=== PATIENT | male | born 1940 | race Caucasian/White ===

== ENCOUNTER → 2016-08-28 | Outpatient (REF) | payer MEDICARE ==
[2016-08-28 12:40] LABS: BASO % 0.5 % (0.0-1.0); EOS # 0.2 K/mm3 (0.0-0.50); EOS % 2.9 % (0.0-3.0); LARGE UNSTAINED CELL # 0.1 K/mm3 (0.0-0.4); LARGE UNSTAINED CELL % 1.5 % (0.0-4.0); LYMPH # 0.9 K/mm3 (1.5-4.5); LYMPH % 14.1 % (24.0-44.0); MEAN CORPUSCULAR HEMOGLOBIN 29.1 pg (27.0-33.0); MEAN CORPUSCULAR HGB CONC 35.1 g/dl (32.0-36.5); MEAN CORPUSCULAR VOLUME 82.9 fl (80.0-96.0); MONO # 0.3 K/mm3 (0.0-0.8); MONO % 5.1 % (0.0-5.0); NEUTROPHILS # 4.9 K/mm3 (1.8-7.7); NEUTROPHILS % 75.9 % (36.0-66.0); PLATELET COUNT, AUTOMATED 130 k/mm3 (150-450); RED CELL DISTRIBUTION WIDTH 13.6 % (11.5-14.5); WHITE BLOOD COUNT 6.4 K/mm3 (4.0-10.0)
[2016-08-28 13:06] LABS: ALBUMIN 4.4 GM/DL (3.2-5.2); ALBUMIN/GLOBULIN RATIO 1.47 (1.00-1.93); ALKALINE PHOSPHATASE 55 U/L (45-117); ALT/SGPT 30 U/L (12-78); ANION GAP 8 MEQ/L (8-16); AST/SGOT 19 U/L (15-37); BILIRUBIN,TOTAL 0.7 MG/DL (0.2-1.0); BLOOD UREA NITROGEN 14 MG/DL (7-18); CALCIUM LEVEL 9.2 MG/DL (8.8-10.2); CARBON DIOXIDE LEVEL 30 MEQ/L (21-32); CHLORIDE LEVEL 105 MEQ/L (98-107); CHOLESTEROL LEVEL 162 MG/DL (<200); CREATININE FOR GFR 1.01 MG/DL (0.70-1.30); GLOMERULAR FILTRATION RATE > 60.0 (>42); GLUCOSE, FASTING 92 MG/DL (83-110); POTASSIUM SERUM 4.6 MEQ/L (3.5-5.1); SODIUM LEVEL 143 MEQ/L (136-145); TOTAL PROTEIN 7.4 GM/DL (6.4-8.2); TRIGLYCERIDES LEVEL 92 MG/DL (<150)
== END ==
LOC: M SFHCADAM 09:57
PROVIDERS: ATTEND Physician Assistant Medical
DX: R73.01 Impaired fasting glucose (principal); E78.4 Other hyperlipidemia; M15.9 Polyosteoarthritis, unspecified; K21.9 Gastro-esophageal reflux disease without esophagitis; K22.710 Barrett's esophagus with low grade dysplasia; N40.0 Benign prostatic hyperplasia without lower urinary tract symptoms; I11.9 Hypertensive heart disease without heart failure; G63 Polyneuropathy in diseases classified elsewhere
CPT/HCPCS: 80053; 80061; 82043; 83036; 84443; 85025; G0463

== ENCOUNTER → 2018-02-09 | Outpatient (CLI) | payer OTHER, MEDICARE | LOC: M SLEEP 19:36 | DX: R40.0 Somnolence (principal) | CPT/HCPCS: 95810 ==

== ENCOUNTER → 2018-04-04 | Outpatient (CLI) | payer OTHER | LOC: M SLEEP 20:00 | DX: G47.33 Obstructive sleep apnea (adult) (pediatric) (principal) | CPT/HCPCS: 95811 ==

== ENCOUNTER → 2018-11-30 | Outpatient (REF) | payer OTHER ==
[~2018-11-30] MED LIST: CALC600T36 PO; CIDA500T2 PO; FINA5TAB2 PO; FISH306C PO; FLOM0.4C39 PO; GABA-843 PO; LISI-542 PO; MULTCAP PO; OMEP10CASR PO; SIMV20TA2 PO; SPIR-10 PO; WARF-23 PO
[2018-11-30 10:38] LABS: HEMATOCRIT 40.5 % (42.0-52.0); HEMOGLOBIN 13.7 g/dl (13.5-17.5); MEAN CORPUSCULAR HGB CONC 33.8 g/dl (32.0-36.5); MEAN CORPUSCULAR VOLUME 82.8 fl (80.0-96.0); PLATELET COUNT, AUTOMATED 122 10^3/uL (150-450); RED BLOOD COUNT 4.89 10^6/uL (4.30-6.10); WHITE BLOOD COUNT 4.4 10^3/uL (4.0-10.0)
[2018-11-30 11:21] LABS: ALBUMIN 4.4 GM/DL (3.2-5.2); BLOOD UREA NITROGEN 18 MG/DL (7-18); CALCIUM LEVEL 9.4 MG/DL (8.8-10.2); CARBON DIOXIDE LEVEL 27 MEQ/L (21-32); CHLORIDE LEVEL 101 MEQ/L (98-107); CREATININE FOR GFR 0.98 MG/DL (0.70-1.30); GLOMERULAR FILTRATION RATE > 60.0 (>42); GLUCOSE, FASTING 120 MG/DL (70-100); MAGNESIUM LEVEL 1.9 MG/DL (1.8-2.4); PHOSPHORUS LEVEL 3.5 MG/DL (2.5-4.9); POTASSIUM SERUM 4.2 MEQ/L (3.5-5.1); SODIUM LEVEL 135 MEQ/L (136-145)
== END ==
LOC: M LABDRAW1 10:24
PROVIDERS: ATTEND Internal Medicine Cardiovascular Disease
DX: I44.30 Unspecified atrioventricular block (principal)

== ENCOUNTER 2018-12-06 12:10 | Day surgery (SDC) | payer OTHER ==
[~2018-12-06] VITALS: Ht 170.2 cm; Wt 78.3 kg
[2018-12-06] VITALS (10 sets, daily range): BP systolic 117–163; BP diastolic 53–77
[~2018-12-06 12:10] MED LIST changes: +LR 1,000 ML IV ONE
[2018-12-06 12:50] LABS: INR 1.19; PARTIAL THROMBOPLASTIN TIME 28.8 SECONDS (25.4-37.6); PROTHROMBIN TIME 15.3 SECONDS (12.1-14.4)
[2018-12-06] MEDS ORDERED: PROPOFOL 200 MG/20 ML VIAL As Ordered ONE ×2 (13:38→15:02)
[2018-12-06] MEDS ORDERED: fentaNYL 100 MCG/2 ML INJECTION (J3010) As Ordered ONE (13:38)
[2018-12-06] MEDS ORDERED: MIDAZOLAM INJ 2 MG/2 ML VIAL (J2250) As Ordered ONE (13:38)
[2018-12-06] MEDS ORDERED: LIDOCAINE 1% SDV INJ 30 ML VIAL As Ordered ONE (14:09)
[2018-12-06] MEDS ORDERED: AMIODARONE HCL 150 MG/100 ML PREMIXED BAG (NEXTERONE) As Ordered ONE (14:10)
[2018-12-06] MEDS ORDERED: ePHEDrine SULFATE 25 MG/5 ML(5MG/ML) SYRINGE As Ordered ONE (14:47)
[2018-12-06] MEDS ORDERED: PHENYLephrine HCL 500 MCG/5 ML (100MCG/ML) SYRINGE (J2370) As Ordered ONE (15:07)
[2018-12-06] MEDS ORDERED: ACETAMINOPHEN TAB 650MG DOSE (2X325MG) PO PRN (15:45)
--- NOTE | 2018-12-06 17:43 | REP ---
PORTABLE CHEST: AP portable view of the chest is performed and compared to prior study 11/10/2006. There is mild cardiomegaly and pulmonary venous hypertension. There are chronic lung markings on the right lung base with probable mild atelectatic change. There is mild patchy atelectasis or infiltrate in the left lung base with possibly a small left pleural effusion. There is calcification of the thoracic aorta. There are degenerative changes of the spine. There is a left single lead pacemaker with the single lead appearing in good position in the region of the right ventricle. There is no pneumothorax. Electronically Signed by Johnnie Strong MD 12/06/2018 06:35 P
[2018-12-06] MEDS ORDERED: LISINOPRIL 5 MG TAB PO SCH (21:00)
[2018-12-06] MEDS ORDERED: SIMVASTATIN 20 MG TAB PO SCH (21:00)
[2018-12-06] MEDS: GABAPENTIN 300 MG CAP PO SCH (22:24)
--- NOTE | 2018-12-07 00:42 | ECGEPIP ---
Stationary ECG Study 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
[2018-12-07 04:00] VITALS: BP 138/67
[2018-12-07] MEDS: GABAPENTIN 300 MG CAP PO SCH ×2 (06:39→08:51)
--- NOTE | 2018-12-07 06:40 | RO ---
DATE OF PROCEDURE: 12/06/2018 PROCEDURE: Implantation of single chamber ventricular demand pacemaker. 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 Yvon Sun ANESTHESIOLOGIST: Dr. Ulrich PREOPERATIVE DIAGNOSES: 1. Intermittent high-grade AV block. 2. Chronic atrial fibrillation. 3. PVCs due to intermittent profound bradycardia and pauses. 4. Congestive heart failure (diastolic dysfunction). 5. Hypertensive heart disease (benign with heart failure). POSTOPERATIVE DIAGNOSES: 1. Intermittent high-grade AV block. 2. Chronic atrial fibrillation. 3. PVCs due to intermittent profound bradycardia and pauses. 4. Congestive heart failure (diastolic dysfunction). 5. Hypertensive heart disease (benign with heart failure). ANESTHESIA: Monitored local anesthesia. CLINICAL SUMMARY: This 78-year-old retired resident of [place] is well-known to my cardiology practice having hypertensive and pulmonary heart disease with nonobstructive coronary disease complicated by abnormal EKG, atrial fibrillation, heart failure (diastolic dysfunction) and AV marky disease. He had been on beta-yahir therapy, but this was discontinued because of bradycardia and lightheadedness. An event monitor was placed on 10/12/2018 for 30 days and showed underlying atrial fibrillation with ventricular response that varied between 22 and 96 BPM with 31 episodes of palpitations that did not appear to correlate with any definite rhythm change. There were 103 asymptomatic auto trigger transmissions correlating with slow ventricular responses in the low 30s and as low as 21 beats per minute and multiple 3-second pauses or longer with longest 4 seconds. With his markedly slow ventricular responses, there were frequent prolonged pauses and PVCs with 1 run of accelerated idioventricular rhythm. In light of this, permanent single chamber pacemaker implant was advised. His effort limiting symptom has been dyspnea. He has had an impressive weight loss with diuretic therapy and dietary measures. He continued to have palpitations, but interestingly lightheaded episodes were less off atenolol. He denied chest pain or actual collapse. On examination, he was a slightly barrel-chested elderly male with protuberant abdomen. He laid comfortably with head of the bed elevated 30 degrees. Heart rate of 36-64 BPM and irregular, blood pressure 120/52, respiratory rate 16, BMI 27.6. No pallor or cyanosis. Trachea midline. Current neck veins were at the level of the sternal angle. Increased anteroposterior chest diameter with reduced chest excursion. Fair air entry over both lung suazo with no current inspiratory rales. Slight prolongation of expiration. Apical impulse not palpable. Heart sounds were distant. No audible gallop or rub. Variable systolic ejection murmur averaging 2/6 at the right base. Normal carotid upstrokes with variable volume related to his arrhythmia. No current dependent edema. Abdomen soft and overweight. Normal liver span. LABORATORY DATA: Complete blood count showed a hemoglobin of 14.5, normal white blood cell count and platelet count. Normal electrolytes with BUN 17, creatinine 1.0. Off his warfarin therapy for 3 days his current was PT/INR was 15.3/1.2. DESCRIPTION OF PROCEDURE: With the patient in the fasting state having signed informed consent and receiving Ancef 2 grams IV, he was taken to the operating theater. Numerous skin electrodes were applied to facilitate continuous electrocardiographic monitoring. The left subclavian region was prepped and draped in usual fashion and the skin was infiltrated with 1% Xylocaine. The left subclavian/axillary vein was catheterized using the micropuncture technique. A 5 cm linear incision was made several centimeters below and parallel to the left clavicle. Dissection was carried down to the level of the pectoralis fascia and the pocket was fashioned below the level of the incision line. Eight bipolar screw-in active fixation steroid eluting pacing lead was then advanced to the right ventricular outflow track under fluoroscopic and electrocardiographic control. The ventricular lead ([employer], model number [id number]/[id number], serial number [id number]) measurements were: Stimulation threshold 0.8 V/0.4 ms/impedance 731 ohms. The R wave amplitude measured 9.6 mV. This lead was secured in position with the sleeves sutured at its insertion site. It was then connected to a single chamber ventricular demand pacemaker pulse generator ([employer], model number [id number], serial number [id number]), MRI compatible. Appropriate VVI pacing was documented. The generator was then placed in the pocket and secured in position with a suture through the upper right-hand corner of the epoxy header. The subcutaneous tissues were approximated using a running chromic suture and skin was closed using leticia. A dry dressing was applied. The patient was then returned to recovery room in good condition. Estimated blood loss 10 ml. No apparent complications. Postoperative portable upright chest x-ray showed good lead position with no pneumothorax. His postoperative EKG showed underlying atrial fibrillation with spontaneous alternating with appropriately paced ventricular complexes, ventricular complexes having a normal axis and left bundle branch block configuration in keeping with RV outflow tract stimulation. Our plan is to monitor the patient overnight while he receives an additional three doses of Ancef 1 gram IV every 8 hours. We are cautiously optimistic he will be able to be discharged tomorrow morning. His oral anticoagulant will remain on hold for the time being. His other medications have been resumed including lisinopril 5 mg by mouth at bedtime, spironolactone 12.5 mg daily, simvastatin 20 mg at bedtime, Flomax 0.4 mg daily, Neurontin 3 mg by mouth five times daily, Proscar 5 mg daily, Tylenol 650 mg by mouth every 4 hours as needed.
[2018-12-07 08:00] VITALS: BP 126/66
[2018-12-07] MEDS ORDERED: SPIRONOLACTONE 12.5MG PER 1/2 TABLET PO SCH (09:00)
[2018-12-07] MEDS ORDERED: TAMSULOSIN 0.4 MG CAP PO SCH (09:00)
[2018-12-07] MEDS ORDERED: FINASTERIDE 5 MG TAB PO SCH (09:00)
--- NOTE | 2018-12-07 09:48 | REP ---
Chest x-ray: Two views. History: Status post pacemaker. Comparison study: December 06, 2018. Findings: A unipolar pacemaker is seen in the right heart via the left side. The lungs are well inflated and clear. The pleural angles are sharp. The thoracic aorta is calcific. There is no evidence of pneumothorax or hydrothorax. Pulmonary vasculature is not increased. Impression: Pacemaker in place. Otherwise no acute disease. Electronically Signed by Franky Rush MD 12/07/2018 09:39 A
--- NOTE | 2018-12-07 10:45 | IPN ---
CARDIOLOGY PROGRESS NOTE DATE OF SERVICE: 12/07/2018 SUBJECTIVE: The patient has been up in his room without more than mild incisional discomfort following his pacemaker implant yesterday. No other chest pain, shortness of breath, complications, or dizziness. OBJECTIVE: Pleasant, elderly male of medium body build, lying comfortably. Heart rate 60 beats per minute (BPM) and regular with irregularity. Blood pressure 126/66. Respiratory rate 16. Oxygen saturation 94% on room air. Afebrile. Weight 173 pounds. No pallor or cyanosis. Normal oral moisture. Neck veins were not elevated. Slightly increased anterior posterior chest diameter with reduced chest expansion. His left subclavian pacer incision appears to be healing well. Dressing was changed. No dependent edema. MANAGER OF BUSINESS: This shows his chronic atrial fibrillation with controlled ventricular response without negative chronotropic therapy. Appropriate VVI pacing and sensing. CHEST X-RAY: The study reviewed independently shows heart size at least borderline increased with slight unfolded thoracic aorta and calcification in the aortic arch. Pulmonary vasculature was normal. Clear lung suazo with no infiltrate. Lateral projection shows flattened diaphragms suggesting element of hyperinflation. His pacemaker lead in the right ventricle outflow tract is stable in position. No pneumothorax. EKG: Today shows his underlying atrial fibrillation with appropriate VVI pacing. Rate averaging 64 BPM. Paced QRS complexes have a normal axis with left bundle branch block (LBBB) configuration in keeping with RV outflow tract stimulation. No change from postoperative study yesterday. IMPRESSION/PLAN: 1. 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 2. AV block/single chamber pacemaker in situ: This device appears to be healing properly. Complete interrogation was performed today with good intracardiac electrograms and pacing thresholds and estimated battery longevity of 11 years. Chest x-ray confirms stable lead position. He has been encouraged to avoid getting his incision wet and perform only light activities of daily living with his left arm until his leticia are removed in our office. Should he notice any abnormal erythema, swelling or discharge, he will be contacting our office promptly. 3. Chronic atrial fibrillation: Remains off negative chronotropic therapy. His oral anticoagulation will be resumed today. 4. Heart failure (diastolic/chronic): Remains free of any symptom or sign of congestion. He will be resuming his customary modest salt intake restriction with spironolactone and chlorthalidone. 5. Hypertensive heart disease (benign with heart failure): On his current combination medical therapy, his blood pressure is well controlled. At this point, we will be sending him home and he will be resuming his modest salt intake restriction. Activity was to be as tolerated, except for light activity of daily living with his left arm until his leticia are removed. He will be given a clinic visit in my office for 12/13/2018 at 2:15 p.m. His medications will continue with lisinopril 5 mg daily, chlorthalidone 12.5 mg daily, spironolactone 12.5 mg daily, warfarin 5 mg tablets one tablet daily, simvastatin 20 mg at bedtime, omeprazole 20 mg daily, multivitamin one tablet daily, calcium 600 mg tablets two daily, Flomax 0.4 mg daily, Proscar 5 mg daily, and gabapentin 300 mg five times daily. Should he have any questions, he has been encouraged to contact our office.
--- NOTE | 2018-12-07 21:28 | ECGEPIP ---
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
== END 2018-12-07 12:39 | disposition home or self-care (01) ==
LOC: M SDC 12:10 → M PCU 16:29 → M SDC 12-07 12:39
PROVIDERS: ATTEND Internal Medicine Cardiovascular Disease
DX: I44.30 Unspecified atrioventricular block (principal); I48.2 Chronic atrial fibrillation; I50.32 Chronic diastolic (congestive) heart failure; R94.31 Abnormal electrocardiogram [ECG] [EKG]; I11.0 Hypertensive heart disease with heart failure; I27.81 Cor pulmonale (chronic); I25.10 Atherosclerotic heart disease of native coronary artery without angina pectoris; K21.9 Gastro-esophageal reflux disease without esophagitis; G47.30 Sleep apnea, unspecified; Z79.01 Long term (current) use of anticoagulants; Z79.899 Other long term (current) drug therapy; Z87.891 Personal history of nicotine dependence
CPT/HCPCS: 33207; 36415; 71045; 71046; 76000; 85610; 85730; 93005; C1786; C1898; J0690; J2250; J2370; J3010

== ENCOUNTER → 2019-11-06 | Outpatient (REF) | payer OTHER ==
[~2019-11-06] MED LIST changes: -LR 1,000 ML IV ONE; -SIMV20TA2 PO; +SIMV20TA22 PO
== END ==
LOC: M LAB REF 16:46
PROVIDERS: ATTEND Physician Assistant
DX: R05 Cough (principal); Z79.899 Other long term (current) drug therapy
CPT/HCPCS: 87486; 87581; 87633; 87798; U0002

== ENCOUNTER → 2019-11-08 | Outpatient (REF) | payer OTHER ==
[2019-11-08 17:39] LABS: INR 1.91; PROTHROMBIN TIME 21.6 SECONDS (11.8-14.0)
== END ==
LOC: M LABDRAW1 15:53
PROVIDERS: ATTEND Physician Assistant
DX: Z51.81 Encounter for therapeutic drug level monitoring (principal); Z79.899 Other long term (current) drug therapy

== ENCOUNTER 2020-01-04 00:19 | Inpatient (IN) | payer OTHER ==
[~2020-01-04] VITALS: Ht 170.2 cm; Wt 83.5 kg
[~2020-01-04 00:19] MED LIST changes: +WARFARIN SOD 5MG TAB PO SCH
[2020-01-04] MEDS ORDERED: IBUPROFEN 600MG TAB PO ONE (00:45)
--- NOTE | 2020-01-04 01:02 | REPVR ---
PROCEDURE INFORMATION: Exam: CT Head Without Contrast Exam date and time: 01/04/2020 12:34 AM Age: 79 years old Clinical indication: Altered mental status/memory loss; Confusion or disorientation TECHNIQUE: Imaging protocol: Computed tomography of the head without contrast. Radiation optimization: All CT scans at this facility use at least one of these dose optimization techniques: automated exposure control; mA and/or kV adjustment per patient size (includes targeted exams where dose is matched to clinical indication); or iterative reconstruction. COMPARISON: No relevant prior studies available. FINDINGS: Limitations: Examination is limited by motion artifact. Brain: Mild hypodensities in the periventricular white matter in the frontal lobes which are consistent with chronic small vessel ischemic disease. No acute mass effect. Cortical redd-white matter differentiation is preserved. No acute intracranial hemorrhage. Ventricles: Normal. No ventriculomegaly. Bones/joints: Unremarkable. No acute fracture. Sinuses: Visualized sinuses are unremarkable. No fluid levels. Mastoid air cells: Visualized mastoid air cells are well aerated. Soft tissues: Unremarkable. IMPRESSION: Mild hypodensities in the periventricular white matter in the frontal lobes which are consistent with chronic small vessel ischemic disease. Electronically signed by: Christophe Hayes On 01/04/2020 01:01:47 AM
[2020-01-04 01:50] LABS: HEMATOCRIT 34.8 % (42.0-52.0); MEAN CORPUSCULAR HEMOGLOBIN 27.6 pg (27.0-33.0); MEAN CORPUSCULAR HGB CONC 34.5 g/dl (32.0-36.5); MEAN CORPUSCULAR VOLUME 80.2 fl (80.0-96.0); PLATELET COUNT, AUTOMATED 189 10^3/uL (150-450); RED BLOOD COUNT 4.34 10^6/uL (4.30-6.10); WHITE BLOOD COUNT 13.3 10^3/uL (4.0-10.0)
[2020-01-04] MEDS ORDERED: CHLO125TA PO (01:56)
[2020-01-04] MEDS ORDERED: PRED20TA PO (01:56)
[2020-01-04] MEDS ORDERED: OMEP-218 PO (01:56)
[2020-01-04 02:01] LABS: INR 1.64; PROTHROMBIN TIME 19.2 SECONDS (11.8-14.0)
[2020-01-04 02:02] LABS: PARTIAL THROMBOPLASTIN TIME 40.8 SECONDS (25.0-38.4)
[2020-01-04 02:07] LABS: LYMPHOCYTES 1 % (16-44); MONOCYTES 3 % (0-5); NEUTROPHILS 93 % (28-66)
[2020-01-04 02:08] LABS: PLATELET ESTIMATE NORMAL (NORMAL); TOXIC VACUOLATION 1+
[2020-01-04 02:30] LABS: ALBUMIN 2.9 GM/DL (3.2-5.2); ALT/SGPT 49 U/L (12-78); BILIRUBIN,DIRECT 0.7 MG/DL (0.0-0.2); BILIRUBIN,TOTAL 1.3 MG/DL (0.2-1.0); BLOOD UREA NITROGEN 59 MG/DL (7-18); CALCIUM LEVEL 8.3 MG/DL (8.8-10.2); CARBON DIOXIDE LEVEL 24 MEQ/L (21-32); CHLORIDE LEVEL 92 MEQ/L (98-107); CK-MB VALUE MASS 2.2 NG/ML (<3.6); CPK CREATINE PHOSPHOKINASE 796 U/L (39-308); CREATININE FOR GFR 2.22 MG/DL (0.70-1.30); ETHYL ALCOHOL (ETHANOL) < 0.003 % (0.000-0.010); GLOMERULAR FILTRATION RATE 30.6 (>42); GLUCOSE, FASTING 137 MG/DL (70-100); MB/CK RELATIVE INDEX 0.28 (< OR =4); POTASSIUM SERUM 4.4 MEQ/L (3.5-5.1); SODIUM LEVEL 126 MEQ/L (136-145); THYROID STIMULATING HORMONE 0.603 uIU/ML (0.358-3.740); TOTAL PROTEIN 6.7 GM/DL (6.4-8.2); TROPONIN I 0.02 NG/ML (< 0.10)
[2020-01-04] MEDS ORDERED: NS 1,000 ML IV SCH (02:51)
[2020-01-04 04:10] LABS: ERYTHROCYTE SEDIMENTATION RATE 88 mm/hr (0-20)
[2020-01-04 04:12] LABS: URIC ACID 7.5 MG/DL (3.5-7.2)
[2020-01-04] MEDS: NS 1,000 ML IV SCH ×3 (04:31→23:00)
--- NOTE | 2020-01-04 04:41 | REP ---
Clinical: Trauma. Technique: AP and lateral views of the left forearm. Findings: Osseous structures are intact without evidence for acute fracture or dislocation. Peripheral vascular disease noted. No subcutaneous emphysema or foreign body. Impression: No acute fracture or dislocation. Electronically Signed by Betito Meehan MD 01/04/2020 04:33 A
--- NOTE | 2020-01-04 04:42 | REP ---
Clinical: Altered mental status . Comparison: 12/07/2018, 11/08/2019 . Findings: The mediastinum and cardiac silhouette are stable and within normal limits for portable technique. Single lead pacemaker noted. The lung suazo are clear without acute consolidation, effusion, or pneumothorax. Skeletal structures are intact. Impression: No acute cardiopulmonary process appreciated. Electronically Signed by Betito Meehan MD 01/04/2020 04:34 A
[2020-01-04 04:57] VITALS: BP 137/75
[2020-01-04 05:00] VITALS: BP 137/75
--- NOTE | 2020-01-04 05:03 | REP ---
Clinical: Trauma. Technique: AP, lateral, bilateral oblique views left hand . Findings: Moderate to early advanced osteoarthritic degenerative changes are appreciated primarily involving the first and second carpometacarpal joints where subchondral sclerosis/heterogeneity, joint space narrowing and chronic subluxation at the first joint space is noted. Moderate degenerative changes are also noted through the interphalangeal joints including subchondral sclerosis and joint space narrowing. No obvious acute fracture or dislocation. 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 No acute fracture or dislocation. Electronically Signed by Betito Meehan MD 01/04/2020 04:55 A
[2020-01-04] MEDS ORDERED: LORazepam 2 MG TAB PO PRN (05:15)
[2020-01-04] MEDS: SIMVASTATIN 20 MG TAB PO SCH ×2 (05:35→20:38)
[2020-01-04] MEDS: THIAMINE 100 MG TAB PO SCH ×2 (05:35→20:38)
--- NOTE | 2020-01-04 05:50 | HPEPDOC ---
[facility] Medical History & Physical Date of Admission January 04, 2020 Date of Service: January 04, 2020 Primary Care Physician: FAUSTO PRIETO PA-C Attending Physician: Brianna Fraser MD History and Physical CHIEF COMPLAINT: weakness, confusion HISTORY OF PRESENT ILLNESS: Neo Ayala is a 79-year-old male who presented to the emergency department today due to weakness and altered mental status noticed by his at home. About a week ago he woke up with a swollen, red left apical and went to urgent care. He was diagnosed with gout and started on prednisone. He did not have a diagnosis of gout prior to this. He noticed some improvement on the prednisone 20 mg daily for 5 days. Over the course of the following days, he began to notice generalized weakness. He states that he was unable to walk and he began to use a walker that he had his house to help him get around. This progressed to the point where he would get so weak that he was slowly lowered himself to the ground and would not be able to get himself back up. Over the course of the past week. He is also had a cough which has been nonproductive. He has a history of peripheral neuropathy in bilateral feet and hands, although he is unsure of the exact etiology. He states he has seen 2 neurologists who have worked him up and have not been able to give him a definitive reason. He takes gabapentin for this and has not noticed any recent changes or worsening of his neuropathy. PAST MEDICAL HISTORY: 1. Atrial fibrillation, status post pacemaker, on warfarin 2. Chronic diastolic heart failure. 3. Hypertension. 4. Coronary artery disease. 5. Hyperlipidemia. 6. Osteoarthritis in the hands and spine. 7. Peripheral neuropathy of bilateral feet and hands. 8. BRYNN, not using CPAP 9. BPH. PAST SURGICAL HISTORY: 1. Pacemaker placed 11/2018 2. Cataract extraction 3. Tarsal tunnel release - L 4. Dermoid cyst removal SOCIAL HISTORY: Former social smoker. Heavy alcohol use, drinks beer 6/night when alone, more when with friends. States he has not had a drink for the past 5 days. No history of illicit/IV drug use. FAMILY HISTORY: Father had CAD, diabetes, peripheral neuropathy. Mother has hx of CVA. Sister with peripheral neuropathy. ALLERGIES: Please see below. REVIEW OF SYSTEMS: CONSTITUTIONAL: Denies fevers, chills, night sweats, fatigue, unexpected change in weight. HEENT: Denies change in vision, change in hearing. CARDIOVASCULAR: Denies chest pain, palpitations, shortness of breath, lightheade dness. RESPIRATORY: Endorses cough as noted in HPI. Denies dyspnea, wheezing. GASTROINTESTINAL: Denies nausea, vomiting, abdominal pain, diarrhea, constipation, blood in stool. GENITOURINARY: Denies dysuria, urinary frequency, urinary urgency. SKIN: Endorses skin changes as noted in HPI. MUSCULOSKELETAL: Endorses joint pain as noted in HPI. NEUROLOGICAL: Endorses weakness as noted in HPI. Denies headache, dizziness. PSYCHIATRIC: Denies change in mood. HOME MEDICATIONS: Please see below. PHYSICAL EXAMINATION: VITAL SIGNS: See below GENERAL: Alert, comfortable, in no acute distress HEENT: Normocephalic, atraumatic, PERRLA, EOMI, sclera anicteric, moist mucous membranes NECK: Supple, trachea midline, no lymphadenopathy, no JVD CARDIOVASCULAR: Regular rate and rhythm, normal S1 and S2. No murmurs, rubs, or gallops RESPIRATORY: Clear to auscultation bilaterally with equal air entry bilaterally. No wheezing, rhonchi, or rales. ABDOMEN: Soft, nontender, appears rounded, somewhat distended, bowel sounds present EXTREMITIES: Swelling over the left ankle and foot with tenderness to palpation over the ankle joint. Swelling over the left hand and wrist with tenderness to palpation over the wrist. SKIN: Erythema noted over the left ankle and left wrist extending up the forearm. NEUROLOGIC: Alert and oriented 3 to person, place and time. No focal deficits appreciated PSYCHIATRIC: Mood and affect appropriate LABORATORY DATA: See below. MICROBIOLOGY: Please see below. ASSESSMENT: 79-year-old male with a one-week history of worsening generalized weakness and altered mental status, admitted for sepsis concerning for septic arthritis and hyponatremia PLAN: 1. Sepsis secondary to septic arthritis versus cellulitis versus unknown etiology - presented with temperature 101.3, WBC 13.3, HR 138, RR 24, meets 4/4 SIRS criteria for sepsis - concern for dehydration which could contribute to the SIRS criteria - CXR negative, respiratory panel negative, COVID-19 negative, blood cultures x2 pending. - concern for septic arthritis, orthopedic surgery consulted, appreciate their recommendations - Elevated CRP=31.9 and ESR=88. Elevated FH=398 - Stareted on antibiotics with IV vancomycin (day #1) for suspected septic arthritis. 2. Hyponatremia - Na = 126 - concern for dehydration with diaphoresis, poor oral intake. - check serum and urine osmolality, urine sodium - IV fluids with NS 3. Acute kidney injury - likely prerenal secondary to dehydration - check UA, serum and urine osmolality, urine sodium - IV fluids with NS 4. Alcohol abuse - states he has not used alcohol in the past 5 days, otherwise heavy alcohol use - [facility] protocol with prn ativan. Supplement thiamin, folic acid, and multivitamin 5. Altered mental status - secondary to sepsis vs. side effect of prednisone vs. dehydration vs. alcohol abuse/withdrawal - oriented x4 to person, place, time, and situation on admission examination - head CT negative for acute changes. No focal neurologic deficits on exam - ammonia level normal. Slightly elevated 6. Left ankle and right wrist swelling - concerning for septic arthritis as noted above - gout/pseudogout less likely unless there is another source of the sepsis, hold steroids for now. uric acid =7.5 - cannot proceed with ankle MRI due to pacemaker. hold off on CT with contrast due to JESSICA, day team and orthopedic team to consider further imaging - started on antibiotics as noted above. 7. Atrial fibrillation. - s/p pacemaker placement. on telemetry - hold warfarin for possible orthopedic surgical intervention. 8. Chronic diastolic heart failure with hypertension and hyperlipidemia - continue home spironolactone and chlorthalidone - continue home simvastatin 9. Peripheral neuropathy of bilateral feet and hands. - continue home gabapentin 10. BPH. - continue home tamsulosin and finasteride GERD - continue home omeprazole DVT prophylaxis: teds/scds GI prophylaxis: not currently indicated, on home PPI Disposition: admitted inpatient to PCU, ortho consult pending Vital Signs Vital Signs Date Time Temp Pulse Resp B/P (MAP) Pulse Ox O2 Delivery O2 Flow Rate FiO2 01/04/20 04:01 86 95 01/04/20 03:00 99.1 18 119/56 (77) Room Air Laboratory Data Labs 24H Laboratory Tests 2 01/04/20 01:24: Neutrophils (%) (Auto) , Nucleated Red Blood Cells % (auto) 0.0, Neutrophils 93H, Band Neutrophils 3, Lymphocytes (Manual) 1L, Monocytes (Manual) 3, Toxic Vacuolation 1+, Platelet Estimate NORMAL, Erythrocyte Sedimentation Rate 88H, Prothrombin Time 19.2H, Prothromb Time International Ratio 1.64, Activated Partial Thromboplast Time 40.8H, Anion Gap 10, Glomerular Filtration Rate 30.6L, Uric Acid 7.5H, Calcium Level 8.3L, Total Bilirubin 1.3H, Direct Bilirubin 0.7H, Aspartate Amino Transf (AST/SGOT) 56H, Alanine Aminotransferase (ALT/SGPT) 49, Alkaline Phosphatase 64, Ammonia 12, Total Creatine Kinase 796H, Creatine Kinase MB 2.2, Creatine Kinase MB Relative Index 0.28, Troponin I 0.02, C-Reactive Protein, Quantitative 31.90H, Total Protein 6.7, Albumin 2.9L, Albumin/Globulin Ratio 0.8, Thyroid Stimulating Hormone (TSH) 0.603, Ethyl Alcohol Level < 0.003 01/04/20 01:26: Lactic Acid Level 1.6, Coronavirus (COVID-19)(PCR) NEGATIVE 01/04/20 01:34: Bedside Glucose (Misc Panel) 141H CBC/BMP Laboratory Tests 01/04/20 01:24 Microbiology Microbiology 01/04/20 Respiratory Virus Panel (PCR) ([facility]) - Final, Complete 01/04/20 Blood Culture, Received Pending 01/04/20 Blood Culture, Received Pending Home Medications Scheduled Calcium Carbonate (Calcium) 600 Mg Tablet, 600 MG PO DAILY Chlorthalidone (Chlorthalidone) 25 Mg Tablet, 12.5 MG PO DAILY Finasteride (Finasteride) 5 Mg Tablet, 5 MG PO DAILY Gabapentin (Gabapentin) 300 Mg Capsule, 300 MG PO 5XD Glucosamine/Chondr James A Sod (Cidaflex Tablet) 1 Each Tablet, 1 TAB PO DAILY Multivitamin (Multivitamins) 1 Each Capsule, 1 CAP PO DAILY [place]-3/Dha/Epa/Fish Oil (Fish Oil 500 mg Softgel) 1 Each Capsule, 1 CAP PO DAILY Omeprazole (Omeprazole) 20 Mg Capsule.dr, 20 MG PO DAILY Prednisone (Prednisone) 20 Mg Tablet, 20 MG PO TID Simvastatin (Simvastatin) 20 Mg Tablet, 20 MG PO QHS Spironolactone (Spironolactone) 25 Mg Tablet, 12.5 MG PO DAILY Tamsulosin HCl (Flomax) 0.4 Mg Capsule, 0.4 MG PO BID Warfarin Sodium (Warfarin Sodium) 5 Mg Tablet, 5 MG PO QPM @1700 Allergies Coded Allergies: No Known Allergies (Unverified , 12/02/18) GME ATTESTATION GME ATTESTATION My faculty preceptor for this patient encounter was physically present during the encounter and was fully available. All aspects of the patient interview, examination, medical decision making process, and medical care plan development were reviewed and approved by the faculty preceptor. The faculty preceptor is aware and concurs with the plan as stated in the body of this note and will attest to such by his/her cosignature. ATTENDING NOTE HISTORY OF PRESENT ILLNESS: Patient is a 79 y/o M with PMH of atrial fibrillation on Coumadin, CHF, hypertension, hyperlipidemia, sleep apnea, neuropathy, arthritis, history of tobacco use, gout who presented to [facility] emergency room after having increased altered mental status and generalized weakness. The patient s tates abnormal symptoms began 5 days ago when he had a gout flare-up in his left medial ankle. He was treated as outpatient with oral prednisone. He states his gout and associated pain improved only some. His pain was localized to the left medial ankle, sharp in character, 9 out of 10 on pain scale initially and was now 6 out of 10. Over the past 5 days he states he became increasingly lethargic, fell multiple times at home including get himself off of the floor to his bed. He also complained of having dry mouth and was drinking a lot of water at home. He was febrile, developed abdominal cramping, chills and noticed that his urine was very dark. He denied chest pain, coughing, palpitations. His became concerned today when he was noted to be more confused and was very diaphoretic at home and appeared to have increased shortness of breath. In the emergency room the patients vital signs showed temperature 101.3, pulse 138, respiratory rate 2224, blood pressure 165/69, 95% on room air. The patient was started on IV fluids as he had dry oral mucosa. Sodium came back at 126, the patient has started no new medications to cause this and admits to drinking excessive amount of water at home. Upon trending his sodiums in the past, sodiums have always been around 135. Creatinine was 2.22, white count 13,000. Troponin negative, creatinine kinase 796. Chest x-ray and CT of the head showed no acute findings. On exam it was noted that the patient had left hand and forearm swelling, erythema concerning for cellulitis. His left medial ankle appeared to be very swollen and slightly bruised, tender to touch and warm to touch. Inflammatory markers showed ESR elevated at 88, CRP 31.9. Orthopedic surgery was consulted and case was discussed. At this time orthopedic surgery will not be coming in to aspirate left ankle; however, due to urgency of treatment with diagnosis of sepsis, will start on IV vancomycin. The patient was admitted as acute inpatient for sepsis, left ankle swelling rule out septic joint versus gouty flare, acute hyponatremia, left hand cellulitis. ROS: Negative except for what is mentioned above PMH, PSurgHx, Social and Family Hx as mentioned in resident note PHYSICAL EXAMINATION: CONSTITUTIONAL: Diaphoretic male, lethargic, Awake and O x 3 EYES: PERRLA, EOM intact HENT, MOUTH: Normocephalic, atraumatic,dry mucous membranes NECK: SUPPLE, no JVD, no lymphadenopathy, no carotid bruit CV: irregularly irregular rhythm, S1S2 normal, no murmurs/rubs/gallops RESPIRATORY: CTAB, no wheezing/rhonchi/rales. GI: Obese abdomen, BS positive in 4 quadrants, soft, mild tenderness to deep palpation in RUQ, distended, no rebound or guarding, no organomegaly : Deferred MUSCULOSKELETAL: Decreased ROM of left medial ankle and left wrist. Swelling, rednesss and warmth of left medial ankle. No cyanosis, clubbing, joint deformity. INTEGUMENTARY: Redness,swelling, warmth and tenderness of left medial ankle. Left hand and left forearm redness and warmth, extending up left forearm. No rashes NEUROLOGIC: Cranial Nerves II-XII are intact, no focal deficits IMAGING: Hand XR: Moderate to early advanced osteoarthritic degenerative changes. No acute fracture or dislocation. Radius/ulna XR: No acute fracture or dislocation. Chest XR: No acute cardiopulmonary process appreciated. Head CT: Mild hypodensities in the periventricular white matter in the frontal lobes which are consistent with chronic small vessel ischemic disease. ASSESSMENT: 79 y/o M admitted for sepsis, left ankle swelling r/o septic joint vs. gout flare, acute hyponatremia PLAN: 1. Left ankle swelling, gout flare vs. septic joint. Sepsis criteria met with elevated WBC, ESR, CRP and uric acid. Discussed with orthopedic surgery who states cannot come in to do tap of left ankle now, so started on IV Vancomycin adjusted for renal function. Orthopedic consult placed to see this AM. Holding off on prednisone or other gout treatment with renal impairment. CT left ankle to be ordered, cannot do MRI with hx of PM. Consider IR to aspirate left ankle. 2. Sepsis, r/o left arm/hand cellulitis vs. left ankle vs. other source at this time. Left hand XR above, CT ankle to be ordered. UA is also still pending. Starting on Vancomycin, consider adding ceftriaxone if does not improve while waiting for UA. 3. Acute hyponatremia likely 2/2 to water consumption. Urine sodium and osmolality ordered. Started on NSS at 100 cc/hr. F/u AM sodium. 4. Altered mental status likely multifactorial to sepsis and hyponatremia. Improving with IVFs and was appropriate with us on exam. C/w treatment for individual issues above. 5. Atrial fib with RVR. Improving with IVFs. C/w home medications, Coumadin. Subtherapeutic INR, will not bridge with therapeutic heparin/lovenox due to possible aspiration of ankle. Will leave up to AM team to decide to start. 6. Acute kidney injury. Cr 2.22, no prior history. C/w IVFs, avoid nephrotoxic meds. F/u AM labs. 7. Alcohol abuse. Last drink 5-6 days ago according to patient, when gouty flare took place. Not concerned for withdrawl. CIWA initiated, MV, thiamine, folic acid. 8. CHF, type unknown. Hx of PM. CXR wnl, BNP pending. Trop neg. Holding spironolactone, other diuretics due to sepsis. Restart as soon as is safe. 9. HTN. Stable. Holding diuretics. 10. HLD. C/w statin. 11. BPH. C/w home meds. 12. GERD. C/w PPI. 13. BRYNN. C/w home CPAP. 14. Arthritis. Avoid NSAIDS. Tylenol PRN. 15. DVT px. Coumadin, SCDs, teds. DISPOSITION: Patient was admitted as acute inpatient. I saw patient with resident and agree with findings as documented by them and the additional findings above. AM team to follow. TIERNEY LEMUS D.O. January 04, 2020 05:50 Brianna Fraser MD January 04, 2020 05:53
[2020-01-04 05:56] LABS: HEMATOCRIT 35.3 % (42.0-52.0); HEMOGLOBIN 12.2 g/dl (13.5-17.5); MEAN CORPUSCULAR HGB CONC 34.6 g/dl (32.0-36.5); PLATELET COUNT, AUTOMATED 171 10^3/uL (150-450); RED BLOOD COUNT 4.36 10^6/uL (4.30-6.10); WHITE BLOOD COUNT 12.1 10^3/uL (4.0-10.0)
[2020-01-04] MEDS ORDERED: CEFTAROLINE FOSAMIL 300 MG in D5W 50 ML IV SCH (06:00)
[2020-01-04] MEDS ORDERED: VANCOMYCIN HCL 1,000 MG, VIAL MATE ADAPTER 1 EACH in D5W 250 ML IV ONE ×2 (06:00→07:00)
--- NOTE | 2020-01-04 06:01 | PHACANCOPD ---
PHARMACY VANCOMYCIN DOSING Pt Demographics Demographics Patient Age:79 , Weight:84.300 , Gender: male Adjusted Body Weight Date: 01/04/20, Adjusted Body Weight: Kg Events Past 24 Hours Events Past 24 Hours: NO: Dialysis, Diuretic Therapy, Change in CrCl, Fever, Elevation in WBC, Pending Diagnostics, Pending Procedures, Other Vancomycin Vancomycin Target Ranges: 15-20 mcg/ml Vancomycin Load Y/N: Yes Load Dose Date Time Vancomycin Load Dose:2000MG Date: 01-03 Time: 0600 Vancomycin Dose Date: 01/04/20. Current Vancomycin Dose: [1G Q24H] Intermittent Dosing?: No Labs Labs Item Value Date Time White Blood Count 12.1 10^3/uL H 01/04/20 0533 Glomerular Filtration Rate 30.6 L 01/04/20 0124 Creatinine 2.22 MG/DL H 01/04/20 0124 Blood Urea Nitrogen 59 MG/DL H 01/04/20 0124 Vital Signs Label Value Date Time Patient Temperature 99.1 degrees F 01/04/20 0300 Temperature Source Oral 01/04/20 0300 Micro Microbiology 01/04/20 Respiratory Virus Panel (PCR) ([facility]) - Final, Complete 01/04/20 Blood Culture, Received Pending 01/04/20 Blood Culture, Received Pending Creatinine Clearance Date:01/04/20. Creatinine Clearance: [~25]. Pending Labs Trough 05- @0500 Assessment and Plan Maintaining Current Dose?: Yes Reason for dose change: No Dose Change Pharmacist Note Pharmacist Note Date: 01/04/20. Pharmacist note:Will monitor and make adjustments as needed. OCTAVIO POND [facility] January 04, 2020 06:01
[2020-01-04 06:17] LABS: ALBUMIN 2.7 GM/DL (3.2-5.2); BILIRUBIN,TOTAL 1.3 MG/DL (0.2-1.0); CALCIUM LEVEL 8.5 MG/DL (8.8-10.2); CREATININE FOR GFR 2.46 MG/DL (0.70-1.30); GLOMERULAR FILTRATION RATE 27.2 (>42); POTASSIUM SERUM 4.1 MEQ/L (3.5-5.1); TOTAL PROTEIN 7.5 GM/DL (6.4-8.2)
[2020-01-04] MEDS: VANCOMYCIN HCL 1,000 MG, VIAL MATE ADAPTER 1 EACH in D5W 250 ML IV SCH (07:25)
[2020-01-04 08:00] VITALS: BP 136/66
[2020-01-04] MEDS: OMEPRAZOLE 20 MG CAP PO SCH (08:57)
[2020-01-04] MEDS: TAMSULOSIN 0.4 MG CAP PO SCH ×2 (08:57→20:38)
[2020-01-04] MEDS: FINASTERIDE 5 MG TAB PO SCH (08:57)
[2020-01-04] MEDS: MULTIVITAMINS/MINERALS THERAP 1 TAB PO SCH (08:57)
[2020-01-04] MEDS: GABAPENTIN 300 MG CAP PO SCH ×2 (08:58→20:38)
[2020-01-04] MEDS: FOLIC ACID 1 MG TAB PO SCH (08:58)
[2020-01-04] MEDS ORDERED: SPIRONOLACTONE 25 MG TAB PO SCH (09:00)
[2020-01-04] MEDS ORDERED: CHLORTHALIDONE 12.5MG PER 1/2 TABLET PO SCH (09:00)
[2020-01-04 09:11] LABS: OSMOLALITY URINE 510 MOSM/KG (500-800)
[2020-01-04 09:26] LABS: SODIUM,RANDOM URINE 11 MEQ/L
[2020-01-04] MEDS ORDERED: methylPREDNISolone INJ 40 MG/1 ML VIAL (J2920) IV ONE (10:30)
--- NOTE | 2020-01-04 10:44 | IPNPDOC ---
Text Note Date of Service The patient was seen on 01/04/20. NOTE Subjective: Complains of pain in the left ankle and the left wrist but is able to move them. says redness is a little less at the foot but worse on the wrist. Had fevers last night. No fevers this am. PHYSICAL EXAMINATION: VITAL SIGNS: See below GENERAL: Alert, comfortable, in no acute distress HEENT: Normocephalic, atraumatic, PERRLA, EOMI, sclera anicteric, moist mucous membranes NECK: Supple, trachea midline, no lymphadenopathy, no JVD CARDIOVASCULAR: Regular rate and rhythm, normal S1 and S2. No murmurs, rubs, or gallops RESPIRATORY: Clear to auscultation bilaterally with equal air entry bilaterally. No wheezing, rhonchi, or rales. ABDOMEN: Soft, nontender, appears rounded, somewhat distended, bowel sounds present EXTREMITIES: Swelling over the left ankle and foot with tenderness to palpation over the ankle joint. Swelling over the left hand and wrist with tenderness to palpation over the wrist. SKIN: Erythema noted over the left ankle and left wrist extending up the forearm. Blister on the left lateral malleoli. NEUROLOGIC: Alert and oriented 3 to person, place and time. No focal deficits appreciated PSYCHIATRIC: Mood and affect appropriate LABORATORY and radiology : reviewed. 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 About a week ago he woke up with a swollen, red left apical and went to urgent care. He was diagnosed with gout and started on prednisone. He did not have a diagnosis of gout prior to this. He noticed some improvement on the prednisone 20 mg daily for 5 days. Over the course of the following days, he began to notice generalized weakness. He states that he was unable to walk and he began to use a walker that he had his house to help him get around. This progressed to the point where he would get so weak that he was slowly lowered himself to the ground and would not be able to get himself back up. Over the course of the past week. He is also had a cough which has been nonproductive. He has a history of peripheral neuropathy in bilateral feet and hands, although he is unsure of the exact etiology. Multiple joint inflammation left wrist and left ankle high possibility of polyarticular gout. So this could be SIRS from polyarticular gout. will give methyl pred Sepsis is possible from the cellulitis of the ankle or some other source will continue vancomycin UA neg, CXR neg, Blood cultures pending, Will get US abdomen due to distention and to rule out an possibility of an intraabdominal source of infection. If positive will need echo in view of the presence of pacemaker. Septic arthritis less likely as involving multiple joints at the same time However he could have a focal septic arthritis in his ankle with gout Appreciate Ortho consultation Cellulitis around the left ankle with blister will continue vancomycin Hyponatremia due to dehydration with poor oral intake, fevers and diuretics at home Urine osmolality 513, urine Na 11 will continue NS. Acute kidney injury likely prerenal secondary to dehydration Will get abdominal US to rule out obstruction continue NS No diuretics, ACEi or ARBS, No NSAIDS Alcohol abuse states he has not used alcohol in the past 5 days, otherwise heavy alcohol use CIWA protocol with prn ativan. 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 hold warfarin for possible orthopedic surgical intervention. Chronic diastolic heart failure with hypertension and hyperlipidemia Hold diuretics for now, continue statin. BP controlled now without any antihypertensives. Peripheral neuropathy of bilateral feet and hands. continue home gabapentin BPH. continue home tamsulosin and finasteride GERD continue home omeprazole DVT prophylaxis: teds/scds GI prophylaxis: on home PPI VS,Fishbone, I+O VS, Fishbone, I+O Laboratory Tests 01/04/20 01:24 01/04/20 05:33 Vital Signs Date Time Temp Pulse Resp B/P (MAP) Pulse Ox O2 Delivery O2 Flow Rate FiO2 01/04/20 08:00 98.3 95 24 136/66 (89) 98 Room Air I&O- Last 24 Hours up to 6 AM 01/04/20 06:00 Intake Total 250 ml Balance 250 ml SUZETTE MORALES MD January 04, 2020 10:44
[2020-01-04 11:09] LABS: URIC ACID 8.2 MG/DL (3.5-7.2)
[2020-01-04 12:00] VITALS: BP 143/64
--- NOTE | 2020-01-04 12:31 | ECGEPIP ---
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
[2020-01-04 16:00] VITALS: BP 128/66
--- NOTE | 2020-01-04 18:52 | CR ---
DATE OF CONSULTATION: 01/04/2020 REASON FOR CONSULTATION: Left ankle and left wrist pain. HISTORY OF PRESENT ILLNESS: Neo Ayala is a 79-year-old male who has an approximately a week long history of left ankle pain and swelling. He has also noticed that he has had redness and pain developed over the dorsum of his hand and wrist. The patient had been seen at urgent care and was diagnosed with gout and was placed on prednisone for five days. He states the prednisone was somewhat helpful. However, over the past few days, the patient had developed generalized weakness and presented to the emergency room. He has peripheral neuropathy in his bilateral feet and hands. He does take gabapentin. He has been able to bear weight but it is somewhat painful on the left side. PAST MEDICAL HISTORY: 1. Atrial fibrillation with pacemaker, on warfarin. 2. Heart failure. 3. Hypertension. 4. Coronary artery disease. 5. Hyperlipidemia. 6. Osteoarthritis. 7. Peripheral neuropathy of bilateral hands and feet. 8. Obstructive sleep apnea (BRYNN). 9. Benign prostatic hypertrophy (BPH). PAST SURGICAL HISTORY: 1. Pacemaker. 2. Cataracts. 3. Left carpal tunnel release. 4. Dermoid cyst removal. SOCIAL HISTORY: The patient is a former smoker. He drinks six beers a night when alone and more than that when he is with friends. No IV drug use. HOME MEDICATIONS: Calcium, chlorthalidone, finasteride, gabapentin, Zanaflex, multivitamin, fish oil, omeprazole, prednisone, simvastatin, spironolactone, Flomax, warfarin. ALLERGIES: No known drug allergies. PHYSICAL EXAMINATION: GENERAL: The patient answers questions appropriately. VITAL SIGNS: Temperature is 98, pulse 102, respiratory rate 16, blood pressure 137/75, pulse oximetry 96% on room air. PULMONARY: Regular unlabored breathing. CARDIOVASCULAR: Regular dorsalis pedis (DP) and radial pulses. MUSCULOSKELETAL: In the left wrist, there is mild swelling and erythema over the dorsum of the hand and forearm. The patient can flex and extend his wrist without any difficulty. He can also supinate and pronate without any pain. He has intact sensation to light touch in the median, ulnar and radial distribution but states it is slightly decreased at baseline. In the left ankle, there is moderate swelling throughout the ankle. There is erythema which spans essentially both the medial and lateral aspects of the ankle. There is only a very small area of the anterior ankle that is not affected. There is a small developing blister over the lateral aspect of the ankle. I can passively range the patient's ankle and foot without any pain. He can also dorsiflex and plantar flex himself with only very mild pain. He has decreased sensation in the superficial peroneal, deep peroneal, and tibialis distribution at baseline. The foot is normally perfused. IMAGING: Left hand x-ray is reviewed. There is moderate osteoarthritis throughout the first and second CMC joints. There are no fractures or dislocations. LABORATORY STUDIES: White blood cell count is 12.1. CRP is 31. ESR is 88. IMPRESSION: Left ankle and wrist cellulitis versus deep infection versus gout PLAN: The patient does have good range of motion without pain of both the left ankle and left wrist. He has cellulitis and has not yet had a trial of IV antibiotics. I did consider aspiration of the ankle to completely rule out a septic ankle. However, it would require me inserting the needle through the area of cellulitis and given the patient has quite good range of motion without any pain, I did not want to take the risk of introducing infection into the tibiotalar joint. At this point, I would give the patient a chance with antibiotics and we will keep a close eye on him. At minimum, I would get an x-ray of the left ankle as it does not appear those have been done yet. If he does not improve with IV antibiotics would consider a CT scan of the ankle and possibly wrist. He may need operative intervention if continues to worsen. Orthopedics will continue to follow him. The patient was seen at 06:00 a.m. this morning 01/04/2020. JASMINA
[2020-01-04 20:00] VITALS: BP_SYST 142; BP_DIAS 68; BP_DIAS 92
--- NOTE | 2020-01-04 20:32 | REPVR ---
PROCEDURE INFORMATION: Exam: CT Abdomen And Pelvis Without Contrast Exam date and time: 01/04/2020 5:34 PM Age: 79 years old Clinical indication: Other: Abdominal distension; Additional info: Sepsis, abterimia, abdominal distension TECHNIQUE: Imaging protocol: Computed tomography of the abdomen and pelvis without contrast. Radiation optimization: All CT scans at this facility use at least one of these dose optimization techniques: automated exposure control; mA and/or kV adjustment per patient size (includes targeted exams where dose is matched to clinical indication); or iterative reconstruction. COMPARISON: No relevant prior studies available. FINDINGS: Heart: Pacemaker electrodes noted within the heart. Lungs: Mild thickening of interlobular septa at the at both lung bases, right side greater mild bronchiectasis of. Liver: Liver is low in density. The liver measures 17.4 cm in craniocaudal span Gallbladder and bile ducts: Normal. No calcified stones. No ductal dilation. Pancreas: Normal. No ductal dilation. Spleen: Normal. No splenomegaly. Adrenals: Normal. No mass. Kidneys and ureters: 4.7 mm calculus lower pole right kidney density of 402 H Stomach and bowel: Unremarkable. No obstruction. No mucosal thickening. Appendix: Not seen as a separate structure. Intraperitoneal space: Unremarkable. No free air. No significant fluid collection. The abdomen Vasculature: Aortic valvular calcifications present. Moderately advanced generalized arterial sclerosis. Lymph nodes: Left external iliac lymph node measuring 2 x 0.9 by 7 mm Bladder: Bladder measures 13.5 x 7.8 by 7.5 cm for a volume of 410 cc Reproductive: Prostate measures 3.3 by 3.6 by 3.4 cm And contains calcification. Bones/joints: Compression fracture at L2 with approximately 40% loss of height of the vertebral body. Compression fracture at L1 with approximately 50% loss of height of the vertebral body. Mild posterior bulging of the inferior endplate of L2. Soft tissues: Small bilateral inguinal hernias containing fat. There is some stranding of the fat of the left psoas muscle which is slightly enlarged compared to the contralateral side. 7 mm umbilical hernia containing fat with no signs of strangulation. IMPRESSION: 1. Hepatic steatosis. 2. Nonobstructing calculus in the right kidney. 3. Mild asymmetric enlargement of the left psoas as compared the the right. Minimal inflammation surrounding the left psoas. The asymmetry could be related to underlying musculoskeletal disease as there is significant degenerative disease within the spine. Intramuscular edema/myositis is another consideration. Does not have the typical appearance of hemorrhage. 4. Interstitial thickening at the lung bases 5. Compression fractures at L1 and L2. Electronically signed by: Annette Romero On 01/04/2020 20:32:48 PM
[2020-01-04] MEDS: ACETAMINOPHEN TAB 650MG DOSE (2X325MG) PO PRN (20:39)
[2020-01-05] VITALS: BP 132/78
[2020-01-05 04:00] VITALS: BP 128/64
[2020-01-05] MEDS: ACETAMINOPHEN 500 MG TAB PO PRN ×2 (05:24→16:00)
[2020-01-05] MEDS: VANCOMYCIN HCL 1,000 MG, VIAL MATE ADAPTER 1 EACH in D5W 250 ML IV SCH (05:24)
[2020-01-05 06:07] LABS: HEMATOCRIT 36.3 % (42.0-52.0); HEMOGLOBIN 12.2 g/dl (13.5-17.5); MEAN CORPUSCULAR HEMOGLOBIN 27.4 pg (27.0-33.0); MEAN CORPUSCULAR HGB CONC 33.6 g/dl (32.0-36.5); MEAN CORPUSCULAR VOLUME 81.4 fl (80.0-96.0); PLATELET COUNT, AUTOMATED 177 10^3/uL (150-450); RED BLOOD COUNT 4.46 10^6/uL (4.30-6.10); WHITE BLOOD COUNT 11.5 10^3/uL (4.0-10.0)
[2020-01-05 06:26] LABS: CREATININE FOR GFR 1.95 MG/DL (0.70-1.30); GLOMERULAR FILTRATION RATE 35.6 (>42); POTASSIUM SERUM 4.2 MEQ/L (3.5-5.1)
[2020-01-05 07:16] VITALS: BP 122/59
[2020-01-05] MEDS: THIAMINE 100 MG TAB PO SCH ×2 (08:08→20:12)
[2020-01-05] MEDS: TAMSULOSIN 0.4 MG CAP PO SCH ×2 (08:08→20:12)
[2020-01-05] MEDS: OMEPRAZOLE 20 MG CAP PO SCH (08:09)
[2020-01-05] MEDS: GABAPENTIN 300 MG CAP PO SCH ×2 (08:09→20:12)
[2020-01-05] MEDS: FOLIC ACID 1 MG TAB PO SCH (08:09)
[2020-01-05] MEDS: FINASTERIDE 5 MG TAB PO SCH (08:09)
[2020-01-05] MEDS: MULTIVITAMINS/MINERALS THERAP 1 TAB PO SCH (08:09)
[2020-01-05] MEDS: NS 1,000 ML IV SCH (09:15)
[2020-01-05] MEDS: ALBUTEROL 90 MCG/ACT 8GM HFA INHALER INH SCH ×3 (09:34→19:34)
--- NOTE | 2020-01-05 10:56 | IPNPDOC ---
Text Note Date of Service The patient was seen on 01/05/20. NOTE Subjective: Complains of pain in the left ankle and the left wrist but is able to move them. Redness has improved a little, blister on the left lateral malleoli bigger, Continues to have fever. Blood cultures coming back positive with staph. Echo has been ordered, will consult ID. PHYSICAL EXAMINATION: VITAL SIGNS: See below GENERAL: Alert, comfortable, in no acute distress HEENT: Normocephalic, atraumatic, PERRLA, EOMI, sclera anicteric NECK: Supple, trachea midline, no lymphadenopathy, no JVD CARDIOVASCULAR: Regular rate and rhythm, normal S1 and S2. No murmurs, rubs, or gallops RESPIRATORY: Mil wheezing on the right on deep breaths. ABDOMEN: Soft, nontender, appears rounded, somewhat distended, bowel sounds present EXTREMITIES: Swelling over the left ankle and foot with tenderness to palpation over the ankle joint. Swelling over the left hand and wrist with tenderness to palpation over the wrist. SKIN: Erythema noted over the left ankle and left wrist extending up the forearm. Blister on the left lateral malleoli. NEUROLOGIC: Alert and oriented 3 to person, place and time. No focal deficits appreciated PSYCHIATRIC: Mood and affect appropriate LABORATORY and radiology : reviewed. 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 About a week ago he woke up with a swollen, red left apical and went to urgent care. He was diagnosed with gout and started on prednisone. He did not have a diagnosis of gout prior to this. He noticed some improvement on the prednisone 20 mg daily for 5 days. Over the course of the following days, he began to notice generalized weakness. He states that he was unable to walk and he began to use a walker that he had his house to help him get around. This progressed to the point where he would get so weak that he was slowly lowered himself to the ground and would not be able to get himself back up. Over the course of the past week. He is also had a cough which has been nonproductive. He has a history of peripheral neuropathy in bilateral feet and hands, although he is unsure of the exact etiology. Staph aureus bacterimia rule out infective endocarditis in the presence of Pacemaker placed in November 2018. On vancomycin Echo ordered ID consult. Multiple joint inflammation ? polyarticular Septic arthritis as blood cultures are positive Vs polyarticular gout with ankle cellulitis However he could have a focal septic arthritis and cellulitis in his ankle along with polyarticular gout Appreciate Ortho consultation continue vancomycin. Sepsis is possible from the cellulitis of the ankle or some other source Blood cultures coming back positive with staph. Echo has been ordered, will consult ID. will continue vancomycin UA neg, CXR neg, CT abdomen negative Echo pending. Cellulitis around the left ankle with blister will continue vancomycin Hyponatremia improving due to dehydration with poor oral intake, fevers and diuretics at home will continue NS. Acute kidney injury prerenal secondary to dehydration No obstruction in CT abdomen continue NS No diuretics, ACEi or ARBS, No NSAIDS Alcohol abuse states he has not used alcohol in the past 5 days, otherwise heavy alcohol use CIWA protocol with prn ativan. Supplement thiamin, folic acid, and multivitamin CT with fatty lever. 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 hold warfarin for possible orthopedic surgical intervention. Chronic diastolic heart failure with hypertension and hyperlipidemia Hold diuretics for now, continue statin. BP controlled now without any antihypertensives. Peripheral neuropathy of bilateral feet and hands. continue home gabapentin BPH. continue home tamsulosin and finasteride GERD continue home omeprazole Chronic back pain has chronic L1 and L2 compression fracture. DVT prophylaxis: teds/scds GI prophylaxis: on home PPI VS,Fishbone, I+O VS, Fishbone, I+O Laboratory Tests 01/05/20 05:49 Vital Signs Date Time Temp Pulse Resp B/P (MAP) Pulse Ox O2 Delivery O2 Flow Rate FiO2 01/05/20 07:16 96.1 83 22 122/59 (80) 96 Room Air I&O- Last 24 Hours up to 6 AM 01/05/20 06:00 Intake Total 3720 ml Output Total 2375 ml Balance 1345 ml SUZETTE MORALES MD January 05, 2020 10:30
[2020-01-05 12:00] VITALS: BP 144/65
[2020-01-05 16:00] VITALS: BP 141/68
[2020-01-05] MEDS ORDERED: FUROSEMIDE 40MG/4ML VIAL (J1940) IV ONE (16:30)
[2020-01-05] MEDS ORDERED: SLF 3 ML SYR IV PRN (16:30)
--- NOTE | 2020-01-05 16:54 | REP ---
Portable chest x-ray: Single view. History: Short of breath. Comparison chest x-ray: January 04, 2020. Findings: Monitoring electrodes are seen. A unipolar pacemaker remains in the right heart via the left side. Heart size is borderline unchanged. Pulmonary vasculature is not increased. Pleural angles are sharp. No significant bony abnormality. Impression: Pacemaker in place. Borderline heart size. Otherwise no acute disease. Electronically Signed by Franky Rush MD 01/05/2020 04:46 P
[2020-01-05] MEDS ORDERED: ALBUTEROL SULFATE 2.5 MG/0.5 ML INH NEB SOLN NEB PRN (17:00)
--- NOTE | 2020-01-05 19:13 | ECHO ---
DATE OF PROCEDURE: 01/05/2020 Date of : 1940 Age: 79 Gender: Male Height: 67 inches Weight: 178 pounds Body surface area: 1.93 meters squared. Inpatient: Progressive care unit (PCU), room 3220 REFERRING PHYSICIAN: Dr. Britni Allen INDICATION: Sepsis. Atrial fibrillation. MEASUREMENTS: 2D Measurements: RV: 3.8 cm LV: 4.4 cm Septum: 1.0 cm Posterior wall: 1.0 cm Aortic root: 3.7 cm LA: 4.7 cm LVEF: 65% Doppler Measurements: AV: 1.8 meters per second LVOT: 0.83 meters per second LVOT diameter: 2.0 cm MV-E: 112 Early mitral deceleration time: 190 milliseconds E prime medial: 7.7 E prime lateral: 13.1 Average E/E prime ratio: 10.8/pulmonary capillary wedge pressure 15.3 mmHg. PV: 0.8 meters per second Pulmonary artery acceleration time: 116 milliseconds RVSP: 48-52 mmHg IVC: 2.2 cm COMMENTS: Underlying atrial fibrillation with controlled ventricular response. No intraventricular conduction disturbance. Fairly frequent isolated premature ventricular contractions (PVCs). No evidence of ventricular pacing. M-mode and two-dimensional echocardiography was performed with pulsed, continuous wave, color flow and tissue Doppler studies. Normal left ventricular size, wall thickness and wall motion during kamille AV conducted beats. Isolated PVCs were associated with paradoxical septal motion. Moderately dilated left atrium with currently normal estimated mean left atrial pressure. Normal right ventricular size and wall motion with Doppler evidence of at least moderate pulmonary hypertension. Moderately dilated right atrium and inferior vena cava (IVC) size upper limits of normal with reduced respiratory collapse in keeping with elevated central venous pressure. Normal aortic dimensions. Mild aortic valvular sclerosis without stenosis and only trace insufficiency. Mild thickening of the mitral valvular apparatus without inflow tract obstruction and only very mild mitral insufficiency. Normal appearing tricuspid valve with mild insufficiency. Pacing lead could be visualized traversing right heart structures. No separate apparent intracardiac mass. No pericardial effusion. If endocarditis is seriously suspect with the observed valvular thickenhing, we would strongly recommend a transesophageal echocardiographic study.
[2020-01-05 20:00] VITALS: BP 158/94
[2020-01-05] MEDS: ACETAMINOPHEN TAB 650MG DOSE (2X325MG) PO PRN (20:12)
[2020-01-05] MEDS: SIMVASTATIN 20 MG TAB PO SCH (20:12)
[2020-01-05] MEDS: SLF 3 ML SYR IV SCH (20:13)
--- NOTE | 2020-01-05 21:29 | REPVR ---
PROCEDURE INFORMATION: Exam: CT Left Lower Extremity Without Contrast, Foot Exam date and time: 01/05/2020 6:52 PM Age: 79 years old Clinical indication: Swelling, leg or foot TECHNIQUE: Imaging protocol: CT of the Left lower extremity without contrast was performed. Exam focused on the foot. Radiation optimization: All CT scans at this facility use at least one of these dose optimization techniques: automated exposure control; mA and/or kV adjustment per patient size (includes targeted exams where dose is matched to clinical indication); or iterative reconstruction. COMPARISON: CR Foot, Ap, Lat LEFT 01/05/2020 6:26 PM FINDINGS: Bones/joints: No fracture or dislocation. There are degenerative changes of the tibiotalar joint with small subchondral cysts. Soft tissues: There is extensive edema within the subcutaneous fat. This is most extensive laterally. There are multiple small foci of gas adjacent to the lateral malleolus. This tracks medially into the region of the sinus tarsi. No fluid collection is identified. IMPRESSION: 1. Extensive edema consistent with cellulitis. There are foci of gas concentrated adjacent to the lateral malleolus and tracking medially. This should be correlated for ulceration at this site. The gas may be entering through an ulcer. It tracks medially into the sinus tarsi. The possibility of early necrotizing fasciitis cannot be excluded. No abscess is identified. 2. Degenerative changes of the ankle joint. No evidence of osteomyelitis. Electronically signed by: Ryan Payan On 01/05/2020 21:28:34 PM
--- NOTE | 2020-01-05 23:02 | REP ---
REASON FOR EXAM: Swelling. No trauma. Only AP and lateral views were obtained, which limits the exam. A two-view exam cannot rule out a fracture. There are mild to moderate degenerative changes seen throughout the foot. There is a small plantar calcaneal heel spur. Vascular calcifications are noted. There is no evidence of significant or focal soft tissue swelling. IMPRESSION: Chronic changes and exam limitations, as described above. Electronically Signed by Reji Montana DO 01/06/2020 08:27 A
[2020-01-05] MEDS: MEROPENEM INJ 1 GM in IV 1 EA IV SCH (23:58)
[2020-01-06] VITALS (17 sets, daily range): BP systolic 106–170; BP diastolic 52–84; O2SAT 94–97
[2020-01-06] MEDS: CLINDAMYCIN 900 MG in IV 1 EA IV SCH ×2 (00:48→08:54)
[2020-01-06] MEDS: ACETAMINOPHEN 500 MG TAB PO PRN (02:04)
[2020-01-06 05:31] LABS: HEMATOCRIT 32.6 % (42.0-52.0); MEAN CORPUSCULAR HEMOGLOBIN 27.6 pg (27.0-33.0); MEAN CORPUSCULAR HGB CONC 33.7 g/dl (32.0-36.5); MEAN CORPUSCULAR VOLUME 81.9 fl (80.0-96.0); PLATELET COUNT, AUTOMATED 158 10^3/uL (150-450); RED BLOOD COUNT 3.98 10^6/uL (4.30-6.10); WHITE BLOOD COUNT 8.9 10^3/uL (4.0-10.0)
[2020-01-06 05:51] LABS: CALCIUM LEVEL 7.7 MG/DL (8.8-10.2); CREATININE FOR GFR 2.29 MG/DL (0.70-1.30); GLOMERULAR FILTRATION RATE 29.6 (>42); VANCOMYCIN LEVEL TROUGH 11.3 UG/ML (10.0-20.0)
[2020-01-06 05:53] LABS: ERYTHROCYTE SEDIMENTATION RATE 96 mm/hr (0-20)
[2020-01-06 05:56] LABS: MONOCYTES 4 % (0-5); NEUTROPHILS 87 % (28-66); PLATELET ESTIMATE NORMAL (NORMAL)
[2020-01-06] MEDS ORDERED: VANCOMYCIN HCL 1,000 MG, VIAL MATE ADAPTER 1 EACH in D5W 250 ML IV SCH (06:00)
--- NOTE | 2020-01-06 06:00 | PHACANCOPD ---
PHARMACY VANCOMYCIN DOSING Pt Demographics Demographics Patient Age:79 , Weight:83.200 , Gender: male Adjusted Body Weight Date: 01/04/20, Adjusted Body Weight: Kg Events Past 24 Hours Events Past 24 Hours: NO: Dialysis, Diuretic Therapy, Change in CrCl, Fever, Elevation in WBC, Pending Diagnostics, Pending Procedures, Other Vancomycin Vancomycin Target Ranges: 15-20 mcg/ml Vancomycin Load Y/N: Yes Load Dose Date Time Vancomycin Load Dose:2000MG Date: 01-03 Time: 0600 Vancomycin Dose Date: 01/06/20. Current Vancomycin Dose: [1G Q18H] Intermittent Dosing?: No Labs Labs Item Value Date Time White Blood Count 8.9 10^3/uL 01/06/20 0505 Glomerular Filtration Rate 29.6 L 01/06/20 0505 Creatinine 2.29 MG/DL H 01/06/20 0505 Blood Urea Nitrogen 68 MG/DL H 01/06/20 0505 Vancomycin Level Trough 11.3 UG/ML 01/06/20 0505 Vital Signs Label Value Date Time Patient Temperature 99.0 degrees F 01/06/20 0400 Temperature Source Oral 01/06/20 0400 Micro Microbiology 01/06/20 Blood Culture, Received Pending 01/04/20 Respiratory Virus Panel (PCR) ([facility]) - Final, Complete 01/04/20 Blood Culture - Preliminary, Resulted Staphylococcus Aureus 01/04/20 Blood Culture - Preliminary, Resulted Staphylococcus Aureus Creatinine Clearance Date:01/06/20. Creatinine Clearance: [~25]. Pending Labs Trough 05-23 @0000 Assessment and Plan Maintaining Current Dose?: No Reason for dose change: Trough too low Pharmacist Note Pharmacist Note Date: 01/06/20. Pharmacist note:Trough of 11.3 is below target range. Dosing increased to 1000mg q18h. Will monitor and make adjustments as needed. OCTAVIO [facility] January 06, 2020 06:00
[2020-01-06] MEDS: SLF 3 ML SYR IV SCH ×3 (06:20→21:20)
[2020-01-06] MEDS: ALBUTEROL 90 MCG/ACT 8GM HFA INHALER INH SCH (07:25)
[2020-01-06] MEDS: MEROPENEM INJ 1 GM in IV 1 EA IV SCH (07:50)
[2020-01-06] MEDS: BACITRACIN OINTMENT 30GM TUBE TOP SCH (09:00)
[2020-01-06] MEDS: OMEPRAZOLE 20 MG CAP PO SCH (10:08)
[2020-01-06] MEDS: FINASTERIDE 5 MG TAB PO SCH (10:08)
[2020-01-06] MEDS: TAMSULOSIN 0.4 MG CAP PO SCH ×2 (10:08→21:00)
[2020-01-06] MEDS: FOLIC ACID 1 MG TAB PO SCH (10:08)
[2020-01-06] MEDS: GABAPENTIN 300 MG CAP PO SCH ×2 (10:08→21:00)
[2020-01-06] MEDS: THIAMINE 100 MG TAB PO SCH ×2 (10:08→21:00)
[2020-01-06] MEDS: NS 1,000 ML IV SCH ×2 (10:09→21:28)
[2020-01-06] MEDS: IPRATROPIUM 0.5MG/ALBUTEROL 2.5MG INH SOL UD 3ML (DUONEB) NEB SCH ×3 (10:15→21:02)
[2020-01-06] MEDS: BUDESONIDE 0.5 MG/2 ML INHALATION SUSPENSION INH SCH ×2 (10:15→21:02)
--- NOTE | 2020-01-06 10:33 | IPNPDOC ---
Text Note Date of Service The patient was seen on 01/06/20. NOTE Subjective: Complains of SOB, wheezing. He has been febrile with a tmax of 102 last night. He is extremely weak cannot even sit up. PHYSICAL EXAMINATION: VITAL SIGNS: See below GENERAL: Awake, oriented, no acute distress. HEENT: Normocephalic, atraumatic, PERRLA, EOMI, sclera anicteric NECK: Supple, trachea midline, no lymphadenopathy, no JVD CARDIOVASCULAR: Regular rate and rhythm, normal S1 and S2. No murmurs, rubs, or gallops RESPIRATORY: Bilateral diffuse wheezing and ronchi. ABDOMEN: Soft, nontender, appears rounded, somewhat distended, bowel sounds present EXTREMITIES: Swelling over the left ankle and foot with tenderness to palpation over the ankle joint. There is a blister on the lateral malleoli with redness now more on the lateral side. Swelling over the left hand and wrist with tenderness to palpation over the wrist. SKIN: Erythema noted over the left ankle and left wrist extending up the forearm. Blister on the left lateral malleoli. NEUROLOGIC: No focal deficits appreciated, decreased strength of lower extremities more than upper PSYCHIATRIC: Mood and affect appropriate LABORATORY and radiology : reviewed. 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 About a week ago he woke up with a swollen, red left apical and went to urgent care. He was diagnosed with gout and started on prednisone. He did not have a diagnosis of gout prior to this. He noticed some improvement on the prednisone 20 mg daily for 5 days. Over the course of the following days, he began to notice generalized weakness. He states that he was unable to walk and he began to use a walker that he had his house to help him get around. This progressed to the point where he would get so weak that he was slowly lowered himself to the ground and would not be able to get himself back up. Over the course of the past week. He is also had a cough which has been nonproductive. He has a history of peripheral neuropathy in bilateral feet and hands, although he is unsure of the exact etiology. SOB with Wheezing, no hypoxia, no crackles H/o smoking in the past Echo : Good EF. CXR : no overt features of CHF. may have copd will give duonebs and budesonide. Staph aureus bacterimia Source cellulitis of ankle / septic arthritis/ infection in psoas muscle on left larger than right in CT. Will need to rule out infective endocarditis in the presence of Pacemaker placed in November 2018. On vancomycin Echo reviewed some thickening of the mitral valve, will need PRAVIN. ID consult appreciated Sepsis from the cellulitis of the ankle or some other source as documented above. Blood cultures coming back positive with staph. On millie, vanco and clinda. UA neg, CXR neg, CT abdomen negative Cellulitis around the left ankle with blister CT ankle noted. Cellulitis with foci of gas concentrated adjacent to the lateral malleolus and tracking medially possible early necrotising fascitis. will continue vancomycin, millie and clinda. Multiple joint inflammation ? polyarticular Septic arthritis as blood cultures are positive Vs polyarticular gout with ankle cellulitis However he could have a focal septic arthritis and cellulitis in his ankle along with polyarticular gout CT of the ankle shows cellulitis and gas on tracking up the lateral side of the leg suspicious for early necrotising fascitis antibiotics expanded to millie, clinda and vanco. Hyponatremia due to dehydration with poor oral intake, fevers and diuretics at home will continue NS. Acute kidney injury prerenal secondary to dehydration No obstruction in CT abdomen continue NS No diuretics, ACEi or ARBS, No NSAIDS Alcohol abuse states he has not used alcohol in the past 5 days, otherwise heavy alcohol use CIWA protocol with prn ativan. Supplement thiamin, folic acid, and multivitamin CT with fatty lever. 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 hold warfarin for possible orthopedic surgical intervention. Chronic diastolic heart failure with hypertension and hyperlipidemia Hold diuretics for now, continue statin. BP controlled now without any antihypertensives. Peripheral neuropathy of bilateral feet and hands. continue home gabapentin BPH. continue home tamsulosin and finasteride GERD continue home omeprazole Chronic back pain has chronic L1 and L2 compression fracture. DVT prophylaxis: teds/scds GI prophylaxis: on home PPI VS,Fishbone, I+O VS, Fishbone, I+O Laboratory Tests 01/06/20 05:05 Vital Signs Date Time Temp Pulse Resp B/P (MAP) Pulse Ox O2 Delivery O2 Flow Rate FiO2 01/06/20 08:00 98.4 86 19 143/73 (96) 96 Room Air I&O- Last 24 Hours up to 6 AM 01/06/20 06:00 Intake Total 2895 ml Output Total 1875 ml Balance 1020 ml SUZETTE MORALES MD January 06, 2020 10:33
--- NOTE | 2020-01-06 11:14 | CR ---
DATE OF CONSULTATION: 01/05/2020 I was asked to consult by the hospitalist for evaluation of Staphylococcus aureus bacteremia with left ankle swelling and wrist knee swelling. HISTORY OF PRESENT ILLNESS: Mr. Ayala is a pleasant 79-year-old gentleman who developed, about a week ago, ankle swelling. He was seen at urgent care and was diagnosed with gout and given prednisone. The patient had minimal improvement on prednisone 20 mg for 5 days. A couple of days ago, he developed left wrist swelling associated with fever. He had progressive weakness and confusion. He is not able to get up from a chair. He had increasing cough, which was nonproductive and shortness of breath. He has a history of peripheral neuropathy in both hands and feet and history of alcohol abuse for which he takes gabapentin. He states he has not had any alcohol in a week due to illness. PAST MEDICAL HISTORY: Atrial fibrillation status post pacemaker insertion on warfarin. Follows up with Dr. Sun. Chronic diastolic heart failure, Hypertension. Coronary artery disease. Hyperlipidemia. Osteoarthritis of hands and spine. Peripheral neuropathy of both hands and feet likely related to alcoholism. Obstructive sleep apnea not using his CPAP. Benign prostatic hypertrophy. PAST SURGICAL HISTORY: Pacemaker insertion November 2018. Cataract extraction. Tarsal tunnel release. Dermoid cyst removal. SOCIAL HISTORY: He quit smoking years ago. Has alcohol abuse. He still drinks about six beers a night and more when he has friends. No history of IV drug use. He lives with his . FAMILY HISTORY: Father had coronary disease, diabetes, neuropathy, mother had cerebrovascular accident (CVA). ALLERGIES: No known drug allergies. MEDICATIONS: - vancomycin 1 gram IV every 24 hours - lorazepam as needed - thiamine 100 mg by mouth twice a day - Tylenol 650 mg by mouth every 4 ours as needed. - Zocor 20 mg by mouth nightly - gabapentin 300 mg by mouth twice a day - omeprazole 20 mg daily. - tamsulosin 0.4 mg by mouth twice a day - finasteride 5 mg daily - albuterol as needed The patient received one dose of furosemide 40 mg IV at 4:40 p.m. this afternoon. LABS: White count 11.5, down from 13.3 on admission. Hemoglobin 12.2, hematocrit 36.3 platelets 177. Sodium 132, potassium 4.2, chloride 98, bicarb 22, BUN 61, creatinine 1.95, glucose 132. Osmolality 280, lactic acid was 1.6, uric acid 8.2, calcium 8.5. Total bili 1.3, AST 60, ALT 48, alk phos 63, ammonia 12, total protein 7.5, albumin 2.6. C-reactive protein 31.9. ESR 88. Blood cultures two sets done on 01/04/2020 were positive for Staphylococcus aureus 15 minutes apart. Respiratory panel was negative. COVID testing done on 11/06/2019 with negative. IMAGING STUDIES: Chest x-ray done 01/05/2020: Pacemaker in place, borderline heart size, otherwise no acute disease. Portable CT abdomen and pelvis showed a compression fracture at L2 with 40% height loss. Compression fracture at L1 with 50% loss. Mild bilateral inguinal hernias. Hepatic steatosis. Nonobstructing calculus of the right kidney. Mild asymmetrical enlarge of the left psoas as compared to the right. Minimal inflammation surrounding the left psoas could be related to underlying musculoskeletal seed as there is significant degenerative changes. A hand x-ray showed moderately advanced osteoarthritic changes. No obvious fracture dislocation. Radius and ulna x-ray, no acute fractures. Head CT: Mild hyperdensity and periventricular white matter in the frontal lobes consistent with chronic small vessel disease. PHYSICAL EXAMINATION: On physical exam he is a pleasant elderly gentleman in no acute distress. VITAL SIGNS: Temperature 100.5, pulse 84, aspiration 18, blood pressure 141/68, oxygen saturations 97% on room air. HEART: Normal S1, S2 with systolic ejection murmur 2/6 at left upper sternal border. No rubs or gallops. LUNGS: Few crackles at both bases. No wheezes or rhonchi. ABDOMEN: Soft, nontender, no hepatosplenomegaly. BACK: No costovertebral angle (CVA) or lumbar physical tenderness. EXTREMITIES: Left lower extremity has hemorrhagic blister on the lateral malleolus measuring about 2 x 2 cm with erythema extending along the ankle and the foot. The right lower extremity has no clubbing, cyanosis, edema or redness. The left wrist is swollen of the hand extending to the mid forearm. He has normal range of motion at the joint pain except he has some pain with pronation. Left ankle is slightly limited range of motion. Motor strength on lower extremity weakness 4/5 bilaterally. He has straight leg raising test positive on the left side. IMPRESSION: This is a 79-year-old gentleman who was admitted with Staphylococcus aureus bacteremia, sepsis, had evidence of left ankle cellulitis and possibly septic arthritis with a hemorrhagic blister followed by left hand swelling and cellulitis and there is some concern about a left psoas abscess, whether it is more swollen than the right side. The patient does have significant lower extremity weakness, left more than right. He is at risk of complicated Staphylococcus aureus bacteremia due to the fact that he has a pacemaker and therefore at higher risk of endocarditis. He has clinically improved with IV vancomycin susceptibilities of Staphylococcus aureus or still pending. PLAN: Suggest obtaining MRI of the ankle to rule out septic arthritis. I have reviewed the note of Dr. Toshia Navarro who has seen the patient and is considering draining the ankle if no improvement. If pain back worsens, consider obtaining an MRI of the thoracolumbar spine to rule out discitis epidural abscess. Obtain echocardiogram to rule out endocarditis. Repeat blood cultures until two sets are negative. If Staphylococcus aureus susceptibility shows methicillin resistant Staphylococcus aureus (MRSA), continue with IV vancomycin to cefazolin 2 grams IV every 12 hours, which would be a renal dose. Thanks for the consultation. JASMINA
[2020-01-06 12:49] LABS: C REACTIVE PROTEIN QUANTITATIV 26.8 MG/DL (0.00-0.30)
[2020-01-06 14:18] LABS: INR 2.04; PROTHROMBIN TIME 22.8 SECONDS (11.8-14.0)
[2020-01-06 14:19] LABS: PARTIAL THROMBOPLASTIN TIME 40.8 SECONDS (25.0-38.4)
[2020-01-06] MEDS: NAFCILLIN SOD 2 GM in D5W MINI-BAG PLUS 50 ML IV SCH ×3 (15:37→21:28)
[2020-01-06 15:42] LABS: ABG BASE EXCESS -0.4 (-2.0-2.0); ABG HCO3 20.8 MEQ/L (22.0-26.0); ABG O2 SATURATION 94.1 % (95.0-99.0); ABG PARTIAL PRESSURE O2 66.5 mmHg (75.0-100.0); ABG STANDARD HCO3 24.1 MEQ/L (22.0-26.0); ABG TOTAL CO2 21.6 MEQ/L (23.0-31.0); ABG pH (ARTERIAL) 7.539 UNITS (7.350-7.450)
--- NOTE | 2020-01-06 16:02 | CR ---
DATE OF CONSULTATION: 01/06/2020 Neo is re-evaluated with his left wrist and ankle cellulitis. He did spike a fever to [address] scan, I believe was ordered by the infectious disease doctor. That came back showing some subcutaneous gas, which the radiologist stated could be due to herniation to an ulcer or possibility of an early necrotizing fasciitis. The patient is somewhat more confused today. He states his pain is unchanged. On physical exam, elderly gentleman in no distress. He was oriented to place but slow to answer questions otherwise. Cardiovascular: 2+ DP pulse. Pulmonary: Nonlabored breathing. Skin: There is an unchanged blister at the lateral aspect of the left ankle. It is serosanguineous. There may be a slight increase in the medial ankle swelling. There is some increased erythema today compared to yesterday. No obvious crepitus with palpation. I am unable to elicit any significant areas of tenderness to palpation in the ankle. Still able to passively range his ankle about a 20 to 25 degree a range of motion arc without pain. He has no tenderness superior to the ankle, calf or at the knee. Left wrist: There is slightly increase in the erythema at the left wrist. Swelling is unchanged. I am still able to passively flex and extend the wrist with a 40 degree motion arc without significant pain. There is some pain at the end range. LABORATORY DATA: The patient's C-reactive protein has gone down from 31.9 01/04/2020 and today it was 26.8. His white blood cell count has gone down from a hi9gh of 13 on the down to 11.5 yesterday and today it is 8.9. His ESR has increased from 88 to 96 from Thursday to today. He has blood cultures that have come back positive for MSSA. IMAGING: I personally reviewed the CT scan with two of my orthopedic surgery partners. We agree that there is some subcutaneous air at the lateral malleolus. ASSESSMENT AND PLAN: Neo Ayala has left ankle and wrist cellulitis with a blister. CT scan with subcutaneous air is clouding the picture here. Clinically this does not appear to be necrotizing fasciitis. I am not getting any areas of tenderness. At this point, I have called the hospitalist, Dr. Allen, and I am recommending a general surgery consult. I also relayed that recommendation to the nurse. I would like them to weigh in if they feel this is necrotizing fasciitis or an abscess. My impression is that it is unlikely to be an abscess or necrotizing fasciitis. The patient was made nothing by mouth as a precaution. At this point, we will wait general surgery and put no role for I and D of the ankle joint.
[2020-01-06 16:04] LABS: SOURCE, BODY FLUID LT ANKLE
[2020-01-06 16:05] LABS: CRYSTALS, BODY FLUID NONE SEEN (NONE SEEN); SOURCE, BODY FLUID CRYSTALS LFT ANKLE; SYNOVIAL FLUID COLOR RED (YELLOW)
--- NOTE | 2020-01-06 20:16 | IPN ---
DATE: 01/06/2020 Mr. Ayala seems more short of breath today. He had a fever of 102.1 last night at 8:00 p.m. He denies any nausea, vomiting, or diarrhea. He looks uncomfortable, especially his wrist. He states he has a mild cough productive of whitish phlegm. LABS: White count 8.9, hemoglobin 11, hematocrit 32.6, platelets 158, 87% neutrophils, 9% bands, 4% monocytes. ESR 96 up from 88. Sodium 131, potassium 4, chloride 98, bicarbonate 24, BUN 68, creatinine 2.29, which has increased from 1.95 yesterday, glucose 119, calcium 7.7. CRP is pending. COVID-19 is negative. Vancomycin trough today was 11.3. Blood cultures two sets on 01/04/2020 were positive for methicillin-sensitive Staphylococcus aureus (MSSA). Repeat blood culture today is pending. Respiratory panel is pending. PHYSICAL EXAM: Temperature is 98.4, pulse 86, respirations 19, blood pressure 143/73, oxygen saturation (O2 sat) 96% on room air. Heart: Normal, S1, S2. No murmurs appreciated. Lungs: A few expiratory wheezes with some crackles at both bases. Abdomen: Soft, nontender, no hepatosplenomegaly. Extremities: Left ankle with erythema and purplish blister measuring about 3 x 4 cm, erythema along the foot and up the leg detention. Left wrist swollen, wrist range of motion normal, swollen dorsum of the hand to the mid forearm with tenderness and warmth and redness. Extremity CT shows extensive edema consistent with cellulitis with foci of gas concentrated along the lateral malleolus tracking medially, tracks medially into the sinus tarsus. Rule out necrotizing fasciitis. Abscess could not be identified. Degenerative changes of the ankle joint. Foot X-ray: Chronic changes with vascular calcification. IMPRESSION: 1. Staphylococcus aureus sepsis with methicillin-sensitive Staphylococcus aureus (MSSA) bacteremia left ankle severe cellulitis with possibility of gas and abscess, left hand cellulitis with no evidence of septic arthritis of the wrist. 2. History of pacemaker makes this staph aureus bacteremia complicated, and transesophageal echocardiogram (PRAVIN) will need to be done to rule out endocarditis. 3. Worsening dyspnea, possibly related to congestive heart failure versus chronic obstructive pulmonary disease (COPD) exacerbation. Case was discussed with Dr. Ray. Add BNP. Echocardiogram - underlying atrial fibrillation with controlled ventricular response, normal left ventricular size, wall thickness and wall motion, moderately dilated left atrium, normal right ventricular size and motion, dilated right atrium and inferior vena cava (IVC) size upper limits of normal, mild thickening of mitral valve apparatus with mild insufficiency and normal appearing tricuspid valve. PLAN: Discontinue IV vancomycin, clindamycin and meropenem that were added last night to his regimen by covering hospitalist. Start nafcillin 2 grams IV every 4 hours for MSSA. Case has been discussed with Dr. Aubrey Ellison from orthopedic surgery to review CT findings and possibly incision and drainage (I and D) of the left ankle. Schedule transesophageal echocardiogram with cardiology next week. The patient sees Dr. Sun regularly and, therefore, would recommend having Dr. Granger do the PRAVIN. He will also need a peripherally inserted central catheter (PICC) line once bacteremia resolves for prolonged IV antibiotics. Repeat blood cultures in the morning, which have been ordered.
[2020-01-06 21:36] LABS: INR 2.05; PROTHROMBIN TIME 22.9 SECONDS (11.8-14.0)
[2020-01-06] MEDS ORDERED: ACETAMINOPHEN *IV* 1,000 MG in IV 1 EA IV ONE (21:45)
[2020-01-06 22:34] LABS: INR 2.13; PROTHROMBIN TIME 23.6 SECONDS (11.8-14.0)
[2020-01-06] MEDS ORDERED: MIDAZOLAM INJ 2MG/2ML VIAL (J2250 PER 1MG) As Ordered ONE (23:05)
[2020-01-06] MEDS ORDERED: fentaNYL 100 MCG/2 ML INJECTION (J3010) As Ordered ONE (23:05)
[2020-01-06] MEDS ORDERED: LIDOCAINE 2% 100MG/5ML SDV (FOR ANES.) As Ordered ONE (23:05)
[2020-01-06] MEDS ORDERED: KETAMINE HCL 200 MG/20 ML VIAL As Ordered ONE (23:05)
[2020-01-06] MEDS ORDERED: propofoL 200 MG/20 ML VIAL As Ordered ONE (23:05)
[2020-01-06] MEDS ORDERED: PHYTONADIONE INJection 5 MG in NS 50 ML IV ONE (23:15)
[2020-01-07] VITALS (51 sets, daily range): BP systolic 93–174; BP diastolic 50–90; O2SAT 84–100
[2020-01-07] MEDS: PROTHROMBIN COMPLEX CONCEN IV ONE (00:10)
[2020-01-07] MEDS ORDERED: LIDOCAINE 1% SDV 30ML VIAL As Ordered ONE (00:25)
--- NOTE | 2020-01-07 00:31 | IPN ---
DATE: 01/06/2020 Neo was reevaluated. I also discussed the results of the general surgery consultation with Dr. Lemons. He feels that this is unlikely to be a necrotizing fasciitis or an abscesses, and he is worried about a deeper infection. The patient was reevaluated and in the interim, the blister has been unroofed. There is increased redness from when I previously evaluated him earlier today. The patient still has a 20-degree range of motion arc with minimal pain. He does, however, have increased tenderness to palpation over the lateral ankle. At this point, the plan is to take the patient to the operating room to wash out his ankle wound, possibly the joint. I recommended an ankle aspiration to the patient's , who is the health care proxy. The risks and benefits of a left ankle arthrocentesis were discussed. Verbal consent obtained and documented in the chart. PROCEDURE NOTE: The left ankle was sterilely prepped with Betadine and then using sterile technique, I aspirated 1-1/2 mL of purulent bloody fluid using an 18-gauge needle. Needle was just medial to the tibialis anterior tendon. The fluid was sent for stat synovial fluid analysis and culture. The patient's international normalized ratio (INR), unfortunately, has gone up to 2 despite Coumadin being held. Therefore, he is getting a stat type and screen and will be transfused 2 units of packed red blood cells. I discussed the clinical picture with Dr. Allen, the hospitalist. We do want to take the patient to the operating room tonight. She felt that it was safe to transfuse each unit of fresh frozen plasma over 1 hour. Will check an INR 30 minutes after the second unit and hopefully proceed with irrigation and debridement later tonight.
[2020-01-07 00:49] LABS: INR 1.49; PROTHROMBIN TIME 17.7 SECONDS (11.8-14.0)
[2020-01-07] MEDS ORDERED: NAFCILLIN SOD As Ordered ONE (01:12)
[2020-01-07] MEDS: NAFCILLIN SOD 2 GM in D5W MINI-BAG PLUS 50 ML IV SCH ×6 (01:20→21:05)
[2020-01-07] MEDS: IPRATROPIUM 0.5MG/ALBUTEROL 2.5MG INH SOL UD 3ML (DUONEB) NEB SCH ×4 (01:37→20:24)
[2020-01-07] MEDS ORDERED: propofoL 200 MG/20 ML VIAL As Ordered ONE ×2 (01:48→02:41)
[2020-01-07] MEDS ORDERED: ePHEDrine SULFATE 25 MG/5 ML(5MG/ML) SYRINGE As Ordered ONE (02:55)
[2020-01-07] MEDS ORDERED: PHENYLephrine HCL 500 MCG/5 ML (100MCG/ML) SYRINGE (J2370) As Ordered ONE (02:55)
[2020-01-07] MEDS ORDERED: fentaNYL 100 MCG/2 ML INJECTION (J3010) IV PRN (03:30)
[2020-01-07] MEDS ORDERED: ONDANSETRON 4MG/2ML VIAL IV PRN (03:30)
[2020-01-07] MEDS ORDERED: oxyCODONE 5MG TAB PO PRN ×2 (03:30→17:15)
[2020-01-07] MEDS ORDERED: HEPARIN DRIP 25,000 UNITS in IV 1 EA IV SCH (03:58)
[2020-01-07] MEDS ORDERED: HEPARIN SOD (PORCINE) 5000UNITS/ML VIAL (J1644 PER 1000UNITS) IV PRN ×2 (04:00)
[2020-01-07] MEDS: LR 1,000 ML IV SCH ×2 (05:00→13:30)
[2020-01-07] MEDS: HEPARIN DRIP 25,000 UNITS in IV 1 EA IV SCH ×2 (05:41→22:15)
[2020-01-07] MEDS: SLF 3 ML SYR IV SCH ×3 (05:43→21:05)
[2020-01-07 05:46] LABS: HEMATOCRIT 35.5 % (42.0-52.0); HEMOGLOBIN 11.7 g/dl (13.5-17.5); MEAN CORPUSCULAR HEMOGLOBIN 27.2 pg (27.0-33.0); MEAN CORPUSCULAR VOLUME 82.6 fl (80.0-96.0); PLATELET COUNT, AUTOMATED 191 10^3/uL (150-450); WHITE BLOOD COUNT 13.8 10^3/uL (4.0-10.0)
[2020-01-07 05:58] LABS: INR 1.29; PROTHROMBIN TIME 15.8 SECONDS (11.8-14.0)
[2020-01-07 05:59] LABS: PARTIAL THROMBOPLASTIN TIME 30.5 SECONDS (25.0-38.4)
[2020-01-07 06:03] LABS: CREATININE FOR GFR 2.08 MG/DL (0.70-1.30); POTASSIUM SERUM 3.2 MEQ/L (3.5-5.1)
[2020-01-07 06:54] LABS: LYMPHOCYTES 3 % (16-44); MONOCYTES 4 % (0-5); NEUTROPHILS 93 % (28-66); PLATELET ESTIMATE NORMAL (NORMAL)
[2020-01-07 06:55] LABS: ANISOCYTOSIS 1+
[2020-01-07] MEDS: BUDESONIDE 0.5 MG/2 ML INHALATION SUSPENSION INH SCH ×2 (07:05→20:24)
[2020-01-07] MEDS: ACETAMINOPHEN 500 MG TAB PO PRN ×3 (08:11→21:05)
[2020-01-07] MEDS: GABAPENTIN 300 MG CAP PO SCH ×2 (08:25→21:05)
[2020-01-07] MEDS: TAMSULOSIN 0.4 MG CAP PO SCH ×2 (08:25→21:05)
[2020-01-07] MEDS: PANTOPRAZOLE 40MG VIAL (C9113 PER 1) IV SCH (08:25)
[2020-01-07] MEDS: FINASTERIDE 5 MG TAB PO SCH (08:25)
[2020-01-07] MEDS: FOLIC ACID 1 MG TAB PO SCH (08:25)
--- NOTE | 2020-01-07 08:52 | CR ---
DATE OF CONSULTATION: 01/06/2020 CHIEF COMPLAINT: Left ankle and wrist pain. HISTORY OF PRESENT ILLNESS: Neo Ayala is a 79-year-old male who orthopedics has been following for left ankle pain with associated infection and left wrist pain and swelling with associated infection. The patient's cellulitis has clinically worsened over the past two days and a CT scan was performed. There was found to be gas essentially in the region of the lateral malleolus tracking down to the subtalar joint. There is a small ankle effusion, so an ankle aspiration was performed by my partner, Dr. Ellison. This was found to be positive for likely septic arthritis. Clinically, the patient has been deteriorating with sustained high fevers and tachycardia. We have been trying to get the patient's INR down throughout the day with fresh frozen plasma (FFP), but unfortunately this is continuing to rise. He is deteriorating quickly and his ankle does look much worse from when I saw him at his initial admission two days ago. When I initially saw him, he essentially had cellulitis throughout the majority of the ankle, however, he had quite good range of motion without any pain passively or actively. Today, he has some mild pain with passive range of motion, however, while the cellulitis has receded some over the anterior ankle, there is a blister that has enlarged which has been unroofed and there is some necrotic tissue in the lateral aspect of the ankle. Given the CT findings, I do agree with the rest of the team that he needs to go to the OR as soon as possible. Unfortunately, due to the difficulty of getting his INR down, we have had to make the decision of either operating with a high INR and risking significant blood loss versus trying Kcentra to quickly lower his INR. After discussion with Dr. Fraser, this was decided to be the best option for him. Myself, Dr. Colon, and Dr. Fraser's resident have all spoken with the and she is in agreement with this plan. General surgery was consulted as well and did not feel this is a necrotizing fasciitis picture. In regards to his wrist, he does have some tenderness over the radial carpus, however, again he has fairly normal range of motion without any pain. I have consented him for potential I and D in the wrist, depending on how he is doing in the OR. Priority will be for the ankle and we will try to do this under MAC and local to avoid intubation. If he is stable I will I and D the wrist as well. I obtained informed consent with his over the phone. As soon as we are able to, he will be going to the operating room. JASMINA
[2020-01-07] MEDS ORDERED: KCL 40MEQ in NS 1000ML 1,000 ML IV SCH (09:00)
--- NOTE | 2020-01-07 13:47 | IPN ---
DATE OF EVALUATION: 01/07/2020 Neo is about 8 hours status post an incision and drainage (I and D) of the left ankle joint and left ankle soft tissues, as well as an I and D of the left wrist. The patient has continuous rectal temperature monitoring. He did spike fevers overnight and into the morning and was almost transferred to the intensive care unit (ICU), per the nurse. However, he is stabilized. He currently is afebrile. He has a continuous positive airway pressure (CPAP) machine. The patient is more alert today. He states that his left wrist and ankle definitely feel better than they did yesterday. On examination, this is a gentleman in no distress. He is alert and oriented times three. The left hand has a splint and wrapped in Luis Manuel bandage, and it is seen hanging from an intravenous (IV) pole stockinette. That was adjusted for better elevation. Examination of the left ankle reveals a dressing over the ankle arthrotomy incision, and there is a wound vacuum-assisted closure (VAC) at the lateral malleolus. It has a good seal. There is erythema, as expected. It is unchanged. The nurse notes decreased swelling in the ankle compared to earlier when he first got out of the operating room (OR). There is still soft-tissue swelling at the medial aspect of the ankle that is mildly tender to palpation. There is no ecchymosis or erythema extending up the tibia. OR cultures are showing gram-positive cocci, and his ankle joint aspiration is growing Staphylococcus aureus. ASSESSMENT AND PLAN: Mr. Ayala is status post left ankle and left wrist I and D. He also has sepsis. The plan as of now is to continue with the wound VAC. He will most likely go back to the OR tomorrow for repeat I and D of the lateral wound and a VAC change, given the large amount of purulence encountered at the time of surgery. He will have a dressing change for the wrist tomorrow, as well. No plan for further surgery there. Care per the primary medical team and infectious disease. Dr. Coleman or Dr. Ellison should be contacted for persistent fevers.
--- NOTE | 2020-01-07 16:02 | CR ---
CRITICAL CARE CONSULT DATE OF CONSULTATION: 01/07/2020 HISTORY OF PRESENT ILLNESS: Mr. Ayala is a 79-year-old male with a past medical history of atrial fibrillation status post pacemaker on anticoagulation, hypertension, coronary artery disease (CAD), hyperlipidemia, obstructive sleep apnea (BRYNN) noncompliant with continuous positive airway pressure (CPAP), osteoarthritis, benign prostatic hypertrophy (BPH), who presented initially to the hospital with complaints of ankle and wrist swelling with associated fever. The patient was initially treated as an outpatient for possible gout with prednisone. However, he had minimal improvement with the prednisone and was developing fevers, as well as having worsening weakness and some confusion. Upon admission, the patient was found to be febrile with leukocytosis. He had sepsis, and blood cultures were positive for Staphylococcus aureus likely secondary to left ankle cellulitis and a possible septic arthritis. The patient was treated with nafcillin as his Staphylococcus aureus was methicillin-susceptible Staphylococcus aureus (MSSA). His repeat blood cultures were negative. He continued to have persistent fevers, and his cellulitis had clinically worsened. A CT chest of the lower extremity was found to have gas in the region of the lateral malleolus, tracking down to the subtalar joint. He had a joint aspiration performed, which also was positive for likely septic arthritis. As he continued to have persistent fevers, as well as tachycardia, he was consented for emergent incision and drainage (I and D) of the left wrist, as well as the left ankle joint and left ankle soft tissues with a wound vacuum-assisted closure (VAC) in place on the left ankle. The patient did also require reversal of his anticoagulation with fresh frozen plasma (FFP), as well as Kcentra, prior to the surgery. Postoperatively, the patient did continue to have a fever up to 102. He was placed on a cooling blanket and given Tylenol with improvement in his fever. The patient's blood pressure was somewhat on the lower side, however, blood pressure improved with intravenous (IV) fluid hydration. The patient was also somewhat somnolent this morning, although he did receive pain medication postoperatively. On my examination, while he is drowsy, he is arousable and conversant and appropriate and oriented times three. He denies any significant pain currently except for some mild discomfort in his left wrist and left ankle. He denies any chest pain or significant shortness of breath currently. He does have an occasional cough productive of some clear mucus. He does have some audible wheezing sounds, however, although it is noted more in the upper airways, and he previously denied any history of lung disease. PAST MEDICAL HISTORY: With the following: Atrial fibrillation status post pacemaker on Coumadin, diastolic congestive heart failure (CHF), hypertension, CAD, hyperlipidemia, osteoarthritis, history of alcohol abuse, and peripheral neuropathy, BRYNN noncompliant with CPAP, BPH. PAST SURGICAL HISTORY: Pacemaker insertion in November 2018, cataract surgery, carpal tunnel surgery, dermoid cyst removal. SOCIAL HISTORY: The patient is a former smoker. Has a history of alcohol abuse. Drinks approximately six beers daily. Denies history of intravenous (IV) drug use. FAMILY HISTORY: Father with history of coronary disease, diabetes, and neuropathy. Mother with history of cerebrovascular accident (CVA). HOME MEDICATIONS: prednisone 20 mg, calcium carbonate, multivitamin, fish oil, chlorthalidone, finasteride, gabapentin, omeprazole, simvastatin, spironolactone, Flomax, and Coumadin. ALLERGIES: No known drug allergies. PHYSICAL EXAMINATION: Maximum temperature (Tmax) was 102.0, current temperature (Tcurrent) was 100, pulse 90, blood pressure is 101/54, oxygen (O2) saturation 99% on 2 liters nasal cannula oxygen. In 670 mL, out 1.9 liters, net negative 1.2 liters. General: The patient is lying in bed. He is drowsy but arousable and conversive. He is alert and oriented times three. HEENT is normocephalic, atraumatic. Pupils react to light bilaterally. There are moist mucous membranes noted. Neck is supple. Trachea is benign. No palpable cervical adenopathy. Cardiovascular: Regular rate and rhythm. Normal S1, S2. Unable to appreciate any murmurs.. Pulmonary: Diminished breath sounds bilaterally with crackles at the bases and some audible wheezing noted in the upper airway over the trachea. Abdomen: Is obese, soft, nontender, nondistended. The patient wearing a cooling blanket and unable to palpate for any hepatomegaly. Lower extremities: The patient has pitting lower extremity edema and erythema in the left leg with a dressing and a wound vacuum-assisted closure (VAC) in place. There is no significant pitting edema in the right lower extremity. The left wrist and forearm is in a dressing and is elevated. LABORATORIES: WBC 13.8, hemoglobin 11.7, platelets are 191. Chemistry: Sodium is 137, potassium is 3.2, chloride is 101, bicarbonate is 25, BUN 67, creatinine 2.08, glucose is 138, lactic acid is 1.5. INR is 1.29. Arterial blood gas (ABG): pH 7.539, pCO2 of 35, pO2 of 66.5. Brain natriuretic peptide (BNP): 12,983. MICROBIOLOGY: Initial blood cultures were positive for MSSA. Repeat blood cultures were negative. The fluid culture from the left ankle joint was positive for MSSA. IMAGING: Extremity CT 01/05/2020 showed extensive edema consistent with cellulitis. There was foci of gas adjacent to the lateral malleolus and tracking medially into the sinus tarsi with the possibility of early necrotizing fasciitis. ECHOCARDIOGRAM: 01/05/2020. Underlying atrial fibrillation with controlled ventricular response with fairly frequent premature ventricular contractions (PVCs). Normal LV size and EF. Moderately dilated left atrium. Normal RV size with moderate pulmonary hypertension. Moderately dilated right atrium and inferior vena cava (IVC) upper limits of normal with evidence of elevated central venous pressure. Mild thickening of the mitral valvular apparatus with mild mitral insufficiency. ASSESSMENT AND PLAN: Mr. Ayala is a 79-year-old male with a past medical history of atrial fibrillation on coronary artery disease, congestive heart failure, hyperlipidemia, obstructive sleep apnea noncompliant with continuous positive airway pressure, alcohol abuse who presented with left ankle and hand swelling consistent with cellulitis and also septic arthritis. The patient was also found to have Staphylococcus aureus bacteremia and sepsis. The patient was brought to the operating room (OR) for emergent I and D of his left hand, as well as of the left ankle due to concern of some gas formation, in particular in the left ankle, as well as for persistent fevers and some episodes of confusion and altered mental status likely secondary to his sepsis. The patient was continuing to have fevers despite being on nafcillin and was thought to need more adequate source control with I and D. Sepsis secondary to cellulitis and septic arthritis with Staphylococcus aureus bacteremia. The patient is status post I and D. Repeat blood cultures have been negative, and the patient while he was febrile overnight, his fever has trended down now with the Tylenol and cooling blanket. . - The patient continued to have normal lactic acid, and his blood pressure has remained stable with IV fluid hydration. - Will continue with antibiotics with nafcillin for MSSA as per infectious disease (ID). He will likely need a peripherally inserted central catheter (PICC) line for a prolonged course of IV antibiotics. Given his pacemaker, as well as on the echocardiogram showing some thickening of the mitral valve apparatus, he may need a transesophageal echocardiogram (PRAVIN) for further evaluation for possible endocarditis. - Would continue recommendations for his septic arthritis and wound care as per orthopedics. There is a plan to return to the OR tomorrow for repeat I and D in the left ankle. - The patient had been on IV fluids. He did complain yesterday of some shortness of breath, and he has been requiring nasal cannula oxygen supplementation. His echocardiogram a few days ago did show a dilated IVC, and his BNP was elevated. He does have a history of diastolic CHF, as well, and his diuretics have been on hold for the most part due to his sepsis. Would discontinue the lactated Ringer and can contain with the gentle IV hydration with potassium containing fluids with close monitoring for worsening dyspnea or respiratory distress. - The patient has hypokalemia and is ordered for repletion as per primary team. Will check a magnesium level to see if he needs magnesium supplementation, as well. - The patient has some acute kidney injury. His creatinine was trending down slightly. Would continue to monitor creatinine and renally dose medications. - The patient has been somewhat somnolent, although he is arousable and alert and oriented times three. He did receive opioid pain medications and so would be cautious with opioids and hold for excessive sedation. He does also have a history of sleep apnea, for which he has been noncompliant with CPAP, which is likely also contributing to a daytime somnolence. Discussed with the patient. and he is agreeable to try CPAP. Will start him on the home settings that he was titrated with his last sleep setting in 2018 with CPAP at 7 cm of water. Deep venous thrombosis (DVT) prophylaxis. The patient was on Coumadin, which was reversed for his surgery. Would start him on heparin gtt and hold for procedures and as per orthopedics. CODE STATUS: FULL CODE. TOTAL CRITICAL CARE TIME SPENT: Not including procedures, approximately 1 hour and 30 minutes. MTDD
[2020-01-07 16:09] LABS: BASO % 0.2 % (0.0-1.0); EOS % 0.1 % (0.0-3.0); HEMOGLOBIN 11.9 g/dl (13.5-17.5); LYMPH # 0.4 10^3/uL (1.5-5.0); MEAN CORPUSCULAR HEMOGLOBIN 27.3 pg (27.0-33.0); MEAN CORPUSCULAR HGB CONC 33.1 g/dl (32.0-36.5); MEAN CORPUSCULAR VOLUME 82.6 fl (80.0-96.0); MONO # 0.4 10^3/uL (0.0-0.8); MONO % 3.9 % (0.0-5.0); NEUTROPHILS # 8.5 10^3/uL (1.5-8.5); NEUTROPHILS % 90.3 % (36.0-66.0); PLATELET COUNT, AUTOMATED 182 10^3/uL (150-450); RED BLOOD COUNT 4.36 10^6/uL (4.30-6.10); WHITE BLOOD COUNT 9.5 10^3/uL (4.0-10.0)
[2020-01-07 16:48] LABS: CALCIUM LEVEL 7.3 MG/DL (8.8-10.2); CREATININE FOR GFR 2.07 MG/DL (0.70-1.30); GLOMERULAR FILTRATION RATE 33.2 (>42); MAGNESIUM LEVEL 2.7 MG/DL (1.8-2.4); POTASSIUM SERUM 3.2 MEQ/L (3.5-5.1)
[2020-01-07] MEDS: oxyCODONE 5MG TAB PO PRN ×2 (17:59→22:18)
[2020-01-07] MEDS: BACITRACIN OINTMENT 30GM TUBE TOP SCH (21:00)
[2020-01-07] MEDS ORDERED: FUROSEMIDE 40MG/4ML VIAL (J1940) IV ONE (21:30)
[2020-01-07] MEDS ORDERED: methylPREDNISolone INJ 125 MG/2 ML VIAL (J2930) IV SCH (22:00)
[2020-01-07 22:14] LABS: TROPONIN I 0.07 NG/ML (< 0.10)
[2020-01-08] VITALS (10 sets, daily range): BP systolic 94–149; BP diastolic 56–87; O2SAT 97–100
[2020-01-08] MEDS: IPRATROPIUM 0.5MG/ALBUTEROL 2.5MG INH SOL UD 3ML (DUONEB) NEB SCH ×4 (01:56→19:52)
[2020-01-08] MEDS: NAFCILLIN SOD 2 GM in D5W MINI-BAG PLUS 50 ML IV SCH ×5 (02:00→21:03)
[2020-01-08 02:08] LABS: ALBUMIN 2.1 GM/DL (3.2-5.2); BILIRUBIN,TOTAL 3.1 MG/DL (0.2-1.0); GLOMERULAR FILTRATION RATE 34.6 (>42); POTASSIUM SERUM 3.2 MEQ/L (3.5-5.1); TOTAL PROTEIN 6.7 GM/DL (6.4-8.2)
[2020-01-08] MEDS: SLF 3 ML SYR IV SCH ×3 (05:53→21:04)
[2020-01-08 06:05] LABS: BASO % 0.2 % (0.0-1.0); HEMOGLOBIN 12.3 g/dl (13.5-17.5); LYMPH # 0.4 10^3/uL (1.5-5.0); LYMPH % 3.4 % (24.0-44.0); MEAN CORPUSCULAR HEMOGLOBIN 27.6 pg (27.0-33.0); MEAN CORPUSCULAR HGB CONC 34.2 g/dl (32.0-36.5); MEAN CORPUSCULAR VOLUME 80.7 fl (80.0-96.0); MONO # 0.2 10^3/uL (0.0-0.8); MONO % 1.8 % (0.0-5.0); NEUTROPHILS # 12.2 10^3/uL (1.5-8.5); NEUTROPHILS % 93.1 % (36.0-66.0); PLATELET COUNT, AUTOMATED 232 10^3/uL (150-450); RED BLOOD COUNT 4.46 10^6/uL (4.30-6.10); WHITE BLOOD COUNT 13.1 10^3/uL (4.0-10.0)
[2020-01-08] MEDS ORDERED: POTASSIUM CHLORIDE 10 MEQ SR TABLET PO ONE ×2 (06:15→10:00)
[2020-01-08 06:24] LABS: INR 2.31; PROTHROMBIN TIME 25.2 SECONDS (11.8-14.0)
[2020-01-08 06:37] LABS: CALCIUM LEVEL 7.8 MG/DL (8.8-10.2); CREATININE FOR GFR 2.19 MG/DL (0.70-1.30); GLOMERULAR FILTRATION RATE 31.1 (>42); POTASSIUM SERUM 3.3 MEQ/L (3.5-5.1)
[2020-01-08 06:51] LABS: PARTIAL THROMBOPLASTIN TIME 110.7 SECONDS (25.0-38.4)
[2020-01-08] MEDS: KCL 10MEQ/100ML SWI (KRUN) 10 MEQ in IV 1 EA IV SCH ×3 (06:58→09:00)
[2020-01-08] MEDS: ACETAMINOPHEN 500 MG TAB PO PRN ×3 (07:28→21:02)
[2020-01-08] MEDS: BUDESONIDE 0.5 MG/2 ML INHALATION SUSPENSION INH SCH ×2 (07:30→19:52)
[2020-01-08] MEDS: PANTOPRAZOLE 40MG VIAL (C9113 PER 1) IV SCH (08:51)
[2020-01-08] MEDS: FINASTERIDE 5 MG TAB PO SCH (08:51)
[2020-01-08] MEDS: TAMSULOSIN 0.4 MG CAP PO SCH ×2 (08:52→21:02)
[2020-01-08] MEDS: FOLIC ACID 1 MG TAB PO SCH (08:52)
[2020-01-08] MEDS: GABAPENTIN 300 MG CAP PO SCH ×2 (08:52→21:02)
[2020-01-08] MEDS: oxyCODONE 5MG TAB PO PRN ×3 (08:52→21:03)
[2020-01-08] MEDS: BACITRACIN OINTMENT 30GM TUBE TOP SCH (09:00)
--- NOTE | 2020-01-08 09:13 | IPNPDOC ---
Text Note Date of Service The patient was seen on 01/07/20. NOTE Subjective: Having high fever and chills all night. Confused intermittently, BPs soft. Received FFP yesterday without correction of INR. Patient needed to good to OR urgently for ankle wash out so was given K centra. Had ankle washout and drainage of pus from around the ankle joint and subtalor joint. Also had left wrist subcutaneous abscess drained. Has a wound vac in place at the ankle. Starting on cooling blanket. [employer] evaluation. PHYSICAL EXAMINATION: VITAL SIGNS: See below GENERAL: Awake, oriented to place and person, febrile. HEENT: Normocephalic, atraumatic, PERRLA, EOMI, sclera anicteric NECK: Supple, trachea midline, no lymphadenopathy, no JVD CARDIOVASCULAR: Regular rate and rhythm, normal S1 and S2. No murmurs, rubs, or gallops RESPIRATORY: Bilateral diffuse wheezing and ronchi. ABDOMEN: Soft, nontender, appears rounded, somewhat distended, bowel sounds present EXTREMITIES: Wound vac at the ankle. Incision at eh wrist, wrist in dressing and elevated. SKIN: Erythema noted over the left ankle and left wrist seems a little better, still swollen. NEUROLOGIC: No focal deficits appreciated, decreased strength of lower extremities more than upper LABORATORY and radiology : reviewed. 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 About a week ago he woke up with a swollen, red left apical and went to urgent care. He was diagnosed with gout and started on prednisone. He did not have a diagnosis of gout prior to this. He noticed some improvement on the prednisone 20 mg daily for 5 days. Over the course of the following days, he began to notice generalized weakness. He states that he was unable to walk and he began to use a walker that he had his house to help him get around. This progressed to the point where he would get so weak that he was slowly lowered himself to the ground and would not be able to get himself back up. Over the course of the past week. He is also had a cough which has been nonproductive. He has a history of peripheral neuropathy in bilateral feet and hands, although he is unsure of the exact etiology. MSSA bacterimia Source cellulitis of left ankle / left ankle septic arthritis Will need to rule out infective endocarditis in the presence of Pacemaker placed in November 2018. Echo reviewed some thickening of the mitral valve, will need PRAVIN. ID consult appreciated on nafcillin. Sepsis from septic arthritis. as above. Cellulitis around the left ankle and cellulitis and abscess at eh left wrist. s/p incision and drainage of the wrist and ankle has wound vac in place. nafcillin. Multiple joint inflammation septic arthritis of the left ankle left and cellulitis and abscess at the left wrist. MSSA from ankle joint continue nafcillin. SOB with Wheezing, no hypoxia, no crackles H/o smoking in the past Echo : Good EF. CXR : no overt features of CHF. may have copd and BRYNN. continue duonebs and budesonide. will watch for fluid overload. Hyponatremia due to dehydration with poor oral intake, fevers and diuretics at home will continue NS. Acute kidney injury prerenal secondary to dehydration No obstruction in CT abdomen continue NS No diuretics, ACEi or ARBS, No NSAIDS Alcohol abuse no signs of withdrawal CT with fatty lever. 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 hold warfarin for possible orthopedic surgical intervention. Chronic diastolic heart failure with hypertension and hyperlipidemia Hold diuretics for now, continue statin. BP controlled now without any antihypertensives. Peripheral neuropathy of bilateral feet and hands. continue home gabapentin BPH. continue home tamsulosin and finasteride GERD continue home omeprazole Chronic back pain has chronic L1 and L2 compression fracture. DVT prophylaxis: teds/scds GI prophylaxis: on home PPI VS,Fishbone, I+O VS, Fishbone, I+O Laboratory Tests 01/07/20 15:49 01/08/20 00:52 01/08/20 05:46 Vital Signs Date Time Temp Pulse Resp B/P (MAP) Pulse Ox O2 Delivery O2 Flow Rate FiO2 01/08/20 08:52 16 01/08/20 08:49 82 01/08/20 08:00 99.7 149/87 (107) 99 Room Air 5/24/20 04:00 2.0 01/07/20 03:50 100 I&O- Last 24 Hours up to 6 AM 01/08/20 05:59 Intake Total 2106 ml Output Total 4475 ml Balance -2369 ml SUZETTE MORALES MD January 08, 2020 09:13
--- NOTE | 2020-01-08 12:07 | IPNPDOC ---
Text Note Date of Service The patient was seen on 01/08/20. NOTE Subjective: Patient was very wheezy and SOB last night. H improved with Lasix and steroids. Seemed mildly fluid overloaded. The night fever has been lower overnight. The swelling and redness of the joints seem a little less. PHYSICAL EXAMINATION: VITAL SIGNS: See below GENERAL: Awake, alert and oriented HEENT: Normocephalic, atraumatic, PERRLA, EOMI, sclera anicteric NECK: Supple, trachea midline, no lymphadenopathy, no JVD CARDIOVASCULAR: Regular rate and rhythm, normal S1 and S2. No murmurs, rubs, or gallops RESPIRATORY: mild scattered wheezing, good air entry. ABDOMEN: Soft, nontender, appears rounded, somewhat distended, bowel sounds present EXTREMITIES: Wound vac at the ankle. Incision at eh wrist, wrist in dressing and elevated. SKIN: Erythema noted over the left ankle and left wrist seems a little better, still swollen. NEUROLOGIC: No focal deficits appreciated, decreased strength of lower extremities more than upper LABORATORY and radiology : reviewed. 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 About a week ago he woke up with a swollen, red left apical and went to urgent care. He was diagnosed with gout and started on prednisone. He did not have a diagnosis of gout prior to this. He noticed some improvement on the prednisone 20 mg daily for 5 days. Over the course of the following days, he began to notice generalized weakness. He states that he was unable to walk and he began to use a walker that he had his house to help him get around. This progressed to the point where he would get so weak that he was slowly lowered himself to the ground and would not be able to get himself back up. Over the course of the past week. He is also had a cough which has been nonproductive. He has a history of peripheral neuropathy in bilateral feet and hands, although he is unsure of the exact etiology. MSSA bacterimia Source cellulitis of left ankle / left ankle septic arthritis Will need to rule out infective endocarditis in the presence of Pacemaker placed in November 2018. Echo reviewed some thickening of the mitral valve, will need PRAVIN. ID consult appreciated on nafcillin. Sepsis from septic arthritis. as above. Cellulitis around the left ankle and cellulitis and abscess at eh left wrist. s/p incision and drainage of the wrist and ankle has wound vac in place at left ankle. On nafcillin. Multiple joint inflammation septic arthritis of the left ankle left and cellulitis and abscess at the left wrist. MSSA from ankle joint continue nafcillin. SOB with Wheezing, no hypoxia, no crackles H/o smoking in the past Echo : Good EF. CXR : no overt features of CHF. may have copd and BRYNN. continue duonebs and budesonide. will watch for fluid overload. Hyponatremia due to dehydration with poor oral intake, fevers and diuretics at home will continue NS. Acute kidney injury prerenal secondary to dehydration No obstruction in CT abdomen continue NS No diuretics, ACEi or ARBS, No NSAIDS Alcohol abuse no signs of withdrawal CT with fatty lever. 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 coumadin effect was reversed with K centra for urgent surgical intervention Now patient on heparin infusion. Chronic diastolic heart failure with hypertension and hyperlipidemia Hold diuretics for now, continue statin. BP controlled now without any antihypertensives. Peripheral neuropathy of bilateral feet and hands. continue home gabapentin BPH. continue home tamsulosin and finasteride GERD continue home omeprazole Chronic back pain has chronic L1 and L2 compression fracture. DVT prophylaxis: heparin infusion GI prophylaxis: on home PPI VS,Fishbone, I+O VS, Fishbone, I+O Laboratory Tests 01/07/20 15:49 01/08/20 00:52 01/08/20 05:46 Vital Signs Date Time Temp Pulse Resp B/P (MAP) Pulse Ox O2 Delivery O2 Flow Rate FiO2 01/08/20 11:00 99.1 01/08/20 08:52 16 01/08/20 08:49 82 01/08/20 08:00 2.0 01/08/20 08:00 149/87 (107) 99 Room Air 01/07/20 03:50 100 I&O- Last 24 Hours up to 6 AM 01/08/20 06:00 Intake Total 2106 ml Output Total 4875 ml Balance -2769 ml SUZETTE MORALES MD January 08, 2020 12:07
--- NOTE | 2020-01-08 13:50 | CR ---
DATE OF CONSULTATION: 01/06/2020 REASON FOR CONSULTATION: Question necrotizing fasciitis left ankle. BRIEF HISTORY OF PRESENT ILLNESS: Patient is a 79-year-old male who presents with several areas of infection or inflammation left wrist, left ankle with admission on 01/04/2020. Essentially had spiking temperatures. Had been on prednisone for possible gout but developed progressive weakness and progressive septic appearance. He presents to the hospital and has been treated with antibiotics, etc., and underwent a CT scan last night that showed some air around the joint, question necrotizing fasciitis. However, when I review the films and I reviewed these with orthopedics, I feel that this does not track along the fascia up into the proximal leg. It seems as though it is quite well localized to the ankle joint area, not the joint itself, but possibly in the surrounding structures of the joint. In any case, I was asked as a second opinion to be evaluated for this. Otherwise, patient seems to be doing quite poorly. From a respiratory standpoint, he has been wheezing. He appears septic. PAST MEDICAL HISTORY: Is significant for: 1. History of atrial fibrillation. 2. History of congestive heart failure. 3. History of hypertension. 4. Coronary artery disease. 5. Hyperlipidemia. 6. Osteoarthritis. 7. Polyneuropathy. 8. Obstructive sleep apnea. 9. BPH. 10. Pacemaker implantation. 11. Cataract surgery. 12. Tarsal tunnel release. 13. Dermoid cyst removal. 14. History of alcohol abuse. PHYSICAL EXAM: Reveals an elderly male who is in some mild respiratory distress. His heart is regular with multiple irregular beats and a murmur. Lungs reveals some audible wheezing, although it sounds as though it may be upper airway and some crackles at the bases. Abdomen is soft, nontender. His left lower ankle area has a small hemorrhagic blister that was able to just wipe away and culture the undersurface of this, but there is no extension or pockets extending from this into the joint itself. He does have some pain around his ankle with palpation and some erythema throughout this area. Erythema of his left hand and wrist. IMPRESSION/PLAN: Patient has evidence of infected left ankle area and I am not sure what compartment this area is isolated to, but it looks as though it is mostly in the joint area. Orthopedic has planned to proceed with operative intervention. However, they were asking for my additional input should this be necrotizing fasciitis spreading proximally. At this point, I am not convinced of this. If they have issues intraoperatively, they will give me a call. Otherwise, the etiology of this has been proposed as possibly gout rising in multiple joints and then secondarily infected, which is a very reasonable possibility. Other possibilities obviously include septic emboli, but it is an unusual presentation for this. Thus, at this point, if there are any other questions or concerns, I would be glad to re-evaluate him.
[2020-01-08] MEDS: HEPARIN DRIP 25,000 UNITS in IV 1 EA IV SCH (16:17)
[2020-01-09] VITALS (15 sets, daily range): BP systolic 113–144; BP diastolic 59–69; O2SAT 91–98
[2020-01-09 00:56] LABS: CALCIUM LEVEL 7.8 MG/DL (8.8-10.2); CREATININE FOR GFR 2.22 MG/DL (0.70-1.30); GLOMERULAR FILTRATION RATE 30.6 (>42); MAGNESIUM LEVEL 2.5 MG/DL (1.8-2.4); PHOSPHORUS LEVEL 3.5 MG/DL (2.5-4.9); POTASSIUM SERUM 3.3 MEQ/L (3.5-5.1)
[2020-01-09] MEDS ORDERED: POTASSIUM CHLORIDE 10 MEQ SR TABLET PO ONE (01:45)
[2020-01-09] MEDS: NAFCILLIN SOD 2 GM in D5W MINI-BAG PLUS 50 ML IV SCH ×6 (01:50→20:12)
[2020-01-09] MEDS: IPRATROPIUM 0.5MG/ALBUTEROL 2.5MG INH SOL UD 3ML (DUONEB) NEB SCH ×4 (02:24→19:39)
[2020-01-09] MEDS: SLF 3 ML SYR IV SCH ×3 (05:16→22:04)
[2020-01-09] MEDS: oxyCODONE 5MG TAB PO PRN ×2 (05:20→14:49)
[2020-01-09] MEDS: ACETAMINOPHEN 500 MG TAB PO PRN ×2 (05:20→16:02)
[2020-01-09 05:46] LABS: BASO # 0.1 10^3/uL (0.0-0.2); BASO % 0.3 % (0.0-1.0); EOS # 0.1 10^3/uL (0.0-0.5); EOS % 0.8 % (0.0-3.0); HEMATOCRIT 42.6 % (42.0-52.0); HEMOGLOBIN 14.2 g/dl (13.5-17.5); LYMPH # 1.1 10^3/uL (1.5-5.0); LYMPH % 6.8 % (24.0-44.0); MEAN CORPUSCULAR HEMOGLOBIN 27.5 pg (27.0-33.0); MEAN CORPUSCULAR HGB CONC 33.3 g/dl (32.0-36.5); MEAN CORPUSCULAR VOLUME 82.6 fl (80.0-96.0); MONO # 0.5 10^3/uL (0.0-0.8); MONO % 3.3 % (0.0-5.0); NEUTROPHILS # 13.8 10^3/uL (1.5-8.5); NEUTROPHILS % 86.9 % (36.0-66.0); PLATELET COUNT, AUTOMATED 286 10^3/uL (150-450); RED BLOOD COUNT 5.16 10^6/uL (4.30-6.10); WHITE BLOOD COUNT 15.9 10^3/uL (4.0-10.0)
[2020-01-09 05:57] LABS: INR 1.7; PROTHROMBIN TIME 19.7 SECONDS (11.8-14.0)
[2020-01-09 07:18] LABS: CALCIUM LEVEL 7.9 MG/DL (8.8-10.2); CREATININE FOR GFR 2.18 MG/DL (0.70-1.30); GLOMERULAR FILTRATION RATE 31.3 (>42); POTASSIUM SERUM 3.9 MEQ/L (3.5-5.1)
[2020-01-09] MEDS: BUDESONIDE 0.5 MG/2 ML INHALATION SUSPENSION INH SCH ×2 (07:34→19:38)
[2020-01-09] MEDS: PANTOPRAZOLE 40MG VIAL (C9113 PER 1) IV SCH (08:45)
[2020-01-09] MEDS: FINASTERIDE 5 MG TAB PO SCH (08:45)
[2020-01-09] MEDS: FOLIC ACID 1 MG TAB PO SCH (08:45)
[2020-01-09] MEDS: GABAPENTIN 300 MG CAP PO SCH ×2 (08:45→20:11)
[2020-01-09] MEDS: TAMSULOSIN 0.4 MG CAP PO SCH ×2 (08:45→20:11)
[2020-01-09] MEDS: BACITRACIN OINTMENT 30GM TUBE TOP SCH ×2 (08:46→08:47)
[2020-01-09] MEDS: HEPARIN DRIP 25,000 UNITS in IV 1 EA IV SCH (09:38)
--- NOTE | 2020-01-09 13:55 | IPNPDOC ---
Text Note Date of Service The patient was seen on 01/09/20. NOTE Subjective: Fever seems to have defervesced since yesterday afternoon, No SOB, no wheezing, no hypoxia. left ankle and left wrist less swollen. PHYSICAL EXAMINATION: VITAL SIGNS: See below GENERAL: Awake, alert and oriented HEENT: Normocephalic, atraumatic, PERRLA, EOMI, sclera anicteric NECK: Supple, trachea midline, no lymphadenopathy, no JVD CARDIOVASCULAR: Regular rate and rhythm, normal S1 and S2. No murmurs, rubs, or gallops RESPIRATORY: mild scattered wheezing, good air entry. ABDOMEN: Soft, nontender, appears rounded, somewhat distended, bowel sounds present EXTREMITIES: Wound vac at the ankle. Incision at eh wrist, wrist in dressing and elevated. SKIN: Erythema noted over the left ankle and left wrist seems a little better, still swollen. NEUROLOGIC: No focal deficits appreciated, decreased strength of lower extremities more than upper LABORATORY and radiology : reviewed. 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 About a week ago he woke up with a swollen, red left apical and went to urgent care. He was diagnosed with gout and started on prednisone. He did not have a diagnosis of gout prior to this. He noticed some improvement on the prednisone 20 mg daily for 5 days. Over the course of the following days, he began to notice generalized weakness. He states that he was unable to walk and he began to use a walker that he had his house to help him get around. This progressed to the point where he would get so weak that he was slowly lowered himself to the ground and would not be able to get himself back up. Over the course of the past week. He is also had a cough which has been n onproductive. He has a history of peripheral neuropathy in bilateral feet and hands, although he is unsure of the exact etiology. MSSA bacterimia Source cellulitis of left ankle / left ankle septic arthritis Will need to rule out infective endocarditis in the presence of Pacemaker placed in November 2018. Echo reviewed some thickening of the mitral valve, will need PRAVIN. ID consult appreciated on nafcillin. will repeat blood cultures. Septic arthritis and cellulitis and abscess Cellulitis of the left ankle with septic arthritis of the left ankle cellulitis and abscess at the left wrist. s/p incision and drainage of the wrist and ankle has wound vac in place at left ankle. MSSA from ankle and from abscess in wrist. continue nafcillin. Sepsis from septic arthritis and cellulitis. as above. SOB with Wheezing intermittently H/o smoking in the past Echo : Good EF. may have copd and BRYNN with flid overload. On table top overnight. continue duonebs and budesonide. Lasix prn. Hyponatremia due to dehydration with poor oral intake, fevers and diuretics at home resolved Acute kidney injury prerenal secondary to dehydration, sepsis, No obstruction in CT abdomen No diuretics, ACEi or ARBS, No NSAIDS Alcohol abuse no signs of withdrawal CT with fatty lever. 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 coumadin effect was reversed with K centra for urgent surgical intervention Now patient on heparin infusion. Chronic diastolic heart failure with hypertension and hyperlipidemia Hold diuretics for now, continue statin. BP controlled now without any antihypertensives. Peripheral neuropathy of bilateral feet and hands. continue home gabapentin BPH. continue home tamsulosin and finasteride GERD continue home omeprazole Chronic back pain has chronic L1 and L2 compression fracture. DVT prophylaxis: heparin infusion GI prophylaxis: on home PPI VS,Fishbone, I+O VS, Fishbone, I+O Laboratory Tests 01/09/20 00:27 01/09/20 05:35 Vital Signs Date Time Temp Pulse Resp B/P (MAP) Pulse Ox O2 Delivery O2 Flow Rate FiO2 01/09/20 06:00 16 01/09/20 04:00 99.0 93 144/62 (89) 97 Room Air 01/08/20 10:00 2.0 01/07/20 03:50 100 I&O- Last 24 Hours up to 6 AM 01/09/20 06:00 Intake Total 2652 ml Output Total 3800 ml Balance -1148 ml SUZETTE MORALES MD January 09, 2020 08:11
--- NOTE | 2020-01-09 15:24 | IPN ---
DATE: 01/09/2020 CHIEF COMPLAINT: Postoperative from left ankle irrigation, debridement and vacuum dressing placement and left hand irrigation and debridement. HISTORY OF PRESENT ILLNESS: 79-year-old man had septic arthritis of his left ankle including subtalar joint and tibiotalar joint as well as a left dorsal hand mass. He had an irrigation and debridement performed by Dr. Navarro. He is doing well. He had a vacuum dressing placed on his left ankle. This morning he states that he is doing well without questions or concerns. PHYSICAL EXAMINATION: This is a well-appearing 79-year-old man appears alert and oriented times three. He is lying supine in bed. Vacuum dressing is functioning well on the left lower extremity. No spreading redness up the leg. He is able to wiggle his toes, dorsiflexed and plantar flex the foot. Normal sensation of the foot. His left hand is in gravity elevation type traction. I took down the stockinette. His fingers were warm, and well-perfused, normal sensation in the fingers. Dressing is left in situ as it was taped in place with large splint placed. ASSESSMENT/PLAN: [id number] man is stable from a postoperative perspective. Per Dr. Ellison, this morning, the plan is to take him back to the operating room tomorrow for repeat irrigation, debridement and vacuum dressing change. Plan remains the same and I will communicate this to Dr. Ellison and Dr. Coleman as well who are actively managing the patient.
[2020-01-10] VITALS (15 sets, daily range): BP systolic 128–170; BP diastolic 62–77; O2SAT 90–98
[2020-01-10] MEDS: IPRATROPIUM 0.5MG/ALBUTEROL 2.5MG INH SOL UD 3ML (DUONEB) NEB SCH ×4 (01:25→20:38)
[2020-01-10] MEDS: NAFCILLIN SOD 2 GM in D5W MINI-BAG PLUS 50 ML IV SCH ×6 (01:45→21:10)
[2020-01-10] MEDS: HEPARIN DRIP 25,000 UNITS in IV 1 EA IV SCH ×2 (04:46→18:58)
--- NOTE | 2020-01-10 04:47 | REP ---
Clinical: Cellulitis. Rule out abscess. Technique: Axial noncontrast images through the left ankle with coronal and sagittal re-formations. Findings: Extensive subcutaneous edema with inflammatory stranding is noted through the imaged portion of the ankle/foot with evidence for scattered deep pockets of edema and joint fluid. Very small foci of gas in the region of the sinus tarsi is appreciated which has decreased from prior examination. No discrete loculated fluid collection or abscess is identified on current examination. The osseous structures demonstrate generalized moderate age-related arthritic degenerative changes. There is no evidence for acute fracture. Impression: Swelling with extensive subcutaneous edema and inflammatory infiltration and stranding including areas of edema and joint fluid without discrete focal loculated drainable collection/abscess identified. Findings are most consistent with cellulitis and appear relatively similar to prior examination although decreased amount of subcutaneous gas is noted on current examination. Small area of ulceration along the lateral malleolus. Electronically Signed by Betito Meehan MD 01/10/2020 04:38 A
[2020-01-10 05:24] LABS: BASO % 0.2 % (0.0-1.0); EOS # 0.1 10^3/uL (0.0-0.5); EOS % 0.5 % (0.0-3.0); LYMPH # 1.3 10^3/uL (1.5-5.0); LYMPH % 10.4 % (24.0-44.0); MEAN CORPUSCULAR HEMOGLOBIN 27.1 pg (27.0-33.0); MEAN CORPUSCULAR HGB CONC 33.6 g/dl (32.0-36.5); MEAN CORPUSCULAR VOLUME 80.7 fl (80.0-96.0); MONO # 0.6 10^3/uL (0.0-0.8); MONO % 4.3 % (0.0-5.0); NEUTROPHILS # 10.7 10^3/uL (1.5-8.5); NEUTROPHILS % 82.5 % (36.0-66.0); PLATELET COUNT, AUTOMATED 320 10^3/uL (150-450); RED BLOOD COUNT 4.46 10^6/uL (4.30-6.10); WHITE BLOOD COUNT 12.9 10^3/uL (4.0-10.0)
[2020-01-10 05:43] LABS: CALCIUM LEVEL 7.9 MG/DL (8.8-10.2); CREATININE FOR GFR 2.17 MG/DL (0.70-1.30); GLOMERULAR FILTRATION RATE 31.5 (>42); POTASSIUM SERUM 4.1 MEQ/L (3.5-5.1)
[2020-01-10] MEDS: SLF 3 ML SYR IV SCH ×3 (06:02→21:11)
[2020-01-10 06:04] LABS: INR 1.65; PROTHROMBIN TIME 19.3 SECONDS (11.8-14.0)
[2020-01-10 06:13] LABS: HEMOGLOBIN 12.1 g/dl (13.5-17.5)
[2020-01-10] MEDS: BUDESONIDE 0.5 MG/2 ML INHALATION SUSPENSION INH SCH ×2 (07:37→20:38)
[2020-01-10] MEDS: BACITRACIN OINTMENT 30GM TUBE TOP SCH (09:00)
[2020-01-10] MEDS: PANTOPRAZOLE 40MG VIAL (C9113 PER 1) IV SCH (09:14)
[2020-01-10] MEDS: FOLIC ACID 1 MG TAB PO SCH (09:14)
[2020-01-10] MEDS: GABAPENTIN 300 MG CAP PO SCH ×2 (09:14→21:09)
[2020-01-10] MEDS: TAMSULOSIN 0.4 MG CAP PO SCH ×2 (09:14→21:09)
[2020-01-10] MEDS: FINASTERIDE 5 MG TAB PO SCH (09:14)
[2020-01-10] MEDS ORDERED: ceFAZolin 1GM VIAL (J0690 PER 500MG) As Ordered ONE (13:48)
[2020-01-10] MEDS ORDERED: LIDOCAINE 1% MDV 20ML VIAL As Ordered ONE (14:18)
[2020-01-10] MEDS ORDERED: MIDAZOLAM INJ 2MG/2ML VIAL (J2250 PER 1MG) As Ordered ONE (14:21)
[2020-01-10] MEDS ORDERED: LIDOCAINE 2% INJ 100 MG/5 ML SYRINGE As Ordered ONE (14:21)
[2020-01-10] MEDS ORDERED: KETAMINE HCL 200 MG/20 ML VIAL As Ordered ONE (14:21)
[2020-01-10] MEDS ORDERED: propofoL 200 MG/20 ML VIAL As Ordered ONE ×2 (14:24→14:52)
[2020-01-10] MEDS ORDERED: ceFAZolin 2 GM/D5W 50 ML IV BAG (J0690 PER 500MG) As Ordered ONE (14:42)
[2020-01-10] MEDS ORDERED: PHENYLephrine HCL 500 MCG/5 ML (100MCG/ML) SYRINGE (J2370) As Ordered ONE (14:53)
[2020-01-10] MEDS ORDERED: fentaNYL 100 MCG/2 ML INJECTION (J3010) As Ordered ONE (15:57)
[2020-01-10] MEDS ORDERED: LR 1,000 ML IV SCH (16:00)
[2020-01-10] MEDS ORDERED: fentaNYL 100 MCG/2 ML INJECTION (J3010) IV PRN (16:00)
[2020-01-10] MEDS ORDERED: ONDANSETRON 4MG/2ML VIAL IV PRN (16:00)
[2020-01-10] MEDS ORDERED: oxyCODONE 5MG TAB PO PRN (16:00)
[2020-01-10] MEDS ORDERED: oxyCODONE 5MG TAB As Ordered ONE (16:09)
[2020-01-11] VITALS (11 sets, daily range): BP systolic 105–160; BP diastolic 50–74; O2SAT 90–97
[2020-01-11] MEDS: IPRATROPIUM 0.5MG/ALBUTEROL 2.5MG INH SOL UD 3ML (DUONEB) NEB SCH ×4 (00:58→19:34)
[2020-01-11] MEDS: NAFCILLIN SOD 2 GM in D5W MINI-BAG PLUS 50 ML IV SCH ×6 (01:31→21:11)
[2020-01-11 04:07] LABS: BASO % 0.2 % (0.0-1.0); EOS % 0.3 % (0.0-3.0); HEMATOCRIT 36.5 % (42.0-52.0); HEMOGLOBIN 12.3 g/dl (13.5-17.5); LYMPH # 1.1 10^3/uL (1.5-5.0); MEAN CORPUSCULAR HEMOGLOBIN 27.8 pg (27.0-33.0); MEAN CORPUSCULAR HGB CONC 33.7 g/dl (32.0-36.5); MEAN CORPUSCULAR VOLUME 82.4 fl (80.0-96.0); MONO # 0.5 10^3/uL (0.0-0.8); MONO % 4.7 % (0.0-5.0); NEUTROPHILS # 9.2 10^3/uL (1.5-8.5); NEUTROPHILS % 82.4 % (36.0-66.0); PLATELET COUNT, AUTOMATED 325 10^3/uL (150-450); RED BLOOD COUNT 4.43 10^6/uL (4.30-6.10); WHITE BLOOD COUNT 11.2 10^3/uL (4.0-10.0)
[2020-01-11 04:24] LABS: C REACTIVE PROTEIN QUANTITATIV 18.9 MG/DL (0.00-0.30); CALCIUM LEVEL 7.9 MG/DL (8.8-10.2); CREATININE FOR GFR 2.26 MG/DL (0.70-1.30); POTASSIUM SERUM 3.4 MEQ/L (3.5-5.1)
[2020-01-11] MEDS: SLF 3 ML SYR IV SCH ×3 (05:34→21:12)
[2020-01-11] MEDS: BUDESONIDE 0.5 MG/2 ML INHALATION SUSPENSION INH SCH ×2 (08:12→19:34)
--- NOTE | 2020-01-11 08:28 | IPN ---
DATE: 01/10/2020 The patient says that his pain is a 3 out of 10 of the left ankle. Left arm is elevated. Afebrile overnight. No complaints of chills. Patient has methicillin sensitive Staphylococcus aureus (MSSA) in one blood culture. Repeat blood cultures on 01/09/2020 negative. Currently on intravenous nafcillin awaiting operating room (OR). Currently, nothing by mouth. No new complaints. Temperature 98.6, pulse 85, respiratory rate 18, blood pressure 137/66, 95% on room air. Generally patient is awake, alert, oriented to himself. No respiratory distress. No jugular venous distention (JVD) or thyromegaly. Lungs: Diminished with faint wheezing. Heart: S1, S2. Regular rate and rhythm. No murmurs noted. Abdomen is soft, nontender, nondistended. Positive bowel sounds. Extremities: Left ankle wound VAC. Loosened the dressing and elevate it. LABORATORY DATA: White count 12.9, hemoglobin 12, hematocrit 36, platelet count 320. Sodium 138, potassium 4, chloride 102, bicarbonate 29, BUN 68, creatinine 2.17, glucose 138, C reactive protein 13. ASSESSMENT/PLAN: This is an 79-year-old male admitted on 01/04/2020 with complaints of 1 week of red area over his ankle. He was seen at urgent care, diagnosed with gout and treated with prednisone with worsening complaints. Patient was admitted with septic arthritis, found to have methicillin sensitive Staphylococcus aureus (MSSA) bacteremia along with sepsis and abscess of the left wrist. IMPRESSION: 1. Left wrist abscess and cellulitis, left ankle sepsis and cellulitis with methicillin sensitive Staphylococcus aureus (MSSA) bacteremia. Currently on IV nafcillin. Patient had a pacemaker placed in November 2018. Infectious disease (ID) consulted. He is to return to the operating room today and is currently nothing by mouth. Repeat blood cultures on 01/09/2020 have been negative. 01/07/2020 blood cultures with Staphylococcus aureus (MSSA). Defer to ID. If we need transesophageal echo in light of recent pacemaker placed to rule out endocarditis, there is mitral valve thickening noted on the mitral valve. Per pulmonary, may proceed with transesophageal echo. 2. Obstructive sleep apnea (BRYNN): Resumed on home CPAP settings. Managed by Dr. Strange. Medically stable to undergo transesophageal echo. No pulmonary issues at this time. On tabletop overnight. 3. Hypernatremia: Resolved. 4. Acute kidney injury secondary to sepsis and dehydration, resolved. Currently on no diuretics, nonsteroidal anti-inflammatory drugs (NSAIDs), angiotensin II receptor blockers (ARB) or angiotensin converting enzyme inhibitors (LUIS MIGUEL), 2.17. 5. Alcohol abuse: No withdrawal. Patient has a fatty liver on CT abdomen and pelvis. 6. Chronic atrial fibrillation with high degree AV block status post pacemaker placement. Coumadin was reversed with Kcentra now on heparin infusion held for OR today. 7. Chronic diastolic heart failure with hypertension and hyperlipidemia, off diuretics currently due to nothing by mouth status. 8. Chronic peripheral neuropathy bilateral feet and hands on chronic gabapentin. 9. Gastroesophageal reflux disease, on Prilosec. 10. Benign prostatic hypertrophy (BPH) on tamsulosin and finasteride. 11. Chronic back pain with L1-2 compression fractures. [facility]
[2020-01-11] MEDS: BACITRACIN OINTMENT 30GM TUBE TOP SCH (09:00)
[2020-01-11] MEDS: FOLIC ACID 1 MG TAB PO SCH (09:37)
[2020-01-11] MEDS: FINASTERIDE 5 MG TAB PO SCH (09:37)
[2020-01-11] MEDS: PANTOPRAZOLE 40MG VIAL (C9113 PER 1) IV SCH (09:37)
[2020-01-11] MEDS: TAMSULOSIN 0.4 MG CAP PO SCH ×2 (09:37→21:12)
[2020-01-11] MEDS: GABAPENTIN 300 MG CAP PO SCH ×2 (09:37→21:12)
[2020-01-11] MEDS ORDERED: KCL 10MEQ/100ML SWI (KRUN) 10 MEQ in IV 1 EA IV ONE (09:45)
[2020-01-11] MEDS: HEPARIN DRIP 25,000 UNITS in IV 1 EA IV SCH ×2 (11:17→11:19)
[2020-01-11] MEDS: ACETAMINOPHEN 500 MG TAB PO PRN (14:27)
[2020-01-11] MEDS ORDERED: NS 500 ML IV ONE (14:45)
[2020-01-11] MEDS ORDERED: LORazepam 2 MG TAB PO PRN (15:15)
--- NOTE | 2020-01-11 15:22 | REP ---
PORTABLE CHEST X-RAY: Single view. HISTORY: Fever. COMPARISON CHEST X-RAY: January 05, 2020. FINDINGS: Monitoring electrodes are seen. A pacemaker is noted in the right heart via the left side as before. Heart size is mildly prominent unchanged. The lungs are well inflated and free of infiltrate. The pleural angles are sharp. Pulmonary vasculature is not increased. There are mild degenerative changes in the thoracic spine. Thoracic aorta is calcific and somewhat tortuous. IMPRESSION: Mildly prominent heart with pacemaker. Otherwise no acute disease. Electronically Signed by Franky Rush MD 01/11/2020 03:30 P
--- NOTE | 2020-01-11 15:26 | IPNPDOC ---
Date Seen The patient was seen on 01/11/20. Progress Note SUBJECTIVE: c/o 5/10 pain left wrist and left ankle. requested pillow to be adjusted. afebrile denies chills. PRAVIN postponed until pt completes iv abx for left wrist septic arthritis since same iv treatment. no new complaints. Tele: unremarkable overnight. no diarrhea. Pt has notable tremors and has history of heavy alcohol abuse. [facility] protocol re-instated. OBJECTIVE: PHYSICAL EXAMINATION VITALS: pls see below Generally patient is awake, alert, oriented to himself. No respiratory distress. No jugular venous distention (JVD) or thyromegaly. no cervical LAD Lungs: AEBE CTAB no wheezing or rales Heart: S1, S2. Regular rate and rhythm. No murmurs noted. Abdomen is soft, nontender, nondistended. Positive bowel sounds. Extremities: Left ankle wound VAC. left wrist elevated LABORATORY DATA/MICROBIOLOGY: pls see below ASSESSMENT/PLAN: This is an 79-year-old male admitted on 01/04/2020 with complaints of 1 week of red area over his ankle. He was seen at urgent care, diagnosed with gout and treated with prednisone with worsening complaints. Patient was admitted with septic arthritis, found to have methicillin sensitive Staphylococcus aureus (MSSA) bacteremia along with sepsis and abscess of the left wrist. IMPRESSION: Septic Arthritis with Left wrist abscess and cellulitis, left ankle sepsis and cellulitis with methicillin sensitive Staphylococcus aureus (MSSA) bacteremia. Currently on IV nafcillin. Patient had a pacemaker placed in November 2018. Infectious disease (ID) consulted. Ortho s/p debridement 01/09 in the OR. Repeat blood cultures on 01/09/2020 have been negative. 01/07/2020 blood cultures with Staphylococcus aureus (MSSA). Defer to ID. If we need transesophageal echo in light of recent pacemaker placed to rule out endocarditis, there is mitral valve thickening noted on the mitral valve. Per pulmonary, may proceed with transesophageal echo. Obstructive sleep apnea (BRYNN): Resumed on home CPAP settings. Managed by Dr. Strange. Medically stable to undergo transesophageal echo. No pulmonary issues at this time. On tabletop overnight. Hypernatremia: Resolved. Acute kidney injury secondary to sepsis and dehydration, resolved. Currently on no diuretics, nonsteroidal anti-inflammatory drugs (NSAIDs), angiotensin II receptor blockers (ARB) or angiotensin converting enzyme inhibitors (LUIS MIGUEL), 2.17. Alcohol abuse: Patient has a fatty liver on CT abdomen and pelvis. tremulous today with CIWA protocol resumed. Chronic atrial fibrillation with high degree AV block status post pacemaker placement. Coumadin was reversed with Kcentra now on heparin infusion for now until ortho has completed i&d, debridement of both the left wrist and left ankle. Chronic diastolic heart failure, compensated. monitoring i/o. daily weights. Chronic peripheral neuropathy bilateral feet and hands on chronic gabapentin. Gastroesophageal reflux disease, on Prilosec. Benign prostatic hypertrophy (BPH) on tamsulosin and finasteride. Chronic back pain with L1-2 compression fractures. disposition: dc telemetry. [facility] VS, I&O, 24H, [facility] Vital Signs/I&O Vital Signs Date Time Temp Pulse Resp B/P (MAP) Pulse Ox O2 Delivery O2 Flow Rate FiO2 01/11/20 10:00 96 Room Air 01/11/20 08:00 96.4 91 20 125/58 (80) 01/10/20 15:45 2 01/07/20 03:50 100 I&O- Last 24 Hours up to 6 AM 01/11/20 06:00 Intake Total 870 ml Output Total 5375 ml Balance -4505 ml Laboratory Data 24H LABS Laboratory Tests 2 01/10/20 15:43: Bedside Glucose (Misc Panel) 130H 01/11/20 00:50: Activated Partial Thromboplast Time 83.5H 01/11/20 03:29: Immature Granulocyte % (Auto) 2.4, Neutrophils (%) (Auto) 82.4H, Lymphocytes (%) (Auto) 10.0L, Monocytes (%) (Auto) 4.7, Eosinophils (%) (Auto) 0.3, Basophils (%) (Auto) 0.2, Neutrophils # (Auto) 9.2H, Lymphocytes # (Auto) 1.1L, Monocytes # (Auto) 0.5, Eosinophils # (Auto) 0.0, Basophils # (Auto) 0.0, Nucleated Red Blood Cells % (auto) 0.0, Anion Gap 10, Glomerular Filtration Rate 30.0L, Calcium Level 7.9L, C-Reactive Protein, Quantitative 18.90H 01/11/20 06:55: Activated Partial Thromboplast Time 84.4H CBC/BMP Laboratory Tests 01/11/20 03:29 Microbiology Microbiology 01/09/20 Blood Culture - Preliminary, Resulted No Growth after 48 hours. All Specime... 01/09/20 Blood Culture - Preliminary, Resulted No Growth after 48 hours. All Specime... 01/07/20 Stool Occult Blood (HILARY) - Final, Complete 01/07/20 Blood Culture - Final, Complete Staphylococcus Aureus 01/07/20 Gram Stain - Final, Complete 01/07/20 Abscess Culture - Final, Complete Staphylococcus Aureus 01/07/20 Gram Stain - Final, Complete 01/07/20 Abscess Culture - Final, Complete Staphylococcus Aureus 01/07/20 Gram Stain - Final, Complete 01/07/20 Abscess Culture - Final, Complete Staphylococcus Aureus 01/07/20 Anaerobic Culture - Final, Complete 01/07/20 Anaerobic Culture - Final, Complete 01/07/20 Anaerobic Culture - Final, Complete 01/07/20 Gram Stain - Final, Complete 01/07/20 Wound Culture - Final, Complete Staphylococcus Aureus 01/07/20 Gram Stain - Final, Complete 01/07/20 Wound Culture - Final, Complete Staphylococcus Aureus 01/07/20 Gram Stain - Final, Complete 01/07/20 Wound Culture - Final, Complete Staphylococcus Aureus 01/07/20 Anaerobic Culture - Final, Complete 01/07/20 Anaerobic Culture - Final, Complete 01/07/20 Anaerobic Culture - Final, Complete 01/06/20 Gram Stain - Final, Complete 01/06/20 Body Fluid Culture - Final, Complete Staphylococcus Aureus 01/06/20 Blood Culture - Final, Complete NO GROWTH AFTER 5 DAYS 01/04/20 Respiratory Virus Panel (PCR) (HILARY) - Final, Complete 01/04/20 Blood Culture - Final, Complete Staphylococcus Aureus 01/04/20 Blood Culture - Final, Complete Staphylococcus Aureus RONDA MAY MD January 11, 2020 14:37
[2020-01-11] MEDS: THIAMINE 100 MG TAB PO SCH ×2 (15:39→21:12)
[2020-01-11] MEDS: MULTIVITAMINS/MINERALS THERAP 1 TAB PO SCH (15:39)
[2020-01-11] MEDS ORDERED: OXAZEPAM 10 MG CAP PO ONE (16:00)
[2020-01-11] MEDS ORDERED: OXAZEPAM 10 MG CAP PO PRN (19:00)
[2020-01-12] VITALS (10 sets, daily range): BP systolic 100–131; BP diastolic 57–72; O2SAT 94
[2020-01-12] MEDS: NAFCILLIN SOD 2 GM in D5W MINI-BAG PLUS 50 ML IV SCH ×6 (00:56→21:07)
[2020-01-12] MEDS: ACETAMINOPHEN 500 MG TAB PO PRN ×2 (01:56→21:08)
[2020-01-12] MEDS: IPRATROPIUM 0.5MG/ALBUTEROL 2.5MG INH SOL UD 3ML (DUONEB) NEB SCH ×4 (02:00→19:44)
[2020-01-12] MEDS: SLF 3 ML SYR IV SCH ×3 (05:05→21:08)
[2020-01-12] MEDS: HEPARIN DRIP 25,000 UNITS in IV 1 EA IV SCH ×2 (05:09→22:32)
[2020-01-12 07:28] LABS: BASO % 0.2 % (0.0-1.0); EOS # 0.1 10^3/uL (0.0-0.5); EOS % 1.2 % (0.0-3.0); HEMATOCRIT 34.1 % (42.0-52.0); HEMOGLOBIN 11.5 g/dl (13.5-17.5); LYMPH % 10.4 % (24.0-44.0); MEAN CORPUSCULAR HEMOGLOBIN 27.7 pg (27.0-33.0); MEAN CORPUSCULAR HGB CONC 33.7 g/dl (32.0-36.5); MEAN CORPUSCULAR VOLUME 82.2 fl (80.0-96.0); MONO # 0.5 10^3/uL (0.0-0.8); NEUTROPHILS # 7.9 10^3/uL (1.5-8.5); PLATELET COUNT, AUTOMATED 348 10^3/uL (150-450); RED BLOOD COUNT 4.15 10^6/uL (4.30-6.10); WHITE BLOOD COUNT 9.8 10^3/uL (4.0-10.0)
[2020-01-12] MEDS: BUDESONIDE 0.5 MG/2 ML INHALATION SUSPENSION INH SCH ×2 (07:30→19:44)
[2020-01-12 07:48] LABS: C REACTIVE PROTEIN QUANTITATIV 16.2 MG/DL (0.00-0.30); CALCIUM LEVEL 8.2 MG/DL (8.8-10.2); CREATININE FOR GFR 2.16 MG/DL (0.70-1.30); GLOMERULAR FILTRATION RATE 31.6 (>42); POTASSIUM SERUM 3.1 MEQ/L (3.5-5.1)
[2020-01-12] MEDS ORDERED: MIDAZOLAM INJ 2MG/2ML VIAL (J2250 PER 1MG) As Ordered ONE (08:28)
[2020-01-12] MEDS ORDERED: propofoL 200 MG/20 ML VIAL As Ordered ONE ×3 (08:28→11:00)
[2020-01-12] MEDS ORDERED: LIDOCAINE 2% 100MG/5ML SDV (FOR ANES.) As Ordered ONE (08:28)
[2020-01-12] MEDS ORDERED: ONDANSETRON 4MG/2ML VIAL As Ordered ONE (08:28)
[2020-01-12] MEDS ORDERED: fentaNYL 100 MCG/2 ML INJECTION (J3010) As Ordered ONE (08:29)
[2020-01-12] MEDS ORDERED: POTASSIUM CHLORIDE 10 MEQ SR TABLET PO ONE ×2 (08:45→18:30)
[2020-01-12] MEDS: FINASTERIDE 5 MG TAB PO SCH (08:57)
[2020-01-12] MEDS: THIAMINE 100 MG TAB PO SCH ×2 (08:57→21:07)
[2020-01-12] MEDS: FOLIC ACID 1 MG TAB PO SCH (08:57)
[2020-01-12] MEDS: PANTOPRAZOLE 40MG VIAL (C9113 PER 1) IV SCH (08:58)
[2020-01-12] MEDS: TAMSULOSIN 0.4 MG CAP PO SCH ×2 (08:58→21:08)
[2020-01-12] MEDS: MULTIVITAMINS/MINERALS THERAP 1 TAB PO SCH (08:58)
[2020-01-12] MEDS: GABAPENTIN 300 MG CAP PO SCH ×2 (08:58→21:07)
[2020-01-12] MEDS: BACITRACIN OINTMENT 30GM TUBE TOP SCH (09:00)
[2020-01-12] MEDS ORDERED: FOLIC ACID 1 MG TAB PO SCH (09:00)
[2020-01-12 09:08] LABS: MAGNESIUM LEVEL 2.2 MG/DL (1.8-2.4)
[2020-01-12] MEDS ORDERED: LIDOCAINE 1% SDV 30ML VIAL As Ordered ONE (09:30)
[2020-01-12] MEDS ORDERED: KETAMINE HCL 200 MG/20 ML VIAL As Ordered ONE ×2 (10:25→11:22)
[2020-01-12] MEDS ORDERED: ACETAMINOPHEN 1000MG 100ML IV BTL (OFIRMEV) (J0131 PER 10MG) As Ordered ONE (10:40)
[2020-01-12] MEDS ORDERED: fentaNYL 100 MCG/2 ML INJECTION (J3010) IV PRN (12:00)
[2020-01-12] MEDS ORDERED: LR 1,000 ML IV SCH (12:00)
[2020-01-12] MEDS ORDERED: oxyCODONE 5MG TAB As Ordered ONE (12:02)
[2020-01-12] MEDS: oxyCODONE 5MG TAB PO PRN (12:04)
--- NOTE | 2020-01-12 14:09 | RO ---
DATE OF PROCEDURE: PREPROCEDURE DIAGNOSES: 1. Left lateral ankle abscess. 2. Left septic tibiotalar joint. 3. Possible left hand abscess versus septic arthritis to the left wrist. POSTPROCEDURE DIAGNOSES: 1. Left lateral ankle abscess with overlying necrotic skin. 2. Left septic arthritis of the subtalar joint. 3. Left septic arthritis of the tibiotalar joint. 4. Left dorsal hand abscess. PROCEDURE: 1. Irrigation and debridement left lateral ankle abscess. 2. Irrigation and debridement left subtalar joint. 3. Irrigation and debridement left tibiotalar joint. 4. Excision of necrotic skin and placement of a wound vacuum-assisted closure (VAC). 5. Irrigation and debridement left dorsal hand abscess. 6. Irrigation and debridement left wrist joint. SURGEON: Toshia Coleman MD SENIOR COMMISSIONS ANALYST: None. ANESTHESIA: Monitored anesthesia care (MAC) plus local 30 mL 1% lidocaine in total. ESTIMATED BLOOD LOSS: 75 mL. DRAINS: Wound VAC times one. COMPLICATIONS: None. CONDITION: Stable to recovery. INDICATIONS: Neo Ayala is a 76-year-old male with worsening pain, swelling, and erythema to his left ankle and hand. The patient has become septic with elevated fevers and was taken urgently to the operating room. Risks and benefits of surgery were discussed with his . An informed consent was obtained over the phone. DESCRIPTION OF PROCEDURE: The patient was taken to the operating room where he was placed in the supine position on the operating room table. His left leg and left wrist had been marked. A well-padded tourniquet was applied to the left thigh and the left arm. These were not used but were just placed in precaution. The right lower extremity was prepped and draped in normal sterile fashion. Antibiotics were held pending cultures and then the patient's nafcillin was given per his every 4 hour order. An official time-out was held where the correct patient, operative site, and operative procedure were verified. At this point, an incision was made laterally over the distal fibula in the region of the prior blister, which had become necrotic. This was extended distally in the sinus tarsi fashion. Medially upon entering the sinus tarsi there was a significant amount of purulent fluid. There was also purulent fluid in the region of the lateral ligaments and this was debrided. I opened the peroneal tendon sheath and there was no purulent fluid in the sheath, however, there was some superficial purulence which extended throughout the lateral ankle. There was evidence of infection which extended to the posterior aspect of the subtalar joint towards the Achilles. Through a small lateral window in the necrotic tissue lateral to the fibula I was able to inspect the tibiotalar joint and there was a small amount of fluid in the joint, but in general the majority of the infection was in the left subtalar joint and lateral ankle. This was thoroughly debrided using a rongeur, curettes, and knife. I then irrigated the ankle thoroughly with 9 liters of normal saline. There was a significant amount of purulent fluid which had been extruded. Next, I made an incision over the anterior aspect of the ankle. The tibialis anterior tendon was retracted medially. I gained access to the medial aspect of the tibiotalar joint as well. There was a small amount of purulent fluid but overall no significant collection in this area. Another 3 liters were used to thoroughly irrigate the foot and ankle. Following this, I excised the necrotic skin edges and there was an approximately 2-3 cm defect over the central portion of the wound. I then placed Adaptic and wound VAC. The remaining areas had been closed loosely using #3-0 Monocryl and #3-0 nylon. At this point, we performed a second time-out for the left wrist. An incision was made over the dorsal aspect of the wrist after local anesthesia was sufficient. The extensor retinaculum was excised. An interval between the third and fourth compartment was utilized. There was immediately a significant of purulent fluid. This was essentially deep to the extensor tendons and tract throughout the majority of the carpus. I used a snap to spread thoroughly and debride all pockets of purulent fluid. I then irrigated copiously. After the hand had been thoroughly irrigated, I gained access to wrist joint. There did not appear to be a deeper septic arthritis within the wrist joint and this was again irrigated thoroughly. At this point, incision was closed loosely using #3-0 nylon. The patient was placed into a resting splint and hung from an IV pole. He was then taken to the recovery room in stable condition. Surgery was performed under MAC local and we were able to avoid sedation. He can be started on deep venous thrombosis (DVT) prophylaxis as soon as the primary team would like him to. JASMINA
[2020-01-12] MEDS: SUCRALFATE SUSP 1GM/10ML UD PO SCH ×2 (17:58→21:07)
[2020-01-12] MEDS: PANTOPRAZOLE 40MG TAB (PROTONIX) PO SCH (21:07)
[2020-01-13] VITALS (11 sets, daily range): BP systolic 129–166; BP diastolic 62–85
[2020-01-13] MEDS: NAFCILLIN SOD 2 GM in D5W MINI-BAG PLUS 50 ML IV SCH ×6 (01:03→21:44)
[2020-01-13] MEDS: IPRATROPIUM 0.5MG/ALBUTEROL 2.5MG INH SOL UD 3ML (DUONEB) NEB SCH ×4 (01:34→19:32)
[2020-01-13] MEDS: ACETAMINOPHEN 500 MG TAB PO PRN ×2 (05:57→14:35)
[2020-01-13] MEDS: SLF 3 ML SYR IV SCH ×2 (05:59→14:00)
[2020-01-13 06:19] LABS: BASO % 0.2 % (0.0-1.0); EOS # 0.1 10^3/uL (0.0-0.5); EOS % 0.6 % (0.0-3.0); HEMATOCRIT 33.9 % (42.0-52.0); HEMOGLOBIN 11.1 g/dl (13.5-17.5); LYMPH # 0.8 10^3/uL (1.5-5.0); LYMPH % 8.1 % (24.0-44.0); MEAN CORPUSCULAR HEMOGLOBIN 27.1 pg (27.0-33.0); MEAN CORPUSCULAR HGB CONC 32.7 g/dl (32.0-36.5); MEAN CORPUSCULAR VOLUME 82.9 fl (80.0-96.0); MONO # 0.4 10^3/uL (0.0-0.8); MONO % 4.1 % (0.0-5.0); NEUTROPHILS # 8.4 10^3/uL (1.5-8.5); NEUTROPHILS % 85.4 % (36.0-66.0); PLATELET COUNT, AUTOMATED 344 10^3/uL (150-450); RED BLOOD COUNT 4.09 10^6/uL (4.30-6.10); WHITE BLOOD COUNT 9.9 10^3/uL (4.0-10.0)
[2020-01-13 06:31] LABS: CALCIUM LEVEL 7.9 MG/DL (8.8-10.2); CREATININE FOR GFR 1.98 MG/DL (0.70-1.30); POTASSIUM SERUM 3.6 MEQ/L (3.5-5.1)
[2020-01-13] MEDS: BUDESONIDE 0.5 MG/2 ML INHALATION SUSPENSION INH SCH ×2 (07:02→19:33)
[2020-01-13] MEDS: MULTIVITAMINS/MINERALS THERAP 1 TAB PO SCH (08:30)
[2020-01-13] MEDS: FINASTERIDE 5 MG TAB PO SCH (08:30)
[2020-01-13] MEDS: SUCRALFATE SUSP 1GM/10ML UD PO SCH ×4 (08:30→21:45)
[2020-01-13] MEDS: FOLIC ACID 1 MG TAB PO SCH (08:30)
[2020-01-13] MEDS: THIAMINE 100 MG TAB PO SCH ×2 (08:30→21:45)
[2020-01-13] MEDS: GABAPENTIN 300 MG CAP PO SCH ×2 (08:30→21:45)
[2020-01-13] MEDS: PANTOPRAZOLE 40MG TAB (PROTONIX) PO SCH ×2 (08:30→21:45)
[2020-01-13] MEDS: TAMSULOSIN 0.4 MG CAP PO SCH ×2 (08:30→21:45)
[2020-01-13] MEDS: BACITRACIN OINTMENT 30GM TUBE TOP SCH (09:00)
[2020-01-13 09:24] LABS: INR 1.19; PROTHROMBIN TIME 14.8 SECONDS (11.8-14.0)
[2020-01-13] MEDS ORDERED: LIDOCAINE 1% MDV 20ML VIAL As Ordered ONE (13:20)
--- NOTE | 2020-01-13 13:49 | RO ---
DATE OF SURGERY: 01/10/2020 PREOPERATIVE DIAGNOSES: 1. Left ankle deep infection. 2. Left ankle wound vacuum-assisted closure (VAC) placement. POSTOPERATIVE DIAGNOSES: 1. Left ankle deep infection. 2. Left ankle wound VAC placement. PROCEDURE: 1. Left ankle irrigation and debridement including skin, superficial and deep fascia, periosteum. 2. Wound VAC placement left ankle. SURGEON: Dr. Aubrey Ellison DIRECTOR QUALITY ASSURANCE: None. ANESTHESIA: Local monitored anesthesia care (MAC). INTRAVENOUS (IV) FLUIDS: Lactated Ringer's. ESTIMATED BLOOD LOSS: 10 mL. SPECIMENS: None. DESCRIPTION OF PROCEDURE: Risks and benefits of the surgery have been discussed with the patient's , who is the health care proxy, and telephone consent obtained. He was identified in the preoperative holding area. He was brought the operating room, placed supine on a well-padded operating room (OR) table. Wound VAC was then removed. Sedation was administered by anesthesia. Time-out performed per hospital protocol. He received 2 grams IV cefazolin as a standard treatment dose of a previous infection. The left leg was prepped and draped in the normal sterile fashion with a Betadine prep. Immediate inspection of the wound VAC that revealed grossly purulent fluid with infected nonvital periosteum and fascia. There was some maceration and early necrosis of part of the skin edges and so a fresh #15 blade was used to excise above 3 mm of skin and superficial fascia until healthy bleeding was encountered. With plantar and dorsi flexion and eversion of the heel gross pus was noted to egress from subtalar joint. About 10 mL of pus I would estimate was expressed. Milking the surrounding soft tissues produced some additional gross pus. The patient did have a CT scan negative for abscess. The posteromedial soft tissues were milked and I was unable to express any pus. A fresh #15 blade and forceps were then used as well as rongeur to remove nonviable periosteum and tenosynovium around the peroneal tendons taking care to preserve the peroneal retinaculum. All grossly necrotic nonviable infected tissue was removed sharply. I did have a clear look at the sinus tarsi anterior to the anterior talofibular ligament (ATFL) sleeve of tissue I was able to enter the ankle joint. I used a total of 9 liters but started with 6 liters of irrigation using cystoscopy tubing to irrigate the entire infected field. Following initial irrigation and debridement, I repeated the plantar dorsi flexion and a scant amount of additional purulent fluid was encountered. The patellar joint was held somewhat opened with the Heather clamp and then I irrigated with an additional 3 liters once it was unable to express any further purulent fluid. Following that final 3 liters, I repeated plantar dorsiflexion eversion. No more purulent fluid was encountered. I milked the posterior soft tissues retrocalcaneal bursa and medially and no additional pus was encountered. At this point, I placed a thin strip of Adaptic over the proximal and distal extents of the bilateral incision from the initial washout and a thin strip of sponge per incisional wound VAC technique. Then, a piece of the sponge was trimmed to fit the main defect. This was covered over with the appropriate plastic draping and a tight seal was formed and then the hose was attached and this placed on suction and there were no leaks. Soft dressing applied including Luis Manuel bandage, and drapes were taken down. All counts correct times two. Complications none. I then performed a dressing change on the left wrist using a sterile prep gauze over the dorsal wrist incision and a sterile Kerlix. No drainage from that incision and very mild erythema and dramatically improved soft tissue swelling from earlier in his hospital course. He was carefully transitioned to the hospital bed in stable condition. The remainder of the care with the medical team in the progressive care unit (PCU). We will plan a return trip to the operating room (OR) on to ensure no further purulence before attempting to have the patient sent to rehab and then, eventually the wound center. We will also consider the need for possible plastics evaluation.
--- NOTE | 2020-01-13 16:00 | REP ---
Procedure: PICC line insertion with Gaudencio The procedure was performed under the direct supervision of Dr. Strong. The risks and benefits of the procedure were explained to the patient and informed consent was obtained. The right basilic vein was localized using ultrasound guidance. The skin was prepped and draped in a sterile fashion. 2% lidocaine was used as a local anesthetic. Using ultrasound guidance the basilic vein was cannulated and a 0.018 guidewire was inserted and advanced to the SVC using fluoroscopic guidance. The needle was removed and a 5.5 [place] dilator and peel-away sheath was inserted over the guide wire. A 5.5 [place] dual lumen catheter was cut to length of 43 cm. The dilator was removed and the catheter was inserted over the guide wire with the tip ending in the SVC. The peel-away sheath was removed and the catheter was flushed with heparinized saline as per Hospital protocol. The catheter was affixed to the skin and a sterile dressing was applied. The patient tolerated the procedure well and there were no immediate complications. 0.1 minutes of fluoro time was utilized for this procedure. Electronically Signed by NANCY Lovell 01/13/2020 03:03 P Electronically Signed by Johnnie Strong MD 01/13/2020 03:51 P
[2020-01-13] MEDS ORDERED: CETACAINE SPRAY 5GM As Ordered ONE (16:14)
[2020-01-13] MEDS ORDERED: LIDOCAINE VISCOUS 2% SOLN 15ML UDC As Ordered ONE (16:14)
--- NOTE | 2020-01-13 16:20 | IPNPDOC ---
Date Seen The patient was seen on 01/13/20. Progress Note 3/10 pain scale when not moving. does not want additional meds. afebrile npo for PRAVIN. no issues on Tele. PE VS: pls see below Generally patient is awake, alert, oriented to himself. No respiratory distress. No jugular venous distention (JVD) or thyromegaly. Lungs: Diminished clear Heart: S1, S2. Regular rate and rhythm. No murmurs noted. Abdomen is soft, nontender, nondistended. Positive bowel sounds. Extremities: Left ankle wound VAC. left wrist bandaged LABORATORY DATA/IMAGING/ECHO/MICRO: REVIEWED ASSESSMENT/PLAN: This is an 79-year-old male admitted on 01/04/2020 with complaints of 1 week of red area over his ankle. He was seen at urgent care, diagnosed with gout and treated with prednisone with worsening complaints. Patient was admitted with septic arthritis, found to have methicillin sensitive Staphylococcus aureus (MSSA) bacteremia along with sepsis and abscess of the left wrist. Left wrist abscess and cellulitis, left ankle sepsis and cellulitis with methicillin sensitive Staphylococcus aureus (MSSA) bacteremia. Currently on IV nafcillin. Patient had a pacemaker placed in November 2018. Infectious disease (ID) consulted Repeat blood cultures on 01/09/2020 have been negative. 01/07/2020 blood cultures with Staphylococcus aureus (MSSA). PRAVIN 01/13/20 Obstructive sleep apnea (BRYNN): No pulmonary issues at this time. Acute kidney injury secondary to sepsis and dehydration, resolved. Currently on no diuretics, nonsteroidal anti-inflammatory drugs (NSAIDs), angiotensin II receptor blockers (ARB) or angiotensin converting enzyme inhibitors (LUIS MIGUEL), Alcohol abuse: [facility]wa protocol. Chronic atrial fibrillation with high degree AV block status post pacemaker placement. Coumadin was reversed with Kcentra now on heparin infusion held Chronic diastolic heart failure with hypertension and hyperlipidemia, off diuretics currently due to nothing by mouth status. Chronic peripheral neuropathy bilateral feet and hands on chronic gabapentin. Gastroesophageal reflux disease, on Prilosec. Benign prostatic hypertrophy (BPH) on tamsulosin and finasteride. Chronic back pain with L1-2 compression fractures. VS, I&O, 24H, Fishbone Vital Signs/I&O Vital Signs Date Time Temp Pulse Resp B/P (MAP) Pulse Ox O2 Delivery O2 Flow Rate FiO2 01/13/20 14:25 100.2 78 15 131/66 (87) 96 Room Air 01/13/20 06:00 2.0 01/07/20 03:50 100 I&O- Last 24 Hours up to 6 AM 01/13/20 06:00 Intake Total 1820 ml Output Total 2900 ml Balance -1080 ml Laboratory Data 24H LABS Laboratory Tests 2 01/13/20 05:42: Immature Granulocyte % (Auto) 1.6, Neutrophils (%) (Auto) 85.4H, Lymphocytes (%) (Auto) 8.1L, Monocytes (%) (Auto) 4.1, Eosinophils (%) (Auto) 0.6, Basophils (%) (Auto) 0.2, Neutrophils # (Auto) 8.4, Lymphocytes # (Auto) 0.8L, Monocytes # (Auto) 0.4, Eosinophils # (Auto) 0.1, Basophils # (Auto) 0.0, Nucleated Red Blood Cells % (auto) 0.0, Prothrombin Time 14.8H, Prothromb Time International Ratio 1.19, Activated Partial Thromboplast Time 36.0, Anion Gap 6L, Glomerular Filtration Rate 35.0L, Calcium Level 7.9L CBC/BMP Laboratory Tests 01/13/20 05:42 Microbiology Microbiology 01/12/20 Stool Occult Blood (HILARY) - Final, Complete 01/11/20 Blood Culture - Preliminary, Resulted No Growth after 48 hours. All Specime... 01/11/20 Blood Culture - Preliminary, Resulted No Growth after 48 hours. All Specime... 01/09/20 Blood Culture - Preliminary, Resulted No Growth after 72 hours. All specime... 01/09/20 Blood Culture - Preliminary, Resulted No Growth after 72 hours. All specime... 01/07/20 Stool Occult Blood (HILARY) - Final, Complete 01/07/20 Blood Culture - Final, Complete Staphylococcus Aureus 01/07/20 Gram Stain - Final, Complete 01/07/20 Abscess Culture - Final, Complete Staphylococcus Aureus 01/07/20 Gram Stain - Final, Complete 01/07/20 Abscess Culture - Final, Complete Staphylococcus Aureus 01/07/20 Gram Stain - Final, Complete 01/07/20 Abscess Culture - Final, Complete Staphylococcus Aureus 01/07/20 Anaerobic Culture - Final, Complete 01/07/20 Anaerobic Culture - Final, Complete 01/07/20 Anaerobic Culture - Final, Complete 01/07/20 Gram Stain - Final, Complete 01/07/20 Wound Culture - Final, Complete Staphylococcus Aureus 01/07/20 Gram Stain - Final, Complete 01/07/20 Wound Culture - Final, Complete Staphylococcus Aureus 01/07/20 Gram Stain - Final, Complete 01/07/20 Wound Culture - Final, Complete Staphylococcus Aureus 01/07/20 Anaerobic Culture - Final, Complete 01/07/20 Anaerobic Culture - Final, Complete 01/07/20 Anaerobic Culture - Final, Complete 01/06/20 Gram Stain - Final, Complete 01/06/20 Body Fluid Culture - Final, Complete Staphylococcus Aureus 01/06/20 Blood Culture - Final, Complete NO GROWTH AFTER 5 DAYS 01/04/20 Respiratory Virus Panel (PCR) (HILARY) - Final, Complete 01/04/20 Blood Culture - Final, Complete Staphylococcus Aureus 01/04/20 Blood Culture - Final, Complete Staphylococcus Aureus RONDA MAY MD January 13, 2020 16:20
[2020-01-13] MEDS ORDERED: propofoL 200 MG/20 ML VIAL As Ordered ONE (17:10)
[2020-01-13] MEDS ORDERED: fentaNYL 100 MCG/2 ML INJECTION (J3010) IV PRN (17:45)
[2020-01-13] MEDS ORDERED: METOCLOPRAMIDE INJ 10MG/2ML VIAL (J2765 PER 1) IV PRN (17:45)
[2020-01-13] MEDS ORDERED: ONDANSETRON 4MG/2ML VIAL IV PRN (17:45)
[2020-01-13] MEDS ORDERED: LR 1,000 ML IV SCH (17:45)
[2020-01-13] MEDS ORDERED: WARFARIN SOD 5MG TAB PO SCH (18:30)
[2020-01-13] MEDS: SODIUM CHLORIDE 0.9% INJ 10 ML SYR IV SCH (18:45)
[2020-01-14] MEDS: NAFCILLIN SOD 2 GM in D5W MINI-BAG PLUS 50 ML IV SCH ×6 (01:11→21:28)
[2020-01-14] MEDS: IPRATROPIUM 0.5MG/ALBUTEROL 2.5MG INH SOL UD 3ML (DUONEB) NEB SCH ×4 (02:00→19:36)
[2020-01-14] MEDS: SODIUM CHLORIDE 0.9% INJ 10 ML SYR IV PRN ×2 (02:29→21:32)
[2020-01-14 03:00] VITALS: BP 142/71
[2020-01-14] MEDS: SODIUM CHLORIDE 0.9% INJ 10 ML SYR IV SCH ×2 (05:08→17:27)
[2020-01-14 06:00] VITALS: BP 140/64
[2020-01-14 06:37] LABS: BASO # 0.1 10^3/uL (0.0-0.2); BASO % 0.5 % (0.0-1.0); EOS % 0.3 % (0.0-3.0); LYMPH # 0.9 10^3/uL (1.5-5.0); LYMPH % 9.5 % (24.0-44.0); MEAN CORPUSCULAR HEMOGLOBIN 27.6 pg (27.0-33.0); MEAN CORPUSCULAR HGB CONC 33.3 g/dl (32.0-36.5); MEAN CORPUSCULAR VOLUME 82.9 fl (80.0-96.0); MONO # 0.4 10^3/uL (0.0-0.8); MONO % 4.4 % (0.0-5.0); NEUTROPHILS % 84.1 % (36.0-66.0); PLATELET COUNT, AUTOMATED 334 10^3/uL (150-450); RED BLOOD COUNT 3.98 10^6/uL (4.30-6.10); WHITE BLOOD COUNT 9.5 10^3/uL (4.0-10.0)
[2020-01-14 06:50] LABS: INR 1.27; PROTHROMBIN TIME 15.6 SECONDS (11.8-14.0)
[2020-01-14 06:53] VITALS: O2SAT 93
[2020-01-14 07:18] LABS: C REACTIVE PROTEIN QUANTITATIV 15.2 MG/DL (0.00-0.30); CALCIUM LEVEL 7.9 MG/DL (8.8-10.2); CREATININE FOR GFR 1.67 MG/DL (0.70-1.30); GLOMERULAR FILTRATION RATE 42.6 (>42); POTASSIUM SERUM 3.2 MEQ/L (3.5-5.1)
--- NOTE | 2020-01-14 07:33 | T-ECHO ---
DATE OF PROCEDURE: 01/13/2020 REFERRING PHYSICIAN: Dr. Xochitl Hernandez INDICATION: Methicillin-sensitive Staphylococcus aureus bacteremia. PREPROCEDURE DIAGNOSIS: Methicillin-sensitive Staphylococcus aureus bacteremia. POSTPROCEDURE DIAGNOSIS: Methicillin-sensitive Staphylococcus aureus bacteremia. PRINCIPAL FINDINGS: No vegetations. PROCEDURE PERFORMED: Transesophageal echocardiogram. PROCEDURE PERFORMED BY: Curt Granger MD RIVER CAPTAIN: None. COMPLICATIONS: None. SEDATION: IV sedation per WET END TESTER (propofol IV). DESCRIPTION OF PROCEDURE: The patient received topical Cetacaine spray to the back of the pharynx. He received propofol IV administered by the WET END TESTER for IV sedation. The patient tolerated the procedure well without any immediate complications. Rhythm was atrial fibrillation with controlled ventricular response. Images were acquired with a Ernesto three-dimensional transesophageal echocardiogram probe. Esophageal intubation was accomplished by Dr. Granger without difficulty. The left ventricle appeared normal in size and systolic function. Left ventricle ejection fraction 60% by visual estimate. No regional wall motion abnormalities of the left ventricle. A pacemaker lead was seen coursing towards the right ventricle apex position. No masses or vegetations were visualized on the visualized portions of the ventricle pacemaker lead. No vegetations were seen on any of the cardiac valves or anywhere else in the heart. Aortic valve was 3-cusp and had moderate focal thickening and focal calcific deposits. No aortic stenosis. Very mild aortic regurgitation was present. Moderate mitral annular calcification was present. Mild mitral regurgitation. Tricuspid leaflets appeared structurally normal. Moderate tricuspid regurgitation was present. Pulmonic valve appeared normal and was without significant regurgitation. No pericardial effusion. Both atria appeared to be enlarged. Atrial septum appeared intact anatomically and by color flow Doppler. No pericardial effusion. Distal aortic arch and descending thoracic aorta showed moderate atheroma. CONCLUSIONS: 1. No vegetations. 2. Moderate aortic valve sclerosis of a 3-cusp aortic valve. Very mild aortic regurgitation. No aortic stenosis. 3. Normal left ventricle size and systolic function. Left ventricular ejection fraction (LVEF) 60% by visual estimate. 4. Moderate mitral annular calcification. Mild mitral regurgitation. 5. Moderate mitral regurgitation with structurally normal appearing mitral leaflets. 6. Presence of pacemaker lead coursing towards the right ventricle apex. 7. Moderate atheroma in the distal aortic arch and descending thoracic aorta.
[2020-01-14] MEDS: BUDESONIDE 0.5 MG/2 ML INHALATION SUSPENSION INH SCH ×2 (08:09→19:36)
[2020-01-14] MEDS: FINASTERIDE 5 MG TAB PO SCH (08:56)
[2020-01-14] MEDS: PANTOPRAZOLE 40MG TAB (PROTONIX) PO SCH ×2 (08:56→21:28)
[2020-01-14] MEDS: SUCRALFATE SUSP 1GM/10ML UD PO SCH ×4 (08:56→21:28)
[2020-01-14] MEDS: TAMSULOSIN 0.4 MG CAP PO SCH ×2 (08:56→21:28)
[2020-01-14] MEDS: GABAPENTIN 300 MG CAP PO SCH ×2 (08:57→21:28)
[2020-01-14] MEDS: FOLIC ACID 1 MG TAB PO SCH (08:57)
[2020-01-14] MEDS: MULTIVITAMINS/MINERALS THERAP 1 TAB PO SCH (08:57)
[2020-01-14] MEDS ORDERED: POTASSIUM CHLORIDE 10 MEQ SR TABLET PO SCH (09:00)
--- NOTE | 2020-01-14 11:02 | IPNPDOC ---
Date Seen The patient was seen on 01/14/20. Progress Note c/o hard time standing on his right LE and right UE trying to get out of bed with PT assistance. gait belt used and tugged on his left lq w c/o discomfort 2/10 without ecchymoses. 2/10 pain in left UE/left LE, but feels comfortable enough not get a pain pill. c/o foul taste in his mouth after taking potassium. wondered if he should just eating extra bananas. no fever or chills. picc line in right ue. PE VS: pls see below Generally patient is awake, alert, oriented to himself. No respiratory distress. No jugular venous distention (JVD) or thyromegaly. HEENT; no cervical LAD. PERRL. no bruit Lungs: Diminished clear Heart: S1, S2. Regular rate and rhythm. No murmurs noted. Abdomen is soft, nontender, nondistended. Positive bowel sounds. Extremities: Left ankle wound VAC. left wrist bandaged Skin: right PICC line in upper arm LABORATORY DATA/IMAGING/ECHO/MICRO: REVIEWED ASSESSMENT/PLAN: This is an 79-year-old male admitted on 01/04/2020 with complaints of 1 week of red area over his ankle. He was seen at urgent care, diagnosed with gout and treated with prednisone with worsening complaints. Patient was admitted with septic arthritis, found to have methicillin sensitive Staphylococcus aureus (MSSA) bacteremia along with sepsis and abscess of the left wrist. Septic Arthritis Left wrist abscess and cellulitis, left ankle sepsis and cellulitis with methicillin sensitive Staphylococcus aureus (MSSA) bacteremia. Currently on IV nafcillin. Patient had a pacemaker placed in November 2018. Infectious disease (ID) consulted Repeat blood cultures on 01/09/2020 have been negative. 01/07/2020 blood cultures with Staphylococcus aureus (MSSA). PRAVIN 01/13/20 no endocarditis. Obstructive sleep apnea (BRYNN): No pulmonary issues at this time. Dr. Strange previously consulted and recommended resuming home settings. pt is noncompliant as outpt. Acute kidney injury secondary to sepsis and dehydration, resolved. Currently on no diuretics, nonsteroidal anti-inflammatory drugs (NSAIDs), angiotensin II receptor blockers (ARB) or angiotensin converting enzyme inhibitors (LUIS MIGUEL), Alcohol abuse: [facility] protocol. Chronic atrial fibrillation with high degree AV block status post pacemaker placement. Coumadin was reversed with Kcentra. was on iv heparin gtt due to ortho procedures, but back on warfarin to goal of 2-3. Chronic diastolic heart failure with hypertension and hyperlipidemia, off diuretics currently due to nothing by mouth status. Chronic peripheral neuropathy bilateral feet and hands on chronic gabapentin. complicating ambulation. Debility will need SNF placement and prolonged recovery Gastroesophageal reflux disease, on Prilosec. Benign prostatic hypertrophy (BPH) on tamsulosin and finasteride. Chronic back pain with L1-2 compression fractures. disposition: medically stable to dc to SNF, will confirm with ID on Thursday if ok to dc Thursday. VS, I&O, 24H, Fishbone Vital Signs/I&O Vital Signs Date Time Temp Pulse Resp B/P (MAP) Pulse Ox O2 Delivery O2 Flow Rate FiO2 01/14/20 06:53 93 Room Air 01/14/20 06:00 97.9 77 22 140/64 (89) 01/13/20 18:00 2 01/13/20 17:28 100 I&O- Last 24 Hours up to 6 AM 01/14/20 06:00 Intake Total 1500 ml Output Total 3250 ml Balance -1750 ml Laboratory Data 24H LABS Laboratory Tests 2 01/14/20 06:12: Immature Granulocyte % (Auto) 1.2, Neutrophils (%) (Auto) 84.1H, Lymphocytes (%) (Auto) 9.5L, Monocytes (%) (Auto) 4.4, Eosinophils (%) (Auto) 0.3, Basophils (%) (Auto) 0.5, Neutrophils # (Auto) 8.0, Lymphocytes # (Auto) 0.9L, Monocytes # (Auto) 0.4, Eosinophils # (Auto) 0.0, Basophils # (Auto) 0.1, Nucleated Red Blood Cells % (auto) 0.0, Prothrombin Time 15.6H, Prothromb Time International Ratio 1.27, Anion Gap 7L, Glomerular Filtration Rate 42.6, Calcium Level 7.9L, C-Reactive Protein, Quantitative 15.20H CBC/BMP Laboratory Tests 01/14/20 06:12 Microbiology Microbiology 01/12/20 Stool Occult Blood (HILARY) - Final, Complete 01/11/20 Blood Culture - Preliminary, Resulted No Growth after 48 hours. All Specime... 01/11/20 Blood Culture - Preliminary, Resulted No Growth after 48 hours. All Specime... 01/09/20 Blood Culture - Final, Complete NO GROWTH AFTER 5 DAYS 01/09/20 Blood Culture - Final, Complete NO GROWTH AFTER 5 DAYS 01/07/20 Stool Occult Blood (HILARY) - Final, Complete 01/07/20 Blood Culture - Final, Complete Staphylococcus Aureus 01/07/20 Gram Stain - Final, Complete 01/07/20 Abscess Culture - Final, Complete Staphylococcus Aureus 01/07/20 Gram Stain - Final, Complete 01/07/20 Abscess Culture - Final, Complete Staphylococcus Aureus 01/07/20 Gram Stain - Final, Complete 01/07/20 Abscess Culture - Final, Complete Staphylococcus Aureus 01/07/20 Anaerobic Culture - Final, Complete 01/07/20 Anaerobic Culture - Final, Complete 01/07/20 Anaerobic Culture - Final, Complete 01/07/20 Gram Stain - Final, Complete 01/07/20 Wound Culture - Final, Complete Staphylococcus Aureus 01/07/20 Gram Stain - Final, Complete 01/07/20 Wound Culture - Final, Complete Staphylococcus Aureus 01/07/20 Gram Stain - Final, Complete 01/07/20 Wound Culture - Final, Complete Staphylococcus Aureus 01/07/20 Anaerobic Culture - Final, Complete 01/07/20 Anaerobic Culture - Final, Complete 01/07/20 Anaerobic Culture - Final, Complete 01/06/20 Gram Stain - Final, Complete 01/06/20 Body Fluid Culture - Final, Complete Staphylococcus Aureus 01/06/20 Blood Culture - Final, Complete NO GROWTH AFTER 5 DAYS 01/04/20 Respiratory Virus Panel (PCR) (HILARY) - Final, Complete 01/04/20 Blood Culture - Final, Complete Staphylococcus Aureus 01/04/20 Blood Culture - Final, Complete Staphylococcus Aureus RONDA MAY MD January 14, 2020 11:02
--- NOTE | 2020-01-14 15:36 | IPN ---
DATE: 01/12/2020 The patient had remained afebrile since 3:30 p.m. yesterday; however, he did have a 100.5 temperature at 3:36 on 01/10, 100.3 at 1530 despite IV nafcillin. Blood culture on 01/07/2020 grew out Staphylococcus aureus, which was Methicillin-Susceptible Staphylococcus aureus (MSSA). The patient's repeat blood cultures are negative. The patient had washout of the left wrist today as part of the general protocol while he is on heparin drip for history of atrial fibrillation. Hemoccult stool was obtained, which was positive. The patient admits to having history of hemorrhoids and hemoglobin remained stable at 11.5 and hematocrit of 34. No hematemesis, bright red blood per rectum, melena or black tarry stool. The patient otherwise says that the pain is 4/10, does not want any pain medications at this time. PHYSICAL EXAMINATION: Temperature 98.4, pulse 75, respiratory rate 25, blood pressure 131/67, 99% on 2 liters nasal cannula. General: The patient is awake, alert, and oriented to himself, place, able to converse without difficulty. No respiratory accessory muscle use. No jugular venous distension (JVD) or thyromegaly or cervical lymphadenopathy. Lungs: Clear to auscultation. No wheezes, rales or rhonchi. Heart: S1, S2, sinus rhythm. Abdomen is soft, nontender, nondistended. Positive bowel sounds. No rebound or guarding. Left ankle is in wound vac. Left wrist status post washout, currently bandaged. LABORATORY DATA: Microbiology has been reviewed and notable for potassium of 3.1. ASSESSMENT AND PLAN: This is a 79-year-old male, who underwent washout of the left wrist due to septic arthritis of left ankle and left wrist on nafcillin for Methicillin-Susceptible Staphylococcus aureus (MSSA) septic arthritis and bacteremia being evaluated also for endocarditis. IMPRESSION: 1. Septic arthritis with left wrist abscess and cellulitis, left ankle cellulitis with Methicillin-Susceptible Staphylococcus aureus (MSSA) bacteremia on IV nafcillin. Pacemaker was placed 2018. Infectious disease consulted. Ortho, status post debridement on 01/09 in the operating room. Blood culture on 01/06 was positive for Methicillin-Susceptible Staphylococcus aureus (MSSA). The patient is planned for transesophageal echocardiogram in the morning per Dr. Granger. The patient is to have a late breakfast and nothing by mouth after 6 a.m. The patient is agreeable and gives consent. 2. Obstructive sleep apnea on home CPAP. No acute issues on tabletop home settings. 3. Alcohol abuse on Clinical [place] Withdrawal Assessment (CIWA) protocol. 4. Chronic atrial fibrillation with high degree block. Pacemaker in November 2018 on IV heparin currently to be held prior to transesophageal echocardiogram (PRAVIN). 5. Heme positive stool. Monitor hematocrit and hemoglobin while on IV heparin. If decrease in hemoglobin or overt gastrointestinal (GI) bleed, we will discontinue heparin drip and obtain a gastrointestinal (GI) consult. 6. Chronic peripheral neuropathy on gabapentin. 7. Reflux on proton pump inhibitor (PPI) and Carafate. 8. Benign prostatic hypertrophy (BPH) on tamsulosin and finasteride. 9. Chronic back pain with L1, L2 compression fractures. DISPOSITION: Await transesophageal echocardiogram (PRAVIN) results to rule out endocarditis. [facility]
--- NOTE | 2020-01-14 16:09 | IPN ---
DATE: 01/13/2020 Mr. Ayala seems to be doing much better. He complains of some swelling and pain around the medial aspect of the ankle. His hand does not hurt much, and he has good range of motion. He has a cough, and he is coughing up some brown, discolored phlegm but no shortness of breath and no chest pain. He quit smoking in 1999. LABORATORY DATA: White count is 9.9, hemoglobin 11.1, hematocrit 33.9, platelets 344, 85% neutrophils, 8% lymphocytes, 4% monocytes. ESR more than 140. Sodium 140, potassium 3.6, chloride 103, bicarbonate 31, BUN 53, creatinine 1.98, glucose 160, calcium 7.9, CRP 16.2. Blood cultures were positive from January 03 until January 06. First negative culture was January 08. Abscess cultures from left hand and left ankle were all positive for methicillin-sensitive Staphylococcus aureus (MSSA). MEDICATIONS: IV nafcillin 2 grams every 4 hours. PHYSICAL EXAMINATION: Temperature is 98.4, pulse 76, respirations 18, oxygen saturation 94% on room air, blood pressure 124/66. HEART: Normal S1, S2. No murmurs. LUNGS: Expiratory wheezes bilaterally. No crackles or rhonchi. ABDOMEN: Soft, nontender. No hepatosplenomegaly. EXTREMITIES: Ankle edema 1+ on the left side with medial erythema and tenderness. Good range of motion of the ankle joint. Laterally he has a wound vacuum-assisted closure (VAC). Erythema has markedly decreased. He does not have any pain on the lateral aspect. Right ankle with no clubbing, cyanosis, or edema. No swelling. Left hand: Normal range of motion at the wrist. He has an incision with sutures in place with minimal erythema. IMPRESSION: 1. Complicated skin and soft tissue infection of the left hand with bacteremia, on IV nafcillin, status post incision and drainage (I and D) of abscess. 2. Left ankle septic arthritis, status post I and D. Wound vacuum-assisted closure (VAC) in place with also MSSA. 3. Staphylococcus aureus bacteremia with the presence of the pacemaker makes it a complicated infection, and therefore transesophageal echocardiogram (PRAVIN) has been scheduled to rule out endocarditis or lead infection. The patient will need 4-6 weeks of IV antibiotics, depending on echo findings. PLAN: Continue with IV nafcillin at current dose. Monitor complete blood count (CBC) and C-reactive protein (CRP) daily. I am still somewhat concerned about the medial aspect of his ankle with still significant swelling and tenderness, whether there is an effusion that needs to be drained medially. Will discuss with orthopedic surgery if his CRP remains elevated. MTDD
[2020-01-14] MEDS: WARFARIN SOD 7.5MG TAB PO SCH (17:26)
[2020-01-14] MEDS: ACETAMINOPHEN 500 MG TAB PO PRN (21:31)
[2020-01-14 22:00] VITALS: BP 145/69
[2020-01-15] MEDS: IPRATROPIUM 0.5MG/ALBUTEROL 2.5MG INH SOL UD 3ML (DUONEB) NEB SCH ×4 (01:15→20:42)
[2020-01-15] MEDS: NAFCILLIN SOD 2 GM in D5W MINI-BAG PLUS 50 ML IV SCH ×6 (01:31→21:22)
[2020-01-15] MEDS: SODIUM CHLORIDE 0.9% INJ 10 ML SYR IV SCH ×2 (05:28→17:02)
[2020-01-15 06:00] VITALS: BP 144/74
[2020-01-15 06:15] LABS: BASO % 0.5 % (0.0-1.0); EOS # 0.1 10^3/uL (0.0-0.5); EOS % 0.9 % (0.0-3.0); HEMATOCRIT 32.8 % (42.0-52.0); HEMOGLOBIN 10.9 g/dl (13.5-17.5); LYMPH # 0.9 10^3/uL (1.5-5.0); LYMPH % 10.9 % (24.0-44.0); MEAN CORPUSCULAR HEMOGLOBIN 27.5 pg (27.0-33.0); MEAN CORPUSCULAR HGB CONC 33.2 g/dl (32.0-36.5); MEAN CORPUSCULAR VOLUME 82.6 fl (80.0-96.0); MONO # 0.4 10^3/uL (0.0-0.8); MONO % 4.6 % (0.0-5.0); NEUTROPHILS # 6.7 10^3/uL (1.5-8.5); PLATELET COUNT, AUTOMATED 345 10^3/uL (150-450); RED BLOOD COUNT 3.97 10^6/uL (4.30-6.10); WHITE BLOOD COUNT 8.2 10^3/uL (4.0-10.0)
[2020-01-15 06:26] LABS: INR 1.45; PROTHROMBIN TIME 17.4 SECONDS (11.8-14.0)
[2020-01-15 06:30] LABS: C REACTIVE PROTEIN QUANTITATIV 12.9 MG/DL (0.00-0.30); CALCIUM LEVEL 8.6 MG/DL (8.8-10.2); CREATININE FOR GFR 1.52 MG/DL (0.70-1.30); GLOMERULAR FILTRATION RATE 47.5 (>42)
[2020-01-15] MEDS: BUDESONIDE 0.5 MG/2 ML INHALATION SUSPENSION INH SCH ×2 (07:17→20:42)
[2020-01-15] MEDS: SUCRALFATE SUSP 1GM/10ML UD PO SCH ×4 (08:00→21:22)
[2020-01-15] MEDS: PANTOPRAZOLE 40MG TAB (PROTONIX) PO SCH ×2 (09:13→21:22)
[2020-01-15] MEDS: TAMSULOSIN 0.4 MG CAP PO SCH ×2 (09:13→21:22)
[2020-01-15] MEDS: MULTIVITAMINS/MINERALS THERAP 1 TAB PO SCH (09:13)
[2020-01-15] MEDS: POTASSIUM CHLORIDE 10 MEQ SR TABLET PO SCH ×2 (09:14→21:22)
[2020-01-15] MEDS: FOLIC ACID 1 MG TAB PO SCH (09:14)
[2020-01-15] MEDS: GABAPENTIN 300 MG CAP PO SCH ×2 (09:14→21:22)
[2020-01-15] MEDS: FINASTERIDE 5 MG TAB PO SCH (09:15)
--- NOTE | 2020-01-15 09:44 | IPNPDOC ---
Date Seen The patient was seen on 01/15/20. Progress Note no pain, fever, chills. worried about going to SNF, "my mother was there 4yrs ago," and became tearful. tolerating his diet, but having difficulty unable to fully use his left hand and wrist. using his right hand to open his orange juice. "I don't eat that,"pointing to his eggs and toast, and said he just had yogurt and oj this morning. decreased appetite. had small BM yesterday. PRAVIN negative for endocarditis. normal white count PE Vitals: General: The patient is awake,alert, and oriented to himself, place, able to converse without difficulty. No respiratory accessory muscle use. No jugular venous distension (JVD) or thyromegaly or cervical lymphadenopathy. Lungs: Clear to auscultation. No wheezes, rales or rhonchi. Heart: S1, S2, sinus rhythm. Abdomen is soft, nontender, nondistended. Positive bowel sounds. No rebound or guarding. Left ankle is in wound vac. Left wrist status post washout, currently bandaged. LABORATORY DATA: Microbiology has been reviewed and notable for potassium of 3.1. ASSESSMENT AND PLAN: This is a 79-year-old male, who underwent washout of the left wrist due to septic arthritis of left ankle and left wrist on nafcillin for Methicillin-Susceptible Staphylococcus aureus (MSSA) septic arthritis and bacteremia being evaluated also for endocarditis. IMPRESSION: Septic arthritis left wrist abscess and cellulitis, left anklecellulitis Methicillin-Susceptible Staphylococcus aureus (MSSA) bacteremia Obstructive sleep apnea on home CPAP. Alcohol abuse Chronic atrial fibrillation with high degree block. 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 Chronic peripheral neuropathy Reflux Benign prostatic hypertrophy (BPH) Chronic back pain with L1, L2 compression fractures. KATHY N: ID and ortho appreciated. on iv nafcillin s/p PICC for SNF placement to complete abx and rehab. resumed on all home meds monitoring hemoglobin due to heme positive stool. defer to ID and ortho if repeat debridement of left ankle warranted,but would need to hold oral AC. VS, I&O, 24H, Fishbone Vital Signs/I&O Vital Signs Date Time Temp Pulse Resp B/P (MAP) Pulse Ox O2 Delivery O2 Flow Rate FiO2 01/15/20 06:00 98.3 76 18 144/74 (97) 97 Room Air 01/13/20 18:00 2 01/13/20 17:28 100 I&O- Last 24 Hours up to 6 AM 01/15/20 06:00 Intake Total 1770 ml Output Total 3425 ml Balance -1655 ml Laboratory Data 24H LABS Laboratory Tests 2 01/15/20 05:58: Immature Granulocyte % (Auto) 1.1, Neutrophils (%) (Auto) 82.0H, Lymphocytes (%) (Auto) 10.9L, Monocytes (%) (Auto) 4.6, Eosinophils (%) (Auto) 0.9, Basophils (%) (Auto) 0.5, Neutrophils # (Auto) 6.7, Lymphocytes # (Auto) 0.9L, Monocytes # (Auto) 0.4, Eosinophils # (Auto) 0.1, Basophils # (Auto) 0.0, Nucleated Red B lood Cells % (auto) 0.0, Prothrombin Time 17.4H, Prothromb Time International Ratio 1.45, Anion Gap 8, Glomerular Filtration Rate 47.5, Calcium Level 8.6L, C- Reactive Protein, Quantitative 12.90H CBC/BMP Laboratory Tests 01/15/20 05:58 Microbiology Microbiology 01/12/20 Stool Occult Blood (HILARY) - Final, Complete 01/11/20 Blood Culture - Preliminary, Resulted No Growth after 72 hours. All specime... 01/11/20 Blood Culture - Preliminary, Resulted No Growth after 72 hours. All specime... 01/09/20 Blood Culture - Final, Complete NO GROWTH AFTER 5 DAYS 01/09/20 Blood Culture - Final, Complete NO GROWTH AFTER 5 DAYS 01/07/20 Stool Occult Blood (HILARY) - Final, Complete 01/07/20 Blood Culture - Final, Complete Staphylococcus Aureus 01/07/20 Gram Stain - Final, Complete 01/07/20 Abscess Culture - Final, Complete Staphylococcus Aureus 01/07/20 Gram Stain - Final, Complete 01/07/20 Abscess Culture - Final, Complete Staphylococcus Aureus 01/07/20 Gram Stain - Final, Complete 01/07/20 Abscess Culture - Final, Complete Staphylococcus Aureus 01/07/20 Anaerobic Culture - Final, Complete 01/07/20 Anaerobic Culture - Final, Complete 01/07/20 Anaerobic Culture - Final, Complete 01/07/20 Gram Stain - Final, Complete 01/07/20 Wound Culture - Final, Complete Staphylococcus Aureus 01/07/20 Gram Stain - Final, Complete 01/07/20 Wound Culture - Final, Complete Staphylococcus Aureus 01/07/20 Gram Stain - Final, Complete 01/07/20 Wound Culture - Final, Complete Staphylococcus Aureus 01/07/20 Anaerobic Culture - Final, Complete 01/07/20 Anaerobic Culture - Final, Complete 01/07/20 Anaerobic Culture - Final, Complete 01/06/20 Gram Stain - Final, Complete 01/06/20 Body Fluid Culture - Final, Complete Staphylococcus Aureus 01/06/20 Blood Culture - Final, Complete NO GROWTH AFTER 5 DAYS RONDA MAY MD January 15, 2020 07:44
[2020-01-15 14:00] VITALS: BP 142/73
[2020-01-15] MEDS: WARFARIN SOD 7.5MG TAB PO SCH (17:02)
[2020-01-15 22:00] VITALS: BP 137/75
[2020-01-16] MEDS: NAFCILLIN SOD 2 GM in D5W MINI-BAG PLUS 50 ML IV SCH ×6 (01:11→20:48)
[2020-01-16] MEDS: IPRATROPIUM 0.5MG/ALBUTEROL 2.5MG INH SOL UD 3ML (DUONEB) NEB SCH ×4 (01:16→18:20)
[2020-01-16] MEDS: SODIUM CHLORIDE 0.9% INJ 10 ML SYR IV SCH ×2 (05:25→17:41)
[2020-01-16 06:00] VITALS: BP 155/79
[2020-01-16 06:07] LABS: BASO % 0.5 % (0.0-1.0); EOS # 0.1 10^3/uL (0.0-0.5); EOS % 0.9 % (0.0-3.0); HEMATOCRIT 33.3 % (42.0-52.0); HEMOGLOBIN 10.8 g/dl (13.5-17.5); LYMPH # 0.9 10^3/uL (1.5-5.0); LYMPH % 13.3 % (24.0-44.0); MEAN CORPUSCULAR HEMOGLOBIN 26.8 pg (27.0-33.0); MEAN CORPUSCULAR HGB CONC 32.4 g/dl (32.0-36.5); MEAN CORPUSCULAR VOLUME 82.6 fl (80.0-96.0); MONO # 0.3 10^3/uL (0.0-0.8); MONO % 5.2 % (0.0-5.0); NEUTROPHILS # 5.1 10^3/uL (1.5-8.5); PLATELET COUNT, AUTOMATED 340 10^3/uL (150-450); RED BLOOD COUNT 4.03 10^6/uL (4.30-6.10); WHITE BLOOD COUNT 6.4 10^3/uL (4.0-10.0)
[2020-01-16 06:15] LABS: INR 2.16; PROTHROMBIN TIME 23.9 SECONDS (11.8-14.0)
[2020-01-16 06:41] LABS: C REACTIVE PROTEIN QUANTITATIV 12.6 MG/DL (0.00-0.30); CALCIUM LEVEL 8.3 MG/DL (8.8-10.2); CREATININE FOR GFR 1.33 MG/DL (0.70-1.30); GLOMERULAR FILTRATION RATE 55.4 (>42); POTASSIUM SERUM 3.4 MEQ/L (3.5-5.1)
[2020-01-16] MEDS: BUDESONIDE 0.5 MG/2 ML INHALATION SUSPENSION INH SCH ×2 (07:26→18:20)
[2020-01-16] MEDS: FINASTERIDE 5 MG TAB PO SCH (08:03)
[2020-01-16] MEDS: FOLIC ACID 1 MG TAB PO SCH (08:03)
[2020-01-16] MEDS: GABAPENTIN 300 MG CAP PO SCH ×2 (08:03→20:47)
[2020-01-16] MEDS: POTASSIUM CHLORIDE 10 MEQ SR TABLET PO SCH ×2 (08:03→20:47)
[2020-01-16] MEDS: TAMSULOSIN 0.4 MG CAP PO SCH ×2 (08:03→20:47)
[2020-01-16] MEDS: SUCRALFATE SUSP 1GM/10ML UD PO SCH ×4 (08:03→20:47)
[2020-01-16] MEDS: PANTOPRAZOLE 40MG TAB (PROTONIX) PO SCH ×2 (08:03→20:47)
[2020-01-16] MEDS: MULTIVITAMINS/MINERALS THERAP 1 TAB PO SCH (08:03)
[2020-01-16] MEDS: oxyCODONE 5MG TAB PO PRN (08:04)
--- NOTE | 2020-01-16 12:27 | IPNPDOC ---
Date Seen The patient was seen on 01/16/20. Progress Note no fever, chills. pain is controlled. no n/v/abd pain/d. cannot provide 24/7care at home. SNF placement due to iv need for q4hr nafcillin, and pt is unable to perform ADL's. no other issues per RN. PE Vitals: General: The patient is awake,alert, and oriented to himself, place, able to converse without difficulty. No respiratory accessory muscle use. appears his stated age. normal affect. disheveled. HEENT: anicteric no jaundice. No jugular venous distension (JVD) or thyromegaly or cervical lymphadenopathy. Lungs: Clear to auscultation. No wheezes, rales or rhonchi. Heart: S1, S2, sinus rhythm. Abdomen is soft, nontender, nondistended. Positive bowel sounds. No rebound or guarding. Left ankle is in wound vac. Left wrist status post washout, currently bandaged. LABORATORY DATA: Microbiology has been reviewed and notable for potassium of 3.1. ASSESSMENT AND PLAN: This is a 79-year-old male, who underwent washout of the left wrist due to septic arthritis of left ankle and left wrist on nafcillin for Methicillin-Susceptible Staphylococcus aureus (MSSA) septic arthritis and bacteremia being evaluated also for endocarditis. IMPRESSION: Septic arthritis left wrist abscess and cellulitis, left anklecellulitis Methicillin-Susceptible Staphylococcus aureus (MSSA) bacteremia Obstructive sleep apnea on home CPAP. Alcohol abuse Chronic atrial fibrillation with high degree block. 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 Chronic peripheral neuropathy Reflux Benign prostatic hypertrophy (BPH) Chronic back pain with L1, L2 compression fractures. KATHY N: is worried that is getting depressed about being told about SNF placement, but after extensive discussion with both the patient and , we are concentrating on discharge home after short SNF stay for completion of antibiotics and if patient is able to do his ADL's during his SNF period. ID and ortho appreciated. on iv nafcillin s/p PICC for SNF placement to complete abx and rehab. resumed on all home meds monitoring hemoglobin due to heme positive stool. defer to ID and ortho if repeat debridement of left ankle warranted,but would need to hold oral AC. VS, I&O, 24H, Fishbone Vital Signs/I&O Vital Signs Date Time Temp Pulse Resp B/P (MAP) Pulse Ox O2 Delivery O2 Flow Rate FiO2 01/16/20 08:34 21 Room Air 01/16/20 06:00 98.0 79 155/79 (104) 100 01/13/20 18:00 2 01/13/20 17:28 100 I&O- Last 24 Hours up to 6 AM 01/16/20 06:00 Intake Total 1660 ml Output Total 1900 ml Balance -240 ml Laboratory Data 24H LABS Laboratory Tests 2 01/16/20 05:54: Immature Granulocyte % (Auto) 1.1, Neutrophils (%) (Auto) 79.0H, Lymphocytes (%) (Auto) 13.3L, Monocytes (%) (Auto) 5.2H, Eosinophils (%) (Auto) 0.9, Basophils (%) (Auto) 0.5, Neutrophils # (Auto) 5.1, Lymphocytes # (Auto) 0.9L, Monocytes # (Auto) 0.3, Eosinophils # (Auto) 0.1, Basophils # (Auto) 0.0, Nucleated Red Blood Cells % (auto) 0.0, Prothrombin Time 23.9H, Prothromb Time International Ratio 2.16, Anion Gap 8, Glomerular Filtration Rate 55.4, Calcium Level 8.3L, C- Reactive Protein, Quantitative 12.60H CBC/BMP Laboratory Tests 01/16/20 05:54 Microbiology Microbiology 01/12/20 Stool Occult Blood (HILARY) - Final, Complete 01/11/20 Blood Culture - Preliminary, Resulted No Growth after 72 hours. All specime... 01/11/20 Blood Culture - Preliminary, Resulted No Growth after 72 hours. All specime... 01/09/20 Blood Culture - Final, Complete NO GROWTH AFTER 5 DAYS 01/09/20 Blood Culture - Final, Complete NO GROWTH AFTER 5 DAYS 01/07/20 Stool Occult Blood (HILARY) - Final, Complete 01/07/20 Blood Culture - Final, Complete Staphylococcus Aureus 01/07/20 Gram Stain - Final, Complete 01/07/20 Abscess Culture - Final, Complete Staphylococcus Aureus 01/07/20 Gram Stain - Final, Complete 01/07/20 Abscess Culture - Final, Complete Staphylococcus Aureus 01/07/20 Gram Stain - Final, Complete 01/07/20 Abscess Culture - Final, Complete Staphylococcus Aureus 01/07/20 Anaerobic Culture - Final, Complete 01/07/20 Anaerobic Culture - Final, Complete 01/07/20 Anaerobic Culture - Final, Complete 01/07/20 Gram Stain - Final, Complete 01/07/20 Wound Culture - Final, Complete Staphylococcus Aureus 01/07/20 Gram Stain - Final, Complete 01/07/20 Wound Culture - Final, Complete Staphylococcus Aureus 01/07/20 Gram Stain - Final, Complete 01/07/20 Wound Culture - Final, Complete Staphylococcus Aureus 01/07/20 Anaerobic Culture - Final, Complete 01/07/20 Anaerobic Culture - Final, Complete 01/07/20 Anaerobic Culture - Final, Complete 01/06/20 Gram Stain - Final, Complete 01/06/20 Body Fluid Culture - Final, Complete Staphylococcus Aureus 01/06/20 Blood Culture - Final, Complete NO GROWTH AFTER 5 DAYS RONDA MAY MD Jan 16, 2020 12:27
[2020-01-16 14:00] VITALS: BP 117/53
[2020-01-16 16:50] VITALS: BP 146/76
[2020-01-16] MEDS: ACETAMINOPHEN 500 MG TAB PO PRN (17:41)
[2020-01-16 22:00] VITALS: BP 145/75
[2020-01-17] VITALS (21 sets, daily range): BP systolic 121–154; BP diastolic 57–81
[2020-01-17] MEDS: NAFCILLIN SOD 2 GM in D5W MINI-BAG PLUS 50 ML IV SCH ×6 (01:00→20:47)
[2020-01-17] MEDS: IPRATROPIUM 0.5MG/ALBUTEROL 2.5MG INH SOL UD 3ML (DUONEB) NEB SCH ×4 (01:37→20:00)
[2020-01-17] MEDS: SODIUM CHLORIDE 0.9% INJ 10 ML SYR IV SCH ×2 (04:58→18:00)
[2020-01-17 05:28] LABS: INR 1.88; PROTHROMBIN TIME 21.4 SECONDS (11.8-14.0)
[2020-01-17 05:33] LABS: ERYTHROCYTE SEDIMENTATION RATE 111 mm/hr (0-20)
[2020-01-17 05:36] LABS: BLOOD UREA NITROGEN 20 MG/DL (7-18); CALCIUM LEVEL 8.8 MG/DL (8.8-10.2); CARBON DIOXIDE LEVEL 28 MEQ/L (21-32); CHLORIDE LEVEL 108 MEQ/L (98-107); CREATININE FOR GFR 1.23 MG/DL (0.70-1.30); GLOMERULAR FILTRATION RATE > 60.0 (>42); GLUCOSE, FASTING 119 MG/DL (70-100); POTASSIUM SERUM 3.3 MEQ/L (3.5-5.1); SODIUM LEVEL 142 MEQ/L (136-145)
[2020-01-17] MEDS: BUDESONIDE 0.5 MG/2 ML INHALATION SUSPENSION INH SCH ×2 (07:12→20:00)
[2020-01-17] MEDS: MULTIVITAMINS/MINERALS THERAP 1 TAB PO SCH (08:13)
[2020-01-17] MEDS: GABAPENTIN 300 MG CAP PO SCH (08:13)
[2020-01-17] MEDS: TAMSULOSIN 0.4 MG CAP PO SCH (08:13)
[2020-01-17] MEDS: FINASTERIDE 5 MG TAB PO SCH (08:13)
[2020-01-17] MEDS: FOLIC ACID 1 MG TAB PO SCH (08:13)
[2020-01-17] MEDS: PANTOPRAZOLE 40MG TAB (PROTONIX) PO SCH (08:13)
[2020-01-17] MEDS: SUCRALFATE SUSP 1GM/10ML UD PO SCH ×3 (08:13→16:36)
[2020-01-17] MEDS: POTASSIUM CHLORIDE 10 MEQ SR TABLET PO SCH (08:14)
[2020-01-17 08:54] LABS: BASO # 0.1 10^3/uL (0.0-0.2); BASO % 0.8 % (0.0-1.0); EOS # 0.1 10^3/uL (0.0-0.5); EOS % 0.8 % (0.0-3.0); HEMATOCRIT 33.6 % (42.0-52.0); HEMOGLOBIN 11.3 g/dl (13.5-17.5); LYMPH # 0.8 10^3/uL (1.5-5.0); LYMPH % 10.6 % (24.0-44.0); MEAN CORPUSCULAR HEMOGLOBIN 27.6 pg (27.0-33.0); MEAN CORPUSCULAR HGB CONC 33.6 g/dl (32.0-36.5); MONO # 0.3 10^3/uL (0.0-0.8); NEUTROPHILS # 6.3 10^3/uL (1.5-8.5); NEUTROPHILS % 83.1 % (36.0-66.0); PLATELET COUNT, AUTOMATED 380 10^3/uL (150-450); WHITE BLOOD COUNT 7.5 10^3/uL (4.0-10.0)
[2020-01-17 08:58] LABS: MAGNESIUM LEVEL 1.7 MG/DL (1.8-2.4)
[2020-01-17] MEDS ORDERED: ISOVUE-370 76% 100ML VIAL As Ordered ONE (09:14)
[2020-01-17] MEDS: NS 1,000 ML IV SCH (10:28)
[2020-01-17] MEDS: ACETAMINOPHEN 500 MG TAB PO PRN (10:29)
[2020-01-17 12:39] LABS: INR 1.69; PROTHROMBIN TIME 19.6 SECONDS (11.8-14.0)
--- NOTE | 2020-01-17 12:49 | REP ---
CT BILATERAL ANKLES WITH IV CONTRAST: TECHNIQUE: CT bilateral ankles are performed int eh axial plane following the intravenous administration of 75 mL Isovue 370. Sagittal and coronal reconstruction images are performed bilaterally. On the left, a drain is seen on the skin at the level of the distal lateral malleolus. Just inferior to that there is mild fluid with multiple tiny foci of air in the talocalcaneal joint and adjacent lateral soft tissues suggesting infection. There is moderate fluid anterior to the flexor hallucis longus muscle above the level of the ankle joint. This fluid extends distally along the musculotendinous junction and tendon to the level of the mid foot with scattered tiny foci of air compatible with perimuscular and peritendinous abscess. There is also mild fluid surrounding adjacent flexor digitorum tendons and posterior tibial tendon which is also likely auto service representative of abscess. No significant fluid is seen along the dorsum of the foot. There is again diffuse soft tissue edema and likely cellulitis. The osseous structures demonstrate no fracture or evidence of destructive process. There is moderate narrowing of the talocalcaneal joint with subchondral sclerosis and cystic change. Degenerative change is also seen at the intertarsal and tarsal/metatarsal joints. There are diffuse vascular calcifications. On the right, there is mild to moderate diffuse edema and possibly cellulitis. There may be some mild fluid along the musculotendinous junction of the flexor hallucis longus as well as around the flexor tendons of the mid foot. No foci of soft tissue air are seen. The osseous structures demonstrate no fracture or dislocation. There are mild diffuse degenerative changes. No osseous destruction is seen. There are diffuse vascular calcifications. Electronically Signed by Johnnie Strong MD 01/18/2020 12:27 P
--- NOTE | 2020-01-17 13:18 | IPNPDOC ---
Text Note Date of Service The patient was seen on 01/17/20. NOTE Subjective: Objective: Ext: Left ankle is in wound vac. Left wrist status post washout, currently bandaged. ASSESSMENT AND PLAN: 79-year-old male, who underwent washout of the left wrist due to septic arthritis of left ankle and left wrist on nafcillin for Methicillin-Susceptible Staphylococcus aureus (MSSA) septic arthritis and bacteremia being evaluated also for endocarditis. #Septic arthritis - left wrist abscess and cellulitis, left anklecellulitis - Methicillin-Susceptible Staphylococcus aureus (MSSA) bacteremia - plan for debridement today with ortho - received FFP for warfarin reversal - IV fluids given CKD - on iv nafcillin s/p PICC for SNF placement to complete abx and rehab. - follow as per ID and ortho #Obstructive sleep apnea on home CPAP. #Alcohol abuse #Chronic atrial fibrillation with high degree block - s/p PPM - November 2018 # Heme positive stool. #Chronic peripheral neuropathy # Reflux #Benign prostatic hypertrophy (BPH) #Chronic back pain with L1, L2 compression fractures. Dispo: is worried that is getting depressed about being told about SNF placement, but after extensive discussion with both the patient and , plan for discharge home after short SNF stay for rehab and completion of IV abx. ID and ortho appreciated. on iv nafcillin s/p PICC for SNF placement to complete abx and rehab. resumed on all home meds monitoring hemoglobin due to heme positive stool. resume warfarin as per ortho VS,Fishbone, I+O VS, Fishbone, I+O Laboratory Tests 01/17/20 05:06 Vital Signs Date Time Temp Pulse Resp B/P (MAP) Pulse Ox O2 Delivery O2 Flow Rate FiO2 01/17/20 11:20 98.1 74 20 133/74 98 Room Air 01/13/20 18:00 2 01/13/20 17:28 100 I&O- Last 24 Hours up to 6 AM 01/17/20 06:00 Intake Total 610 ml Output Total 1375 ml Balance -765 ml VAISHALI CARROLL MD Jan 17, 2020 13:18
--- NOTE | 2020-01-17 13:34 | IPN ---
DATE OF SERVICE: 01/16/2020 Neo is doing well except for difficulty getting in and out of bed. He states he has pain in his foot and he is very weak. He will be going to long-term for intravenous (IV) antibiotics/rehabilitation. He had again fever this afternoon of 100.4, pulse 87, respirations 24, blood pressure 117/53, oxygen (O2) saturation 97% on room air. He denies any cough, shortness of breath. No nausea, vomiting, or diarrhea. No abdominal pain. His only complaint is his left foot. PHYSICAL EXAMINATION: Heart: Normal S1, S2. Systolic ejection murmur 2/6 at the left upper sternal border. Lungs are clear. No wheezes, rales, or rhonchi. Abdomen: Soft, nontender. No hepatosplenomegaly. Extremities: Left hand with sutures along the dorsal aspect of the wrist into the forearm with no redness. No effusion. Normal range of motion of the wrist with no tenderness. Left the ankle has a wound vacuum-assisted closure (VAC) laterally along the lateral malleolus with no tenderness, but medially there is swelling of the ankle and some tenderness with swelling around the medial malleolus and redness. LABORATORY DATA: White count is 6.4, hemoglobin 10.3, hematocrit 33.3, platelets 340, 79% neutrophils, 13% lymphocytes, 5% monocytes. Sodium 144, potassium 3.4, chloride 107, bicarbonate 28, BUN 23, creatinine 1.33, glucose 115. MICROBIOLOGY DATA: Blood cultures on 01/11/2020, two sets were negative. 01/09/2020, two sets were negative. IMPRESSION: 1. Methicillin-susceptible Staphylococcus aureus (MSSA) bacteremia with negative transesophageal echocardiogram. No evidence of endocarditis. 2. Septic arthritis of the left ankle and abscess of the left forearm, status post incision and drainage (I and D). I am still concerned that the patient has low-grade fever and elevated C-reactive protein (CRP). There is still some bogginess around the left ankle, especially medially around the medial malleolus, and there might be still a joint effusion. Continue with IV nafcillin, currently at 2 grams every 4 hours. The patient will need 4 weeks of IV antibiotics from negative culture. The patient will end therapy on 02/05/2019. PLAN: Case discussed with Dr. Hernandez. Agree with long-term/rehabilitation but would first suggest to having orthopedics reevaluate his left ankle and make sure that he does not need any further drainage. Repeat complete blood count (CBC), CRP, sedimentation rate tomorrow.
[2020-01-17] MEDS: SODIUM CHLORIDE 0.9% INJ 10 ML SYR IV PRN (14:01)
[2020-01-17 14:30] LABS: INR 1.71; PROTHROMBIN TIME 19.8 SECONDS (11.8-14.0)
[2020-01-17] MEDS ORDERED: LIDOCAINE 1% SDV 30ML VIAL As Ordered ONE (19:29)
[2020-01-17 19:48] LABS: INR 1.53; PROTHROMBIN TIME 18.1 SECONDS (11.8-14.0)
[2020-01-17] MEDS ORDERED: ONDANSETRON 4MG/2ML VIAL As Ordered ONE (20:07)
[2020-01-17] MEDS ORDERED: fentaNYL 100 MCG/2 ML INJECTION (J3010) As Ordered ONE ×3 (20:07→23:11)
[2020-01-17] MEDS ORDERED: propofoL 200 MG/20 ML VIAL As Ordered ONE ×2 (20:07→21:18)
[2020-01-17] MEDS ORDERED: METOCLOPRAMIDE INJ 10MG/2ML VIAL (J2765 PER 1) As Ordered ONE (20:07)
[2020-01-17] MEDS ORDERED: LIDOCAINE 2% 100MG/5ML SDV (FOR ANES.) As Ordered ONE (20:07)
[2020-01-17] MEDS ORDERED: dexameTHASONE 4 MG/ML 1ML VIAL (J1100 PER 1MG) As Ordered ONE (20:07)
[2020-01-17] MEDS ORDERED: MIDAZOLAM INJ 2MG/2ML VIAL (J2250 PER 1MG) As Ordered ONE (20:07)
[2020-01-17] MEDS ORDERED: NAFCILLIN SOD As Ordered ONE (20:37)
[2020-01-17] MEDS ORDERED: NS 1,000 ML IV SCH (23:15)
[2020-01-17] MEDS ORDERED: fentaNYL 100 MCG/2 ML INJECTION (J3010) IV PRN (23:15)
[2020-01-17] MEDS ORDERED: ONDANSETRON 4MG/2ML VIAL IV PRN (23:15)
--- NOTE | 2020-01-17 23:17 | IPN ---
DATE: 01/17/2020 Mr. Ayala has no complaints. He is waiting to go to the operating room for incision and drainage (I and ). He received fresh frozen plasma for an elevated PT/INR and will be going later tonight. He had a low grade temperature 100.2. No chills. No nausea, vomiting or diarrhea. He has mild cough and shortness of breath with deep inspiration. He is using his incentive spirometer. LABORATORY DATA: White count 7.5, hemoglobin 11.2, hematocrit 33.6, platelets 380. ESR 111. Sodium 142, potassium 3.3, chloride 108, bicarb 28, BUN 20, creatinine 1.23, glucose 119, calcium 8.8, magnesium 1.7, CRP 13.9 increased from yesterday. IMAGING STUDIES: Ankle CT done on 01/17/2020 shows multiple tiny foci of air in the talocalcaneal joint and soft tissue swelling, moderate fluid anterior to the flexor hallucis longus. There is also fluid along the flexor digitorum tendons and tibial tendons could represent an abscess. Moderate narrowing of talocalcaneal joint with subchondral sclerosis. On physical exam, temperature is 98.1, pulse 72, respirations 22, blood pressure 142/71, oxygen saturation (O2 sat) 96% on room air. Systolic ejection murmur 2/6 unchanged. Lungs are clear. No wheezes, rales or rhonchi. Abdomen: Soft, nontender, no hepatosplenomegaly. Extremities: Left hand - wrist normal range of motion with incision clean with no redness, no tenderness. Left ankle - wound VAC was removed. He has an open incision measuring about 3-1/2 x 3 cm with necrotic tissue, purulent drainage. There is some air sounds with movement of the joint medially along the medial malleolus, there is significant edema and erythema and fluctuant mass suggestive of an abscess medially. IMPRESSION: 1. Staphylococcus aureus bacteremia with septic arthritis of the left ankle with persistent abscess, especially medially needs to be drained. Currently on IV nafcillin. 2. Abscess of the left wrist and forearm, status post incision and drainage, doing well. PLAN: Continue with IV nafcillin. The patient will need IV antibiotics for at least 4-6 weeks, especially with need to go back to the operating room this afternoon for further debridement. Continue to monitor CBC, CRP every other day.
[2020-01-17] MEDS ORDERED: oxyCODONE 5MG TAB As Ordered ONE (23:26)
[2020-01-17] MEDS: oxyCODONE 5MG TAB PO PRN (23:27)
[2020-01-17 23:29] LABS: HEMATOCRIT 28.5 % (42.0-52.0); MEAN CORPUSCULAR HEMOGLOBIN 27.2 pg (27.0-33.0); MEAN CORPUSCULAR HGB CONC 32.6 g/dl (32.0-36.5); MEAN CORPUSCULAR VOLUME 83.3 fl (80.0-96.0); PLATELET COUNT, AUTOMATED 334 10^3/uL (150-450); RED BLOOD COUNT 3.42 10^6/uL (4.30-6.10); WHITE BLOOD COUNT 6.6 10^3/uL (4.0-10.0)
[2020-01-17 23:32] LABS: HEMOGLOBIN 9.3 g/dl (13.5-17.5)
[2020-01-18] VITALS (13 sets, daily range): BP systolic 115–153; BP diastolic 54–89; O2SAT 95–100
[2020-01-18] MEDS: POTASSIUM CHLORIDE 10 MEQ SR TABLET PO SCH ×3 (00:19→20:48)
[2020-01-18] MEDS: TAMSULOSIN 0.4 MG CAP PO SCH ×3 (00:19→20:48)
[2020-01-18] MEDS: PANTOPRAZOLE 40MG TAB (PROTONIX) PO SCH ×3 (00:19→20:48)
[2020-01-18] MEDS: SUCRALFATE SUSP 1GM/10ML UD PO SCH ×5 (00:19→20:48)
[2020-01-18] MEDS: GABAPENTIN 300 MG CAP PO SCH ×3 (00:20→20:48)
[2020-01-18] MEDS: NS 1,000 ML IV SCH ×2 (00:21→12:41)
[2020-01-18] MEDS: IPRATROPIUM 0.5MG/ALBUTEROL 2.5MG INH SOL UD 3ML (DUONEB) NEB SCH ×4 (00:37→20:00)
[2020-01-18] MEDS: NAFCILLIN SOD 2 GM in D5W MINI-BAG PLUS 50 ML IV SCH ×6 (00:44→20:48)
[2020-01-18] MEDS: oxyCODONE 5MG TAB PO PRN ×2 (03:32→09:40)
[2020-01-18] MEDS: SODIUM CHLORIDE 0.9% INJ 10 ML SYR IV SCH ×2 (04:57→18:23)
[2020-01-18 06:10] LABS: BASO % 0.3 % (0.0-1.0); EOS % 0.4 % (0.0-3.0); HEMATOCRIT 28.7 % (42.0-52.0); HEMOGLOBIN 9.3 g/dl (13.5-17.5); LYMPH # 0.8 10^3/uL (1.5-5.0); LYMPH % 10.7 % (24.0-44.0); MEAN CORPUSCULAR HGB CONC 32.4 g/dl (32.0-36.5); MEAN CORPUSCULAR VOLUME 83.4 fl (80.0-96.0); MONO # 0.4 10^3/uL (0.0-0.8); MONO % 5.1 % (0.0-5.0); NEUTROPHILS # 5.9 10^3/uL (1.5-8.5); NEUTROPHILS % 82.9 % (36.0-66.0); PLATELET COUNT, AUTOMATED 331 10^3/uL (150-450); RED BLOOD COUNT 3.44 10^6/uL (4.30-6.10); WHITE BLOOD COUNT 7.1 10^3/uL (4.0-10.0)
[2020-01-18 06:21] LABS: INR 1.38; PROTHROMBIN TIME 16.7 SECONDS (11.8-14.0)
[2020-01-18] MEDS: BUDESONIDE 0.5 MG/2 ML INHALATION SUSPENSION INH SCH ×2 (06:33→20:00)
[2020-01-18 06:46] LABS: BLOOD UREA NITROGEN 17 MG/DL (7-18); CALCIUM LEVEL 8.4 MG/DL (8.8-10.2); CARBON DIOXIDE LEVEL 27 MEQ/L (21-32); CHLORIDE LEVEL 111 MEQ/L (98-107); CREATININE FOR GFR 1.22 MG/DL (0.70-1.30); GLOMERULAR FILTRATION RATE > 60.0 (>42); GLUCOSE, FASTING 116 MG/DL (70-100); POTASSIUM SERUM 3.7 MEQ/L (3.5-5.1); SODIUM LEVEL 145 MEQ/L (136-145)
[2020-01-18 08:39] LABS: MAGNESIUM LEVEL 1.7 MG/DL (1.8-2.4)
[2020-01-18] MEDS: FOLIC ACID 1 MG TAB PO SCH (09:16)
[2020-01-18] MEDS: MULTIVITAMINS/MINERALS THERAP 1 TAB PO SCH (09:17)
[2020-01-18] MEDS: FINASTERIDE 5 MG TAB PO SCH (09:17)
[2020-01-18] MEDS: SODIUM CHLORIDE 0.9% INJ 10 ML SYR IV PRN (10:22)
[2020-01-18] MEDS: ACETAMINOPHEN 500 MG TAB PO PRN (12:42)
[2020-01-18] MEDS ORDERED: MAG SULF 1GM/100ML (MAG RUN) 1 GM in IV 1 EA IV ONE (13:45)
[2020-01-18] MEDS: WARFARIN SOD 5MG TAB PO SCH (17:19)
[2020-01-19] MEDS: NAFCILLIN SOD 2 GM in D5W MINI-BAG PLUS 50 ML IV SCH ×4 (00:36→13:04)
[2020-01-19 02:00] VITALS: BP 131/76
[2020-01-19] MEDS: IPRATROPIUM 0.5MG/ALBUTEROL 2.5MG INH SOL UD 3ML (DUONEB) NEB SCH ×4 (02:00→20:00)
[2020-01-19] MEDS: SODIUM CHLORIDE 0.9% INJ 10 ML SYR IV SCH ×2 (04:34→18:28)
[2020-01-19 06:00] VITALS: BP 148/69
[2020-01-19] MEDS: BUDESONIDE 0.5 MG/2 ML INHALATION SUSPENSION INH SCH ×2 (07:15→20:00)
[2020-01-19 07:19] LABS: BASO % 0.4 % (0.0-1.0); EOS # 0.1 10^3/uL (0.0-0.5); EOS % 1.1 % (0.0-3.0); HEMATOCRIT 27.7 % (42.0-52.0); HEMOGLOBIN 9.1 g/dl (13.5-17.5); LYMPH # 0.7 10^3/uL (1.5-5.0); LYMPH % 13.5 % (24.0-44.0); MEAN CORPUSCULAR HEMOGLOBIN 27.2 pg (27.0-33.0); MEAN CORPUSCULAR HGB CONC 32.9 g/dl (32.0-36.5); MEAN CORPUSCULAR VOLUME 82.9 fl (80.0-96.0); MONO # 0.3 10^3/uL (0.0-0.8); MONO % 5.5 % (0.0-5.0); NEUTROPHILS # 4.2 10^3/uL (1.5-8.5); NEUTROPHILS % 78.9 % (36.0-66.0); PLATELET COUNT, AUTOMATED 333 10^3/uL (150-450); RED BLOOD COUNT 3.34 10^6/uL (4.30-6.10); WHITE BLOOD COUNT 5.3 10^3/uL (4.0-10.0)
[2020-01-19 07:38] LABS: INR 1.46; PROTHROMBIN TIME 17.5 SECONDS (11.8-14.0)
[2020-01-19 07:49] LABS: BLOOD UREA NITROGEN 17 MG/DL (7-18); CALCIUM LEVEL 8.5 MG/DL (8.8-10.2); CARBON DIOXIDE LEVEL 26 MEQ/L (21-32); CHLORIDE LEVEL 109 MEQ/L (98-107); CREATININE FOR GFR 1.16 MG/DL (0.70-1.30); GLOMERULAR FILTRATION RATE > 60.0 (>42); GLUCOSE, FASTING 96 MG/DL (70-100); POTASSIUM SERUM 3.5 MEQ/L (3.5-5.1); SODIUM LEVEL 143 MEQ/L (136-145)
[2020-01-19] MEDS: SUCRALFATE SUSP 1GM/10ML UD PO SCH ×4 (08:01→21:34)
[2020-01-19] MEDS: MULTIVITAMINS/MINERALS THERAP 1 TAB PO SCH (08:02)
[2020-01-19] MEDS: GABAPENTIN 300 MG CAP PO SCH ×2 (08:02→21:36)
[2020-01-19] MEDS: TAMSULOSIN 0.4 MG CAP PO SCH ×2 (08:02→21:34)
[2020-01-19] MEDS: FINASTERIDE 5 MG TAB PO SCH (08:02)
[2020-01-19] MEDS: PANTOPRAZOLE 40MG TAB (PROTONIX) PO SCH ×2 (08:02→21:34)
[2020-01-19] MEDS: POTASSIUM CHLORIDE 10 MEQ SR TABLET PO SCH ×2 (08:02→21:35)
[2020-01-19] MEDS: FOLIC ACID 1 MG TAB PO SCH (08:02)
[2020-01-19 08:20] LABS: MAGNESIUM LEVEL 1.7 MG/DL (1.8-2.4)
[2020-01-19] MEDS: SODIUM CHLORIDE 0.9% INJ 10 ML SYR IV PRN (09:48)
--- NOTE | 2020-01-19 12:13 | IPNPDOC ---
Text Note Date of Service The patient was seen on 01/18/20. NOTE Subjective: Patient seen and examined at bedside. NO acute overnight events reported. Patient underwent another debridement yesterday. Discussed at length on telephone with his . Objective: General: NAD, lying comfortably in bed HEENT: NC/AT, EOMI Lungs: CTA B/L HEart: + S1S2, RRR Abd: soft, NT, +BS Ext: no edema Ext: Left ankle is in wound vac. Left wrist status post washout, currently bandaged. ASSESSMENT AND PLAN: 79-year-old male, who underwent washout of the left wrist due to septic arthritis of left ankle and left wrist on nafcillin for Methicillin-Susceptible Staphylococcus aureus (MSSA) septic arthritis and bacteremia being evaluated also for endocarditis. #Septic arthritis - left wrist abscess and cellulitis, left anklecellulitis - Methicillin-Susceptible Staphylococcus aureus (MSSA) bacteremia - plan for debridement today with ortho - received FFP for warfarin reversal - IV fluids given CKD - on iv nafcillin s/p PICC for SNF placement to complete abx and rehab. - follow as per ID and ortho #Obstructive sleep apnea on home CPAP. #Alcohol abuse #Chronic atrial fibrillation with high degree block - s/p PPM - November 2018 # Heme positive stool. #Chronic peripheral neuropathy # Reflux #Benign prostatic hypertrophy (BPH) #Chronic back pain with L1, L2 compression fractures. Dispo: is worried that is getting depressed about being told about SNF placement, but after extensive discussion with both the patient and , plan for discharge home after short SNF stay for rehab and completion of IV abx. ID and ortho appreciated. on iv nafcillin s/p PICC for SNF placement to complete abx and rehab. resumed on all home meds monitoring hemoglobin due to heme positive stool. resume warfarin as per ortho; repeat COVID pending VS,Fishbone, I+O VS, Fishbone, I+O Laboratory Tests 01/19/20 07:07 Vital Signs Date Time Temp Pulse Resp B/P (MAP) Pulse Ox O2 Delivery O2 Flow Rate FiO2 01/19/20 06:00 98.9 74 23 148/69 (95) 98 Room Air 01/18/20 03:32 1.0 01/13/20 17:28 100 I&O- Last 24 Hours up to 6 AM 01/19/20 06:00 Intake Total 2100 ml Output Total 1775 ml Balance 325 ml VAISHALI CARROLL MD Jan 19, 2020 12:13
--- NOTE | 2020-01-19 12:16 | IPNPDOC ---
Text Note Date of Service The patient was seen on 01/19/20. NOTE Subjective: Patient seen and examined at bedside. No acute overnight events reported. Objective: General: NAD, lying comfortably in bed HEENT: NC/AT, EOMI Lungs: CTA B/L HEart: + S1S2, RRR Abd: soft, NT, +BS Ext: edematous, s/p wound vac left ankle, left wrist incision/surgical site c/d/i Ext: Left ankle is in wound vac. Left wrist status post washout, currently bandaged. ASSESSMENT AND PLAN: 79-year-old male, who underwent washout of the left wrist due to septic arthritis of left ankle and left wrist on nafcillin for Methicillin-Susceptible Staphylococcus aureus (MSSA) septic arthritis and bacteremia being evaluated also for endocarditis. #Septic arthritis - left wrist abscess and cellulitis, left ankle cellulitis - MSSA bacteremia - plan for debridement today with ortho - received FFP for warfarin reversal - IV fluids given CKD - on iv nafcillin s/p PICC for SNF placement to complete abx and rehab. - follow as per ID and ortho #Obstructive sleep apnea on home CPAP. #Alcohol abuse #Chronic atrial fibrillation with high degree block - s/p PPM - November 2018 - resumed warfarin - ok with ortho # Heme positive stool. #Chronic peripheral neuropathy # Reflux #Benign prostatic hypertrophy (BPH) #Chronic back pain with L1, L2 compression fractures. Dispo: is worried that is getting depressed about being told about SNF placement, but after extensive discussion with both the patient and , plan for discharge home after short SNF stay for rehab and completion of IV abx. ID and ortho appreciated. on iv nafcillin s/p PICC for SNF placement to complete abx and rehab. resumed on all home meds monitoring hemoglobin due to heme positive stool. resume warfarin as per ortho; repeat COVID negative; pending placement tomorrow VS,Fishbone, I+O VS, Fishbone, I+O Laboratory Tests 01/19/20 07:07 Vital Signs Date Time Temp Pulse Resp B/P (MAP) Pulse Ox O2 Delivery O2 Flow Rate FiO2 01/19/20 06:00 98.9 74 23 148/69 (95) 98 Room Air 01/18/20 03:32 1.0 01/13/20 17:28 100 I&O- Last 24 Hours up to 6 AM 01/19/20 06:00 Intake Total 2100 ml Output Total 1775 ml Balance 325 ml VAISHALI CARROLL MD Jan 19, 2020 12:16
[2020-01-19 14:00] VITALS: BP 145/74
[2020-01-19] MEDS: ceFAZolin SOD 2 GM in IV 1 EA IV SCH (17:36)
[2020-01-19] MEDS: WARFARIN SOD 5MG TAB PO SCH (17:37)
--- NOTE | 2020-01-19 19:44 | RO ---
DATE OF PROCEDURE: 01/12/2020 PREPROCEDURE DIAGNOSIS: Left tibiotalar joint, subtalar joint and lateral ankle infection. POSTPROCEDURE DIAGNOSIS: Left tibiotalar joint, subtalar joint and lateral ankle infection. PROCEDURE: 1. Irrigation and debridement with tibiotalar joint. 2. Irrigation and debridement left subtalar joint. 3. Irrigation and debridement left lateral ankle. 4. Application of a wound VAC. SURGEON: Toshia Coleman MD CLASS A REGIONAL DRIVERS: SAE Chu ANESTHESIA: Local plus MAC sedation ESTIMATED BLOOD LOSS: 25 mL. COMPLICATIONS: None. CONDITION: Stable to recovery. INDICATIONS: Neo Ayala is a 79-year-old gentleman with a severe infection of his lateral ankle, tibiotalar joint and subtalar joint. He was found to have a fair amount of purulent fluid at his last VAC change and thus plans were made for repeat incision and drainage and VAC change in the operating room today. Informed consent was obtained with his . DESCRIPTION OF PROCEDURE: The patient was met in the holding area where his left lower extremity was marked as the correct operative site. He was taken to the operating room and placed in the supine position on the operating room table. Bony prominences were all padded. Left lower extremity was prepped and draped in the normal sterile fashion. He underwent MAC sedation. An official time-out was held where the correct patient, operative side and operative procedure were verified. At this point, the patient's sutures at the distal and proximal end of the incision were removed. There was a very small amount of purulent fluid mainly in the subtalar joint. I did a thorough debridement of any poor looking tissue in this area using a rongeur. I then irrigated with three liters of normal saline. Following this, there was no purulent fluid. Even with dorsiflexion, plantar flexion, inversion or eversion, I could not express any fluid. I was able to slightly open up the subtalar joint using a snap and again another 3 liters of normal saline were used to irrigate it. I also put 3 liters of saline through the tibiotalar joint and lateral ankle. A total of 9 liters of saline were used for the washout. I then applied a new wound VAC over Adaptic dressing. The patient tolerated the procedure well. I had used 10 mL of 1% lidocaine for local anesthesia. The patient was taken to the recovery room in stable condition. SAE Chu was present for the entire case and was essential for soft tissue retraction and wound VAC placement. PLAN: The patient will be admitted back to the medicine service. We will continue to monitor him and take him back to the operating room (OR) if necessary. Given the way his wound looks today, it would be reasonable for him to have a bedside VAC change in 2-3 days as long as his condition remains stable. JASMINA
[2020-01-19 22:00] VITALS: BP 142/69
--- NOTE | 2020-01-19 23:20 | IPN ---
DATE: 01/19/2020 INFECTIOUS DISEASE PROGRESS NOTE Mr. Ayala is doing well. He does complain of some ankle pain but otherwise has no complaints. He is being evaluated for acute rehabilitation for the [facility] re[facility] unit, depending on his insurance coverage that had denied his stay in acute rehab at [facility]. His had appealed the process, and he is waiting for an approval. On physical exam, temperature is 97.8, pulse 78, respirations 18, blood pressure 145/74, oxygen saturation (O2 sat) 94% on room air. Heart: Normal S1, S2. Systolic ejection murmur unchanged. Lungs are clear. No wheezes, rales or rhonchi. Abdomen: Soft, nontender. No hepatosplenomegaly. Left wrist healing well with normal range of motion. Left ankle with another incision medially along the medial malleolus with still some redness and tenderness. Left lateral malleolus has a wound VAC in place, and I did not see that part of the wound. Right lower extremity: No redness, erythema, calf tenderness or edema. LABORATORY DATA: White count 5.3, hemoglobin 9.1, hematocrit 27.7, platelets 333, 79% neutrophils, 13% lymphocytes, 5% monocytes. Sodium 143, potassium 3.5, chloride 109, bicarbonate 26, BUN 17, creatinine 1.16, glucose 96, calcium 8.5, magnesium 1.7, CRP 13.2. Wound culture from left foot from 01/17/2020 again has staph aureus; anaerobic culture is pending. IMPRESSION: 1. Septic arthritis of the left ankle with persistent positive cultures, status post three incision and drainage (I and D) procedures. Culture positive for methicillin-sensitive Staphylococcus aureus (MSSA) along with bacteremia. The patient will be switched from IV nafcillin to IV cefazolin 2 grams every 8 hours, so it is easier at the [facility] or rehab unit to do the infusion. 2. Left wrist abscess, status post incision and drainage, has healed. 3. Chronic atrial fibrillation with high-degree atrioventricular (AV) block, on warfarin. PLAN: Placement tomorrow. Acute rehab versus [facility]. The patient has been switched today to cefazolin 2 grams IV every 8 hours. He will receive at least 6 weeks of IV antibiotics; end of treatment would be on February 16, 2020. Please monitor CBC, basic, ESR, CRP weekly while in rehab unit.
[2020-01-20] MEDS: SODIUM CHLORIDE 0.9% INJ 10 ML SYR IV PRN ×2 (00:33→19:49)
[2020-01-20] MEDS: ceFAZolin SOD 2 GM in IV 1 EA IV SCH ×3 (00:33→18:16)
--- NOTE | 2020-01-20 01:48 | REP ---
Clinical: Abdominal pain. Technique: Two supine views of the abdomen and pelvis. Findings: Bowel gas pattern is nonspecific and without obstruction or perforation. No organomegaly. No abnormal calcifications. Skeletal structures demonstrate age-related degenerative changes. Impression: Nonspecific abdominal radiographs. Electronically Signed by Betito Meehan MD 01/20/2020 01:39 A
[2020-01-20] MEDS: IPRATROPIUM 0.5MG/ALBUTEROL 2.5MG INH SOL UD 3ML (DUONEB) NEB SCH ×5 (02:00→20:49)
[2020-01-20] MEDS: SODIUM CHLORIDE 0.9% INJ 10 ML SYR IV SCH ×2 (05:51→18:15)
[2020-01-20 06:00] VITALS: BP 142/67
[2020-01-20 06:23] LABS: INR 1.43; PROTHROMBIN TIME 17.2 SECONDS (11.8-14.0)
[2020-01-20] MEDS: oxyCODONE 5MG TAB PO PRN (07:32)
[2020-01-20] MEDS: SUCRALFATE SUSP 1GM/10ML UD PO SCH ×4 (07:40→22:28)
[2020-01-20] MEDS: BUDESONIDE 0.5 MG/2 ML INHALATION SUSPENSION INH SCH ×2 (07:47→20:49)
[2020-01-20] MEDS ORDERED: LIDOCAINE 1% MDV 20ML VIAL SC ONE (08:15)
[2020-01-20] MEDS ORDERED: LIDOCAINE 1% MDV 20ML VIAL As Ordered ONE (08:16)
[2020-01-20] MEDS: POTASSIUM CHLORIDE 10 MEQ SR TABLET PO SCH ×2 (08:44→22:28)
[2020-01-20] MEDS: TAMSULOSIN 0.4 MG CAP PO SCH ×2 (08:44→22:28)
[2020-01-20] MEDS: MULTIVITAMINS/MINERALS THERAP 1 TAB PO SCH (08:45)
[2020-01-20] MEDS: GABAPENTIN 300 MG CAP PO SCH ×2 (08:45→22:28)
[2020-01-20] MEDS: FOLIC ACID 1 MG TAB PO SCH (08:45)
[2020-01-20] MEDS: PANTOPRAZOLE 40MG TAB (PROTONIX) PO SCH ×2 (08:45→22:28)
[2020-01-20] MEDS: FINASTERIDE 5 MG TAB PO SCH (08:45)
[2020-01-20 10:00] VITALS: BP 131/71
[2020-01-20] MEDS: ACETAMINOPHEN 500 MG TAB PO PRN (11:41)
--- NOTE | 2020-01-20 11:50 | IPNPDOC ---
Text Note Date of Service The patient was seen on 01/20/20. NOTE Subjective: Patient seen and examined at bedside. No acute overnight events reported. Patient has no new medical complaints this morning. Objective: General: NAD, lying comfortably in bed HEENT: NC/AT, EOMI Lungs: CTA B/L HEart: + S1S2, RRR Abd: soft, NT, +BS Ext: edematous, wound vac left ankle, left wrist incision/surgical site c/d/i ASSESSMENT AND PLAN: 79-year-old male, who underwent washout of the left wrist due to septic arthritis of left ankle and left wrist on nafcillin for Methicillin-Susceptible Staphylococcus aureus (MSSA) septic arthritis and bacteremia being evaluated also for endocarditis. #Septic arthritis - left wrist abscess and cellulitis, left ankle cellulitis - MSSA bacteremia - s/p multiple debridements with orthopedics - dr terrell - d/w on telephone today - assistance appreciated - prefer remain inpatient rehab, for likely more debridement on thursday with wound vac change; if cannot go to [facility], then remain inpatient until thursday before transfer to [facility] - on iv cefazolin 2g q8h 4-6 weeks - end february 16, 2020 - weekly cbc, bmp, esr, crp - follow as per ID and ortho #Obstructive sleep apnea on home CPAP. #Alcohol abuse #Chronic atrial fibrillation with high degree block - s/p PPM - November 2018 - resumed warfarin - ok with ortho # Heme positive stool. #Chronic peripheral neuropathy # Reflux #Benign prostatic hypertrophy (BPH) #Chronic back pain with L1, L2 compression fractures. Dispo: pending insurance approval for [facility] - preferred as ortho can still follow and treat; if [facility], then wound vac change possible debridement on thursday before discharge VS,Fishbone, I+O VS, Fishbone, I+O Vital Signs Date Time Temp Pulse Resp B/P (MAP) Pulse Ox O2 Delivery O2 Flow Rate FiO2 01/20/20 10:00 98.3 79 18 131/71 (91) 100 Room Air 01/18/20 03:32 1.0 I&O- Last 24 Hours up to 6 AM0 01/20/20 06:00 Intake Total 870 ml Output Total 2150 ml Balance -1280 ml VAISHALI CARROLL MD Jan 20, 2020 11:50
[2020-01-20 13:50] VITALS: BP_SYST 101; BP_SYST 110; BP_DIAS 52; BP_DIAS 58
[2020-01-20 18:00] VITALS: BP 141/63
[2020-01-20] MEDS: WARFARIN SOD 5MG TAB PO SCH (18:15)
--- NOTE | 2020-01-20 18:54 | IPN ---
DATE: 01/20/2020 This is an inpatient rounding note. CHIEF COMPLAINT: Left lower extremity complex infection. HISTORY OF THE PRESENT ILLNESS: Neo Ayala is a 79-year-old male who is status post multiple incision and drainage (I and Ds) for significant infection involving his posterior left leg and ankle, tibiotalar joint, subtalar joint, and lateral superficial tissues. I last took him to the operating room on Thursday and was able to find a significant amount of purulent fluid essentially between the flexor hallucis longus (FHL) and tibia posteriorly. I did open medially; however, there really was not much purulence in this region. I performed a thorough irrigation and debridement and placed a wound VAC. The patient states overall his symptoms are improving. He still has some pain in the ankle, mainly in the lateral region. PHYSICAL EXAM: Vital signs: Temperature 98.1, pulse 68, respiratory rate 17, blood pressure 142/67, pulse oximetry 99% on room air. Pulmonary: Regular nonlabored breathing. Musculoskeletal: Left hand - patient has full range of motion. There is no swelling. Wound is healing well. Sutures are intact. He is grossly neurovascularly intact. The left ankle - patient can range both his ankle and subtalar joint with minimal pain. His swelling and erythema has significantly resolved. When I take the wound VAC down, there is a mild amount of purulent drainage, mainly in the subtalar joint. I am not able to express any purulence by pushing on his calf. In general, this looks improved from his prior surgery. IMPRESSION: Complex left lower extremity infection. PLAN: At this point, the patient may still need one more incision and drainage. We will check him on Thursday and change his wound VAC again. If it is still looking purulent, then would consider taking him to the operating room (OR) one last time to wash this out and see if we can get this cleared. He may need plastic surgery or at minimum complex wound care over the next few months to try to get something to heal in as he has a fairly large defect here. He certainly needs to continue IV antibiotics as we are far from clearing this infection. It does appear all of his cultures have grown out methicillin-sensitive Staphylococcus aureus (MSSA). Laboratory mcneill, his white count is normalized, and it does appear his CRP has been stable in the 12-13 range. I am okay with him going to the acute rehab unit at [facility], but would prefer him not be transferred until at least I have been able to check this again Thursday and make sure that he is continuing to make progress. If you have any acute issues over the weekend, the on-call doctor should be notified. Otherwise, I will plan on rounding on the patient on Thursday. JASMINA
[2020-01-20 22:00] VITALS: BP 135/65
[2020-01-21] MEDS: IPRATROPIUM 0.5MG/ALBUTEROL 2.5MG INH SOL UD 3ML (DUONEB) NEB SCH ×4 (00:46→19:47)
[2020-01-21] MEDS: ceFAZolin SOD 2 GM in IV 1 EA IV SCH ×3 (01:34→17:48)
[2020-01-21] MEDS: SODIUM CHLORIDE 0.9% INJ 10 ML SYR IV PRN ×2 (02:47→08:44)
[2020-01-21 06:00] VITALS: BP 137/64
[2020-01-21] MEDS: SODIUM CHLORIDE 0.9% INJ 10 ML SYR IV SCH ×2 (06:01→17:50)
[2020-01-21 07:38] LABS: BASO % 0.7 % (0.0-1.0); EOS # 0.1 10^3/uL (0.0-0.5); EOS % 1.9 % (0.0-3.0); HEMATOCRIT 26.1 % (42.0-52.0); HEMOGLOBIN 8.3 g/dl (13.5-17.5); LYMPH # 0.6 10^3/uL (1.5-5.0); LYMPH % 14.1 % (24.0-44.0); MEAN CORPUSCULAR HEMOGLOBIN 26.4 pg (27.0-33.0); MEAN CORPUSCULAR HGB CONC 31.8 g/dl (32.0-36.5); MEAN CORPUSCULAR VOLUME 83.1 fl (80.0-96.0); MONO # 0.3 10^3/uL (0.0-0.8); MONO % 6.7 % (0.0-5.0); NEUTROPHILS # 3.2 10^3/uL (1.5-8.5); NEUTROPHILS % 75.9 % (36.0-66.0); PLATELET COUNT, AUTOMATED 308 10^3/uL (150-450); RED BLOOD COUNT 3.14 10^6/uL (4.30-6.10); WHITE BLOOD COUNT 4.2 10^3/uL (4.0-10.0)
[2020-01-21 07:49] LABS: INR 1.41
[2020-01-21 07:58] LABS: ALBUMIN 1.8 GM/DL (3.2-5.2); ALT/SGPT 25 U/L (12-78); BILIRUBIN,TOTAL 0.7 MG/DL (0.2-1.0); BLOOD UREA NITROGEN 12 MG/DL (7-18); CALCIUM LEVEL 8.8 MG/DL (8.8-10.2); CARBON DIOXIDE LEVEL 27 MEQ/L (21-32); CHLORIDE LEVEL 107 MEQ/L (98-107); CREATININE FOR GFR 1.05 MG/DL (0.70-1.30); GLOMERULAR FILTRATION RATE > 60.0 (>42); GLUCOSE, FASTING 101 MG/DL (70-100); POTASSIUM SERUM 3.9 MEQ/L (3.5-5.1); SODIUM LEVEL 143 MEQ/L (136-145); TOTAL PROTEIN 5.9 GM/DL (6.4-8.2)
[2020-01-21] MEDS: BUDESONIDE 0.5 MG/2 ML INHALATION SUSPENSION INH SCH ×2 (08:03→19:47)
[2020-01-21] MEDS: MULTIVITAMINS/MINERALS THERAP 1 TAB PO SCH (08:40)
[2020-01-21] MEDS: SUCRALFATE SUSP 1GM/10ML UD PO SCH ×4 (08:40→20:37)
[2020-01-21] MEDS: TAMSULOSIN 0.4 MG CAP PO SCH ×2 (08:41→20:38)
[2020-01-21] MEDS: PANTOPRAZOLE 40MG TAB (PROTONIX) PO SCH ×2 (08:43→20:37)
[2020-01-21] MEDS: GABAPENTIN 300 MG CAP PO SCH ×2 (08:43→20:37)
[2020-01-21] MEDS: FOLIC ACID 1 MG TAB PO SCH (08:43)
[2020-01-21] MEDS: FINASTERIDE 5 MG TAB PO SCH (08:44)
[2020-01-21] MEDS: POTASSIUM CHLORIDE 10 MEQ SR TABLET PO SCH ×2 (08:44→20:38)
[2020-01-21] MEDS: ACETAMINOPHEN 500 MG TAB PO PRN (08:45)
[2020-01-21] MEDS: SIMETHICONE 80 MG CHEW TAB PO PRN (11:19)
[2020-01-21] MEDS: MIRALAX *UNIT DOSE* 17GM PACKET PO SCH (11:19)
[2020-01-21] MEDS: LIDOCAINE 5% (LIDODERM) PATCH TD SCH (11:19)
[2020-01-21 14:00] VITALS: BP 132/64
[2020-01-21] MEDS: WARFARIN SOD 5MG TAB PO SCH (17:49)
--- NOTE | 2020-01-21 17:50 | IPNPDOC ---
Text Note Date of Service The patient was seen on 01/21/20. NOTE TIME OF SERVICE: 8:20 AM Subjective: The patient denies having any pain or any acute complaints. Objective: GEN: NAD INTEGUMENT: Discoloration of skin on dorsal surface of left wrist/longitudinal atrophic hyperpigmented scar at the medial aspect of the left wrist / the left a nkle is wrapped in a cast, the left foot is slightly warm and swollen when compared to the right foot CVS: RRR/NMRG LUNGS: CTAB on RA NEURO: CN 2-12 grossly intact PSYCH: A&O Vitals and labs: see below Assessment: Mr. Ayala 79-year-old with a history of atrial fibrillation, chronic diastolic CHF, HTN, CAD, BRYNN, dyslipidemia, OA affecting multiple joints, neuropathy, BPH, pacemaker placement , who was admitted for management of left wrist septic arthritis, status post washout. Course was complicated by JESSICA and altered mental status, both of which have resolved. Plan: 1. Left wrist and ankle septic arthritis with MSSA bacteremia. He has had multiple surgical procedures. will have additional debridement and wound vac exchange on Thursday - f/u w Drs. Coleman and Mojgan / c/w cefazolin until February 15 2. Chronic atrial fibrillation with high degree block. Has a pacemaker . His INR is subtherapeutic - hold warfarin & f/u INR tomorrow 3. Chronic Diastolic CHF f/u Is and Os and daily weight 4. Heme positive stool. Hg trending down f/u iron panel / type and cross screen 5. Chronic peripheral neuropathy - gabapentin 6. BPH - finasteride, tamsulosin 8. Chronic back pain / L1, L2 compression fractures oxycodone with bowel regimen 9. GERD - PPI DVT Px warfarin VS,Fishbone, I+O VS, Fishbone, I+O Laboratory Tests 01/21/20 07:17 Vital Signs Date Time Temp Pulse Resp B/P (MAP) Pulse Ox O2 Delivery O2 Flow Rate FiO2 01/21/20 06:00 100 Nasal Cannula 2.0 01/21/20 06:00 98.4 71 23 137/64 (88) I&O- Last 24 Hours up to 6 AM 01/21/20 05:59 Intake Total 2490 ml Output Total 1325 ml Balance 1165 ml AMINATA BONDS MD Jan 21, 2020 17:50
[2020-01-21 19:22] LABS: FERRITIN 1094 NG/ML (26-388); IRON (FE) 13 UG/DL (65-175); PERCENT SATURATION 7.7 % (19.7-50.0); TOTAL IRON BINDING CAPACITY 169 UG/DL (250-450)
[2020-01-21] MEDS: **NOTE PATIENT COMMENT** MISC XX SCH (20:38)
[2020-01-21 22:00] VITALS: BP 129/64; O2SAT 96
[2020-01-22] MEDS: ceFAZolin SOD 2 GM in IV 1 EA IV SCH ×3 (00:56→17:30)
[2020-01-22] MEDS: SODIUM CHLORIDE 0.9% INJ 10 ML SYR IV PRN ×2 (01:50→09:26)
[2020-01-22] MEDS: IPRATROPIUM 0.5MG/ALBUTEROL 2.5MG INH SOL UD 3ML (DUONEB) NEB SCH ×4 (02:00→20:06)
[2020-01-22] MEDS: ACETAMINOPHEN 500 MG TAB PO PRN ×2 (04:18→14:31)
[2020-01-22] MEDS: SODIUM CHLORIDE 0.9% INJ 10 ML SYR IV SCH ×2 (05:21→17:30)
[2020-01-22 06:00] VITALS: BP 119/58
[2020-01-22 06:27] LABS: HEMATOCRIT 24.8 % (42.0-52.0); HEMOGLOBIN 8.1 g/dl (13.5-17.5); MEAN CORPUSCULAR HEMOGLOBIN 26.7 pg (27.0-33.0); MEAN CORPUSCULAR HGB CONC 32.7 g/dl (32.0-36.5); MEAN CORPUSCULAR VOLUME 81.8 fl (80.0-96.0); PLATELET COUNT, AUTOMATED 334 10^3/uL (150-450); RED BLOOD COUNT 3.03 10^6/uL (4.30-6.10); WHITE BLOOD COUNT 6.3 10^3/uL (4.0-10.0)
[2020-01-22 06:41] LABS: INR 1.53; PROTHROMBIN TIME 18.1 SECONDS (11.8-14.0)
[2020-01-22 06:51] LABS: BLOOD UREA NITROGEN 12 MG/DL (7-18); CALCIUM LEVEL 9.1 MG/DL (8.8-10.2); CARBON DIOXIDE LEVEL 27 MEQ/L (21-32); CHLORIDE LEVEL 106 MEQ/L (98-107); CREATININE FOR GFR 1.13 MG/DL (0.70-1.30); GLOMERULAR FILTRATION RATE > 60.0 (>42); GLUCOSE, FASTING 107 MG/DL (70-100); POTASSIUM SERUM 4.1 MEQ/L (3.5-5.1); SODIUM LEVEL 141 MEQ/L (136-145)
[2020-01-22] MEDS: MIRALAX *UNIT DOSE* 17GM PACKET PO SCH (09:00)
[2020-01-22] MEDS: BUDESONIDE 0.5 MG/2 ML INHALATION SUSPENSION INH SCH ×2 (09:09→20:06)
[2020-01-22] MEDS: FOLIC ACID 1 MG TAB PO SCH (09:24)
[2020-01-22] MEDS: FINASTERIDE 5 MG TAB PO SCH (09:24)
[2020-01-22] MEDS: TAMSULOSIN 0.4 MG CAP PO SCH ×2 (09:24→21:31)
[2020-01-22] MEDS: PANTOPRAZOLE 40MG TAB (PROTONIX) PO SCH ×2 (09:24→21:31)
[2020-01-22] MEDS: POTASSIUM CHLORIDE 10 MEQ SR TABLET PO SCH ×2 (09:24→21:31)
[2020-01-22] MEDS: GABAPENTIN 300 MG CAP PO SCH ×2 (09:24→21:31)
[2020-01-22] MEDS: MULTIVITAMINS/MINERALS THERAP 1 TAB PO SCH (09:24)
[2020-01-22] MEDS: LIDOCAINE 5% (LIDODERM) PATCH TD SCH (09:24)
[2020-01-22] MEDS: SUCRALFATE SUSP 1GM/10ML UD PO SCH ×4 (09:24→21:31)
[2020-01-22] MEDS: SIMETHICONE 80 MG CHEW TAB PO PRN (09:24)
[2020-01-22 14:00] VITALS: BP 134/63
[2020-01-22] MEDS ORDERED: VANCOMYCIN HCL 1,000 MG, VIAL MATE ADAPTER 1 EACH in D5W 250 ML IV ONE (16:00)
[2020-01-22 16:04] LABS: APPEARANCE, URINE CLEAR (CLEAR); BACTERIA, URINE AUTO NEGATIVE (NEGATIVE); BILIRUBIN, URINE AUTO NEGATIVE (NEGATIVE); BLOOD, URINE BLOOD 1+ (NEGATIVE); COLOR, URINE YELLOW (YELLOW); GLUCOSE, URINE (UA) AUTO NEGATIVE (NEGATIVE); KETONE, URINE AUTO NEGATIVE (NEGATIVE); LEUKOCYTE ESTERASE, URINE AUTO NEGATIVE (NEGATIVE); MUCUS, URINE SMALL (NEGATIVE); NITRITE, URINE AUTO NEGATIVE (NEGATIVE); PROTEIN, URINE AUTO 1+ mg/dL (NEGATIVE); RBC, URINE AUTO 2 /HPF (0-3); SQUAMOUS EPITHELIAL CELL UR AU 0 /HPF (0-6); UROBILINOGEN, URINE AUTO 0.2 mg/dL (0.0-2.0); WBC, URINE AUTO 2 /HPF (0-3)
--- NOTE | 2020-01-22 16:43 | IPNPDOC ---
Text Note Date of Service The patient was seen on 01/22/20. NOTE TIME OF SERVICE: 1:34 PM Subjective: The patient denies having any acute complaints this afternoon Objective: GEN: NAD INTEGUMENT: the medial aspect of the left ankle is slightly swollen / there is a wound vac on the lateral aspect of the left ankle CVS: RRR/NMRG LUNGS: CTAB on RA NEURO: CN 2-12 grossly intact PSYCH: A&O Vitals and labs: see below Assessment: Mr. Ayala 79-year-old with a history of atrial fibrillation, chronic diastolic CHF, HTN, CAD, BRYNN, dyslipidemia, OA affecting multiple joints, neuropathy, BPH, pacemaker placement, who was admitted for management of left wrist septic arthritis (status post washout); his course was complicated by JESSICA and altered mental status, both of which have resolved. Plan: 1. Left wrist and ankle septic arthritis with MSSA bacteremia. He has had multiple surgical procedures and will have additional debridement and wound vac exchange tomorrow - f/u w Drs. Coleman & Mojgan / c/w cefazolin until February 15 2. Chronic atrial fibrillation with high degree block. Has a pacemaker. His INR is subtherapeutic - hold warfarin & f/u INR tomorrow 3. Chronic Diastolic CHF - f/u Is and Os and daily weight 4. Anemia of Chronic Dz. Heme occult was positive. Hg trending down - f/u CBC in the morning 5. Chronic peripheral neuropathy - gabapentin 6. BPH - finasteride, tamsulosin 7. Chronic back pain / L1, L2 compression fractures - oxycodone with bowel regimen 8. GERD - PPI DVT Px SCDs Late entry #Fever 102.9 - f/u repeat blood cx x2, lactic acid & UA add Vancomycin VS,Fishbone, I+O VS, Fishbone, I+O Laboratory Tests 01/22/20 05:57 Vital Signs Date Time Temp Pulse Resp B/P (MAP) Pulse Ox O2 Delivery O2 Flow Rate FiO2 01/22/20 15:30 100.0 01/22/20 14:00 88 20 134/63 (86) 96 Room Air 01/21/20 06:00 2.0 I&O- Last 24 Hours up to 6 AM 01/22/20 06:00 Intake Total 1050 ml Output Total 2650 ml Balance -1600 ml AMINATA BONDS MD Jan 22, 2020 16:42
[2020-01-22] MEDS: VANCOMYCIN HCL 750 MG, VIAL MATE ADAPTER 1 EACH in D5W 250 ML IV SCH (21:27)
[2020-01-22] MEDS: **NOTE PATIENT COMMENT** MISC XX SCH (21:31)
[2020-01-22 22:00] VITALS: BP 122/65
[2020-01-22 23:00] VITALS: O2SAT 97
[2020-01-23] VITALS (7 sets, daily range): BP systolic 112–132; BP diastolic 58–68; O2SAT 100
[2020-01-23] MEDS: ceFAZolin SOD 2 GM in IV 1 EA IV SCH ×3 (00:54→16:15)
[2020-01-23] MEDS: IPRATROPIUM 0.5MG/ALBUTEROL 2.5MG INH SOL UD 3ML (DUONEB) NEB SCH ×4 (02:00→19:33)
[2020-01-23] MEDS: SODIUM CHLORIDE 0.9% INJ 10 ML SYR IV SCH ×2 (05:26→18:01)
[2020-01-23 06:03] LABS: BASO % 0.6 % (0.0-1.0); EOS # 0.1 10^3/uL (0.0-0.5); HEMATOCRIT 24.8 % (42.0-52.0); LYMPH % 14.3 % (24.0-44.0); MEAN CORPUSCULAR HEMOGLOBIN 26.6 pg (27.0-33.0); MEAN CORPUSCULAR HGB CONC 32.3 g/dl (32.0-36.5); MEAN CORPUSCULAR VOLUME 82.4 fl (80.0-96.0); MONO # 0.5 10^3/uL (0.0-0.8); MONO % 7.6 % (0.0-5.0); NEUTROPHILS # 5.2 10^3/uL (1.5-8.5); NEUTROPHILS % 75.9 % (36.0-66.0); PLATELET COUNT, AUTOMATED 322 10^3/uL (150-450); RED BLOOD COUNT 3.01 10^6/uL (4.30-6.10); WHITE BLOOD COUNT 6.9 10^3/uL (4.0-10.0)
[2020-01-23 06:20] LABS: INR 1.45; PROTHROMBIN TIME 17.4 SECONDS (11.8-14.0)
[2020-01-23 06:34] LABS: BLOOD UREA NITROGEN 14 MG/DL (7-18); CALCIUM LEVEL 9.4 MG/DL (8.8-10.2); CARBON DIOXIDE LEVEL 27 MEQ/L (21-32); CHLORIDE LEVEL 105 MEQ/L (98-107); CREATININE FOR GFR 1.17 MG/DL (0.70-1.30); GLOMERULAR FILTRATION RATE > 60.0 (>42); GLUCOSE, FASTING 112 MG/DL (70-100); POTASSIUM SERUM 3.9 MEQ/L (3.5-5.1); SODIUM LEVEL 141 MEQ/L (136-145)
[2020-01-23] MEDS: BUDESONIDE 0.5 MG/2 ML INHALATION SUSPENSION INH SCH ×2 (07:15→19:33)
[2020-01-23] MEDS: MIRALAX *UNIT DOSE* 17GM PACKET PO SCH (09:53)
[2020-01-23] MEDS: SUCRALFATE SUSP 1GM/10ML UD PO SCH ×4 (09:53→21:00)
[2020-01-23] MEDS: LIDOCAINE 5% (LIDODERM) PATCH TD SCH (09:53)
[2020-01-23] MEDS: TAMSULOSIN 0.4 MG CAP PO SCH ×2 (09:54→21:01)
[2020-01-23] MEDS: FINASTERIDE 5 MG TAB PO SCH (09:54)
[2020-01-23] MEDS: PANTOPRAZOLE 40MG TAB (PROTONIX) PO SCH ×2 (09:54→21:01)
[2020-01-23] MEDS: FOLIC ACID 1 MG TAB PO SCH (09:54)
[2020-01-23] MEDS: MULTIVITAMINS/MINERALS THERAP 1 TAB PO SCH (09:54)
[2020-01-23] MEDS: GABAPENTIN 300 MG CAP PO SCH ×2 (09:54→21:01)
[2020-01-23] MEDS: POTASSIUM CHLORIDE 10 MEQ SR TABLET PO SCH ×2 (09:55→21:01)
[2020-01-23 10:41] LABS: VITAMIN B12 LEVEL 944 PG/ML (247-911)
[2020-01-23 10:47] LABS: FOLATE > 24.0 NG/ML (>5.4)
[2020-01-23] MEDS: VANCOMYCIN HCL 750 MG, VIAL MATE ADAPTER 1 EACH in D5W 250 ML IV SCH ×2 (10:58→21:45)
[2020-01-23] MEDS ORDERED: MIDAZOLAM INJ 2MG/2ML VIAL (J2250 PER 1MG) As Ordered ONE (13:46)
[2020-01-23] MEDS ORDERED: fentaNYL 100 MCG/2 ML INJECTION (J3010) As Ordered ONE (13:46)
[2020-01-23] MEDS ORDERED: propofoL 200 MG/20 ML VIAL As Ordered ONE (13:46)
[2020-01-23] MEDS ORDERED: LIDOCAINE 2% 100MG/5ML SDV (FOR ANES.) As Ordered ONE (13:47)
[2020-01-23] MEDS ORDERED: LIDOCAINE 1% MDV 20ML VIAL As Ordered ONE (14:13)
[2020-01-23] MEDS ORDERED: dexameTHASONE 4 MG/ML 1ML VIAL (J1100 PER 1MG) As Ordered ONE (14:14)
[2020-01-23] MEDS ORDERED: ACETAMINOPHEN *IV* 1,000 MG in IV 1 EA IV ONE (15:00)
[2020-01-23] MEDS ORDERED: LR 1,000 ML IV SCH (15:15)
[2020-01-23] MEDS ORDERED: fentaNYL 100 MCG/2 ML INJECTION (J3010) IV PRN (15:15)
--- NOTE | 2020-01-23 17:10 | IPNPDOC ---
Text Note Date of Service The patient was seen on 01/23/20. NOTE TIME OF SERVICE: 9:39 AM Subjective: The patient denies having any acute pain or complaints this morning and anticipates going back to the or this afternoon Objective: GEN: NAD INTEGUMENT: the medial aspect of the left ankle is slightly swollen / there is a wound vac on the lateral aspect of the left ankle CVS: RRR/NMRG LUNGS: CTAB on RA NEURO: CN 2-12 grossly intact PSYCH: A&O Vitals and labs: see below Assessment: Mr. Ayala 79-year-old with a history of atrial fibrillation, chronic diastolic CHF, HTN, CAD, BRYNN, dyslipidemia, OA affecting multiple joints, neuropathy, BPH, pacemaker placement, who was admitted for management of left wrist septic arthritis (status post washout); his course was complicated by JESSICA and altered mental status, both of which have resolved. Plan: 1. Left wrist and ankle septic arthritis with MSSA bacteremia. He has had multiple surgical procedures this admission. Over the last 24 H he has been spiking fevers, therefore, we added vancomycin.- Debridement and wound VAC exchange by Dr. Coleman today/ c/w cefazolin and vancomycin pending repeat blood cx & Dr. Ulrich's recs 2. Chronic atrial fibrillation with high degree block. Has a pacemaker. His INR is subtherapeutic - resume warfarin tomorrow if Hg is stable & f/u INR daily 3. Chronic Diastolic CHF - f/u Is and Os and daily weight 4. Anemia of Chronic Dz. Heme occult was positive - ordered 1 unit of PRBCs this AM / f/u CBC in the morning 5. Chronic peripheral neuropathy - gabapentin 6. BPH - finasteride, tamsulosin 7. Chronic back pain / L1, L2 compression fractures - oxycodone with bowel regimen 8. GERD - PPI DVT Px SCDs DISPO: Pending clinical course VS,Fishbone, I+O VS, Fishbone, I+O Laboratory Tests 01/23/20 05:49 Vital Signs Date Time Temp Pulse Resp B/P (MAP) Pulse Ox O2 Delivery O2 Flow Rate FiO2 01/23/20 15:40 80 16 138/67 (90) 100 01/23/20 15:35 99.1 Room Air 01/23/20 15:14 10 I&O- Last 24 Hours up to 6 AM 01/23/20 05:59 Intake Total 1135 ml Output Total 1900 ml Balance -765 ml AMINATA BONDS MD Jan 23, 2020 17:10
[2020-01-23] MEDS: PIPERACILLIN/TAZOBACTAM SOD 3.375 GM in D5W MINI-BAG PLUS 50 ML IV SCH (18:12)
--- NOTE | 2020-01-23 19:31 | IPN ---
DATE: 01/23/2020 Neo went to the operating room on Thursday and again today on Thursday because of recurrent fever. He had a fever of up to 102 yesterday. He had no nausea or vomiting. He had abdominal pain on January 18, which has resolved. A couple days ago he had a cough which was positive with hemoptysis, but this has not recurred. He has had soft stool for the past couple days, but he has been taking MiraLax daily. I discussed the case with Dr. Coleman today. When she went back to the operating room today, there was no significant purulent that would explain the recurrent fever up to 102.9 yesterday, January 21. He has a peripherally inserted central catheter (PICC) line in his right arm. It does not look infected. Is not red or swollen. LABORATORY DATA: White count is 6.9, hemoglobin 8, hematocrit 24.8, platelets 322, 75% neutrophils, 14% lymphocytes, 7% monocytes. Sodium 141, potassium 3.9, chloride 105, bicarbonate 27, BUN 14, creatinine 1.17, glucose 112, CRP 16.4, up from 13.2. Wound culture was positive for methicillin-sensitive Staphylococcus aureus (MSSA) on January 16 and on January 21. Yesterday two sets of blood cultures were negative. Abdominal x-ray on January 18 was negative. The patient was transfused with 1 unit of packed red blood cells todayJanuary 22. PHYSICAL EXAMINATION: HEART: Normal S1, S2. Systolic ejection murmur, 2/6, unchanged. LUNGS: Clear. No wheezes, rales, or rhonchi. ABDOMEN: Soft, nontender. No hepatosplenomegaly. EXTREMITIES: No edema on the right side. Left: The patient just came back on the operating room. He has a wound vacuum-assisted closure (VAC) in place, and the wound was not open. Temperature is 99.1, pulse 89, respirations 16, blood pressure 139/70, oxygen saturation 100% on room air. IMPRESSION: 1. Septic arthritis of the left ankle, status post four orthopedic procedures with incision and drainage (I and D). He had persistent positive cultures for MSSA on January 16. He had been on intravenous (IV) antibiotics January 03 and had recurrent fever in spite of operative findings improving. 2. Recurrent fever. Should rule out any other metastatic infection possibly discitis , including PICC line infection in his right forearm. Blood cultures are so far negative. Possible healthcare-associated pneumonia or other metastatic complications of Staphylococcus aureus, as Dr. Coleman does not believe that the ankle is the source of recurrent fever. PLAN: Continue with IV vancomycin until we make sure his blood cultures are negative. I would switch cefazolin to Zosyn. Obtain chest x-ray PA and lateral. If patient has persistent fever would obtain CT chest, abdomen, and pelvis tomorrow if fever persists. RAGHUD
[2020-01-23] MEDS: **NOTE PATIENT COMMENT** MISC XX SCH (21:01)
[2020-01-23] MEDS: SODIUM CHLORIDE 0.9% INJ 10 ML SYR IV PRN (23:02)
[2020-01-24] MEDS: PIPERACILLIN/TAZOBACTAM SOD 3.375 GM in D5W MINI-BAG PLUS 50 ML IV SCH ×4 (00:37→18:00)
[2020-01-24] MEDS: IPRATROPIUM 0.5MG/ALBUTEROL 2.5MG INH SOL UD 3ML (DUONEB) NEB SCH ×4 (01:22→19:25)
--- NOTE | 2020-01-24 01:55 | REP ---
Clinical: Fever. Technique: AP and lateral views. Comparison: 01/11/2020, 01/05/2020. Findings: Mediastinum and cardiac silhouette are stable. Cardiac silhouette is upper limits of normal. Lung suazo demonstrate chronic changes with suspected mild superimposed basilar atelectasis and small pleural reactions (left greater than right). No focal consolidation. No pneumothorax. Skeletal structures intact. Impression: Very subtle bibasilar atelectasis and small pleural reactions (left greater than right). Electronically Signed by Betito Meehan MD 01/24/2020 01:47 A
[2020-01-24 06:00] VITALS: BP 127/71
[2020-01-24] MEDS: SODIUM CHLORIDE 0.9% INJ 10 ML SYR IV SCH ×2 (06:09→17:14)
[2020-01-24] MEDS: BUDESONIDE 0.5 MG/2 ML INHALATION SUSPENSION INH SCH ×2 (07:56→19:25)
[2020-01-24 08:23] LABS: BASO # 0.1 10^3/uL (0.0-0.2); BASO % 0.8 % (0.0-1.0); EOS # 0.1 10^3/uL (0.0-0.5); EOS % 1.8 % (0.0-3.0); HEMATOCRIT 27.7 % (42.0-52.0); LYMPH # 0.9 10^3/uL (1.5-5.0); LYMPH % 14.4 % (24.0-44.0); MEAN CORPUSCULAR HEMOGLOBIN 26.5 pg (27.0-33.0); MEAN CORPUSCULAR HGB CONC 32.5 g/dl (32.0-36.5); MEAN CORPUSCULAR VOLUME 81.7 fl (80.0-96.0); MONO # 0.5 10^3/uL (0.0-0.8); NEUTROPHILS # 4.6 10^3/uL (1.5-8.5); NEUTROPHILS % 74.3 % (36.0-66.0); PLATELET COUNT, AUTOMATED 341 10^3/uL (150-450); RED BLOOD COUNT 3.39 10^6/uL (4.30-6.10); WHITE BLOOD COUNT 6.1 10^3/uL (4.0-10.0)
[2020-01-24 08:34] LABS: INR 1.25; PROTHROMBIN TIME 15.4 SECONDS (11.8-14.0)
[2020-01-24 08:43] LABS: BLOOD UREA NITROGEN 15 MG/DL (7-18); CALCIUM LEVEL 9.3 MG/DL (8.8-10.2); CARBON DIOXIDE LEVEL 28 MEQ/L (21-32); CHLORIDE LEVEL 103 MEQ/L (98-107); GLOMERULAR FILTRATION RATE > 60.0 (>42); GLUCOSE, FASTING 112 MG/DL (70-100); POTASSIUM SERUM 4.1 MEQ/L (3.5-5.1); SODIUM LEVEL 138 MEQ/L (136-145); VANCOMYCIN LEVEL TROUGH 15.4 UG/ML (10.0-20.0)
[2020-01-24] MEDS: SUCRALFATE SUSP 1GM/10ML UD PO SCH ×4 (09:00→21:41)
[2020-01-24] MEDS: LIDOCAINE 5% (LIDODERM) PATCH TD SCH (09:00)
[2020-01-24] MEDS: VANCOMYCIN HCL 750 MG, VIAL MATE ADAPTER 1 EACH in D5W 250 ML IV SCH ×2 (09:00→21:42)
[2020-01-24] MEDS: FINASTERIDE 5 MG TAB PO SCH (09:00)
[2020-01-24] MEDS: GABAPENTIN 300 MG CAP PO SCH ×2 (09:01→21:41)
[2020-01-24] MEDS: FOLIC ACID 1 MG TAB PO SCH (09:01)
[2020-01-24] MEDS: PANTOPRAZOLE 40MG TAB (PROTONIX) PO SCH ×2 (09:01→21:41)
[2020-01-24] MEDS: TAMSULOSIN 0.4 MG CAP PO SCH ×2 (09:01→21:41)
[2020-01-24] MEDS: POTASSIUM CHLORIDE 10 MEQ SR TABLET PO SCH ×2 (09:01→21:41)
[2020-01-24] MEDS: MULTIVITAMINS/MINERALS THERAP 1 TAB PO SCH (09:01)
[2020-01-24] MEDS: oxyCODONE 5MG TAB PO PRN ×2 (09:11→21:46)
[2020-01-24] MEDS: SIMETHICONE 80 MG CHEW TAB PO PRN ×2 (09:11→21:46)
--- NOTE | 2020-01-24 09:13 | RO ---
DATE OF PROCEDURE: 01/17/2020 PREOPERATIVE DIAGNOSIS: Left lower extremity infection, including ankle subtalar joints and lateral soft tissues. POSTOPERATIVE DIAGNOSES: 1. Left tibiotalar joint septic arthritis. 2. Left subtalar joint septic arthritis. 3. Abscess anterior to the flexor hallucis longus (FHL) in the posterior aspect of the tibia. 4. Mild infection of the posterior tibial tendon sheath and flexor digitorum longus (FDL) tendon sheath. PROCEDURE: Irrigation and debridement of left tibiotalar joint, subtalar joint, posterior tibia/flexor hallucis longus abscess, flexor digitorum longus and posterior tibial tendons, and medial and lateral soft tissues. SURGEON: Toshia Coleman MD ALGEBRA TEACHER: ANESTHESIA: INDICATIONS: Neo Ayala is a man with history of infections in the left lower extremity, status post multiple washouts. He was having increasing pain and fevers, and CT scan showed likely abscess anterior to the FHL muscle with possible recurrent tibiotalar and subtalar joint septic arthritis. Informed consent was obtained with his . Risks and benefits of surgery were discussed in detail. DESCRIPTION OF PROCEDURE: Patient was met in the preoperative holding area, where his left lower extremity was marked as the correct operative site. He was taken to the operating room and placed in the supine position on the operating room table. He had his INR reversed with fresh frozen plasma (FFP), and it was 1.53 before entry into the operating room. Patient's left lower extremity was prepped and draped in the normal sterile fashion. An official time-out was held, where the correct patient, operative site, and operative procedure were verified. Following this, the left lower extremity was first explored laterally. There was a mild amount of purulent fluid in the subtalar and tibiotalar joints. I then opened medially. Patient had had two prior tarsal tunnel releases and had abundant scar tissue medially. There was also a significant amount of bleeding; and thus, I did have to place a thigh tourniquet at 225 mmHg. This was done just with elevation of the leg, and it was non-exsanguinated. It took a significant amount of time to dissect out the posterior tibial and FDL tendons given the massive amount of scar tissue. It was not clear exactly where the neurovascular bundle was, again given the abundant scar tissue; and staying quite posterior, I was able to identify what appeared to be a hypertrophic tibial nerve. The FHL tendon itself was not immediately identified in this area, and there was risk of damage to the neurovascular bundle; and thus, after thorough debridement of the FDL and posterior tibial tendons, which I opened to the level of the midfoot, attention was then turned back laterally. At this point, I was able to lengthen my incision laterally and retract the peroneal tendons and dissect directly behind the tibia under the FHL muscle. Once I was able to fully get my finger in this region and really bluntly dissect, there was a copious amount of purulent fluid that was released. I was able again to release all this purulent fluid, and the entire foot and ankle was then washed out using 9 liters of normal saline. Medially, I closed using nylon in vertical mattress fashion and laterally wound vacuum-assisted closure (VAC) was placed, and the very edges of the wound were closed with #3-0 nylon. A sterile dressing was applied. This entire procedure was done under monitored anesthesia care (MAC) using 20 mL of 1% lidocaine for an ankle block. The patient tolerated without difficulty and was taken to the recovery room. PLAN: We will continue to monitor the patient. He will need wound VAC changes every 3 days by the nursing staff and will return to the operating room (OR) if necessary.
[2020-01-24] MEDS ORDERED: oxyCODONE 5MG TAB PO ONE (12:00)
[2020-01-24 14:00] VITALS: BP 122/60
--- NOTE | 2020-01-24 15:51 | REP ---
ABDOMINAL SERIES: Supine and erect views of the abdomen demonstrate no free air and no evidence for small bowel obstruction. Moderate air and fecal material is seen throughout the colon. No dilated small bowel loops are seen and there are no air-fluid levels identified. There are degenerative changes of the spine. Scattered vascular calcifications are noted. An accompanying view of the chest demonstrates subsegmental atelectasis in the left base. There is mild elevation of the left hemidiaphragm. There is cardiomegaly. There is calcification of the thoracic aorta. Right arm PICC line is noted with the tip in the superior vena cava. Left single lead pacemaker is noted. IMPRESSION: No free air and no compelling evidence of small bowel obstruction. Moderate air and fecal material seen throughout the colon. There appears to be subsegmental atelectasis in the left lung base. Electronically Signed by Johnnie Strong MD 01/26/2020 12:48 A
--- NOTE | 2020-01-24 15:58 | REP ---
LUMBOSACRAL SPINE: Five views of the lumbosacral spine performed. Stable chronic compression deformities are noted at L1 and L2. There is no acute compression fracture. There is normal alignment. There is moderate diffuse spurring. There is mild to moderate disc space narrowing and subchondral sclerosis at L2-3 and L5-S1. There is sclerosis and spurring of the facets at L5-S1. The posterior elements are intact. There is slight curvature toward the left. IMPRESSION: Diffuse degenerative changes without evidence of fracture or dislocation. Electronically Signed by Johnnie Strong MD 01/26/2020 12:49 A
[2020-01-24] MEDS ORDERED: ISOVUE-370 76% 100ML VIAL As Ordered ONE (16:44)
--- NOTE | 2020-01-24 18:03 | REPVR ---
PROCEDURE INFORMATION: Exam: CT Abdomen And Pelvis Without And With Contrast Exam date and time: 01/24/2020 5:25 PM Age: 79 years old Clinical indication: Abdominal pain; Additional info: Back abd pain mssa bacteremia ? diskitis TECHNIQUE: Imaging protocol: Computed tomography of the abdomen and pelvis without and with intravenous contrast. Radiation optimization: All CT scans at this facility use at least one of these dose optimization techniques: automated exposure control; mA and/or kV adjustment per patient size (includes targeted exams where dose is matched to clinical indication); or iterative reconstruction. Contrast material: ISOVUE 370; Contrast volume: 100 ml; Contrast route: IV; COMPARISON: CT ABD PELVIS W/O CONTRAST 01/04/2020 5:26 PM FINDINGS: Pleural space: Pleural thickening at the right lung base. Small left pleural effusion. Bibasilar compressive atelectasis. Liver: Examination of the liver demonstrates a lobular surface contour, and enlargement of the left and caudate lobes, findings consistent with cirrhosis. Gallbladder and bile ducts: Normal. No calcified stones. No ductal dilation. Pancreas: Normal. No ductal dilation. Spleen: Irregular hypoperfusion foci demonstrated in the spleen several with wedge-shaped configurations, findings which may represent acute non septic or aseptic splenic infarcts. Normal red pulp white bulb perfusion differences seem unlikely based upon late arterial early equilibrium phase imaging. Also noted is splenomegaly with the spleen measuring 15 cm maximum span. Adrenals: There is bilateral adrenal hyperplasia. Kidneys and ureters: Nonobstructive calculus lower pole right kidney. Subcentimeter left renal cyst. No follow-up suggested. Stomach and bowel: There is increased feces throughout the colon consistent with constipation. Appendix: No evidence of appendicitis. Intraperitoneal space: Unremarkable. No free air. No significant fluid collection. Vasculature: There is severe atherosclerotic calcification of the coronary arteries. The aorta demonstrates mild atherosclerotic calcification. Lymph nodes: Unremarkable. No enlarged lymph nodes. Bladder: Unremarkable as visualized. Reproductive: Unremarkable as visualized. Bones/joints: Osteoporosis. Stable compression deformities at L1 and L2. Moderate central spinal stenosis at L2-L3, severe central spinal stenosis at L3-L4 and L4-L5. In the setting of bacteremia the possibility of infectious discitis cannot be excluded, particularly at L2-L3 and T12-L1. If there is a strong index of suspicion for discitis/osteomyelitis further evaluation with pre and post-contrast MRI suggested. Soft tissues: Small bilateral inguinal hernias. There has been interval enlargement of the contour of the left psoas muscle in comparison to the prior scan of 01/04/2020 with suggestion of ring-like enhancement demonstrated anteriorly (for example series 301, image 99 and 98) and surrounding inflammatory change. Possibility versus developing psoas abscess cannot be excluded. IMPRESSION: 1. In the setting of bacteremia the possibility of infectious discitis cannot be excluded, particularly at L2-L3 and T12-L1. If there is a strong index of suspicion for discitis/osteomyelitis further evaluation with pre and post-contrast MRI suggested. 2. Findings suggestive of septic or non septic splenic infarcts as described above in this patient without any reported history of trauma. Splenomegaly. 3. Examination of the liver demonstrates a lobular surface contour, and enlargement of the left and caudate lobes, findings consistent with cirrhosis. 4. There is bilateral adrenal hyperplasia. 5. Nonobstructive calculus lower pole right kidney. Subcentimeter left renal cyst. No follow-up suggested. 6. There is increased feces throughout the colon consistent with constipation. 7. There has been interval enlargement of the contour of the left psoas muscle in comparison to the prior scan of 01/04/2020 with suggestion of ring-like enhancement demonstrated anteriorly (for example series 301, image 99 and 98) and surrounding inflammatory change. Possibility versus developing psoas abscess cannot be excluded. Electronically signed by: Taras Jaffe On 01/24/2020 18:02:44 PM
--- NOTE | 2020-01-24 18:46 | IPN ---
DATE: 01/24/2020 Patient seen and examined at the bedside. Chart has been reviewed. He complains of back pain at the tail end. He said about 2 days ago, he started noticing increased pain rated it at 6/10 that is constant in his back after he was shifted in bed. Patient also complains of a little bit of abdominal pain today, right around his hernia site, which is reducible. He otherwise had no nausea or vomiting. Tolerating his food. He did have a maximum temperature (T max) of 101.3 this morning at 12:31 in the morning, currently afebrile, still on intravenous Zosyn every 6 hours and vancomycin. T max of 101.3, current temperature of 98, pulse 74, sinus, respiratory rate 18, blood pressure 127/71, 97% on room air. Generally, patient appears his stated age, awake, alert, able to speak in full sentences. Face is symmetric. No jugular venous distention (JVD) or thyromegaly. Lungs are clear to auscultation. No wheezing or rales. Heart: S1, S2, sinus rhythm. Abdomen is soft, nontender, nondistended. Positive bowel sounds. No rebound or guarding. Left wrist has a well-healed scar, nontender, nondistended, full range of motion. Left ankle bandaged currently. Some erythema. No purulent drainage. White count 6.1, hemoglobin 9, hematocrit 27.7, platelet count 341. Sodium 138, potassium 4.1, chloride 103, bicarbonate 28, BUN 15, creatinine 1.2, glucose 112. ASSESSMENT AND PLAN: This is a 79-year-old male admitted on 01/04/2020 with complaint of 1-week history of erythema over the left ankle, seen at urgent care, diagnosed with gout and treated with prednisone, presented to the emergency room (ER) and was admitted for septic arthritis, found to have methicillin-sensitive Staphylococcus aureus (MSSA) bacteremia along with sepsis of the left wrist. CURRENT ISSUES: 1. Sepsis with recurrent fevers, 101.3 temperature, left wrist abscess and cellulitis with left ankle cellulitis and septic arthritis, as well as MSSA bacteremia. Patient is currently broadly covered with intravenous (IV) vancomycin and Zosyn, managed by infectious disease specialist, Dr. Sophia Ulrich. Patient did have a transesophageal echocardiogram on 01/13/2020, which was negative. Repeat blood cultures have been normal. 2. Low back pain. In light of the patient's history of MSSA bacteremia, we may need MRI of the lumbosacral spine, thoracic spine to rule out osteomyelitis. Will obtain an x-ray of the spine first. Patient did have a pacemaker placed, so MRI will not be possible. 3. 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 Patient usually takes warfarin. Will resume if no plans for any intervention. 4. Anemia of chronic disease. Heme positive. Had one red blood cell (RBC) transfusion. Hemoglobin and hematocrit remain stable at 9 and 27.7. 5. Obstructive sleep apnea. No acute issues at this time. 6. Acute kidney injury, has resolved. 7. Alcohol abuse, on Clinical [place] Withdrawal Assessment (CIWA) protocol. 8. Chronic peripheral neuropathy bilateral feet and hands, on gabapentin. 9. Debility. Will need mcc placement once medically stable. 10. Reflux. On Prilosec. 11. BPH. On tamsulosin and finasteride. 12. Chronic low back pain with L1-L2 compression fracture seen on x-ray. Blood cultures were rechecked yesterday, which were negative. MTDD
[2020-01-24 22:00] VITALS: BP 132/79
[2020-01-24] MEDS: **NOTE PATIENT COMMENT** MISC XX SCH (23:40)
[2020-01-25] MEDS: PIPERACILLIN/TAZOBACTAM SOD 3.375 GM in D5W MINI-BAG PLUS 50 ML IV SCH ×3 (00:58→13:30)
[2020-01-25] MEDS: SODIUM CHLORIDE 0.9% INJ 10 ML SYR IV PRN (00:59)
[2020-01-25] MEDS: IPRATROPIUM 0.5MG/ALBUTEROL 2.5MG INH SOL UD 3ML (DUONEB) NEB SCH ×4 (02:00→19:57)
--- NOTE | 2020-01-25 05:37 | IPN ---
DATE: 01/24/2020 Mr. Ayala complains of back pain at two different locations. He has two Lidoderm patches at the mid thoracic level and the lumbar level. He also complains of pain radiating to the front. He denies any nausea, vomiting, diarrhea. He did not have any fever today, but yesterday he had a spike of 101.3. He is currently on intravenous (IV) Zosyn and vancomycin, switched from cefazolin with the recent temperature. PHYSICAL EXAMINATION: He is a frail-looking gentleman in no acute distress, uncomfortable. HEART: Normal S1, S2. No murmurs appreciated. LUNGS: Clear. No wheezes, rales, or rhonchi. Diminished at the bases. ABDOMEN: Soft, mildly tender in both lower quadrants. BACK: Lower thoracic tenderness. Upper lumbar with paraspinal tenderness and mid lumbar tenderness as well. The patient is able to move both lower extremities. Left ankle with wound vacuum-assisted closure (VAC) in place. Left wrist range of motion with incision healing well. LABORATORY DATA: White count 6.1, hemoglobin 9, hematocrit 27.7, platelets 341, 74% neutrophils, 14% lymphocytes, 8% monocytes. Sodium 138, potassium 4.1, chloride 103, bicarbonate 23, BUN 15, creatinine 1.2, glucose 112, calcium 9.3, CRP 16.4. Blood cultures on January 21: No growth after 48 hours. Left foot culture on January 16 was positive for methicillin-sensitive Staphylococcus aureus (MSSA). Abdominal x-ray: No free air and no compelling evidence of small-bowel obstruction. Moderate air and fecal material throughout the colon with subsegmental lung atelectasis. Lumbar x-ray shows diffuse scarring with mild to moderate disc space narrowing at L2-3/L5-S1 with sclerosis. CT abdomen and pelvis done later tonight after I saw the patient, as I had some concerns of discitis. This was done without and with contrast. Shows liver consistent with cirrhosis. Splenomegaly with possibility of splenic infarct. Bilateral adrenal hyperplasia. Moderate spinal canal stenosis at L2-3, severe stenosis L3, L4, and L5, and possibility of discitis at L2-3 and T12-L1. Consideration for MRI, but the patient has a pacemaker. Also there is concern for an enlarged psoas compared to previous CT, which may be consistent with a psoas abscess. IMPRESSION: 1. Septic arthritis of the left ankle, status post four debridements. Culture positive for MSSA. Was on IV antibiotics with cefazolin. That has been escalated to vancomycin and Zosyn due to recurrent fever. Wound culture is still persistently positive on January 16. 2. Recurrent fever concerning for metastatic complication of Staphylococcus aureus, including possibility of discitis at T12, L1, L2, L3. Will review findings with radiology tomorrow. May suggest repeating thoracic and lumbar CT spine. The patient cannot have an MRI due to pacemaker. Blood cultures have been so far negative at 48 hours. 3. Cellulitis with abscess of the left wrist, resolved. The patient still has sutures in place but is healing well. 4. Liver cirrhosis by CT. 5. Splenic infarct with splenomegaly. May be suggestive of endocarditis, even though transesophageal echocardiogram (PRAVIN) done on January 12 showed no evidence of vegetation. Pacemaker lead was seen in the right ventricle. No aortic stenosis. Moderate mitral valve calcification. PLAN: If blood culture remains negative at 72 hours, please switch back the patient to cefazolin 2 grams IV every 8 hours. Discontinue IV vancomycin and Zosyn if blood cultures are negative at 72 hours. Repeat complete blood count (CBC), C-reactive protein (CRP), sedimentation rate tomorrow. Please discuss with radiology what better imaging studies should be obtained for thoracolumbar spine to rule out discitis. The patient will need to continue on at least 6-8 weeks of IV antibiotics due to metastatic infectious complications of Staphylococcus aureus bacteremia.
[2020-01-25 06:00] VITALS: BP 130/60
[2020-01-25] MEDS: SODIUM CHLORIDE 0.9% INJ 10 ML SYR IV SCH ×2 (06:00→18:07)
[2020-01-25] MEDS: BUDESONIDE 0.5 MG/2 ML INHALATION SUSPENSION INH SCH ×2 (07:27→19:57)
[2020-01-25] MEDS: SUCRALFATE SUSP 1GM/10ML UD PO SCH ×4 (07:30→20:43)
[2020-01-25 08:38] LABS: BASO # 0.1 10^3/uL (0.0-0.2); BASO % 1.2 % (0.0-1.0); EOS # 0.1 10^3/uL (0.0-0.5); EOS % 1.9 % (0.0-3.0); HEMATOCRIT 26.8 % (42.0-52.0); HEMOGLOBIN 8.7 g/dl (13.5-17.5); LYMPH # 1.6 10^3/uL (1.5-5.0); MEAN CORPUSCULAR HEMOGLOBIN 26.9 pg (27.0-33.0); MEAN CORPUSCULAR HGB CONC 32.5 g/dl (32.0-36.5); MEAN CORPUSCULAR VOLUME 82.7 fl (80.0-96.0); MONO # 0.4 10^3/uL (0.0-0.8); MONO % 7.6 % (0.0-5.0); NEUTROPHILS % 58.7 % (36.0-66.0); PLATELET COUNT, AUTOMATED 322 10^3/uL (150-450); RED BLOOD COUNT 3.24 10^6/uL (4.30-6.10); WHITE BLOOD COUNT 5.2 10^3/uL (4.0-10.0)
[2020-01-25 08:59] LABS: C REACTIVE PROTEIN QUANTITATIV 12.1 MG/DL (0.00-0.30); CALCIUM LEVEL 9.3 MG/DL (8.8-10.2); CREATININE FOR GFR 1.41 MG/DL (0.70-1.30); GLOMERULAR FILTRATION RATE 51.8 (>42); POTASSIUM SERUM 4.2 MEQ/L (3.5-5.1)
[2020-01-25 09:18] LABS: ERYTHROCYTE SEDIMENTATION RATE 128 mm/hr (0-20)
[2020-01-25] MEDS: FINASTERIDE 5 MG TAB PO SCH (09:53)
[2020-01-25] MEDS: POTASSIUM CHLORIDE 10 MEQ SR TABLET PO SCH ×2 (09:53→20:43)
[2020-01-25] MEDS: PANTOPRAZOLE 40MG TAB (PROTONIX) PO SCH ×2 (09:54→20:43)
[2020-01-25] MEDS: LIDOCAINE 5% (LIDODERM) PATCH TD SCH (09:54)
[2020-01-25] MEDS: MULTIVITAMINS/MINERALS THERAP 1 TAB PO SCH (09:54)
[2020-01-25] MEDS: TAMSULOSIN 0.4 MG CAP PO SCH ×2 (09:54→20:43)
[2020-01-25] MEDS: GABAPENTIN 300 MG CAP PO SCH ×2 (09:54→20:43)
[2020-01-25] MEDS: FOLIC ACID 1 MG TAB PO SCH (09:54)
[2020-01-25] MEDS: VANCOMYCIN HCL 750 MG, VIAL MATE ADAPTER 1 EACH in D5W 250 ML IV SCH (09:55)
[2020-01-25] MEDS: ACETAMINOPHEN 500 MG TAB PO SCH ×2 (13:29→22:38)
[2020-01-25] MEDS: oxyCODONE 10 MG CR TAB PO SCH ×2 (13:29→20:46)
[2020-01-25] MEDS: ceFAZolin SOD 2 GM in IV 1 EA IV SCH (20:43)
[2020-01-25] MEDS: **NOTE PATIENT COMMENT** MISC XX SCH (21:03)
[2020-01-25 22:00] VITALS: BP 114/59
[2020-01-25] MEDS: SIMETHICONE 80 MG CHEW TAB PO PRN (22:37)
[2020-01-26] MEDS: IPRATROPIUM 0.5MG/ALBUTEROL 2.5MG INH SOL UD 3ML (DUONEB) NEB SCH ×4 (01:32→19:47)
[2020-01-26] MEDS: ceFAZolin SOD 2 GM in IV 1 EA IV SCH ×3 (04:42→20:37)
[2020-01-26] MEDS: ACETAMINOPHEN 500 MG TAB PO SCH ×3 (05:45→23:02)
[2020-01-26] MEDS: SODIUM CHLORIDE 0.9% INJ 10 ML SYR IV SCH ×2 (05:45→17:47)
[2020-01-26 06:00] VITALS: BP 100/60
[2020-01-26] MEDS: BUDESONIDE 0.5 MG/2 ML INHALATION SUSPENSION INH SCH ×2 (06:15→19:47)
[2020-01-26] MEDS: SUCRALFATE SUSP 1GM/10ML UD PO SCH ×4 (10:17→20:37)
[2020-01-26] MEDS: oxyCODONE 10 MG CR TAB PO SCH ×2 (10:18→20:38)
[2020-01-26] MEDS: PANTOPRAZOLE 40MG TAB (PROTONIX) PO SCH ×2 (10:18→20:37)
[2020-01-26] MEDS: FINASTERIDE 5 MG TAB PO SCH (10:22)
[2020-01-26] MEDS: GABAPENTIN 300 MG CAP PO SCH ×2 (10:22→20:37)
[2020-01-26] MEDS: TAMSULOSIN 0.4 MG CAP PO SCH ×2 (10:22→20:37)
[2020-01-26] MEDS: LIDOCAINE 5% (LIDODERM) PATCH TD SCH (10:23)
[2020-01-26] MEDS: FOLIC ACID 1 MG TAB PO SCH (10:23)
[2020-01-26] MEDS: POTASSIUM CHLORIDE 10 MEQ SR TABLET PO SCH ×2 (10:23→20:37)
[2020-01-26] MEDS: MULTIVITAMINS/MINERALS THERAP 1 TAB PO SCH (10:24)
--- NOTE | 2020-01-26 13:36 | IPN ---
DATE OF SERVICE: 01/25/2020 Patient continues to complain of pain in his lower back and left upper quadrant. He remains afebrile with a T-max of 99.1. No complaints of chills. No other issues per nursing. No nausea or vomiting, abdominal pain, diarrhea, dysuria, urgency, frequency. Pain is rated in the back as 6 out of 10, improved with medications to about a 4 out of 10. Temperature 97, pulse 62, respiratory rate 20, blood pressure 130/60, 97% on room air. Generally, awake, alert, oriented, answering questions appropriately. No jugular venous distention. No thyromegaly. No cervical lymphadenopathy. Tongue is midline. Face is symmetric. Heart: No murmurs. S1, S2, sinus rhythm. Lungs: Clear to auscultation. No wheezing or rales. Abdomen slightly tender left upper quadrant. No rebound or guarding. No CVA tenderness. Along the lumbar spine there is T10-11 tenderness. Left ankle wound Vac. Left wrist well healed scab, no signs of erythema, fluctuance or significant tenderness. LABORATORY DATA: White count 5.2, hemoglobin 8.7, hematocrit 26, platelet count 322. Sodium 138, potassium 4.2, chloride 102, bicarbonate 28, BUN 15, creatinine 1.41, glucose 161. Blood cultures 01/22/2020 no growth after 72 hours. ASSESSMENT AND PLAN: This is a 79-year-old male admitted on 01/04/2020 with 1-week history of erythema over the left ankle, seen at urgent care, diagnosed with gout and treated with prednisone, with worsening symptoms and presented to the emergency room (ER) with a left ankle and left wrist septic arthritis with methicillin-sensitive Staphylococcus aureus (MSSA) bacteremia. The patient had a transesophageal echo which was negative for endocarditis. He continued to complain of left upper quadrant abdominal pain and back pain, found to have possible septic emboli despite negative transesophageal echocardiogram. CURRENT ISSUES: 1. Diskitis. CT of the abdomen and pelvis concerning for embolic phenomena with infectious diskitis along T12 to L1, L2 and L3/osteomyelitis, as well as, septic splenic infarcts. Last blood culture on 01/22/2020 was negative. No growth after 72 hours. Vancomycin and Zosyn have been discontinued and currently now on IV Cefazolin 2 grams every 8 hours, managed by infectious disease specialist. 2. Septic arthritis left wrist and left ankle. Wound Vac managed by orthopedic surgery, Dr. Coleman. Patient has had multiple incision, drainage and washout in the past with persistent fevers. Currently now on IV Cefazolin, previously on Nafcillin, changed to Vancomycin and Zosyn due to fevers and now back on IV Cefazolin due to negative blood culture on 01/22/2020 after three days. 3. 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 Transesophageal echocardiogram (EEG) was negative for any endocarditis. 4. Anemia of chronic disease. Heme positive. Hemoglobin and hematocrit (H/H) remain stable remain stable. 5. Obstructive sleep apnea. No acute issues. 6. Acute kidney injury. Monitor while on Vancomycin, which has now been discontinued. Avoid nephrotoxins, renally dose all medications. 7. Chronic peripheral neuropathy bilateral feet and hands, on gabapentin. 8. Debility. alf placement once medically stable. 9. BPH. On tamsulosin and finasteride. 10. Reflux. On chronic Prilosec.
[2020-01-26 14:00] VITALS: BP 109/76
[2020-01-26] MEDS: oxyCODONE 5MG TAB PO PRN (15:27)
[2020-01-26 15:33] LABS: BASO % 0.7 % (0.0-1.0); EOS # 0.1 10^3/uL (0.0-0.5); EOS % 2.4 % (0.0-3.0); HEMATOCRIT 27.7 % (42.0-52.0); HEMOGLOBIN 8.9 g/dl (13.5-17.5); LYMPH # 1.5 10^3/uL (1.5-5.0); LYMPH % 25.3 % (24.0-44.0); MEAN CORPUSCULAR HEMOGLOBIN 26.1 pg (27.0-33.0); MEAN CORPUSCULAR HGB CONC 32.1 g/dl (32.0-36.5); MEAN CORPUSCULAR VOLUME 81.2 fl (80.0-96.0); MONO # 0.5 10^3/uL (0.0-0.8); MONO % 8.1 % (0.0-5.0); NEUTROPHILS # 3.6 10^3/uL (1.5-8.5); NEUTROPHILS % 62.3 % (36.0-66.0); PLATELET COUNT, AUTOMATED 343 10^3/uL (150-450); RED BLOOD COUNT 3.41 10^6/uL (4.30-6.10); WHITE BLOOD COUNT 5.8 10^3/uL (4.0-10.0)
[2020-01-26 15:57] LABS: ALT/SGPT 96 U/L (12-78); BILIRUBIN,TOTAL 0.7 MG/DL (0.2-1.0); BLOOD UREA NITROGEN 15 MG/DL (7-18); C REACTIVE PROTEIN QUANTITATIV 9.89 MG/DL (0.00-0.30); CALCIUM LEVEL 9.3 MG/DL (8.8-10.2); CARBON DIOXIDE LEVEL 27 MEQ/L (21-32); CHLORIDE LEVEL 102 MEQ/L (98-107); CREATININE FOR GFR 1.21 MG/DL (0.70-1.30); GLOMERULAR FILTRATION RATE > 60.0 (>42); GLUCOSE, FASTING 129 MG/DL (70-100); POTASSIUM SERUM 4.5 MEQ/L (3.5-5.1); SODIUM LEVEL 134 MEQ/L (136-145); TOTAL PROTEIN 6.6 GM/DL (6.4-8.2)
[2020-01-26 15:59] LABS: ERYTHROCYTE SEDIMENTATION RATE 109 mm/hr (0-20)
--- NOTE | 2020-01-26 17:59 | IPN ---
DATE: 01/26/2020 He remains afebrile. Blood culture on January 21 remains negative after 72 hours. The patient has been changed to cefazolin 2 grams intravenous (IV) every 8 hours. The patient is sitting at the bedside on a wheelchair with the lower extremity edema elevated on the chair. He complains of pain in his lower back as well as his left side, rated as 6/10 despite pain medications. He has been cooperative with physical therapy. VITAL SIGNS: Temperature 97.7, pulse 66, respiratory rate 18, blood pressure 100/60, 99% on room air . GENERAL: Awake, alert, oriented to person, place, and time, answering questions appropriately. No jugular venous distention (JVD), no thyromegaly, no cervical lymphadenopathy. Dry mucous membranes. Tenderness around T10-11, L2-3. LUNGS: Clear to auscultation. No wheezes, rales, or rhonchi. HEART: S1, S2, sinus rhythm. No murmurs noted. ABDOMEN: Soft, nontender, nondistended. Positive bowel sounds times four quadrants. Patient has left wrist with a healing scab. Range of motion is significantly improved. Able to touch his thumb to his 5th digit. Left lower extremity is elevated with a wound vacuum-assisted closure (VAC). No cyanosis or clubbing. White count 5.2, hemoglobin 8.7, hemoglobin 26, platelet count 322. Sodium 138, potassium 4.2, chloride 105, bicarbonate 28, BUN 15, creatinine 1.41, glucose 161. ASSESSMENT AND PLAN: This is a 79-year-old male, full code, admitted on January 03 with 1-week history of erythema of left ankle, seen at urgent care and diagnosed with gout, treated with prednisone with worsening of symptoms. Found to have a left ankle septic arthritis with methicillin-sensitive Staphylococcus aureus (MSSA) with subsequent bacteremia. Transesophageal echo was negative for endocarditis. He continued to complain of left upper quadrant abdominal pain and back pain, found to have possible septic emboli and discitis versus osteomyelitis and splenic infarcts, most likely septic. IMPRESSION: 1. Discitis in the lumbar spine. CT abdomen and pelvis concerning for embolic phenomenon with infectious discitis along T12 to L1, L2, L3, osteomyelitis as well as septic splenic infarcts. Last blood culture on January 21 was negative. No growth after 72 hours. Patient was initially of nafcillin then changed to vancomycin and Zosyn due to temperature spikes this past weekend and current infectious disease. Has been changed to cefazolin 2 grams intravenous (IV) every 8 hours if recent blood culture is negative for 72 hours. Infectious disease is current managing. 2. Left wrist and left ankle septic arthritis with MSSA bacteremia. Patient had undergone several incisions and drainages and washout of both. Left wrist is improving. Left ankle, however, remains with a wound vacuum-assisted closure (VAC). Current on IV cefazolin 2 grams every 8 hours. 3. Chronic atrial fibrillation with high-degree atrioventricular (AV) block with pacemaker. Transesophageal echocardiogram was negative for endocarditis. 4. Anemia of chronic disease. Heme positive. Hemoglobin and hematocrit remain stable with no indication for red blood cell (RBC) transfusion. 5. Obstructive sleep apnea (BRYNN). No acute issues. 6. Acute kidney injury. Repeat metabolic panel. 7. Chronic neuropathy, bilateral feet and hands, on gabapentin. 8. Debility. Will need residential placement once he is medically stable. 9. BPH, on chronic tamsulosin and finasteride. 10. Reflux, on chronic Prilosec. MTDD
--- NOTE | 2020-01-26 20:28 | IPN ---
DATE: 01/26/2020 Mr. Ayala seems to be doing a little better, but he still complains of midthoracic back pain. He has had no fever or chills in the past 48 hours. He has no nausea, vomiting or diarrhea. He has been constipated. He feels bloated. On physical exam, temperature is 98, pulse 78, respirations 24, blood pressure 109/76, oxygen saturation (O2 sat) 97% on room air. Heart: Normal, S1, S2. No murmurs, rubs or gallops. Lungs: Diminished breath sounds at the bases but clear. Mid-thoracic back pain around T8-T9 with paraspinal tenderness. Abdomen: Distended, bloated mildly tender. Extremities: No edema on the right side. Left has a wound VAC, which will be changed tomorrow, and I have asked the nurse to call me with a wound change. Left wrist: Normal range of motion, healed. LABORATORY DATA: White count is 5.8, hemoglobin 8.9, hematocrit 27.7, platelets 343, 62% neutrophils, 25% lymphocytes, 8% monocytes. ESR 109, down from 128. Sodium 134, potassium 4.5, chloride 102, bicarbonate 27, BUN 15, creatinine 1.21, glucose 129, calcium 9.3, bilirubin 0.7, AST 91, ALT 96, alkaline phosphatase 126, CRP 9.89 down from 16.4 48 hours ago. MEDICATIONS: Cefazolin 2 grams IV every 8 hours, restarted on 01/25/2020. IMPRESSION: 1. Septic arthritis of the left ankle with methicillin-sensitive Staphylococcus aureus (MSSA) bacteremia, on IV cefazolin, doing better. 2. Left wrist abscess, resolved. Good range of motion of the left forearm. 3. Severe back pain concerning for metastatic infection with discitis or epidural abscess of the thoracic spine. Will obtain thoracic CT in the morning. PLAN: Continue with IV cefazolin, thoracic CT with contrast to rule out epidural abscess/discitis. The patient is not able to get an MRI as recommended by radiology as he has a pacemaker.
[2020-01-26 22:00] VITALS: BP 113/60
--- NOTE | 2020-01-26 22:41 | RO ---
DATE OF PROCEDURE: 01/23/2020 PREPROCEDURE DIAGNOSIS: Left lower extremity infection including posterior tibia, tibiotalar joint and subtalar joint, as well as lateral soft tissues. POSTPROCEDURE DIAGNOSIS: Left lower extremity infection including posterior tibia, tibiotalar joint and subtalar joint, as well as lateral soft tissues. PROCEDURE: Irrigation and debridement left subtalar joint, tibiotalar joint, posterior tibia and lateral soft tissues. SURGEON: Toshia Coleman MD ACCOUNT EXECUTIVE METALWORKING: None. ANESTHESIA: Monitored anesthesia care (MAC) plus local. ESTIMATED BLOOD LOSS: 50 mL. COMPLICATIONS: None. CONDITION: Stable to recovery. INDICATIONS: Neo Ayala is a 79-year-old male who has had a complex infection of the left ankle. Wound VAC changed today. There was a mild amount of purulence and patient had had continued fevers and so plans were made to take him back to the operating room for incision and drainage (I and D). I did get consent from the and also patient has agreed to surgery. DESCRIPTION OF PROCEDURE: The patient was met in the preoperative holding area where his left lower extremity was marked as the correct operative side. He was taken to the operating room, placed in the supine position on the operating room table. Bony prominences were well padded. A well-padded tourniquet was placed on the upper thigh but was not used. He underwent monitored anesthesia care (MAC) sedation. An official time-out was held where the correct patient, operative side, and operative procedure were verified. I then took out his proximal sutures. There was very mild purulent drainage, mainly in the subtalar joints. I was able to gain access to the posterior aspect of the tibia between the peroneal tendons and flexor hallucis longus (FHL) and was not able to find any purulence. I did thoroughly washout the posterior tibia, including the region of the FHL, tibiotalar joint and subtalar joint using 9 liters of normal saline. After thorough irrigation, there were no areas of purulence. There did not appear to be any pockets of purulent fluid, which had not been previously debrided. The proximal aspect of the wound was left open, and a wound VAC was applied. The patient was taken to the recovery room in stable condition. PLAN: I have spoken to Dr. Ulrich. While it is possible there is remaining infection through the ankle, overall his debridement looked much improved today. This may not be the cause of his fevers, but she will look into it. Otherwise, we will plan on changing the VAC and keep a close eye on him.
[2020-01-26] MEDS: SIMETHICONE 80 MG CHEW TAB PO PRN (23:01)
[2020-01-26] MEDS: **NOTE PATIENT COMMENT** MISC XX SCH (23:03)
[2020-01-27] MEDS: IPRATROPIUM 0.5MG/ALBUTEROL 2.5MG INH SOL UD 3ML (DUONEB) NEB SCH ×4 (00:40→19:52)
[2020-01-27] MEDS: ceFAZolin SOD 2 GM in IV 1 EA IV SCH ×3 (04:19→20:54)
[2020-01-27] MEDS: ACETAMINOPHEN 500 MG TAB PO SCH ×3 (05:21→21:02)
[2020-01-27] MEDS: SODIUM CHLORIDE 0.9% INJ 10 ML SYR IV SCH ×2 (05:22→17:16)
[2020-01-27 06:00] VITALS: BP 124/63
[2020-01-27 06:00] LABS: BASO # 0.1 10^3/uL (0.0-0.2); BASO % 0.9 % (0.0-1.0); EOS # 0.2 10^3/uL (0.0-0.5); EOS % 2.7 % (0.0-3.0); HEMATOCRIT 27.5 % (42.0-52.0); HEMOGLOBIN 9.1 g/dl (13.5-17.5); LYMPH # 1.5 10^3/uL (1.5-5.0); LYMPH % 26.5 % (24.0-44.0); MEAN CORPUSCULAR HEMOGLOBIN 26.7 pg (27.0-33.0); MEAN CORPUSCULAR HGB CONC 33.1 g/dl (32.0-36.5); MEAN CORPUSCULAR VOLUME 80.6 fl (80.0-96.0); MONO # 0.6 10^3/uL (0.0-0.8); MONO % 9.7 % (0.0-5.0); NEUTROPHILS # 3.3 10^3/uL (1.5-8.5); NEUTROPHILS % 59.1 % (36.0-66.0); PLATELET COUNT, AUTOMATED 330 10^3/uL (150-450); RED BLOOD COUNT 3.41 10^6/uL (4.30-6.10); WHITE BLOOD COUNT 5.7 10^3/uL (4.0-10.0)
[2020-01-27 06:12] LABS: BLOOD UREA NITROGEN 14 MG/DL (7-18); CALCIUM LEVEL 9.9 MG/DL (8.8-10.2); CARBON DIOXIDE LEVEL 27 MEQ/L (21-32); CHLORIDE LEVEL 104 MEQ/L (98-107); CREATININE FOR GFR 1.23 MG/DL (0.70-1.30); GLOMERULAR FILTRATION RATE > 60.0 (>42); GLUCOSE, FASTING 106 MG/DL (70-100); SODIUM LEVEL 135 MEQ/L (136-145)
[2020-01-27] MEDS: BUDESONIDE 0.5 MG/2 ML INHALATION SUSPENSION INH SCH ×2 (07:10→19:52)
[2020-01-27] MEDS: LIDOCAINE 5% (LIDODERM) PATCH TD SCH (08:24)
[2020-01-27] MEDS: TAMSULOSIN 0.4 MG CAP PO SCH ×2 (08:26→21:00)
[2020-01-27] MEDS: SUCRALFATE SUSP 1GM/10ML UD PO SCH ×4 (08:26→20:57)
[2020-01-27] MEDS: MULTIVITAMINS/MINERALS THERAP 1 TAB PO SCH (08:27)
[2020-01-27] MEDS: FOLIC ACID 1 MG TAB PO SCH (08:27)
[2020-01-27] MEDS: PANTOPRAZOLE 40MG TAB (PROTONIX) PO SCH ×2 (08:27→20:57)
[2020-01-27] MEDS: GABAPENTIN 300 MG CAP PO SCH ×2 (08:27→20:57)
[2020-01-27] MEDS: FINASTERIDE 5 MG TAB PO SCH (08:27)
[2020-01-27] MEDS: POTASSIUM CHLORIDE 10 MEQ SR TABLET PO SCH ×2 (08:27→20:58)
[2020-01-27] MEDS: oxyCODONE 10 MG CR TAB PO SCH ×2 (08:28→21:01)
[2020-01-27] MEDS ORDERED: ISOVUE-370 76% 100ML VIAL As Ordered ONE (08:40)
[2020-01-27] MEDS ORDERED: MIRALAX *UNIT DOSE* 17GM PACKET PO PRN (11:45)
[2020-01-27 14:00] VITALS: BP 119/58
[2020-01-27] MEDS: WARFARIN SOD 5MG TAB PO SCH (17:13)
--- NOTE | 2020-01-27 17:38 | REP ---
CT cervical spine: 01/27/2020. Indication: Thoracic pain. Diskitis. Epidural abscess. Technique: Axial CT images of the thoracic spine were performed following IV iodinated contrast administration with sagittal and coronal reconstructions provided. Findings: There is mild straightening of the cervical lordosis. Multiple chronic appearing Schmorl's nodes are present. There is no evidence of acute fracture, subluxation or dislocation. There are no areas of severe spinal canal narrowing or abnormal contrast enhancement within the spinal canal. There is no CT evidence of diskitis/osteomyelitis. Impression: No CT evidence of diskitis/osteomyelitis or epidural abscess. Electronically Signed by Jairo White DO 01/27/2020 05:29 P
--- NOTE | 2020-01-27 18:28 | IPN ---
DATE: 01/27/2020 Mr. Ayala is sitting in a chair today. He was not able to walk but did physical therapy. He has significant back pain and some ankle pain. He has been afebrile. Temperature is 98.4, pulse 82, respirations 19, blood pressure 119/58, oxygen saturation (O2 sat) 99% on room air. He has no nausea, vomiting or diarrhea. He has been constipated and has not been on stool softener in spite of being on OxyContin. MEDICATIONS: Cefazolin 2 grams IV every 8 hours Heart: Normal S1, S2. Systolic ejection murmur 2/6 left upper sternal border, unchanged. Lungs are clear. No wheezes, rales or rhonchi. Abdomen: Distended, soft, nontender. Back: Mid-thoracic tenderness around T9, T10 and lumbar tenderness. Extremities: No clubbing, cyanosis or edema. Right ankle - no lesions. Left ankle - has a wound VAC that was removed today There is an open incision measuring about 8 x 4 cm. There is exposed cartilage and tendons. There is some serous discharge but no purulence. No surrounding cellulitis. Medially, the right malleolus is still slightly swollen, some erythema. There is incision in place anteriorly on the dorsal aspect of the foot, the incision has healed and sutures have been removed. Left wrist incision is well healed. Wrist range of motion normal. LABORATORY DATA: White count is 5.7, hemoglobin 9.1, hematocrit 27.5, platelets 330, 59% neutrophils, 26% lymphocytes, 9% monocytes. ESR 109 down from 128, sodium 135, potassium 4, chloride 104, bicarb 27, BUN 14, creatinine 1.23, glucose 106, calcium 9.9, AST 91, ALT 96, alkaline phosphatase 126, C-reactive protein 9.89. CT thoracic spine has been done this morning but not read yet. Operative report from Dr. Coleman reviewed from 01/23/2020: Irrigation and debridement of left subtalar joint, tibiotalar joint, posterior tibia and lateral soft tissues a new wound VAC being placed. There was a mild amount of purulent discharge that was noted. IMPRESSION: 1. Septic arthritis of the left ankle with culture persistently positive for methicillin-sensitive Staphylococcus aureus (MSSA) on 01/17/2020 in spite of appropriate antibiotics. MSSA bacteremia that has persisted until 01/07/2020. First negative culture was 01/09/2020. Patient on IV cefazolin. He will require antibiotics at least until 02/20/2020. 2. Mid-thoracic back pain, lumbar back pain. Concerning for discitis from prolonged bacteremia, seeding of the disc or epidural space, waiting on thoracic CT. CT of the abdomen and pelvis done on 01/24/2020 was concerning for T12, L1, L2, L3. 3. Splenic infarct, possibly septic. Also concerning for seeding from bacteremia and endocarditis, although transesophageal echocardiogram (PRAVIN) was negative. PLAN Continue IV cefazolin 2 grams every 8 hours. Continue to monitor CBC, CRP, sedimentation (sed) rate at least twice a week. Will review thoracic spine CT with radiology. JASMINA
[2020-01-27] MEDS: SENOKOT S TAB PO SCH (20:57)
[2020-01-27] MEDS: **NOTE PATIENT COMMENT** MISC XX SCH (21:03)
--- NOTE | 2020-01-27 21:26 | IPN ---
DATE: 01/27/2020 The patient says that his left upper quadrant still hurts when he tries to move. He has been cooperative with physical therapy, but says that it was very difficult to stand up, not weightbearing on the left ankle. He has been leaning forward so that he does not fall with assistive devices with occupational therapy and physical therapy. The patient has remained afebrile. No shortness of breath, chest pain, pressure, tightness, nausea, vomiting or diarrhea. Microbiology had remained with no growth on 01/22/2020 on the blood cultures. The patient remains without any leukocytosis. Warfarin has been resumed. VITAL SIGNS: Temperature 98.1, pulse 61, respiratory rate 16, blood pressure 124/63, 98% on room air. General: Awake, alert, oriented to person, place and time, answers questions appropriately. Face is symmetric, no jaundice, no icterus. Speaks in full sentences. Speech is fluent. No expressive or receptive aphasia. No jugular venous distension (JVD) or thyromegaly. Right-sided percutaneous indwelling central catheter (PICC) line in place. Lungs are clear to auscultation. No wheezing or rales. Heart: S1, S2. No murmurs, rubs or gallops. Sinus rhythm. Abdomen is soft, nontender, nondistended. Positive bowel sounds in all four quadrants. No rebound or guarding. Left wrist with healing scab. Range of motion is improve. Able to oppose his thumb to all the fingers without difficulty. Left ankle remains elevated on two pillows with wound vac. No cyanosis or clubbing. LABORATORY DATA: Have been reviewed. ASSESSMENT AND PLAN: This is a 79-year-old male full code admitted on January 03 with complaints of one week of left ankle erythema seen at Urgent Care, diagnosed with gout treated with prednisone with persistent symptoms and admitted for left ankle septic arthritis, found to have emesis bacteremia and left wrist septic arthritis. Transesophageal echocardiogram was negative for endocarditis. He continued to complain of left upper quadrant abdominal pain and back pain and found to have septic emboli and diskitis versus osteomyelitis in the lumbar spine and splenic infarcts, most likely septic. Blood cultures have remained negative since January 21. The patient has been changed to intravenous cephazolin from vancomycin and Zosyn. IMPRESSION: 1. Septic arthritis of the left ankle, left wrist abscess with Methicillin-Susceptible Staphylococcus aureus (MSSA) bacteremia currently on intravenous cephazolin. Blood cultures have remained negative for the past five days. Afebrile, white count is normal. 2. Lumbar diskitis. 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 Unable to obtain an Magnetic Resonance Imaging (MRI) secondary to pacemaker. The patient is still on cefazolin only to complete a full course of 6 weeks. Monitor for neurological changes and will need to monitor for any abscess formation in the lumbar spine or in the spleen. 3. 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 A pacemaker transesophageal echocardiogram was negative for endocarditis, due to concerns of Methicillin-Susceptible Staphylococcus aureus (MSSA) bacteremia, the patient is resumed on warfarin to target INR of 2 to 3. 4. Anemia of chronic disease. Heme positive stool. Resume back on warfarin. Will need to monitor for any bleeding. 5. Obstructive sleep apnea. No acute issues currently. 6. Chronic neuropathy bilateral hands and feet on chronic gabapentin. 7. Benign prostatic hypertrophy (BPH) on Tamsulosin. 8. Reflux on chronic Prilosec. 9. Acute kidney injury, resolved. 10. History of alcohol abuse with abnormal liver function test. [facility]
[2020-01-27 21:52] VITALS: O2SAT 96
[2020-01-27] MEDS: SODIUM CHLORIDE 0.9% INJ 10 ML SYR IV PRN (21:58)
[2020-01-27 22:00] VITALS: BP 133/63
[2020-01-28] MEDS: IPRATROPIUM 0.5MG/ALBUTEROL 2.5MG INH SOL UD 3ML (DUONEB) NEB SCH ×4 (02:00→19:31)
[2020-01-28] MEDS: ceFAZolin SOD 2 GM in IV 1 EA IV SCH ×3 (03:00→20:55)
[2020-01-28] MEDS: SODIUM CHLORIDE 0.9% INJ 10 ML SYR IV SCH ×2 (04:03→17:07)
[2020-01-28] MEDS: ACETAMINOPHEN 500 MG TAB PO SCH ×3 (05:24→21:00)
[2020-01-28 06:00] VITALS: BP 119/61
[2020-01-28 06:42] LABS: BASO % 0.7 % (0.0-1.0); EOS # 0.2 10^3/uL (0.0-0.5); EOS % 2.5 % (0.0-3.0); HEMATOCRIT 28.9 % (42.0-52.0); HEMOGLOBIN 9.3 g/dl (13.5-17.5); LYMPH # 1.6 10^3/uL (1.5-5.0); LYMPH % 27.4 % (24.0-44.0); MEAN CORPUSCULAR HEMOGLOBIN 26.3 pg (27.0-33.0); MEAN CORPUSCULAR HGB CONC 32.2 g/dl (32.0-36.5); MEAN CORPUSCULAR VOLUME 81.6 fl (80.0-96.0); MONO # 0.5 10^3/uL (0.0-0.8); NEUTROPHILS # 3.5 10^3/uL (1.5-8.5); NEUTROPHILS % 58.6 % (36.0-66.0); PLATELET COUNT, AUTOMATED 331 10^3/uL (150-450); RED BLOOD COUNT 3.54 10^6/uL (4.30-6.10)
[2020-01-28 06:53] LABS: INR 1.15; PROTHROMBIN TIME 14.4 SECONDS (11.8-14.0)
[2020-01-28 07:02] LABS: BLOOD UREA NITROGEN 15 MG/DL (7-18); CALCIUM LEVEL 9.8 MG/DL (8.8-10.2); CARBON DIOXIDE LEVEL 25 MEQ/L (21-32); CHLORIDE LEVEL 105 MEQ/L (98-107); CREATININE FOR GFR 1.21 MG/DL (0.70-1.30); GLOMERULAR FILTRATION RATE > 60.0 (>42); GLUCOSE, FASTING 110 MG/DL (70-100); POTASSIUM SERUM 4.3 MEQ/L (3.5-5.1); SODIUM LEVEL 138 MEQ/L (136-145)
[2020-01-28] MEDS: BUDESONIDE 0.5 MG/2 ML INHALATION SUSPENSION INH SCH ×2 (07:24→19:31)
[2020-01-28] MEDS: FOLIC ACID 1 MG TAB PO SCH (08:12)
[2020-01-28] MEDS: MULTIVITAMINS/MINERALS THERAP 1 TAB PO SCH (08:12)
[2020-01-28] MEDS: GABAPENTIN 300 MG CAP PO SCH ×2 (08:12→20:58)
[2020-01-28] MEDS: SUCRALFATE SUSP 1GM/10ML UD PO SCH ×4 (08:12→20:56)
[2020-01-28] MEDS: PANTOPRAZOLE 40MG TAB (PROTONIX) PO SCH ×2 (08:12→20:58)
[2020-01-28] MEDS: TAMSULOSIN 0.4 MG CAP PO SCH ×2 (08:12→20:58)
[2020-01-28] MEDS: FINASTERIDE 5 MG TAB PO SCH (08:12)
[2020-01-28] MEDS: POTASSIUM CHLORIDE 10 MEQ SR TABLET PO SCH ×2 (08:13→20:56)
[2020-01-28] MEDS: oxyCODONE 10 MG CR TAB PO SCH ×2 (08:14→20:58)
[2020-01-28] MEDS: LIDOCAINE 5% (LIDODERM) PATCH TD SCH (08:14)
[2020-01-28] MEDS: ENOXAPARIN 80MG/0.8ML SYRINGE (J1650 PER 10MG) SC SCH ×2 (09:49→20:56)
[2020-01-28 14:00] VITALS: BP 130/60
--- NOTE | 2020-01-28 15:38 | IPN ---
DATE: 01/28/2020 The patient complains of bilateral hip discomfort this morning, rating it at 3/10 despite pain medications. K pack ordered. The patient has had no fever or chills. No cough or shortness of breath. No other issues per nursing overnight. The patient has been cooperative with physical therapy and working with occupational therapy (OT) to improve his ambulation. He currently is non-weightbearing on the left ankle. Wrist has improved on the left hand with full range of motion. PHYSICAL EXAMINATION: Vital Signs: Temperature 98.2, pulse 65, respiratory rate 17, blood pressure 119/61, 99% on room air. General: Awake, alert, and oriented to person, place and times. Answers questions appropriately. Lungs are clear to auscultation. No wheezes, rales or rhonchi. Heart: S1, S2, irregularly irregular. Abdomen is soft, nontender, nondistended. Positive bowel sounds. Point tenderness in bilateral hips. Tenderness in left upper quadrant and T12 to L2 area in the back. Extremities: The patient's left wrist is well healed. Left ankle is in a wound V.A.C. No peripheral edema or chronic venous stasis changes. LABORATORY DATA: On 01/27, complete blood count (CBC) and metabolic panel have been reviewed. ASSESSMENT AND PLAN: This is a 79-year-old, full code, admitted on 01/03 with left ankle erythema treated for gout by urgent care and prednisone presented with swelling pain and redness, found to have a left ankle septic arthritis, left wrist septic arthritis and admitted. He was then found to have Methicillin-Susceptible Staphylococcus aureus (MSSA) bacteremia treated with IV antibiotics with persistent bacteremia and recurrent fevers, ruled out for endocarditis with a transesophageal echocardiogram. IMPRESSION: 1. Septic arthritis of the left ankle, left wrist abscess with Methicillin-Susceptible Staphylococcus aureus (MSSA) bacteremia on IV cefazolin. Blood cultures have remained negative since 01/22/2020. He is afebrile with normal white count and infectious disease specialist has been managing the patient's care. 2. Lumbar diskitis with metastatic septic emboli to the spleen and lower lumbar area. Currently on cefazolin. 3. CT of the thoracic spine done on 01/27/[address] evidence of diskitis or osteomyelitis or epidural abscess. Currently managed by Dr. Ulrich with intravenous fluids cefazolin. 4. Splenic infarct from possible Methicillin-Susceptible Staphylococcus aureus (MSSA) sepsis. Transesophageal echocardiogram was negative. The patient will need twice a week sedimentation rate, C-reactive protein (CRP) and complete blood count (CBC). 5. Chronic atrial fibrillation with pacemaker. Target INR of 2 to 3. Resume back on his home dose of warfarin. 6. Anemia of chronic disease with heme positive stool on warfarin. Monitor for bleeding. 7. Obstructive sleep apnea. No acute issues. 8. Chronic neuropathy, bilateral hands and feet on gabapentin. 9. Benign prostatic hypertrophy (BPH) on tamsulosin. 10. Reflux on Prilosec. 11. Acute kidney injury has resolved. 12. History of alcohol abuse with liver cirrhosis on imaging, currently stable. MTDD
[2020-01-28] MEDS: WARFARIN SOD 5MG TAB PO SCH (17:05)
[2020-01-28] MEDS: **NOTE PATIENT COMMENT** MISC XX SCH (20:56)
[2020-01-28] MEDS: SENOKOT S TAB PO SCH (20:58)
[2020-01-28 22:00] VITALS: BP 126/66
[2020-01-28] MEDS: SODIUM CHLORIDE 0.9% INJ 10 ML SYR IV PRN (22:25)
[2020-01-29] MEDS: IPRATROPIUM 0.5MG/ALBUTEROL 2.5MG INH SOL UD 3ML (DUONEB) NEB SCH ×4 (02:00→19:42)
[2020-01-29] MEDS: ceFAZolin SOD 2 GM in IV 1 EA IV SCH ×3 (05:05→20:10)
[2020-01-29] MEDS: ACETAMINOPHEN 500 MG TAB PO SCH ×3 (05:05→22:00)
[2020-01-29] MEDS: SODIUM CHLORIDE 0.9% INJ 10 ML SYR IV SCH ×2 (05:06→16:56)
[2020-01-29 06:00] VITALS: BP 137/79
[2020-01-29 06:55] LABS: BASO # 0.1 10^3/uL (0.0-0.2); BASO % 0.8 % (0.0-1.0); EOS # 0.1 10^3/uL (0.0-0.5); EOS % 2.3 % (0.0-3.0); HEMATOCRIT 26.2 % (42.0-52.0); HEMOGLOBIN 8.4 g/dl (13.5-17.5); LYMPH # 1.7 10^3/uL (1.5-5.0); LYMPH % 28.4 % (24.0-44.0); MEAN CORPUSCULAR HEMOGLOBIN 26.3 pg (27.0-33.0); MEAN CORPUSCULAR HGB CONC 32.1 g/dl (32.0-36.5); MEAN CORPUSCULAR VOLUME 82.1 fl (80.0-96.0); MONO # 0.6 10^3/uL (0.0-0.8); MONO % 9.5 % (0.0-5.0); NEUTROPHILS # 3.5 10^3/uL (1.5-8.5); NEUTROPHILS % 56.9 % (36.0-66.0); PLATELET COUNT, AUTOMATED 316 10^3/uL (150-450); RED BLOOD COUNT 3.19 10^6/uL (4.30-6.10); WHITE BLOOD COUNT 6.1 10^3/uL (4.0-10.0)
[2020-01-29 07:04] LABS: INR 1.3; PROTHROMBIN TIME 15.9 SECONDS (11.8-14.0)
[2020-01-29 07:17] LABS: BLOOD UREA NITROGEN 14 MG/DL (7-18); CALCIUM LEVEL 9.7 MG/DL (8.8-10.2); CARBON DIOXIDE LEVEL 26 MEQ/L (21-32); CHLORIDE LEVEL 106 MEQ/L (98-107); GLOMERULAR FILTRATION RATE > 60.0 (>42); GLUCOSE, FASTING 107 MG/DL (70-100); POTASSIUM SERUM 4.5 MEQ/L (3.5-5.1); SODIUM LEVEL 137 MEQ/L (136-145)
[2020-01-29] MEDS: BUDESONIDE 0.5 MG/2 ML INHALATION SUSPENSION INH SCH ×2 (07:27→19:42)
[2020-01-29] MEDS: MULTIVITAMINS/MINERALS THERAP 1 TAB PO SCH (08:47)
[2020-01-29] MEDS: GABAPENTIN 300 MG CAP PO SCH ×2 (08:47→20:11)
[2020-01-29] MEDS: TAMSULOSIN 0.4 MG CAP PO SCH ×2 (08:47→20:11)
[2020-01-29] MEDS: SUCRALFATE SUSP 1GM/10ML UD PO SCH ×4 (08:47→20:10)
[2020-01-29] MEDS: FOLIC ACID 1 MG TAB PO SCH (08:47)
[2020-01-29] MEDS: FINASTERIDE 5 MG TAB PO SCH (08:47)
[2020-01-29] MEDS: PANTOPRAZOLE 40MG TAB (PROTONIX) PO SCH ×2 (08:47→20:11)
[2020-01-29] MEDS: ENOXAPARIN 80MG/0.8ML SYRINGE (J1650 PER 10MG) SC SCH ×2 (08:48→20:11)
[2020-01-29] MEDS: POTASSIUM CHLORIDE 10 MEQ SR TABLET PO SCH ×2 (08:49→20:11)
[2020-01-29] MEDS: oxyCODONE 10 MG CR TAB PO SCH ×2 (08:49→20:14)
[2020-01-29] MEDS: LIDOCAINE 5% (LIDODERM) PATCH TD SCH (08:49)
--- NOTE | 2020-01-29 11:45 | IPN ---
DATE OF SERVICE: 01/29/2020 The patient complains of bilateral hip pain. He also says that he has increasing abdominal distention but had a bowel movement yesterday per nursing. He remains in net negative balance. No fever or chills overnight. Pain in the hips are rated at 6/10. Currently, on OxyContin 10 twice a day and Tylenol 1 gram every 8 hours and lidocaine patches. Vital Signs: Temperature 98, pulse 71, respiratory rate 18, blood pressure 137/79, 97% on room air. Generally, the patient is awake, alert, and oriented to person, place, and time. No jugular venous distention (JVD). No thyromegaly. Anicteric. No jaundice. No pallor. No conversational dyspnea. Lungs are clear to auscultation. No wheezing or rales. Heart: S1, S2, irregularly irregular. Abdomen is distended. doughy in appearance. soft Diminished bowel sounds. nontender. no rebound or guarding. Extremities: Left ankle wound vacuum-assisted closure (VAC). Left wrist well-healed scar at the wrist with full range of motion. LABORATORY DATA: White count 6, hemoglobin 8.4, hematocrit 26, platelet count of 316. Sodium 137, potassium 4.5, chloride 106, bicarbonate 26, BUN 14, creatinine 1.2, glucose of 107. ASSESSMENT AND PLAN: This is a 79-year-old male, presented to the emergency room, admitted on 01/04/2020 with complaints of left ankle and left wrist swelling, pain, and edema. He was seen at urgent care, treated for gout with prednisone, and discharged home. He was admitted for left ankle septic arthritis, left wrist septic arthritis. Blood cultures grew out methicillin-sensitive Staphylococcus aureus, treated with intravenous (IV) nafcillin with persistent bacteremia and recurrent fevers. Evaluated with a transesophageal echocardiogram, which was negative for endocarditis. The patient continued to be bacteremic with fevers with complaints of back pain, left upper quadrant pain, evaluated for septic emboli. CT of the thoracic spine was performed due to concerns of septic emboli, which was negative. The patient had splenic infarcts with questionable septic emboli. CURRENT ISSUES: 1. Bacteremia with septic arthritis of the left ankle, left wrist with MSSA bacteremia. Is currently on IV cefazolin. Blood cultures remain negative since 01/22/2020. He has remained afebrile with no white count. Per infectious disease specialist, Dr. Sophia Ulrich, continue with weekly C-reactive protein (CRP), sedimentation rate, and complete blood count (CBC) with differential monitoring. 2. Splenic infarct, questionable bacteremia from MSSA sepsis. The patient had a transesophageal echocardiogram, which was negative. We are doing biweekly sedimentation rate, CRP, and CBC with differential. Currently on IV cefazolin. 3. Back pain. CT thoracic spine showed no evidence of discitis or osteomyelitis or epidural abscess. Continue with lidocaine patches and K-pad. Continue with IV cefazolin for possible clinical endocarditis. 4. Chronic atrial fibrillation (AFib) with pacer. The patient has been resumed on his home dose of warfarin to target international normalized ratio (INR) of 2-3. Currently, bridged with Lovenox 80 subcutaneous twice a day. Lovenox is to be discontinued once the patient's INR is therapeutic at 2-3. 5. Anemia of chronic disease, heme positive stool, on warfarin and Lovenox. Monitoring hemoglobin and hematocrit, a slight decrease. 6. Heme positive stool with possible blood loss anemia but has been resumed on warfarin due to history of chronic AFib and pacer. 7. Benign prostatic hypertrophy (BPH). On tamsulosin. 8. Chronic neuropathy. On gabapentin. 9. Reflux. On Prilosec. 10. History of alcohol abuse with liver cirrhosis on imaging. No signs of withdrawal. MTDD
[2020-01-29] MEDS: SODIUM CHLORIDE 0.9% INJ 10 ML SYR IV PRN (13:08)
[2020-01-29 14:00] VITALS: BP 136/70
[2020-01-29] MEDS: WARFARIN SOD 5MG TAB PO SCH (16:56)
[2020-01-29] MEDS: SENOKOT S TAB PO SCH (20:11)
[2020-01-29 22:00] VITALS: BP 138/63
[2020-01-29] MEDS: **NOTE PATIENT COMMENT** MISC XX SCH (23:45)
[2020-01-30] MEDS: IPRATROPIUM 0.5MG/ALBUTEROL 2.5MG INH SOL UD 3ML (DUONEB) NEB SCH ×4 (01:51→19:36)
[2020-01-30] MEDS: ceFAZolin SOD 2 GM in IV 1 EA IV SCH ×3 (04:07→21:17)
[2020-01-30] MEDS: ACETAMINOPHEN 500 MG TAB PO SCH ×3 (05:10→21:18)
[2020-01-30] MEDS: SODIUM CHLORIDE 0.9% INJ 10 ML SYR IV SCH ×2 (05:11→18:28)
[2020-01-30 05:54] LABS: BASO # 0.1 10^3/uL (0.0-0.2); BASO % 0.9 % (0.0-1.0); EOS # 0.1 10^3/uL (0.0-0.5); EOS % 1.8 % (0.0-3.0); HEMATOCRIT 30.3 % (42.0-52.0); HEMOGLOBIN 9.7 g/dl (13.5-17.5); LYMPH # 2.4 10^3/uL (1.5-5.0); LYMPH % 35.1 % (24.0-44.0); MEAN CORPUSCULAR HEMOGLOBIN 26.1 pg (27.0-33.0); MEAN CORPUSCULAR VOLUME 81.5 fl (80.0-96.0); MONO # 0.6 10^3/uL (0.0-0.8); MONO % 8.5 % (0.0-5.0); NEUTROPHILS # 3.4 10^3/uL (1.5-8.5); NEUTROPHILS % 51.2 % (36.0-66.0); PLATELET COUNT, AUTOMATED 320 10^3/uL (150-450); RED BLOOD COUNT 3.72 10^6/uL (4.30-6.10); WHITE BLOOD COUNT 6.7 10^3/uL (4.0-10.0)
[2020-01-30 06:00] VITALS: BP 128/63
[2020-01-30 06:03] LABS: INR 1.46; PROTHROMBIN TIME 17.5 SECONDS (11.8-14.0)
[2020-01-30 06:15] LABS: BLOOD UREA NITROGEN 17 MG/DL (7-18); CARBON DIOXIDE LEVEL 24 MEQ/L (21-32); CHLORIDE LEVEL 102 MEQ/L (98-107); CREATININE FOR GFR 1.36 MG/DL (0.70-1.30); GLUCOSE, FASTING 107 MG/DL (70-100); POTASSIUM SERUM 4.6 MEQ/L (3.5-5.1); SODIUM LEVEL 133 MEQ/L (136-145)
[2020-01-30] MEDS ORDERED: oxyCODONE 5MG TAB PO ONE (08:15)
[2020-01-30 08:19] LABS: C REACTIVE PROTEIN QUANTITATIV 7.46 MG/DL (0.00-0.30)
[2020-01-30] MEDS: BUDESONIDE 0.5 MG/2 ML INHALATION SUSPENSION INH SCH ×2 (08:47→19:36)
[2020-01-30] MEDS: SUCRALFATE SUSP 1GM/10ML UD PO SCH ×4 (08:56→21:19)
[2020-01-30] MEDS: NS 1,000 ML IV SCH ×2 (08:56→19:44)
[2020-01-30] MEDS: POTASSIUM CHLORIDE 10 MEQ SR TABLET PO SCH ×2 (08:57→21:18)
[2020-01-30] MEDS: ENOXAPARIN 80MG/0.8ML SYRINGE (J1650 PER 10MG) SC SCH ×2 (08:57→21:16)
[2020-01-30] MEDS: TAMSULOSIN 0.4 MG CAP PO SCH ×2 (08:57→21:19)
[2020-01-30] MEDS: MULTIVITAMINS/MINERALS THERAP 1 TAB PO SCH (08:57)
[2020-01-30] MEDS: FOLIC ACID 1 MG TAB PO SCH (08:57)
[2020-01-30] MEDS: GABAPENTIN 300 MG CAP PO SCH ×2 (08:58→21:19)
[2020-01-30] MEDS: PANTOPRAZOLE 40MG TAB (PROTONIX) PO SCH ×2 (08:58→21:18)
[2020-01-30] MEDS: FINASTERIDE 5 MG TAB PO SCH (08:58)
[2020-01-30] MEDS: LIDOCAINE 5% (LIDODERM) PATCH TD SCH (09:05)
[2020-01-30] MEDS: oxyCODONE 10 MG CR TAB PO SCH ×2 (09:06→21:19)
[2020-01-30 09:22] LABS: ERYTHROCYTE SEDIMENTATION RATE 109 mm/hr (0-20)
[2020-01-30 14:00] VITALS: BP 123/67
--- NOTE | 2020-01-30 17:34 | IPN ---
DATE: 01/30/2020 Patient still complains of 6/10 pain in the lower back, improved with lidocaine patches but per physical therapy, as he tries to ambulate, patient does have worsening pain, unable to work fully with them. He is on OxyContin 10 mg twice a day and oxycodone 5 mg ever 4 hours for breakthrough pain. Per physical therapy, patient is doing well on slide board but when he is standing and asked to bear weight on the right leg, patient does complain of significant discomfort limiting their therapy. Patient has been afebrile, no white count. He does continue to have left upper quadrant abdominal discomfort with known splenic infarcts from previous CT abdomen and pelvis. Vital signs: Temperature 97.9, pulse 63, respiratory rate 20, blood pressure 128/63, 97% on room air. Generally, patient is awake, alert, oriented to person, place and time, answering questions appropriately. Lungs are clear to auscultation. No wheezing, rales or rhonchi. Heart: S1, S2, sinus rhythm. Abdomen is soft, slightly tender in the left upper quadrant. No rebound or guarding. Positive bowel sounds. Extremities: Patient has left ankle in a wound VAC. No pitting edema. No cyanosis or clubbing. Left wrist is well healed. Scar noted. Range of motion is significantly improved. LABORATORY DATA: White count 6.7, hemoglobin 9.7, hematocrit 30, platelet count 320. Sodium 133, potassium 4.6, chloride 102, bicarbonate 24, BUN 17, creatinine 1.36, glucose of 107. Microbiology 01/22/2020 - blood culture negative after 5 days. ASSESSMENT AND PLAN: This is a 79-year-old male with a history of alcohol abuse with liver cirrhosis on imaging study, presented to the emergency room on 01/04/2020 after being treated for possible gout for the left ankle and left wrist, found to have septic arthritis of both the left ankle, left wrist. Patient underwent incision, drainage and washout of the left ankle, left wrist, had been on IV vancomycin and Zosyn, then IV nafcillin with persistent fever, found to have methicillin-sensitive Staphylococcus aureus (MSSA) bacteremia and ruled out for endocarditis with a negative transesophageal echocardiogram. Due to recurrent fevers, patient was switched back to IV vancomycin and Zosyn but blood culture on 01/22/2020 remained negative and was changed back to IV cefazolin 2 grams every 8 hours. However, patient did complain of lower back pain, left upper quadrant pain, found to have septic emboli in the spleen, as well as septic emboli in the lumbar spine. CT of the thoracic spine was negative for any septic emboli. Patient could not undergo MRI of the lumbar spine due to history of pacemaker placement. Currently, IV antibiotics are planned to continue until 02/20/2020, to complete a full course and to have biweekly CRP and sedimentation rate done. IMPRESSION: 1. Septic arthritis of the left ankle with methicillin-sensitive Staphylococcus aureus with methicillin-sensitive Staphylococcus aureus (MSSA) bacteremia until 01/07/2020, transesophageal echocardiogram was negative. First negative culture was 01/09/2020, 01/22/2020 again was negative culture. Patient is currently on intravenous cefazolin until 02/20/2020. 2. Septic emboli to lumbar spine and spleen. Despite negative transesophageal echocardiogram, lumbar spine showed possible emboli and CT of the thoracic spine was negative. 3. Acute kidney injury due to decreased oral intake, trial of IV fluids, history of alcohol liver cirrhosis by imaging, currently not decompensated. 4. Chronic atrial fibrillation with pacer, resumed on home dose of warfarin but bridged with Lovenox with a target INR of 2 to 3. 5. Anemia of chronic disease with heme positive stool. Monitoring patient for worsening bleeding since he is currently back on anticoagulation. 6. BPH, on tamsulosin. 7. Chronic neuropathy, on gabapentin. 8. Reflux, on Prilosec. DISPOSITION: Defer to infectious disease (ID) whether the patient can be transferred to snf. MTDD
[2020-01-30] MEDS: WARFARIN SOD 5MG TAB PO SCH (18:27)
[2020-01-30] MEDS: SENOKOT S TAB PO SCH (21:18)
--- NOTE | 2020-01-30 21:26 | IPN ---
DATE: 01/30/2020 Mr. Ayala continues complaining of back pain, what he describes as mostly lumbar area. It does not radiate to the lower extremities; it just goes across his back. It is worse when he sits in the wheelchair for 2 hours. He has had no fever or chills. He is not weightbearing on his left ankle. He is currently on IV cefazolin 2 grams every 8 hours. On physical exam, temperature is 97.3, pulse 81, respirations 17, blood pressure 123/67, oxygen saturation (O2 sat) 97% on room air. Heart: Normal, S1, S2, irregular. Lungs are clear. No wheezes, rales or rhonchi. Abdomen is soft, nontender. No hepatosplenomegaly. Extremities: Left ankle has a wound VAC in place. Swelling has decreased. Left wrist is completely healed. Back: Was not examined as the patient was just lying in bed after he had been in the wheelchair but mostly his pain is described as lumbar area. IMPRESSION: 1. Septic arthritis of the left ankle, status post multiple debridement, on IV cefazolin with decreasing CRP. 2. Mid thoracic and lumbar back pain. Thoracic spine CT was negative but CT abdomen and pelvis has still concerns of T12, L1, L2, L3 abnormal findings. May consider obtaining a bone scan to rule out discitis of the lumbar area. 3. Splenic infarct, possibly septic, concerning for seeding from bacteremia staph aureus but transesophageal echocardiogram (PRAVIN) was negative. Patient will continue on IV cefazolin every 8 hours. Continue to monitor CBC, CRP, sed rate. The patient will remain on IV antibiotic at least until 02/20/2020; 6 weeks from negative cultures.
[2020-01-30] MEDS: **NOTE PATIENT COMMENT** MISC XX SCH (21:31)
[2020-01-30 22:00] VITALS: BP 122/80
[2020-01-31] MEDS: IPRATROPIUM 0.5MG/ALBUTEROL 2.5MG INH SOL UD 3ML (DUONEB) NEB SCH ×4 (01:24→20:09)
[2020-01-31] MEDS: ceFAZolin SOD 2 GM in IV 1 EA IV SCH ×3 (04:14→20:25)
[2020-01-31 06:00] VITALS: BP 132/66
[2020-01-31] MEDS: ACETAMINOPHEN 500 MG TAB PO SCH ×3 (06:11→22:00)
[2020-01-31 06:16] LABS: BASO % 0.5 % (0.0-1.0); EOS # 0.1 10^3/uL (0.0-0.5); EOS % 1.2 % (0.0-3.0); HEMATOCRIT 28.3 % (42.0-52.0); LYMPH # 1.9 10^3/uL (1.5-5.0); MEAN CORPUSCULAR HEMOGLOBIN 26.1 pg (27.0-33.0); MEAN CORPUSCULAR HGB CONC 31.8 g/dl (32.0-36.5); MONO # 0.5 10^3/uL (0.0-0.8); MONO % 8.2 % (0.0-5.0); NEUTROPHILS # 3.9 10^3/uL (1.5-8.5); NEUTROPHILS % 59.5 % (36.0-66.0); PLATELET COUNT, AUTOMATED 278 10^3/uL (150-450); RED BLOOD COUNT 3.45 10^6/uL (4.30-6.10); WHITE BLOOD COUNT 6.6 10^3/uL (4.0-10.0)
[2020-01-31] MEDS: SODIUM CHLORIDE 0.9% INJ 10 ML SYR IV SCH ×2 (06:16→17:57)
[2020-01-31 06:27] LABS: INR 1.63; PROTHROMBIN TIME 19.1 SECONDS (11.8-14.0)
[2020-01-31 06:42] LABS: BLOOD UREA NITROGEN 17 MG/DL (7-18); CALCIUM LEVEL 9.2 MG/DL (8.8-10.2); CARBON DIOXIDE LEVEL 26 MEQ/L (21-32); CHLORIDE LEVEL 107 MEQ/L (98-107); GLOMERULAR FILTRATION RATE > 60.0 (>42); GLUCOSE, FASTING 109 MG/DL (70-100); POTASSIUM SERUM 4.5 MEQ/L (3.5-5.1); SODIUM LEVEL 138 MEQ/L (136-145)
[2020-01-31] MEDS: BUDESONIDE 0.5 MG/2 ML INHALATION SUSPENSION INH SCH ×2 (07:31→20:09)
[2020-01-31] MEDS: GABAPENTIN 300 MG CAP PO SCH ×2 (08:32→20:25)
[2020-01-31] MEDS: PANTOPRAZOLE 40MG TAB (PROTONIX) PO SCH ×2 (08:32→20:25)
[2020-01-31] MEDS: FOLIC ACID 1 MG TAB PO SCH (08:32)
[2020-01-31] MEDS: SUCRALFATE SUSP 1GM/10ML UD PO SCH ×4 (08:32→20:28)
[2020-01-31] MEDS: FINASTERIDE 5 MG TAB PO SCH (08:32)
[2020-01-31] MEDS: POTASSIUM CHLORIDE 10 MEQ SR TABLET PO SCH ×2 (08:33→20:26)
[2020-01-31] MEDS: MULTIVITAMINS/MINERALS THERAP 1 TAB PO SCH (08:33)
[2020-01-31] MEDS: TAMSULOSIN 0.4 MG CAP PO SCH ×2 (08:33→20:25)
[2020-01-31] MEDS: LIDOCAINE 5% (LIDODERM) PATCH TD SCH (08:35)
[2020-01-31] MEDS: oxyCODONE 10 MG CR TAB PO SCH ×2 (08:35→20:27)
[2020-01-31] MEDS: ENOXAPARIN 80MG/0.8ML SYRINGE (J1650 PER 10MG) SC SCH ×2 (08:35→20:25)
[2020-01-31] MEDS: WARFARIN SOD 5MG TAB PO SCH (17:56)
--- NOTE | 2020-01-31 18:33 | IPN ---
DATE: 01/31/2020 Mr. Ayala seems to be doing well. He had a lot of physical therapy today, and he feels his back has improved. He is able to roll in bed from position to position on his side without any help. He does not weight bear on his left foot but has been able to go to the bathroom in his room. He has no fever or chills. No nausea, vomiting, or diarrhea. No abdominal pain. He is currently on intravenous (IV) cefazolin 2 grams every 8 hours without any problem. LABORATORY DATA: White count 6.6, hemoglobin 9, hematocrit 28.3, platelets 278, 59% neutrophils, 28% lymphocytes sites, 8% monocytes, ESR 109. Sodium 138, potassium 4.5, chloride 107, bicarbonate 26, BUN 17, creatinine 1.2, glucose 109, calcium 9.2, CRP 7.46. IMPRESSION: 1. Methicillin-sensitive Staphylococcus aureus (MSSA) septic arthritis of the left ankle, status post multiple debridements, on IV cefazolin, doing well. 2. Mid thoracic and lumbar back pain. Thoracic CT was negative. CT abdomen and pelvis with concerns of T12, L1, L2, but today's physical exam is pretty benign. Probably muscular and degenerative disc disease cause of his back pain. 3. Splenic infarct, possibly related to bacteremia PLAN: Continue with IV cefazolin 2 grams every 8 hours at least still February 19. Monitor complete blood count (CBC), comprehensive metabolic panel (CMP), erythrocyte sedimentation rate (ESR), C-reactive protein (CRP) weekly. PHYSICAL EXAMINATION: Temperature is 98.4, pulse 67, respirations 19, blood pressure 132/66, oxygen saturation 99% on room air. HEART: Normal S1, S2. No murmurs appreciated. LUNGS: Clear. No wheezes, rales, or rhonchi. ABDOMEN: Soft, nontender. No hepatosplenomegaly. Few ecchymosis. BACK: No lumbosacral tenderness from lower thoracic to the lumbar area. Moves in bed side to side without any help. EXTREMITIES: No clubbing, cyanosis, or edema. No calf tenderness. Left heel has a wound vacuum-assisted closure (VAC) in place, which was changed this morning, and I did not get to see the wound. Left wrist incision has healed with normal range of motion. [facility]
[2020-01-31] MEDS ORDERED: WARFARIN SOD 2MG TAB PO STA (18:38)
--- NOTE | 2020-01-31 18:44 | IPNPDOC ---
Date Seen The patient was seen on 01/31/20. Progress Note SUBJECTIVE: No acute complaints overnight. ID suggesting bone scan but will likely be done as o/p. Back pain is controlled currently. Denies chest pain, shortness of breath, n/v/d. OBJECTIVE: VITAL SIGNS: Please see below PHYSICAL EXAMINATION: CONSTITUTIONAL: No acute distress, resting comfortably, AAO x 3 EYES: PERRLA, EOM intact HENT, MOUTH: Normocephalic, atraumatic, moist mucous membranes NECK: SUPPLE, no JVD, no lymphadenopathy, no carotid bruit CV: Regular rate and rhythm, S1S2 normal, no murmurs/rubs/gallops RESPIRATORY: Clear to auscultation bilaterally, no rales/rhonchi/wheezes GI: BS positive in 4 quadrants, soft, nontender, nondistended, no rebound or guarding, no organomegaly : Deferred MUSCULOSKELETAL: LLE wound vac on left foot/ankle, swelling +2 edema of that foot. tender to touch. Decreased ROM of that joint. No cyanosis, clubbing INTEGUMENTARY: Intact, no rashes, no lesions, no erythema NEUROLOGIC: Cranial Nerves II-XII are intact, no focal deficits PSYCHIATRIC: Mood and affect are normal CURRENT MEDICATIONS: Please see below LABORATORY DATA: Please see below IMAGING: No new imaging. ASSESSMENT: 79 y/o M with complicated medical stay currently being treated for septic arthritis of left ankle, septic emboli to lumbar spine and spleen, JESSICA, chronic atrial fibrillation. PLAN: 1. Septic arthritis of the left ankle with methicillin-sensitive Staphylococcus aureus with methicillin-sensitive Staphylococcus aureus (MSSA) bacteremia, transesophageal echocardiogram was negative. First negative culture was 01/09/2020, 01/22/2020 again was negative culture. C/w cefazolin until 02/20/2020. ID following. 2. Septic emboli to lumbar spine and spleen. C/w treatment above. 3. Chronic atrial fibrillation with pacemaker. Controlled. INR climbing slowly. C/w coumadin 5 mg PO daily, bridging with lovenox BID. Goal INR of 2 to 3. 4. Anemia of chronic disease with heme positive stool. Monitoring patient for worsening bleeding since he is currently back on anticoagulation. No s/s of active bleeding. 5. BPH. C/w tamsulosin. 6. Chronic neuropathy. C/w gabapentin. 7. GERD. C/w prilosec. 8. DVT px. Coumadin, enoxaparin BID. DISPOSITION: Plan is rehabilitation but there is currently some difficulty placing. Will f/u with discharge team. Called his Madhavi at 6: 45 PM and left message. VS, I&O, 24H, Fishbone Vital Signs/I&O Vital Signs Date Time Temp Pulse Resp B/P (MAP) Pulse Ox O2 Delivery O2 Flow Rate FiO2 01/31/20 08:35 15 Room Air 01/31/20 06:00 98.4 67 132/66 (88) 99 01/27/20 08:28 10.0 100 I&O- Last 24 Hours up to 6 AM 01/31/20 06:00 Intake Total 2000 ml Output Total 1125 ml Balance 875 ml Laboratory Data 24H LABS Laboratory Tests 2 01/31/20 06:03: Immature Granulocyte % (Auto) 2.6, Neutrophils (%) (Auto) 59.5, Lymphocytes (%) (Auto) 28.0, Monocytes (%) (Auto) 8.2H, Eosinophils (%) (Auto) 1.2, Basophils (%) (Auto) 0.5, Neutrophils # (Auto) 3.9, Lymphocytes # (Auto) 1.9, Monocytes # (Auto) 0.5, Eosinophils # (Auto) 0.1, Basophils # (Auto) 0.0, Nucleated Red Blood Cells % (auto) 0.0, Prothrombin Time 19.1H, Prothromb Time International Ratio 1.63, Anion Gap 5L, Glomerular Filtration Rate > 60.0, Calcium Level 9.2 CBC/BMP Laboratory Tests 01/31/20 06:03 Microbiology Microbiology 01/22/20 Blood Culture - Final, Complete NO GROWTH AFTER 5 DAYS 01/22/20 Blood Culture - Final, Complete NO GROWTH AFTER 5 DAYS Current Medications Current Medications Medications (Trade) Dose Ordered Sig/Mita Route PRN Reason Start Time Stop Time Status Last Admin Dose Admin Acetaminophen (Tylenol Tab) 650 mg Q4H PRN PO PAIN OR FEVER 01/04/20 03:30 01/07/20 08:07 DC 01/05/20 20:12 Acetaminophen (Tylenol Tab) 1,000 mg Q6HP PRN PO PAIN / FEVER 01/07/20 08:15 01/25/20 11:34 DC 01/22/20 14:31 Acetaminophen (Tylenol Tab) 1,000 mg Q8H PO 01/25/20 14:00 01/31/20 12:58 Acetaminophen (Tylenol Tab) 1,000 mg Q8HP PRN PO PAIN / FEVER 01/04/20 16:30 01/07/20 08:08 DC 01/06/20 02:04 Albuterol Sulfate (Proventil Neb) 2.5 mg Q2HP PRN NEB SOB/WHEEZING 01/05/20 17:00 01/07/20 21:48 Albuterol Sulfate (Proventil, Ventolin Hfa) 2 puff TID INH 01/05/20 09:00 01/06/20 08:46 DC 01/06/20 07:25 Albuterol/ Ipratropium (Duoneb (Ipr 0.5mg/Alb 2.5mg)) 3 ml RQ6H NEB 01/06/20 08:00 01/31/20 14:08 Bacitracin (Bacitracin Oint) apply to left ank... DAILY TOP 01/06/20 09:00 01/13/20 09:53 DC Budesonide (Pulmicort) 0.5 mg RBID INH 01/06/20 08:00 01/31/20 07:31 Cefazolin Sodium/ Dextrose 2 gm/IV Miscellaneous Supplies 50 ml @ 75 mls/hr Q8H IV 01/25/20 20:00 02/20/20 19:59 01/31/20 12:54 Cefazolin Sodium/ Dextrose 2 gm/IV Miscellaneous Supplies 50 ml @ 75 mls/hr Q8H IV 01/19/20 17:00 01/23/20 17:22 DC 01/23/20 16:15 Ceftaroline Fosamil 300 mg/ Dextrose 50 ml @ 50 mls/hr Q12H IV 01/04/20 06:00 01/04/20 03:58 DC Chlorthalidone (Hygroton, Chlorthalidone) 12.5 mg DAILY PO 01/04/20 09:00 01/04/20 05:35 DC Clindamycin Phosphate 900 mg/ IV Miscellaneous Supplies 50 ml @ 50 mls/hr Q8H IV 01/06/20 00:00 01/06/20 11:45 DC 01/06/20 08:54 Enoxaparin Sodium (Lovenox) 80 mg BID SC 01/28/20 09:00 01/31/20 08:35 Fentanyl Citrate (Sublimaze) 25 mcg Q5MP PRN IV PAIN LEVEL 5-10 01/07/20 03:30 01/08/20 12:37 DC Fentanyl Citrate (Sublimaze) 25 mcg Q5MP PRN IV PAIN LEVEL 5-10 01/10/20 16:00 01/10/20 17:00 DC 01/10/20 16:00 Fentanyl Citrate (Sublimaze) 25 mcg Q5MP PRN IV PAIN LEVEL 5-10 01/12/20 12:00 01/12/20 13:00 DC Fentanyl Citrate (Sublimaze) 25 mcg Q5MP PRN IV PAIN LEVEL 5-10 01/13/20 17:45 01/13/20 18:45 DC Fentanyl Citrate (Sublimaze) 25 mcg Q5MP PRN IV PAIN LEVEL 5-10 01/17/20 23:15 01/18/20 00:15 DC 01/17/20 23:18 Fentanyl Citrate (Sublimaze) 25 mcg Q5MP PRN IV PAIN LEVEL 5-10 01/23/20 15:15 01/23/20 16:15 DC Finasteride (Proscar) 5 mg DAILY PO 01/04/20 09:00 01/31/20 08:32 Folic Acid (Folic Acid) 1 mg DAILY PO 01/04/20 09:00 01/31/20 08:32 Folic Acid (Folic Acid) 1 mg DAILY PO 01/12/20 09:00 UNV Gabapentin (Neurontin) 300 mg BID PO 01/04/20 09:00 01/31/20 08:32 Heparin Sodium (Heparin (Flush)) 200 units ASDIRECTED PRN IV SEE LABEL COMMENTS 01/13/20 14:45 01/29/20 13:07 Heparin Sodium (Heparin (Flush)) 200 units PICC IV 01/13/20 18:00 01/31/20 17:57 Heparin Sodium (Porcine) (Heparin) ASDIRECTED PRN IV SEE LABEL COMMENTS 01/07/20 04:00 01/07/20 04:11 DC Heparin Sodium (Porcine) (Heparin) ASDIRECTED PRN IV SEE LABEL COMMENTS 01/07/20 04:00 01/13/20 18:08 DC 01/08/20 19:37 Heparin Sodium (Porcine) 01329 units/IV Miscellaneous Supplies 250 ml @ 15 mls/hr [id number] IV 01/07/20 03:58 01/13/20 18:08 DC 01/12/20 22:32 Heparin Sodium (Porcine) 88088 units/IV Miscellaneous Supplies 250 ml @ 0 mls/hr Q0M IV 01/07/20 03:58 01/07/20 04:10 DC Home Med (Med Rec Complete!) ASDIRECTED XX 01/04/20 02:15 01/04/20 02:12 DC Lactated Ringer's 1,000 ml @ 50 mls/hr Q20H IV 01/10/20 16:00 01/10/20 17:00 DC Lactated Ringer's 1,000 ml @ 75 mls/hr [id number] IV 01/12/20 12:00 01/12/20 13:00 DC Lactated Ringer's 1,000 ml @ 75 mls/hr [id number] IV 01/13/20 17:45 01/13/20 18:45 DC Lactated Ringer's 1,000 ml @ 75 mls/hr [id number] IV 01/23/20 15:15 01/23/20 16:15 DC 01/23/20 15:04 Lactated Ringer's 1,000 ml @ 100 mls/hr Q10H IV 01/07/20 03:30 01/07/20 14:50 DC Lidocaine (Lidoderm Patch) 2 patch DAILY TD 01/21/20 09:00 01/31/20 08:35 Lorazepam (Ativan) 2 mg ASDIRECTED PRN PO SEE PROTOCOL 01/04/20 05:15 01/06/20 13:39 DC Lorazepam (Ativan) 2 mg ASDIRECTED PRN PO SEE PROTOCOL 01/11/20 15:15 01/17/20 13:48 DC Meropenem 1 gm/IV Miscellaneous Supplies 50 ml @ 100 mls/hr Q8H IV 01/05/20 23:00 01/06/20 11:45 DC 01/06/20 07:50 Methylprednisolone (SOLUmedrol) 60 mg Q8H IV 01/07/20 22:00 01/07/20 23:11 DC 01/07/20 21:45 Metoclopramide HCl (REGLAN INJection) 10 mg Q6HP PRN IV NAUSEA OR VOMITING 01/13/20 17:45 01/13/20 18:45 DC Miscellaneous (Unresolved Clarification Entry) SEE LABEL COMMENTS DAILY XX 01/30/20 09:00 01/30/20 08:14 DC Multivitamins (Theragram-M) 1 tab DAILY PO 01/04/20 09:00 01/06/20 07:23 DC 01/05/20 08:09 Multivitamins (Theragram-M) 1 tab DAILY PO 01/11/20 09:00 01/31/20 08:33 Nafcillin Sodium 2 gm/Dextrose 50 ml @ 50 mls/hr Q4H IV 01/06/20 14:00 01/08/20 12:38 DC 01/08/20 05:53 Nafcillin Sodium 2 gm/Dextrose 50 ml @ 50 mls/hr Q4H IV 01/08/20 13:00 01/19/20 14:44 DC 01/19/20 13:04 Non-Formulary Medication ( See Comment Field Below ) REMOVE LIDODERM PATC... DAILY@21 XX 01/21/20 21:00 01/30/20 21:31 Non-Formulary Medication (Heparin Iv Rate Change Documentation ml/ Hr) ASDIRECTED XX 01/07/20 04:00 01/12/20 03:59 DC 01/09/20 02:37 Omeprazole (PriLOSEC) 20 mg DAILY PO 01/04/20 09:00 01/07/20 08:07 DC 01/06/20 10:08 Ondansetron HCl (ZOFRAN INJection) 4 mg Q4HP PRN IV NAUSEA OR VOMITING 01/07/20 03:30 01/07/20 17:52 DC Ondansetron HCl (ZOFRAN INJection) 4 mg Q4HP PRN IV NAUSEA OR VOMITING 01/10/20 16:00 01/10/20 17:00 DC Ondansetron HCl (ZOFRAN INJection) 4 mg Q4HP PRN IV NAUSEA OR VOMITING 01/13/20 17:45 01/13/20 18:45 DC Ondansetron HCl (ZOFRAN INJection) 4 mg Q4HP PRN IV NAUSEA OR VOMITING 01/17/20 23:15 01/18/20 00:15 DC Oxazepam (Serax) 10 mg Q4HP PRN PO withdrawal 01/11/20 19:00 01/17/20 13:48 DC Oxycodone HCl (OxyCONTIN) 10 mg BID PO 01/25/20 09:00 01/31/20 08:35 Oxycodone HCl (Roxicodone, Oxyir) 5 mg ASDIRECTED PRN PO PAIN LEVEL 1-4 01/07/20 03:30 01/07/20 17:09 DC 01/07/20 14:29 Oxycodone HCl (Roxicodone, Oxyir) 5 mg ASDIRECTED PRN PO PAIN LEVEL 1-4 01/10/20 16:00 01/10/20 17:00 DC Oxycodone HCl (Roxicodone, Oxyir) 5 mg Q4HP PRN PO PAIN 01/07/20 18:00 01/26/20 15:27 Oxycodone HCl (Roxicodone, Oxyir) 5 mg Q6HP PRN PO PAIN 01/07/20 17:15 Cancel Pantoprazole Sodium (Protonix) 40 mg BID PO 01/12/20 21:00 01/31/20 08:32 Pantoprazole Sodium (Protonix) 40 mg DAILY IV 01/07/20 09:00 01/12/20 15:14 DC 01/12/20 08:58 Piperacillin Sod/ Tazobactam Sod 3.375 gm/Dextrose 50 ml @ 50 mls/hr Q6H IV 01/23/20 19:00 01/25/20 17:38 DC 01/25/20 13:30 Polyethylene Glycol (Miralax) 1 pkt DAILY PO 01/21/20 09:00 01/23/20 17:18 DC 01/23/20 09:53 Polyethylene Glycol (Miralax) 1 pkt DAILYPRN PRN PO CONSTIPATION 01/27/20 11:45 01/27/20 13:15 Potassium Chloride 10 meq/ IV Miscellaneous Supplies 100 ml @ 100 mls/hr 0700,0800,0900,1000 IV 01/08/20 07:00 01/08/20 09:13 DC 01/08/20 06:58 Potassium Chloride/Sodium Chloride 1,000 ml @ 75 mls/hr [id number] IV 01/07/20 09:00 01/07/20 21:28 DC 01/07/20 08:26 Potassium Chloride (Micro-K Extencaps) 40 meq BID PO 01/15/20 09:00 01/31/20 08:33 Potassium Chloride (Micro-K Extencaps) 40 meq DAILY PO 01/14/20 09:00 01/15/20 07:43 DC 01/14/20 12:40 Senna/Docusate Sodium (Senokot S) 2 tab QHS PO 01/27/20 21:00 01/30/20 21:18 Simethicone (Mylicon) 80 mg TIDP PRN PO GAS PAIN 01/21/20 10:15 01/26/20 23:01 Simvastatin (Zocor) 20 mg QHS PO 01/03/20 21:00 01/06/20 07:23 DC 01/05/20 20:12 Sodium Chloride 1,000 ml @ 50 mls/hr Q20H IV 01/17/20 23:15 01/18/20 00:15 DC Sodium Chloride 1,000 ml @ 70 mls/hr [id number] IV 01/17/20 09:45 01/18/20 13:42 DC 01/18/20 12:41 Sodium Chloride 1,000 ml @ 75 mls/hr [id number] IV 01/06/20 08:45 01/07/20 08:08 DC 01/06/20 10:09 Sodium Chloride 1,000 ml @ 100 mls/hr Q10H IV 01/04/20 03:30 01/05/20 16:22 DC 01/05/20 09:15 Sodium Chloride 1,000 ml @ 100 mls/hr Q10H IV 01/30/20 08:00 01/31/20 03:59 DC 01/30/20 19:44 Sodium Chloride 1,000 ml @ 150 mls/hr Q6H40M IV 01/04/20 02:51 01/04/20 03:48 DC 01/04/20 03:01 Sodium Chloride (Saline Lock Flush) 2 ml ASDIRECTED PRN IV SEE LABEL COMMENTS 01/05/20 16:30 Cancel Sodium Chloride (Saline Lock Flush) 2 ml SLF IV 01/05/20 22:00 01/13/20 15:13 DC 01/13/20 05:59 Sodium Chloride (Saline Lock Flush) 10 ml ASDIRECTED PRN IV SEE LABEL COMMENTS 01/13/20 14:45 01/29/20 13:08 Sodium Chloride (Saline Lock Flush) 10 ml PICC IV 01/13/20 18:00 01/31/20 17:57 Spironolactone (Aldactone) 12.5 mg DAILY PO 01/04/20 09:00 01/04/20 05:35 DC Sucralfate (Carafate Suspension) 1 gm ACHS PO 01/12/20 17:30 01/31/20 17:56 Tamsulosin HCl (Flomax) 0.4 mg BID PO 01/04/20 09:00 01/31/20 08:33 Thiamine HCl (Thiamine HCl) 100 mg BID PO 01/04/20 05:13 01/06/20 21:01 DC 01/06/20 10:08 Thiamine HCl (Thiamine HCl) 100 mg BID PO 01/11/20 09:00 01/13/20 21:01 DC 01/13/20 21:45 Vancomycin HCl 750 mg/IV Miscellaneous Supplies 1 each/ Dextrose 275 ml @ 275 mls/hr Q12H IV 01/22/20 21:00 01/25/20 17:38 DC 01/25/20 09:55 Vancomycin HCl 1000 mg/IV Miscellaneous Supplies 1 each/ Dextrose 270 ml @ 270 mls/hr Q18H IV 01/06/20 06:00 01/06/20 11:45 DC 01/06/20 06:20 Vancomycin HCl 1000 mg/IV Miscellaneous Supplies 1 each/ Dextrose 270 ml @ 270 mls/hr Q24H IV 01/04/20 06:00 01/06/20 05:56 DC 01/05/20 05:24 Warfarin Sodium (Coumadin) 5 mg DAILY@17 PO 01/13/20 18:30 01/14/20 10:35 DC 01/13/20 18:50 Warfarin Sodium (Coumadin) 5 mg DAILY@17 PO 01/27/20 17:00 01/31/20 17:56 Warfarin Sodium (Coumadin) 5 mg DAILY@17 PO 01/18/20 17:00 01/21/20 17:51 DC 01/21/20 17:49 Warfarin Sodium (Coumadin) 5 mg DAILY@1700 PO 01/03/20 17:00 01/04/20 05:48 DC Warfarin Sodium (Coumadin) 7.5 mg DAILY@17 PO 01/14/20 17:00 01/16/20 17:00 DC 01/15/20 17:02 Allergies Coded Allergies: No Known Allergies (Unverified , 12/02/18) Brianna Fraser MD Jan 31, 2020 18:44
[2020-01-31] MEDS: **NOTE PATIENT COMMENT** MISC XX SCH (20:26)
[2020-01-31] MEDS: SENOKOT S TAB PO SCH (20:26)
[2020-01-31 22:00] VITALS: BP 122/59
[2020-01-31] MEDS: SODIUM CHLORIDE 0.9% INJ 10 ML SYR IV PRN (23:08)
[2020-02-01] MEDS: IPRATROPIUM 0.5MG/ALBUTEROL 2.5MG INH SOL UD 3ML (DUONEB) NEB SCH ×4 (02:00→19:37)
[2020-02-01] MEDS: ceFAZolin SOD 2 GM in IV 1 EA IV SCH ×3 (04:29→20:29)
[2020-02-01] MEDS: SODIUM CHLORIDE 0.9% INJ 10 ML SYR IV SCH ×2 (05:29→17:54)
[2020-02-01] MEDS: ACETAMINOPHEN 500 MG TAB PO SCH ×3 (05:29→22:13)
[2020-02-01 06:00] VITALS: BP 139/73
[2020-02-01 06:34] LABS: BASO % 0.6 % (0.0-1.0); EOS # 0.1 10^3/uL (0.0-0.5); EOS % 1.1 % (0.0-3.0); HEMATOCRIT 27.9 % (42.0-52.0); HEMOGLOBIN 8.7 g/dl (13.5-17.5); LYMPH % 30.7 % (24.0-44.0); MEAN CORPUSCULAR HEMOGLOBIN 25.4 pg (27.0-33.0); MEAN CORPUSCULAR HGB CONC 31.2 g/dl (32.0-36.5); MEAN CORPUSCULAR VOLUME 81.6 fl (80.0-96.0); MONO # 0.5 10^3/uL (0.0-0.8); MONO % 8.4 % (0.0-5.0); NEUTROPHILS # 3.7 10^3/uL (1.5-8.5); NEUTROPHILS % 57.2 % (36.0-66.0); PLATELET COUNT, AUTOMATED 289 10^3/uL (150-450); RED BLOOD COUNT 3.42 10^6/uL (4.30-6.10); WHITE BLOOD COUNT 6.5 10^3/uL (4.0-10.0)
[2020-02-01 06:42] LABS: INR 1.64; PROTHROMBIN TIME 19.2 SECONDS (11.8-14.0)
[2020-02-01 06:47] LABS: BLOOD UREA NITROGEN 13 MG/DL (7-18); CALCIUM LEVEL 9.3 MG/DL (8.8-10.2); CARBON DIOXIDE LEVEL 25 MEQ/L (21-32); CHLORIDE LEVEL 104 MEQ/L (98-107); CREATININE FOR GFR 1.17 MG/DL (0.70-1.30); GLOMERULAR FILTRATION RATE > 60.0 (>42); GLUCOSE, FASTING 98 MG/DL (70-100); POTASSIUM SERUM 4.5 MEQ/L (3.5-5.1); SODIUM LEVEL 136 MEQ/L (136-145)
[2020-02-01] MEDS: BUDESONIDE 0.5 MG/2 ML INHALATION SUSPENSION INH SCH ×2 (07:46→19:37)
[2020-02-01] MEDS: SUCRALFATE SUSP 1GM/10ML UD PO SCH ×4 (08:34→22:11)
[2020-02-01] MEDS: ENOXAPARIN 80MG/0.8ML SYRINGE (J1650 PER 10MG) SC SCH ×2 (08:35→22:13)
[2020-02-01] MEDS: LIDOCAINE 5% (LIDODERM) PATCH TD SCH (08:36)
[2020-02-01] MEDS: oxyCODONE 10 MG CR TAB PO SCH ×2 (08:37→22:11)
[2020-02-01] MEDS: POTASSIUM CHLORIDE 10 MEQ SR TABLET PO SCH ×2 (08:37→22:12)
[2020-02-01] MEDS: FINASTERIDE 5 MG TAB PO SCH (08:37)
[2020-02-01] MEDS: PANTOPRAZOLE 40MG TAB (PROTONIX) PO SCH ×2 (08:38→22:12)
[2020-02-01] MEDS: GABAPENTIN 300 MG CAP PO SCH ×2 (08:38→22:12)
[2020-02-01] MEDS: FOLIC ACID 1 MG TAB PO SCH (08:38)
[2020-02-01] MEDS: TAMSULOSIN 0.4 MG CAP PO SCH ×2 (08:38→22:12)
[2020-02-01] MEDS: MULTIVITAMINS/MINERALS THERAP 1 TAB PO SCH (08:38)
[2020-02-01 08:50] LABS: HEPATITIS B SURFACE ANTIGEN NEGATIVE (NEGATIVE)
[2020-02-01 09:19] LABS: HEPATITIS C VIRUS ABY INDEX 0.3 INDEX (<0.8)
[2020-02-01 14:00] VITALS: BP 127/57
--- NOTE | 2020-02-01 14:42 | IPNPDOC ---
Date Seen The patient was seen on 02/01/20. Progress Note SUBJECTIVE: No acute complaints overnight. Back pain unchanged but not worsened, 4/10 pain. Denies chest pain, shortness of breath, n/v/d. OBJECTIVE: VITAL SIGNS: Please see below PHYSICAL EXAMINATION: CONSTITUTIONAL: No acute distress, resting comfortably, AAO x 3 EYES: PERRLA, EOM intact HENT, MOUTH: Normocephalic, atraumatic, moist mucous membranes NECK: SUPPLE, no JVD, no lymphadenopathy, no carotid bruit CV: Regular rate and rhythm, S1S2 normal, no murmurs/rubs/gallops RESPIRATORY: Clear to auscultation bilaterally, no rales/rhonchi/wheezes GI: BS positive in 4 quadrants, soft, nontender, nondistended, no rebound or guarding, no organomegaly : Deferred MUSCULOSKELETAL: LLE wound vac on left foot/ankle, swelling +1 edema of that foot- decreased with elevation of left foot. tender to touch. Decreased ROM of that left ankle joint. No cyanosis, clubbing INTEGUMENTARY: Intact, no rashes, no lesions, no erythema NEUROLOGIC: Cranial Nerves II-XII are intact, no focal deficits PSYCHIATRIC: Mood and affect are normal CURRENT MEDICATIONS: Please see below LABORATORY DATA: Please see below IMAGING: CT thoracic spine 01/27/20: There is mild straightening of the cervical lordosis. Multiple chronic appearing Schmorl's nodes are present. There is no evidence of acute fracture, subluxation or dislocation. There are no areas of severe spinal canal narrowing or abnormal contrast enhancement within the spinal canal. There is no CT evidence of diskitis/osteomyelitis. ASSESSMENT: 79 y/o M with complicated medical stay currently being treated for septic arthritis of left ankle, septic emboli to lumbar spine and spleen, JESSICA, chronic atrial fibrillation. PLAN: 1. Septic arthritis of the left ankle with methicillin-sensitive Staphylococcus aureus (MSSA) bacteremia. PRAVIN negative. First negative culture was 01/09/2020, 01/22/2020 again was negative culture. C/w cefazolin until 02/20/2020. ID following. 2. Thoracic back pain. CT thoracic spine above. ID recommending bone scan as o/p. C/w pain control. PT/OT. 3. Septic emboli to lumbar spine and spleen. C/w treatment under problem #1. 4. Chronic atrial fibrillation with pacemaker. Controlled. INR climbing slowly. C/w coumadin 5 mg PO daily, bridging with lovenox BID. If INR still not at goal by 02/02/20 will increase daily coumadin dose. Goal INR of 2 to 3. 5. Anemia of chronic disease with heme positive stool. Monitoring patient for worsening bleeding since he is currently back on anticoagulation. No s/s of active bleeding. 6. BPH. C/w tamsulosin. 7. Chronic neuropathy. C/w gabapentin. 8. GERD. C/w prilosec. 9. Physical deconditioning. PT/OT. 10. DVT px. Coumadin, enoxaparin BID. DISPOSITION: Plan is rehabilitation but there is currently some difficulty placing. Will f/u with discharge team. Called his Madhavi this AM at around 8 AM and left another message. VS, I&O, 24H, Fishbone Vital Signs/I&O Vital Signs Date Time Temp Pulse Resp B/P (MAP) Pulse Ox O2 Delivery O2 Flow Rate FiO2 02/01/20 08:37 15 02/01/20 06:00 98.7 68 139/73 (95) 96 Room Air 01/27/20 08:28 10.0 100 I&O- Last 24 Hours up to 6 AM 02/01/20 06:00 Intake Total 1390 ml Output Total 2275 ml Balance -885 ml Laboratory Data 24H LABS Laboratory Tests 2 02/01/20 05:41: Immature Granulocyte % (Auto) 2.0, Neutrophils (%) (Auto) 57.2, Lymphocytes (%) (Auto) 30.7, Monocytes (%) (Auto) 8.4H, Eosinophils (%) (Auto) 1.1, Basophils (%) (Auto) 0.6, Neutrophils # (Auto) 3.7, Lymphocytes # (Auto) 2.0, Monocytes # (Auto) 0.5, Eosinophils # (Auto) 0.1, Basophils # (Auto) 0.0, Nucleated Red Blood Cells % (auto) 0.0, Prothrombin Time 19.2H, Prothromb Time International Ratio 1.64, Anion Gap 7L, Glomerular Filtration Rate > 60.0, Calcium Level 9.3 CBC/BMP Laboratory Tests 02/01/20 05:41 Microbiology Microbiology 01/22/20 Blood Culture - Final, Complete NO GROWTH AFTER 5 DAYS 01/22/20 Blood Culture - Final, Complete NO GROWTH AFTER 5 DAYS Current Medications Current Medications Medications (Trade) Dose Ordered Sig/Mita Route PRN Reason Start Time Stop Time Status Last Admin Dose Admin Acetaminophen (Tylenol Tab) 650 mg Q4H PRN PO PAIN OR FEVER 01/04/20 03:30 01/07/20 08:07 DC 01/05/20 20:12 Acetaminophen (Tylenol Tab) 1,000 mg Q6HP PRN PO PAIN / FEVER 01/07/20 08:15 01/25/20 11:34 DC 01/22/20 14:31 Acetaminophen (Tylenol Tab) 1,000 mg Q8H PO 01/25/20 14:00 02/01/20 13:09 Acetaminophen (Tylenol Tab) 1,000 mg Q8HP PRN PO PAIN / FEVER 01/04/20 16:30 01/07/20 08:08 DC 01/06/20 02:04 Albuterol Sulfate (Proventil Neb) 2.5 mg Q2HP PRN NEB SOB/WHEEZING 01/05/20 17:00 01/07/20 21:48 Albuterol Sulfate (Proventil, Ventolin Hfa) 2 puff TID INH 01/05/20 09:00 01/06/20 08:46 DC 01/06/20 07:25 Albuterol/ Ipratropium (Duoneb (Ipr 0.5mg/Alb 2.5mg)) 3 ml RQ6H NEB 01/06/20 08:00 02/01/20 13:21 Bacitracin (Bacitracin Oint) apply to left ank... DAILY TOP 01/06/20 09:00 01/13/20 09:53 DC Budesonide (Pulmicort) 0.5 mg RBID INH 01/06/20 08:00 02/01/20 07:46 Cefazolin Sodium/ Dextrose 2 gm/IV Miscellaneous Supplies 50 ml @ 75 mls/hr Q8H IV 01/25/20 20:00 02/20/20 19:59 02/01/20 13:10 Cefazolin Sodium/ Dextrose 2 gm/IV Miscellaneous Supplies 50 ml @ 75 mls/hr Q8H IV 01/19/20 17:00 01/23/20 17:22 DC 01/23/20 16:15 Ceftaroline Fosamil 300 mg/ Dextrose 50 ml @ 50 mls/hr Q12H IV 01/04/20 06:00 01/04/20 03:58 DC Chlorthalidone (Hygroton, Chlorthalidone) 12.5 mg DAILY PO 01/04/20 09:00 01/04/20 05:35 DC Clindamycin Phosphate 900 mg/ IV Miscellaneous Supplies 50 ml @ 50 mls/hr Q8H IV 01/06/20 00:00 01/06/20 11:45 DC 01/06/20 08:54 Enoxaparin Sodium (Lovenox) 80 mg BID SC 01/28/20 09:00 02/01/20 08:35 Fentanyl Citrate (Sublimaze) 25 mcg Q5MP PRN IV PAIN LEVEL 5-10 01/07/20 03:30 01/08/20 12:37 DC Fentanyl Citrate (Sublimaze) 25 mcg Q5MP PRN IV PAIN LEVEL 5-10 01/10/20 16:00 01/10/20 17:00 DC 01/10/20 16:00 Fentanyl Citrate (Sublimaze) 25 mcg Q5MP PRN IV PAIN LEVEL 5-10 01/12/20 12:00 01/12/20 13:00 DC Fentanyl Citrate (Sublimaze) 25 mcg Q5MP PRN IV PAIN LEVEL 5-10 01/13/20 17:45 01/13/20 18:45 DC Fentanyl Citrate (Sublimaze) 25 mcg Q5MP PRN IV PAIN LEVEL 5-10 01/17/20 23:15 01/18/20 00:15 DC 01/17/20 23:18 Fentanyl Citrate (Sublimaze) 25 mcg Q5MP PRN IV PAIN LEVEL 5-10 01/23/20 15:15 01/23/20 16:15 DC Finasteride (Proscar) 5 mg DAILY PO 01/04/20 09:00 02/01/20 08:37 Folic Acid (Folic Acid) 1 mg DAILY PO 01/04/20 09:00 02/01/20 08:38 Folic Acid (Folic Acid) 1 mg DAILY PO 01/12/20 09:00 UNV Gabapentin (Neurontin) 300 mg BID PO 01/04/20 09:00 02/01/20 08:38 Heparin Sodium (Heparin (Flush)) 200 units ASDIRECTED PRN IV SEE LABEL COMMENTS 01/13/20 14:45 01/31/20 23:08 Heparin Sodium (Heparin (Flush)) 200 units PICC IV 01/13/20 18:00 02/01/20 05:29 Heparin Sodium (Porcine) (Heparin) ASDIRECTED PRN IV SEE LABEL COMMENTS 01/07/20 04:00 01/07/20 04:11 DC Heparin Sodium (Porcine) (Heparin) ASDIRECTED PRN IV SEE LABEL COMMENTS 01/07/20 04:00 01/13/20 18:08 DC 01/08/20 19:37 Heparin Sodium (Porcine) 87641 units/IV Miscellaneous Supplies 250 ml @ 15 mls/hr [id number] IV 01/07/20 03:58 01/13/20 18:08 DC 01/12/20 22:32 Heparin Sodium (Porcine) 23348 units/IV Miscellaneous Supplies 250 ml @ 0 mls/hr Q0M IV 01/07/20 03:58 01/07/20 04:10 DC Home Med (Med Rec Complete!) ASDIRECTED XX 01/04/20 02:15 01/04/20 02:12 DC Lactated Ringer's 1,000 ml @ 50 mls/hr Q20H IV 01/10/20 16:00 01/10/20 17:00 DC Lactated Ringer's 1,000 ml @ 75 mls/hr [id number] IV 01/12/20 12:00 01/12/20 13:00 DC Lactated Ringer's 1,000 ml @ 75 mls/hr [id number] IV 01/13/20 17:45 01/13/20 18:45 DC Lactated Ringer's 1,000 ml @ 75 mls/hr [id number] IV 01/23/20 15:15 01/23/20 16:15 DC 01/23/20 15:04 Lactated Ringer's 1,000 ml @ 100 mls/hr Q10H IV 01/07/20 03:30 01/07/20 14:50 DC Lidocaine (Lidoderm Patch) 2 patch DAILY TD 01/21/20 09:00 02/01/20 08:36 Lorazepam (Ativan) 2 mg ASDIRECTED PRN PO SEE PROTOCOL 01/04/20 05:15 01/06/20 13:39 DC Lorazepam (Ativan) 2 mg ASDIRECTED PRN PO SEE PROTOCOL 01/11/20 15:15 01/17/20 13:48 DC Meropenem 1 gm/IV Miscellaneous Supplies 50 ml @ 100 mls/hr Q8H IV 01/05/20 23:00 01/06/20 11:45 DC 01/06/20 07:50 Methylprednisolone (SOLUmedrol) 60 mg Q8H IV 01/07/20 22:00 01/07/20 23:11 DC 01/07/20 21:45 Metoclopramide HCl (REGLAN INJection) 10 mg Q6HP PRN IV NAUSEA OR VOMITING 01/13/20 17:45 01/13/20 18:45 DC Miscellaneous (Unresolved Clarification Entry) SEE LABEL COMMENTS DAILY XX 01/30/20 09:00 01/30/20 08:14 DC Multivitamins (Theragram-M) 1 tab DAILY PO 01/04/20 09:00 01/06/20 07:23 DC 01/05/20 08:09 Multivitamins (Theragram-M) 1 tab DAILY PO 01/11/20 09:00 02/01/20 08:38 Nafcillin Sodium 2 gm/Dextrose 50 ml @ 50 mls/hr Q4H IV 01/06/20 14:00 01/08/20 12:38 DC 01/08/20 05:53 Nafcillin Sodium 2 gm/Dextrose 50 ml @ 50 mls/hr Q4H IV 01/08/20 13:00 01/19/20 14:44 DC 01/19/20 13:04 Non-Formulary Medication ( See Comment Field Below ) REMOVE LIDODERM PATC... DAILY@21 XX 01/21/20 21:00 01/31/20 20:26 Non-Formulary Medication (Heparin Iv Rate Change Documentation ml/ Hr) ASDIRECTED XX 01/07/20 04:00 01/12/20 03:59 DC 01/09/20 02:37 Omeprazole (PriLOSEC) 20 mg DAILY PO 01/04/20 09:00 01/07/20 08:07 DC 01/06/20 10:08 Ondansetron HCl (ZOFRAN INJection) 4 mg Q4HP PRN IV NAUSEA OR VOMITING 01/07/20 03:30 01/07/20 17:52 DC Ondansetron HCl (ZOFRAN INJection) 4 mg Q4HP PRN IV NAUSEA OR VOMITING 01/10/20 16:00 01/10/20 17:00 DC Ondansetron HCl (ZOFRAN INJection) 4 mg Q4HP PRN IV NAUSEA OR VOMITING 01/13/20 17:45 01/13/20 18:45 DC Ondansetron HCl (ZOFRAN INJection) 4 mg Q4HP PRN IV NAUSEA OR VOMITING 01/17/20 23:15 01/18/20 00:15 DC Oxazepam (Serax) 10 mg Q4HP PRN PO withdrawal 01/11/20 19:00 01/17/20 13:48 DC Oxycodone HCl (OxyCONTIN) 10 mg BID PO 01/25/20 09:00 02/01/20 08:37 Oxycodone HCl (Roxicodone, Oxyir) 5 mg ASDIRECTED PRN PO PAIN LEVEL 1-4 01/07/20 03:30 01/07/20 17:09 DC 01/07/20 14:29 Oxycodone HCl (Roxicodone, Oxyir) 5 mg ASDIRECTED PRN PO PAIN LEVEL 1-4 01/10/20 16:00 01/10/20 17:00 DC Oxycodone HCl (Roxicodone, Oxyir) 5 mg Q4HP PRN PO PAIN 01/07/20 18:00 01/26/20 15:27 Oxycodone HCl (Roxicodone, Oxyir) 5 mg Q6HP PRN PO PAIN 01/07/20 17:15 Cancel Pantoprazole Sodium (Protonix) 40 mg BID PO 01/12/20 21:00 02/01/20 08:38 Pantoprazole Sodium (Protonix) 40 mg DAILY IV 01/07/20 09:00 01/12/20 15:14 DC 01/12/20 08:58 Piperacillin Sod/ Tazobactam Sod 3.375 gm/Dextrose 50 ml @ 50 mls/hr Q6H IV 01/23/20 19:00 01/25/20 17:38 DC 01/25/20 13:30 Polyethylene Glycol (Miralax) 1 pkt DAILY PO 01/21/20 09:00 01/23/20 17:18 DC 01/23/20 09:53 Polyethylene Glycol (Miralax) 1 pkt DAILYPRN PRN PO CONSTIPATION 01/27/20 11:45 01/27/20 13:15 Potassium Chloride 10 meq/ IV Miscellaneous Supplies 100 ml @ 100 mls/hr 0700,0800,0900,1000 IV 01/08/20 07:00 01/08/20 09:13 DC 01/08/20 06:58 Potassium Chloride/Sodium Chloride 1,000 ml @ 75 mls/hr [id number] IV 01/07/20 09:00 01/07/20 21:28 DC 01/07/20 08:26 Potassium Chloride (Micro-K Extencaps) 40 meq BID PO 01/15/20 09:00 02/01/20 08:37 Potassium Chloride (Micro-K Extencaps) 40 meq DAILY PO 01/14/20 09:00 01/15/20 07:43 DC 01/14/20 12:40 Senna/Docusate Sodium (Senokot S) 2 tab QHS PO 01/27/20 21:00 01/31/20 20:26 Simethicone (Mylicon) 80 mg TIDP PRN PO GAS PAIN 01/21/20 10:15 01/26/20 23:01 Simvastatin (Zocor) 20 mg QHS PO 01/03/20 21:00 01/06/20 07:23 DC 01/05/20 20:12 Sodium Chloride 1,000 ml @ 50 mls/hr Q20H IV 01/17/20 23:15 01/18/20 00:15 DC Sodium Chloride 1,000 ml @ 70 mls/hr [id number] IV 01/17/20 09:45 01/18/20 13:42 DC 01/18/20 12:41 Sodium Chloride 1,000 ml @ 75 mls/hr [id number] IV 01/06/20 08:45 01/07/20 08:08 DC 01/06/20 10:09 Sodium Chloride 1,000 ml @ 100 mls/hr Q10H IV 01/04/20 03:30 01/05/20 16:22 DC 01/05/20 09:15 Sodium Chloride 1,000 ml @ 100 mls/hr Q10H IV 01/30/20 08:00 01/31/20 03:59 DC 01/30/20 19:44 Sodium Chloride 1,000 ml @ 150 mls/hr Q6H40M IV 01/04/20 02:51 01/04/20 03:48 DC 01/04/20 03:01 Sodium Chloride (Saline Lock Flush) 2 ml ASDIRECTED PRN IV SEE LABEL COMMENTS 01/05/20 16:30 Cancel Sodium Chloride (Saline Lock Flush) 2 ml SLF IV 01/05/20 22:00 01/13/20 15:13 DC 01/13/20 05:59 Sodium Chloride (Saline Lock Flush) 10 ml ASDIRECTED PRN IV SEE LABEL COMMENTS 01/13/20 14:45 01/31/20 23:08 Sodium Chloride (Saline Lock Flush) 10 ml PICC IV 01/13/20 18:00 02/01/20 05:29 Spironolactone (Aldactone) 12.5 mg DAILY PO 01/04/20 09:00 01/04/20 05:35 DC Sucralfate (Carafate Suspension) 1 gm ACHS PO 01/12/20 17:30 02/01/20 13:09 Tamsulosin HCl (Flomax) 0.4 mg BID PO 01/04/20 09:00 02/01/20 08:38 Thiamine HCl (Thiamine HCl) 100 mg BID PO 01/04/20 05:13 01/06/20 21:01 DC 01/06/20 10:08 Thiamine HCl (Thiamine HCl) 100 mg BID PO 01/11/20 09:00 01/13/20 21:01 DC 01/13/20 21:45 Vancomycin HCl 750 mg/IV Miscellaneous Supplies 1 each/ Dextrose 275 ml @ 275 mls/hr Q12H IV 01/22/20 21:00 01/25/20 17:38 DC 01/25/20 09:55 Vancomycin HCl 1000 mg/IV Miscellaneous Supplies 1 each/ Dextrose 270 ml @ 270 mls/hr Q18H IV 01/06/20 06:00 01/06/20 11:45 DC 01/06/20 06:20 Vancomycin HCl 1000 mg/IV Miscellaneous Supplies 1 each/ Dextrose 270 ml @ 270 mls/hr Q24H IV 01/04/20 06:00 01/06/20 05:56 DC 01/05/20 05:24 Warfarin Sodium (Coumadin) 2 mg STAT STAT PO 01/31/20 18:38 01/31/20 18:39 UNV Warfarin Sodium (Coumadin) 5 mg DAILY@17 PO 01/13/20 18:30 01/14/20 10:35 DC 01/13/20 18:50 Warfarin Sodium (Coumadin) 5 mg DAILY@17 PO 01/27/20 17:00 01/31/20 18:39 DC 01/31/20 17:56 Warfarin Sodium (Coumadin) 5 mg DAILY@17 PO 02/01/20 17:00 Warfarin Sodium (Coumadin) 5 mg DAILY@17 PO 01/18/20 17:00 01/21/20 17:51 DC 01/21/20 17:49 Warfarin Sodium (Coumadin) 5 mg DAILY@1700 PO 01/03/20 17:00 01/04/20 05:48 DC Warfarin Sodium (Coumadin) 6 mg DAILY@17 PO 02/01/20 17:00 01/31/20 18:45 DC Warfarin Sodium (Coumadin) 7.5 mg DAILY@17 PO 01/14/20 17:00 01/16/20 17:00 DC 01/15/20 17:02 Allergies Coded Allergies: No Known Allergies (Unverified , 12/02/18) Brianna Fraser MD Feb 01, 2020 14:42
[2020-02-01] MEDS ORDERED: WARFARIN SOD 5MG TAB PO SCH ×2 (17:00)
[2020-02-01] MEDS: SODIUM CHLORIDE 0.9% INJ 10 ML SYR IV PRN (20:30)
[2020-02-01] MEDS: **NOTE PATIENT COMMENT** MISC XX SCH (21:00)
[2020-02-01 22:00] VITALS: BP 128/58
[2020-02-01] MEDS: SENOKOT S TAB PO SCH (22:11)
[2020-02-02] MEDS: IPRATROPIUM 0.5MG/ALBUTEROL 2.5MG INH SOL UD 3ML (DUONEB) NEB SCH ×2 (01:14→07:10)
[2020-02-02] MEDS: ceFAZolin SOD 2 GM in IV 1 EA IV SCH ×2 (04:23→12:31)
[2020-02-02] MEDS: ACETAMINOPHEN 500 MG TAB PO SCH (05:30)
[2020-02-02] MEDS: SODIUM CHLORIDE 0.9% INJ 10 ML SYR IV SCH (05:31)
[2020-02-02 06:00] VITALS: BP 143/66
[2020-02-02 06:20] LABS: BASO % 0.7 % (0.0-1.0); EOS # 0.1 10^3/uL (0.0-0.5); EOS % 1.1 % (0.0-3.0); HEMATOCRIT 28.1 % (42.0-52.0); LYMPH # 2.1 10^3/uL (1.5-5.0); MEAN CORPUSCULAR HEMOGLOBIN 26.1 pg (27.0-33.0); MEAN CORPUSCULAR VOLUME 81.4 fl (80.0-96.0); MONO # 0.4 10^3/uL (0.0-0.8); MONO % 7.8 % (0.0-5.0); NEUTROPHILS # 2.8 10^3/uL (1.5-8.5); NEUTROPHILS % 50.4 % (36.0-66.0); PLATELET COUNT, AUTOMATED 282 10^3/uL (150-450); RED BLOOD COUNT 3.45 10^6/uL (4.30-6.10); WHITE BLOOD COUNT 5.5 10^3/uL (4.0-10.0)
[2020-02-02 06:35] LABS: INR 1.68; PROTHROMBIN TIME 19.5 SECONDS (11.8-14.0)
[2020-02-02 06:40] LABS: BLOOD UREA NITROGEN 12 MG/DL (7-18); CALCIUM LEVEL 9.1 MG/DL (8.8-10.2); CARBON DIOXIDE LEVEL 25 MEQ/L (21-32); CHLORIDE LEVEL 107 MEQ/L (98-107); CREATININE FOR GFR 1.18 MG/DL (0.70-1.30); GLOMERULAR FILTRATION RATE > 60.0 (>42); GLUCOSE, FASTING 103 MG/DL (70-100); POTASSIUM SERUM 4.7 MEQ/L (3.5-5.1); SODIUM LEVEL 140 MEQ/L (136-145)
[2020-02-02] MEDS: BUDESONIDE 0.5 MG/2 ML INHALATION SUSPENSION INH SCH (07:10)
[2020-02-02] MEDS: PANTOPRAZOLE 40MG TAB (PROTONIX) PO SCH (09:20)
[2020-02-02] MEDS: FINASTERIDE 5 MG TAB PO SCH (09:20)
[2020-02-02] MEDS: GABAPENTIN 300 MG CAP PO SCH (09:20)
[2020-02-02] MEDS: FOLIC ACID 1 MG TAB PO SCH (09:20)
[2020-02-02] MEDS: TAMSULOSIN 0.4 MG CAP PO SCH (09:21)
[2020-02-02] MEDS: POTASSIUM CHLORIDE 10 MEQ SR TABLET PO SCH (09:21)
[2020-02-02] MEDS: SUCRALFATE SUSP 1GM/10ML UD PO SCH ×2 (09:21→12:31)
[2020-02-02] MEDS: MULTIVITAMINS/MINERALS THERAP 1 TAB PO SCH (09:21)
[2020-02-02] MEDS: ENOXAPARIN 80MG/0.8ML SYRINGE (J1650 PER 10MG) SC SCH (09:22)
[2020-02-02] MEDS: LIDOCAINE 5% (LIDODERM) PATCH TD SCH (09:22)
[2020-02-02] MEDS: oxyCODONE 10 MG CR TAB PO SCH (09:22)
[2020-02-02] MEDS ORDERED: SIME80TA PO (10:49)
[2020-02-02] MEDS ORDERED: PANT40TA3 PO (10:49)
[2020-02-02] MEDS ORDERED: SENN-52 PO (10:49)
[2020-02-02] MEDS ORDERED: BUDE0.5S6 INH (10:49)
[2020-02-02] MEDS ORDERED: ACET-683 PO (10:49)
[2020-02-02] MEDS ORDERED: JANT7.5T PO (10:49)
[2020-02-02] MEDS ORDERED: PEG1POW PO (10:49)
[2020-02-02] MEDS ORDERED: GABA-843 PO (10:49)
[2020-02-02] MEDS ORDERED: FINA5TAB2 PO (10:49)
[2020-02-02] MEDS ORDERED: LOVE0.6I2 SC (10:49)
[2020-02-02] MEDS ORDERED: FLOM0.4C39 PO (10:49)
[2020-02-02] MEDS ORDERED: KLOR10TA76 PO (10:49)
[2020-02-02] MEDS ORDERED: IPRA0.00 NEB (10:49)
[2020-02-02] MEDS ORDERED: JANT3TAB PO (10:49)
[2020-02-02] MEDS ORDERED: OXYC-517 PO (10:49)
[2020-02-02] MEDS ORDERED: FOLI1TAB11 PO (10:49)
[2020-02-02] MEDS ORDERED: LIDO5TD TD (10:49)
[2020-02-02] MEDS ORDERED: ALB2.5NEB NEB (10:49)
[2020-02-02] MEDS ORDERED: VITMTA PO (10:49)
[2020-02-02] MEDS ORDERED: HEPA100I9 IV ×2 (10:49)
[2020-02-02] MEDS ORDERED: SLF IV (10:49)
[2020-02-02] MEDS ORDERED: SUCR1ORA PO (10:49)
[2020-02-02] MEDS ORDERED: OXYC-403 PO (10:49)
[2020-02-02] MEDS ORDERED: WARFARIN SOD 7.5MG TAB PO ONE (17:00)
--- NOTE | 2020-02-02 17:45 | DS.PDOC ---
Discharge Summary General Date of Admission January 04, 2020 at 03:29 Date of Discharge 02/02/20 Attending Physician: Brianna Fraser MD Specialist/Consultants Involve: A Discharge Summary HISTORY OF PRESENT ILLNESS: Neo Ayala is a 79-year-old male who presented to the emergency department today due to weakness and altered mental status noticed by his at home. About a week ago he woke up with a swollen, red left ankle and went to urgent care. He was diagnosed with gout and started on prednisone. He did not have a diagnosis of gout prior to this. He noticed some improvement on the prednisone 20 mg daily for 5 days. Over the course of the following days, he began to notice generalized weakness. He states that he was unable to walk and he began to use a walker that he had his house to help him get around. This progressed to the point where he would get so weak that he was slowly lowered himself to the ground and would not be able to get himself back up. Over the course of the past week. He is also had a cough which has been nonproductive. He has a history of peripheral neuropathy in bilateral feet and hands, although he is unsure of the exact etiology. He states he has seen 2 neurologists who have worked him up and have not been able to give him a definitive reason. He takes gabapentin for this and has not noticed any recent changes or worsening of his neuropathy. Patient was admitted for septic ankle/arthritis with possible septic polyarthritis involving wrist also, sepsis. HOSPITAL COURSE: After admission, patient was taken to OR and cultures showed septic arthritis of both the left ankle, left wrist. Patient underwent incision, drainage and washout of the left ankle, left wrist, had been on IV vancomycin and Zosyn, then IV nafcillin with persistent fever, found to have methicillin-sensitive Staphylococcus aureus (MSSA) bacteremia and ruled out for endocarditis with a negative transesophageal echocardiogram. Due to recurrent fevers, patient was switched back to IV vancomycin and Zosyn but blood culture on 01/22/2020 remained negative and was changed back to IV cefazolin 2 grams every 8 hours. However, patient did complain of lower back pain, left upper quadrant pain, found to have septic emboli in the spleen, as well as septic emboli in the lumbar spine. CT of the thoracic spine was negative for any septic emboli. Patient could not undergo MRI of the lumbar spine due to history of pacemaker placement. Currently, IV antibiotics are planned to continue until 02/20/2020, to complete a full course and to have biweekly CRP and sedimentation rate done. He had resolved acute kidney injury likely 2/2 to sepsis. Chronic atrial fibrillation was stable. He has chronic anemia which was watched with heme + stool and since he is back on coumadin, bridging with heparin. INR was subtherapeutic and dosage needed to be adjusted. Other chronic issues such as BPH, chronic neuropathy and GERD remained stable. On 02/02/20 patient was discharged to [facility] due to patient requiring additional rehab, IV antibiotics, wound care with wound vac on left ankle, skilled services. At discharge, patient denied chest pain, n/v/d, fevers, chills. He has follow up with orthopedic surgery, wound care and infectious disease after discharge. PAST MEDICAL HISTORY: 1. Atrial fibrillation, status post pacemaker, on warfarin 2. Chronic diastolic heart failure. 3. Hypertension. 4. Coronary artery disease. 5. Hyperlipidemia. 6. Osteoarthritis in the hands and spine. 7. Peripheral neuropathy of bilateral feet and hands. 8. BRYNN, not using CPAP 9. BPH. PAST SURGICAL HISTORY: 1. Pacemaker placed 11/2018 2. Cataract extraction 3. Tarsal tunnel release - L 4. Dermoid cyst removal SOCIAL HISTORY: Former social smoker. Heavy alcohol use, drinks beer 6/night when alone, more when with friends. States he has not had a drink for the past 5 days. No history of illicit/IV drug use. FAMILY HISTORY: Father had CAD, diabetes, peripheral neuropathy. Mother has hx of CVA. Sister with peripheral neuropathy. DISCHARGE MEDICATIONS: Please see below. PHYSICAL EXAMINATION: CONSTITUTIONAL: No acute distress, resting comfortably, AAO x 3 EYES: PERRLA, EOM intact HENT, MOUTH: Normocephalic, atraumatic, moist mucous membranes NECK: SUPPLE, no JVD, no lymphadenopathy, no carotid bruit CV: Regular rate and rhythm, S1S2 normal, no murmurs/rubs/gallops RESPIRATORY: Clear to auscultation bilaterally, no rales/rhonchi/wheezes GI: BS positive in 4 quadrants, soft, nontender, nondistended, no rebound or guarding, no organomegaly : Deferred MUSCULOSKELETAL: LLE wound vac on left foot/ankle, swelling +1 edema of that foot- decreased with elevation of left foot. tender to touch. Decreased ROM of that left ankle joint. No cyanosis, clubbing INTEGUMENTARY: Intact, no rashes, no lesions, no erythema NEUROLOGIC: Cranial Nerves II-XII are intact, no focal deficits PSYCHIATRIC: Mood and affect are normal CURRENT MEDICATIONS: Please see below LABORATORY DATA: Please see below IMAGING: Patient has been here for almost 1 month. Please see under "Imaging"for all transcriptions. Below is the most recent imaging: CT thoracic spine 01/27/20: There is mild straightening of the cervical lordosis. Multiple chronic appearing Schmorl's nodes are present. There is no evidence of acute fracture, sublu xation or dislocation. There are no areas of severe spinal canal narrowing or abnormal contrast enhancement within the spinal canal. There is no CT evidence of diskitis/osteomyelitis. ASSESSMENT: 79 y/o M with complicated medical stay currently being treated for septic arthritis of left ankle, septic emboli to lumbar spine and spleen, JESSICA, chronic atrial fibrillation. PLAN: 1. Septic arthritis of the left ankle with methicillin-sensitive Staphylococcus aureus (MSSA) bacteremia. PRAVIN negative. First negative culture was 01/09/2020, 01/22/2020 again was negative culture. C/w cefazolin until 02/20/2020. ID following and will want weekly labs sent to Dr. Ulrich's office. 2. Thoracic back pain. CT thoracic spine above. ID recommending bone scan as o/p. C/w pain control. PT/OT. 3. Septic emboli to lumbar spine and spleen. C/w treatment under problem #1. 4. Chronic atrial fibrillation with pacemaker. Controlled. INR climbing slowly. Giving higher dose of 7.5 mg today of coumadin then increasing daily dose of coumadin to 6 mg PO daily, bridging with lovenox BID until goal INR of 2-3 achieved. Will need Q48 hr INR after discharge to closely follow. Monitor for bleeding. 5. Anemia of chronic disease with heme positive stool. Monitoring patient for worsening bleeding since he is currently back on anticoagulation. No s/s of active bleeding. 6. BPH. C/w tamsulosin. 7. Chronic neuropathy. C/w gabapentin. 8. GERD. C/w prilosec. 9. Physical deconditioning. PT/OT. 10. DVT px. Coumadin, enoxaparin BID. DISPOSITION: Discharging to [facility] today. F/u with ID, orthopedic surgery after discharge. TIME SPENT ON DISCHARGE: Greater than 30 minutes. Vital Signs/I&Os Vital Signs Date Time Temp Pulse Resp B/P (MAP) Pulse Ox O2 Delivery O2 Flow Rate FiO2 02/02/20 09:22 16 02/02/20 06:00 96.2 73 143/66 (91) 97 Room Air 01/27/20 08:28 10.0 100 I&O- Last 24 Hours up to 6 AM 02/02/20 05:59 Intake Total 760 ml Output Total 1825 ml Balance -1065 ml Laboratory Data Labs 24H Laboratory Tests 2 02/02/20 05:46: Immature Granulocyte % (Auto) 2.0, Neutrophils (%) (Auto) 50.4, Lymphocytes (%) (Auto) 38.0, Monocytes (%) (Auto) 7.8H, Eosinophils (%) (Auto) 1.1, Basophils (%) (Auto) 0.7, Neutrophils # (Auto) 2.8, Lymphocytes # (Auto) 2.1, Monocytes # (Auto) 0.4, Eosinophils # (Auto) 0.1, Basophils # (Auto) 0.0, Nucleated Red Blood Cells % (auto) 0.0, Prothrombin Time 19.5H, Prothromb Time International Ratio 1.68, Anion Gap 8, Glomerular Filtration Rate > 60.0, Calcium Level 9.1 CBC/BMP Laboratory Tests 02/02/20 05:46 Microbiology Microbiology 02/01/20 Respiratory Virus Panel (PCR) (HILARY) - Final, Complete Discharge Medications Scheduled Acetaminophen (Acetaminophen) 500 Mg Tablet, 1,000 MG PO Q8H Budesonide (Budesonide) 0.5 Mg/2 Ml Ampul.neb, 0.5 MG INH RBID Enoxaparin Sodium (Lovenox) 80 Mg/0.8 Ml Syringe, 80 MG SC BID Discontinue when INR 2-3 (Goal INR) for 2 days Finasteride (Finasteride) 5 Mg Tablet, 5 MG PO DAILY Folic Acid (Folic Acid) 1 Mg Tablet, 1 MG PO DAILY Gabapentin (Gabapentin) 300 Mg Capsule, 300 MG PO BID Heparin Sodium,Porcine/Pf (Heparin 300 Unit/3 ml (100/ml)) 300 Unit/3 Ml Syringe, 200 UNITS IV PICC Give per protocol Ipratropium/Albuterol Sulfate (Iprat-Albut 0.5-3(2.5) mg/3 ml) 3 Ml Ampul.neb, 3 ML NEB RQ6H Lidocaine (Lidocaine) 5% Adh..patch, 2 PATCH TD DAILY Multivitamins (Thera M Plus Tablet) 1 Each Tablet, 1 TAB PO DAILY Oxycodone HCl (Oxycodone HCl ER) 10 Mg Tab.er.12h, 10 MG PO BID Pantoprazole Sodium (Pantoprazole Sodium) 40 Mg Tablet.dr, 40 MG PO BID Potassium Chloride (Klor-Con M10) 10 Meq Tab.er.prt, 40 MEQ PO BID Sennosides/Docusate Sodium (Senna Plus Tablet) 1 Each Tablet, 2 TAB PO QHS Sucralfate (Sucralfate) 1 Gm/10 Ml Oral.susp, 1 GM PO ACHS Tamsulosin HCl (Flomax) 0.4 Mg Capsule, 0.4 MG PO BID Warfarin Sodium (Jantoven) 3 Mg Tablet, 6 MG PO DAILY@17 Start 02/03/20 at 17:00 Warfarin Sodium (Jantoven) 7.5 Mg Tablet, 7.5 MG PO ONCE@17 To recieve only once on 02/02/20 at 17:00 Scheduled PRN Albuterol Sulfate (Albuterol Sulfate) 2.5 Mg/0.5 Ml Vial.neb, 2.5 MG NEB Q2HP [place] N for SOB/WHEEZING Heparin Sodium,Porcine/Pf (Heparin 300 Unit/3 ml (100/ml)) 300 Unit/3 Ml Syringe, 200 UNITS IV ASDIRECTED PRN for SEE LABEL COMMENTS Give per protocol Oxycodone HCl (Oxycodone HCl) 5 Mg Tablet, 5 MG PO Q6HP PRN for PAIN Polyethylene Glycol 3350 (Polyethylene Glycol 3350) 17 Gm Powd.pack, 1 PKT PO DAILYPRN PRN for CONSTIPATION Saline Lock Flush (Sodium Chloride) 10 Ml Vial, 10 ML IV ASDIRECTED PRN for SEE LABEL COMMENTS Give per protocol Simethicone (Simethicone) 80 Mg Tab.chew, 80 MG PO TIDP PRN for GAS PAIN Allergies Coded Allergies: No Known Allergies (Unverified , 12/02/18) Brianna Fraser MD Feb 02, 2020 17:45
[2020-02-03] MEDS ORDERED: WARFARIN SOD 3MG TAB PO SCH (17:00)
== END 2020-02-02 14:08 | DRG 853 ==
LOC: M ED 00:19 → M ED INP 03:29 → ENRESERV 04:23 → M PCU 04:58 → M MSPAV 01-11 13:34
PROVIDERS: ADMIT Internal Medicine; ATTEND Internal Medicine
PROC: 30233K1 Transfusion of Nonautologous Frozen Plasma into Peripheral Vein, Percutaneous Approach (ICD-10-PCS; 2020-01-06)
PROC: 0SBJ0ZZ Excision of Left Tarsal Joint, Open Approach (ICD-10-PCS; 2020-01-07)
PROC: 0RBP0ZZ Excision of Left Wrist Joint, Open Approach (ICD-10-PCS; 2020-01-07)
PROC: 0XBK0ZZ Excision of Left Hand, Open Approach (ICD-10-PCS; 2020-01-07)
PROC: 0LD Tendons, Extraction (ICD-10-PCS; 2020-01-07)
PROC: 0HBLXZZ Excision of Left Lower Leg Skin, External Approach (ICD-10-PCS; 2020-01-07)
PROC: 0Y9L0ZZ Drainage of Left Ankle Region, Open Approach (ICD-10-PCS; 2020-01-07)
PROC: 0JBR0ZZ Excision of Left Foot Subcutaneous Tissue and Fascia, Open Approach (ICD-10-PCS; principal; 2020-01-10 13:00)
PROC: 0SBJ0ZZ Excision of Left Tarsal Joint, Open Approach (ICD-10-PCS; 2020-01-12)
PROC: 0Y9L0ZZ Drainage of Left Ankle Region, Open Approach (ICD-10-PCS; 2020-01-12)
PROC: 02HV33Z Insertion of Infusion Device into Superior Vena Cava, Percutaneous Approach (ICD-10-PCS; 2020-01-13)
PROC: B246ZZ4 Ultrasonography of Right and Left Heart, Transesophageal (ICD-10-PCS; 2020-01-13)
PROC: 0SBJ0ZZ Excision of Left Tarsal Joint, Open Approach (ICD-10-PCS; 2020-01-17)
PROC: 0LBP0ZZ Excision of Left Lower Leg Tendon, Open Approach (ICD-10-PCS; 2020-01-17)
PROC: 0SBJ0ZZ Excision of Left Tarsal Joint, Open Approach (ICD-10-PCS; 2020-01-23)
PROC: 0JBR0ZZ Excision of Left Foot Subcutaneous Tissue and Fascia, Open Approach (ICD-10-PCS; 2020-01-23)
PROC: 30233N1 Transfusion of Nonautologous Red Blood Cells into Peripheral Vein, Percutaneous Approach (ICD-10-PCS; 2020-01-23)
DX: A41.01 Sepsis due to Methicillin susceptible Staphylococcus aureus (principal); G93.41 Metabolic encephalopathy; G06.1 Intraspinal abscess and granuloma; E87.1 Hypo-osmolality and hyponatremia; I50.32 Chronic diastolic (congestive) heart failure; L03.116 Cellulitis of left lower limb; N17.9 Acute kidney failure, unspecified; L03.114 Cellulitis of left upper limb; M00.872 Arthritis due to other bacteria, left ankle and foot; I48.20 Chronic atrial fibrillation, unspecified; I74.8 Embolism and thrombosis of other arteries; M46.35 Infection of intervertebral disc (pyogenic), thoracolumbar region; I76 Septic arterial embolism; J44.9 Chronic obstructive pulmonary disease, unspecified; Z95.0 Presence of cardiac pacemaker; D63.8 Anemia in other chronic diseases classified elsewhere; N40.0 Benign prostatic hyperplasia without lower urinary tract symptoms; K21.9 Gastro-esophageal reflux disease without esophagitis; G62.9 Polyneuropathy, unspecified; Z79.899 Other long term (current) drug therapy; I25.10 Atherosclerotic heart disease of native coronary artery without angina pectoris; G47.33 Obstructive sleep apnea (adult) (pediatric); E78.5 Hyperlipidemia, unspecified; Z79.01 Long term (current) use of anticoagulants; F10.10 Alcohol abuse, uncomplicated; Z87.891 Personal history of nicotine dependence; E86.0 Dehydration; D73.5 Infarction of spleen

== ENCOUNTER → 2021-08-21 | Outpatient (CLI) | payer MEDICARE ==
[~2021-08-21] MED LIST changes: +ACET-683 PO; +ALB2.5NEB NEB; +BUDE0.5S6 INH; +CHLO125TA PO; +FOLI1TAB11 PO; +GABA-282 PO; -GABA-843 PO; +HEPA100I9 IV; +IPRA0.00 NEB; +JANT3TAB PO; +JANT7.5T PO; +LIDO5TD TD; -LISI-542 PO; +LISI-898 PO; +LOVE0.6I2 SC; +OMEP-218 PO; +OXYC-403 PO; +OXYC-517 PO; +PANT40TA29 PO; +POLY17PO18 PO; +POTA-136 PO; +PRED20TA PO; +SENN-52 PO; +SIME80CH5 PO; +SLF IV; +SUCR1ORA PO; +VITMTA PO; -WARFARIN SOD 5MG TAB PO SCH
--- NOTE | 2021-08-22 07:32 | REP ---
INDICATION: CHRONIC DIASTOLIC CONGESTIVE HEART FAILURE COMPARISON: 01/23/2020 TECHNIQUE: PA and lateral. FINDINGS: The mediastinum and cardiac silhouette are normal. Single lead pacemaker in satisfactory position. The lung suazo are clear and without acute consolidation, effusion, or pneumothorax. The skeletal structures are intact and normal. IMPRESSION: No acute cardiopulmonary process. <Electronically signed by Betito Meehan > 08/22/21 0728
== END ==
LOC: M WUC 13:48
PROVIDERS: ATTEND Physician Assistant
DX: I50.32 Chronic diastolic (congestive) heart failure (principal)

== ENCOUNTER → 2022-07-23 | Outpatient (CLI) | payer OTHER, MEDICARE ==
[~2022-07-23] MED LIST changes: -LISI-898 PO; +LISI5TAB11 PO; +OMEP-173 PO; -OMEP-218 PO
== END ==
LOC: M LABSMTC 10:31
PROVIDERS: ATTEND Anesthesiology
DX: Z01.818 Encounter for other preprocedural examination (principal); Z20.822 Contact with and (suspected) exposure to COVID-19

== ENCOUNTER → 2022-09-04 | Outpatient (CLI) | payer OTHER ==
[~2022-09-04] MED LIST changes: +CALC-190 PO; +COLA100C5 PO; +CVS2500C PO; +ELIQ5TAB PO; +LOSA25TA13; +NEUR300C PO; +OMEGCAP9 PO; +OMEP-173; +SIMV20TA22; +SPIR-10
== END ==
LOC: M LABSMTC 10:40
PROVIDERS: ATTEND Anesthesiology
DX: Z01.812 Encounter for preprocedural laboratory examination (principal); Z11.52 Encounter for screening for COVID-19

== ENCOUNTER 2022-09-09 10:03 | Day surgery (SDC) | payer OTHER ==
[~2022-09-09] VITALS: Ht 167.6 cm; Wt 76.7 kg
[~2022-09-09 10:03] MED LIST changes: +NS 1,000 ML IV ONE
[2022-09-09] MEDS ORDERED: LIDOCAINE 2% 100MG/5ML SDV (FOR ANES.) As Ordered ONE (11:31)
[2022-09-09] MEDS ORDERED: propofoL 200 MG/20 ML VIAL As Ordered ONE (11:31)
[2022-09-09 12:35] VITALS: BP 116/57
== END 2022-09-09 12:44 | disposition home or self-care (01) ==
LOC: M OPP 10:03
PROVIDERS: ATTEND Internal Medicine Gastroenterology
DX: Z12.11 Encounter for screening for malignant neoplasm of colon (principal); Z86.010 Personal history of colon polyps; K64.4 Residual hemorrhoidal skin tags; K64.8 Other hemorrhoids; K29.70 Gastritis, unspecified, without bleeding; K31.A11 Gastric intestinal metaplasia without dysplasia, involving the antrum; K21.00 Gastro-esophageal reflux disease with esophagitis, without bleeding; K22.70 Barrett's esophagus without dysplasia; Z79.01 Long term (current) use of anticoagulants; Z79.02 Long term (current) use of antithrombotics/antiplatelets; Z79.899 Other long term (current) drug therapy; I11.0 Hypertensive heart disease with heart failure; I48.21 Permanent atrial fibrillation; I50.9 Heart failure, unspecified; I34.0 Nonrheumatic mitral (valve) insufficiency

== ENCOUNTER → 2022-12-22 | Outpatient (REF) | payer OTHER ==
[~2022-12-22] MED LIST changes: -HEPA100I9 IV; +HEPAINJ4 IV; -NS 1,000 ML IV ONE; -OXYC-403 PO; +OXYC-673 PO
== END ==
LOC: M LAB REF 16:28
PROVIDERS: ATTEND Physician Assistant Medical
DX: R31.9 Hematuria, unspecified (principal)

== ENCOUNTER → 2024-09-01 | Outpatient (CLI) | payer MEDICARE ==
[~2024-09-01] MED LIST changes: +GABA-1172 PO; -GABA-282 PO
== END ==
LOC: M CARPUL 10:07
PROVIDERS: ATTEND Registered Nurse
DX: R06.02 Shortness of breath (principal); I35.1 Nonrheumatic aortic (valve) insufficiency; I50.32 Chronic diastolic (congestive) heart failure

== ENCOUNTER 2025-06-05 08:25 | Day surgery (SDC) | payer MEDICARE, OTHER ==
[~2025-06-05] VITALS: Ht 167.6 cm; Wt 81.1 kg
[~2025-06-05 08:25] MED LIST changes: -FLOM0.4C39 PO; +TAMS-18 PO
[2025-06-05] MEDS ORDERED: LIDOCAINE 2% 100 MG/5 ML SDV (FOR ANES.) As Ordered ONE (09:40)
[2025-06-05 09:59] VITALS: TEMP 98.4
[2025-06-05 10:20] VITALS: BP 118/55; O2SAT 98
== END 2025-06-05 10:34 | disposition home or self-care (01) ==
LOC: M OPP 08:25
PROVIDERS: ATTEND Internal Medicine Gastroenterology
DX: K22.89 Other specified disease of esophagus (principal); K22.70 Barrett's esophagus without dysplasia; I48.91 Unspecified atrial fibrillation; Z95.0 Presence of cardiac pacemaker; G47.30 Sleep apnea, unspecified; Z79.01 Long term (current) use of anticoagulants; Z79.899 Other long term (current) drug therapy
CPT/HCPCS: 43239; 88305; J3010

== ENCOUNTER → 2025-06-14 | Outpatient (REF) | payer MEDICARE ==
[~2025-06-14] MED LIST changes: +FERR325T19; +LASI40TA9 PO; +METO1TAB32
[2025-06-14 18:23] LABS: IRON (FE) 9.0 UG/DL (65-175)
[2025-06-14 18:25] LABS: PERCENT SATURATION 2.1 % (19.7-50.0)
== END ==
LOC: M LAB REF 17:24
PROVIDERS: ATTEND Internal Medicine
DX: D64.9 Anemia, unspecified (principal)

== ENCOUNTER 2025-06-15 07:25 | Outpatient (CLI) | payer MEDICARE ==
[~2025-06-15] VITALS: Ht 167.6 cm; Wt 82.0 kg
[~2025-06-15 07:25] MED LIST changes: -FERR325T19; -LASI40TA9 PO; -METO1TAB32
[2025-06-15 07:35] VITALS: BP 85/40; O2SAT 100
[2025-06-15 08:15] VITALS: BP 116/59; TEMP 98.2; O2SAT 97
[2025-06-15 09:15] VITALS: BP 133/58; TEMP 98; O2SAT 98
[2025-06-15 10:06] VITALS: BP 133/61; TEMP 98.6; O2SAT 97
[2025-06-15 10:25] VITALS: BP 124/59; TEMP 98.2; O2SAT 97
[2025-06-15 12:30] VITALS: BP 137/65; TEMP 98.3; O2SAT 99
== END 2025-06-15 12:30 ==
LOC: M INFU 07:25
PROVIDERS: ATTEND Internal Medicine
DX: D64.9 Anemia, unspecified (principal)
CPT/HCPCS: 36430; P9016

== ENCOUNTER 2025-06-24 13:47 | Emergency (ER) | payer MEDICARE ==
[~2025-06-24] VITALS: Ht 170.2 cm; Wt 83.8 kg
[2025-06-24] MEDS ORDERED: FERR325T19 (14:06)
[2025-06-24] MEDS ORDERED: METO1TAB32 (14:06)
[2025-06-24 16:56] LABS: BASO # 0.1 10^3/uL (0.0-0.2); BASO % 1.2 % (0.0-1.0); EOS # 0.1 10^3/uL (0.0-0.5); EOS % 1.8 % (0.0-3.0); LYMPH # 0.9 10^3/uL (1.5-5.0); LYMPH % 17.9 % (24.0-44.0); MONO # 0.5 10^3/uL (0.0-0.8); MONO % 9.4 % (2.0-8.0); NEUTROPHILS # 3.5 10^3/uL (1.5-8.5); NEUTROPHILS % 69.3 % (36.0-66.0); PLATELET COUNT, AUTOMATED 195 10^3/uL (150-450)
[2025-06-24 17:18] LABS: ALT/SGPT 22.0 U/L (7.0-40); AST/SGOT 21.0 U/L (<34); CALCIUM LEVEL 8.3 MG/DL (8.3-10.6); CARBON DIOXIDE LEVEL 26.0 MMOL/L (20-31); CHLORIDE LEVEL 103.0 MMOL/L (98-107); CREATININE FOR GFR 1.43 MG/DL (0.70-1.30); GLOMERULAR FILTRATION RATE 48.3 (>35); POTASSIUM SERUM 4.1 MMOL/L (3.5-5.1); SODIUM LEVEL 139.0 MMOL/L (136-145)
[2025-06-24] MEDS: IPRATROPIUM 0.5 MG/ALBUTEROL 2.5 MG INH SOL UD 3 ML NEB ONE (17:19)
[2025-06-24 18:08] VITALS: BP 149/68
[2025-06-24] MEDS: FUROSEMIDE 100 MG/10 ML VIAL IV ONE (18:08)
[2025-06-24] MEDS ORDERED: LASI40TA9 PO (19:28)
[2025-06-24 19:29] VITALS: BP 132/64; TEMP 97.5; O2SAT 96
== END 2025-06-24 19:43 | disposition home or self-care (01) ==
LOC: M ED 13:47
DX: I50.9 Heart failure, unspecified (principal); R22.41 Localized swelling, mass and lump, right lower limb; G47.33 Obstructive sleep apnea (adult) (pediatric); K21.9 Gastro-esophageal reflux disease without esophagitis; I10 Essential (primary) hypertension; Z79.01 Long term (current) use of anticoagulants; Z79.899 Other long term (current) drug therapy
CPT/HCPCS: 71046; 73610; 73630; 80053; 83880; 85025; 87486; 87581; 87633; 87798; 93005; 93971; 94640; 96374; 99284; J1938